=== PATIENT | male | born 1955 ===

== ENCOUNTER 2020-12-28 15:24 | Inpatient (IN) | payer MEDICARE, MEDICAID, SELFPAY ==
[2020-12-28] VITALS (12 sets, daily range): BP systolic 86–117; BP diastolic 37–85; PULSE 69–88; RESP 15–22; TEMP 36.5–37.9; O2SAT 86–100; BMI 27.2; BMI 26.4
--- NOTE | ~2020-12-28 | CT_ITS ---
EXAMINATION: CT CHEST, ABDOMEN AND PELVIS WITHOUT CONTRAST CLINICAL INFORMATION: Reason for Exam Sepsis rule out source for infection COMPARISON: No pertinent prior studies are available for comparison. TECHNIQUE: Multidetector volumetric imaging was performed from the thoracic inlet through the pubic symphysis without IV contrast. Sagittal and coronal reformatted images were obtained on the technologist's workstation. This CT examination was performed using dose optimization techniques as appropriate, variously including the following: *Automated exposure control *Adjustment of mA and/or kV according to patient size (this includes techniques or standardized protocols for targeted exams where dose is matched to indication/reason for exam; i.e. extremities or head) *Use of iterative reconstruction technique DLP: 539 mGy-cm FINDINGS: CHEST: Lungs and Pleura: Bibasilar infiltrates/atelectasis is present. A 7 mm left upper lobe lung nodule is present (17:242). No other nodules are seen. No significant pleural effusions are seen. Mediastinum: The mediastinum is unremarkable. The central vascular structures are unremarkable. No hilar or mediastinal lymphadenopathy. Chest Wall/Axilla: Unremarkable ABDOMEN/PELVIS: Peritoneal Space: No significant free air or free fluid identified. Liver, Gallbladder, Biliary Tree: The liver is normal in size, shape, and attenuation. No focal hepatic lesion or biliary ductal dilatation is present. Gallbladder is markedly distended with some inflammatory changes seen around it with thickening of the anterior pararenal fascia and lateral conal facia. No calcified gallstones are seen. These findings are new when compared to the prior 08/26/2013 study and are suspicious for acute cholecystitis. Abdominal ultrasound could be performed for confirmation. Pancreas: Unremarkable Spleen: Unremarkable Adrenal Glands: Unremarkable Kidneys and Ureters: Right : Progressive renal stone disease is present with 3 stones now seen the largest in the renal pelvis measuring 0.9 cm. No hydronephrosis is present. At least one lower pole renal cyst is present. This noncontrast study is suboptimal for evaluating renal masses. The ureter appears normal. Left: 3 small punctate calcifications are present in the left kidney without hydronephrosis or masses. The left ureter normal. The perinephric hematoma seen the time of the 08/26/2013 CT scan has resolved. Bladder: Harley catheter is present in the bladder which contains a small amount of air is essentially empty. Gastrointestinal Tract: The rectum is markedly distended with stool the remainder of the colon is unremarkable. The appendix is not seen and the patient may be status post appendectomy. The small bowel are unremarkable. Abdominal Wall: No significant hernia is appreciated. Lymph Nodes: No retroperitoneal lymphadenopathy. Vascular: Calcific atherosclerotic changes present in the aorta and iliofemoral vessels without aneurysm... The IVC appears unremarkable. PELVIC VISCERA: Unremarkable OSSEUS STRUCTURES: Severe degenerative changes present throughout the spine with fusion of L2-L4, unchanged when compared to 08/26/2013. CT/CT abdomen pelvis wo con IMPRESSION: 1. Abnormally distended bladder with some inflammatory changes around it and thickening of the anterior pararenal fascia -findings are suggestive of acute cholecystitis. An ultrasound is recommended for further evaluation. 2. Nonobstructing bilateral renal calculi. 3. Marked rectal distention with stool but without perirectal inflammatory change to suggest stercoral colitis 4. Other incidental findings as described above including marked degenerative changes in the spine and right renal cyst
--- NOTE | ~2020-12-28 | US_ITS ---
EXAMINATION: US ABDOMEN LIMITED CLINICAL INFORMATION: Rule out cholecystitis. COMPARISON: None TECHNIQUE: Real-time imaging of the right upper quadrant abdominal viscera. FINDINGS: PANCREAS: Pancreas is obscured by overlying bowel gas. LIVER: The left lower liver is not well visualized. The the right lobe of liver is normal in size. The liver contour is normal. Parenchymal echogenicity is normal. No focal hepatic lesion. There is no intrahepatic biliary duct dilatation seen. GALLBLADDER: The gallbladder is distended with stones and echogenic bile present. There is mild gallbladder wall thickening measuring up to 7 mm. There is trace pericholecystic fluid. COMMON BILE DUCT: Normal in caliber measuring 0.4 cm in diameter. RIGHT KIDNEY: There is an 8 x 11 x 9 mm cyst in the lower pole of the right kidney which does not require imaging follow-up. No hydronephrosis. No renal calculi or focal parenchymal lesions. The kidney measures 10.3 cm in maximum dimension. FREE FLUID: None. US/US abdomen limited IMPRESSION: The gallbladder is distended with stones and echogenic bile present. There is mild gallbladder wall thickening measuring up to 7 mm with trace pericholecystic fluid. Findings could represent cholecystitis in the right clinical scenario.
--- NOTE | ~2020-12-28 | XR_ITS ---
EXAMINATION: XR CHEST CLINICAL INFORMATION: Hypoxia COMPARISON: 12/28/2020 TECHNIQUE: Frontal view of the chest was obtained. FINDINGS: Left internal jugular central venous catheter terminates at the confluence of the brachiocephalic veins. Bibasilar subsegmental atelectasis, more notable on the current exam. No discrete consolidation. No pneumothorax. Normal heart size and pulmonary vascularity. XR/XR chest 1V IMPRESSION: Increased bibasilar streaky airspace opacities; favor subsegmental atelectasis
--- NOTE | ~2020-12-28 | XR_ITS ---
EXAMINATION: XR CHEST CLINICAL INFORMATION: Central line placement. COMPARISON: Portable chest 01/04/2018, 12/23/2017 TECHNIQUE: Portable AP view of the chest is performed. FINDINGS: There is left internal jugular central line crossing midline with tip at confluence right brachiocephalic vein and SVC. There is no pneumothorax. There are low lung volumes. The lungs appear grossly clear. No airspace consolidation or effusion. The cardiac and hilar and mediastinal contours are stable. No acute bony abnormality. Report called to Dr. Bear in the Emergency Department at 1700 hours. XR/XR chest 1V IMPRESSION: 1. Status post left internal jugular central venous line with tip in region of confluence right brachiocephalic vein and proximal SVC. 2. No pneumothorax. Low lung volumes. Lungs grossly clear.
--- NOTE | ~2020-12-28 | CT_ITS ---
PROCEDURE: CT GUIDED ABSCESS DRAINAGE CLINICAL INFORMATION: Likely acute cholecystitis. COMPARISON: Ultrasound abdomen 12/28/2020 TECHNIQUE: Following explaining CT-guided cholecystostomy drainage with placement of catheter procedure, benefits and risk, a written consent was obtained. Patient was placed in the left lateral decubitus view, and preliminary CT imaging was obtained through the upper abdomen with markers placed. An optimal marker was selected and marked at the skin site, and the area was cleaned and draped in usual sterile manner. 1% lidocaine was injected into site. A long 5-Malian WePoweh catheter was advanced through a small skin incision into the liver and through the liver into the gallbladder under fluoroscopy. After observing needle position within the gallbladder, the stylet was withdrawn and a small 0.035 J-wire was advanced over the catheter into the gallbladder. The catheter was withdrawn and an 8.5-Malian APD catheter stiffener was advanced over the guidewire and placed into the gallbladder. The J-wire and the stiffener were removed, and repeat CT imaging was performed. After observing pigtail catheter in the gallbladder, the thread was pulled and a formed pigtail was formed. The catheter was connected via connecting cannula to a drainage bulb. The catheter was anchored to the skin by tape. No conscious sedation was administered. Patient was, however, monitored by our nursing. Patient tolerated procedure extremely well. This CT examination was performed using dose optimization techniques as appropriate, variously including the following: *Automated exposure control *Adjustment of mA and/or kV according to patient size (this includes techniques or standardized protocols for targeted exams where dose is matched to indication/reason for exam; i.e. extremities or head) *Use of iterative reconstruction technique DLP: 552 mGy-cm FINDINGS: On preliminary CT imaging, there is a dilated gallbladder with mild wall thickening. There is incidental finding of right renal stones noted. No caliectasis seen. CT fluoroscopy-guided transhepatic placement of cholecystostomy tube/drainage catheter. The catheter was connected to vacuum bulb via connecting cannula. There is significant drainage seen into the bulb on the CT table during the exam. Part of this bile was sent to pathology as per referring physician's orders. CT/CT guided drainage IMPRESSION: Successful CT fluoroscopy-guided percutaneous placement of cholecystostomy drainage catheter.
--- NOTE | 2020-12-28 15:45 | ECG_ITS ---
Test Reason : SEPSIS Blood Pressure : / mmHG Vent. Rate : 088 BPM Atrial Rate : 088 BPM P-R Int : 174 ms QRS Dur : 084 ms QT Int : 492 ms P-R-T Axes : 015 -08 003 degrees QTc Int : 595 ms Normal sinus rhythm Nonspecific ST and T wave abnormality Abnormal ECG When compared with ECG of 04-JAN-2018 18:14, Nonspecific T wave abnormality now evident in Anterolateral leads QT has lengthened Referred By: Vanessa Bear Electronically Signed By:ZAIDA WALKER
[2020-12-28 16:01] LABS: Basophils Absolute Auto 0.1 X10*3/uL (0.0-0.2); Basophils Percent Auto 0.3 % (0-2); Hematocrit 41.5 % (42-52); Imm Gran Abs Auto 0.26 X10*3/uL (0.00-0.03); Lymphocytes Absolute Auto 1.1 X10*3/uL (1.2-4.9); Lymphocytes Percent Auto 3.9 % (20-40); MANUAL DIFF FLAG SCAN; Mean Corpuscular HGB Conc 33.7 g/dl (31.0-36.0); Mean Corpuscular Hemoglobin 32.6 pg (27.0-33.0); Mean Corpuscular Volume 96.7 fL (80-98); Mean Platelet Volume 10.1 fL (9.4-12.4); Monocytes Absolute Auto 1.9 X10*3/uL (0.1-1.2); Monocytes Percent Auto 6.8 % (2-11); Platelet Count 243 X10*3/uL (160-400); Red Blood Count 4.29 X10*6/uL (4.60-5.80); Red Cell Distribution Width 13.2 % (11.0-16.0); SCAN SMEAR FLAG 1; White Blood Count 27.3 X10*3/uL (4.8-10.8)
[2020-12-28] MEDS: 0.9 % Sodium Chloride 1,000 ML 999 ML IVCONT (16:02)
--- NOTE | 2020-12-28 16:02 | PC.NURSE ---
1556 ekg seen and signed by md tierney.
[2020-12-28 16:22] LABS: INTERNATIONAL NORM RATIO 1.3 (0.9-1.1); Lactic Acid 1.4 mmol/L (0.5-2.0); Prothrombin Time 15.4 SEC (9.9-13.0); SLIDE REVIEW VERIFIED
[2020-12-28 16:27] LABS: COVID-19 Test Negative (Negative)
[2020-12-28 16:30] LABS: B Type Natriuretic Peptide 88 pg/mL (<100); Troponin-I High Sensitivity 6.9 ng/L (<3.5-35.0)
[2020-12-28 16:33] LABS: Alanine Aminotransferase 7 U/L (0-40); Albumin Level 3.4 g/dL (3.5-5.0); Alkaline Phosphatase 99 U/L (39-117); Anion Gap 13 (12-20); Aspartate Amino Transferase 14 U/L (5-37); Bilirubin Direct 0.3 mg/dL (0.0-0.5); Bilirubin Total 0.6 mg/dL (0.0-1.0); Blood Urea Nitrogen 23 mg/dL (9-16); Calcium 8.9 mg/dL (8.4-10.2); Carbon Dioxide 21 mmol/L (22-29); Chloride 110 mmol/L (96-108); Estimated Glomerular Filt Rate > 60; Glucose Random 114 mg/dL (60-115); Lipase < 4 U/L (8-78); Potassium 3.9 mmol/L (3.3-5.1); Sodium 140 mmol/L (135-145); Total Protein 5.4 g/dL (6.5-8.0)
[2020-12-28 16:56] LABS: Glucose Urine UA NEG (NEG); Leukocyte Esterase Urine TRACE (NEG); Nitrite Urine NEG (NEG); PH 5.5 (5.0-8.0); Specific Gravity - Urine 1.025 (1.005-1.025); UACC Culture Trigger YES; Urine Blood 3+ (NEG); Urine Ketones NEG (NEG); Urine Protein 1+ MG/DL (NEG-TRACE)
[2020-12-28 16:56] LABS: OBS Int Ctl Valid YES; OBS1 NEGATIVE (NEGATIVE)
--- NOTE | 2020-12-28 16:58 | ED.GENADULT ---
HPI - General Adult General Chief complaint: General Medical Stated complaint: FEVER, HYPOTENSION, AMS Time Seen by Provider: 12/28/20 15:35 Source: EMS Mode of arrival: EMS Limitations: no limitations History of Present Illness HPI narrative: Patient is brought to the emergency room by EMS, according to [facility] staff the patient has been hypotensive, lethargic, spiking fever. Per EMS, at baseline patient is able to respond to his name, however today he has not been able to do so. Patient looks less responsive than usual. On arrival to the emergency room, patient has a rectal temperature of 100.2 blood pressure initially 90 but quickly dropped to 85. Per patient's records from [facility] he is a DNR DNI, there is no MOLST form. Also, according to the [facility] records, patient has history of CHF, but according to our records patient does not seem to have CHF Related Data Allergies Allergy/AdvReac Type Severity Reaction Status Date / Time Penicillins [PENICILLINS] Allergy Severe Anaphylaxis Unverified 12/28/20 17:05 cefotetan [From CEFOTAN] Allergy Unknown UNKNOWN Unverified 02/18/20 16:05 Cephalosporins Allergy Unknown UNKNOWN Unverified 02/18/20 16:05 [CEPHALOSPORINS] clindamycin [CLINDAMYCIN] Allergy Unknown UNKNOWN Unverified 02/18/20 16:05 levofloxacin [LEVOFLOXACIN] Allergy Unknown UNKNOWN Unverified 02/18/20 16:05 Quinolones [QUINOLONES] Allergy Unknown UNKNOWN Unverified 02/18/20 16:05 From CEFOTAN Allergy Unknown UNKNOWN Uncoded 02/18/20 16:05 Review of Systems Review of Systems: Yes Unobtainable due to mental condition [facility] Past Medical History Medical History (Updated 12/28/20 @ 17:06 by Vanessa Bear MD) Feeding by G-tube Seizures TBI (traumatic brain injury) Social History Social History Alcohol intake: unknown Smoked in Last 30 Days: No Use of substances other than those prescribed or required for medical reasons: Unknown Advance Directives: No Advance Directives Information Provided: Yes Physical Exam Vital Signs: Vital Signs: Last Vital Signs Temp 100.2 F 12/28/20 15:32 Pulse 88 12/28/20 15:32 Resp 22 H 12/28/20 15:32 BP 90/37 L 12/28/20 15:32 Pulse Ox 86 L 12/28/20 15:32 Body Mass Index 27.2 Appearance: Alert. Lethargic Eyes: Pupils equal, round and reactive to light. ENT: Dry mucous membranes Neck: Normal inspection. CVS: Normal heart rate and rhythm. Pulses normal. Normal S1 and S2 Respiratory: Coughing, no wheezing Abdomen: Soft , no rigidity. No distention. Skin: Skin warm and dry. Extremities: No lower extremity edema. No lower extremity edema. No Lacerations. No Rash Neuro: Difficult to evaluate, patient lethargic, unable to follow commands Course Course Course Narrative: All of patient's labs are pending. At this time, patient has listed several allergies to various antibiotics. We called [facility], the only know that patient has anaphylactic reaction to penicillin but they do not know the rest of the allergic reactions. I discussed the patient with Dr. Farfan and Dr. Stephens, we will go ahead and treat the patient empirically with meropenem. At this time, we do not know if the patient has CHF. Dr. Morin will do a beside echocardiogram, then we will determine the patient's cardiac function and whether he can take more fluids. Pt's BP dropped to 85 systolic. Sign out given to Dr. Farfan. Dr. Stephens at bedside, pt being admitted to the ICU Procedures Central Line Placement Left IJ: Time Out Performed: Yes Patient Placed on Monitor/Pulse Ox: Yes MD Prep: mask, gown, gloves and other Central Line Prep: Povidone-Iodine 1% Local Anesthetic: lidocaine 1% Amount of anesthesia used (mL): 5 Ultrasound Used for Placement: Yes Central Line Lumen Inserted: triple Post Procedure: sutured in place, good blood return, all ports aspirated, flushed, capped and sterile dressing applied Post Procedure X-Ray: other (left internal jugular central venous line with tip in region of confluence right brachiocephalic vein and proximal SVC) Patient Tolerated Procedure: well Complications: none Medical Decision Making Lab Data Result diagrams: 12/28/20 15:55 12/28/20 15:55 Labs: Lab Results 12/28/20 12/28/20 12/28/20 Range/Units 15:54 15:55 15:55 WBC 27.3 H (4.8-10.8) X10*3/uL RBC 4.29 L (4.60-5.80) X10*6/uL Hgb 14.0 (14.0-18.0) g/dl Hct 41.5 L (42-52) % MCV 96.7 (80-98) fL MCH 32.6 (27.0-33.0) pg MCHC 33.7 (31.0-36.0) g/dl RDW 13.2 (11.0-16.0) % Plt Count 243 (160-400) X10*3/uL MPV 10.1 (9.4-12.4) fL Immature Gran % (Auto) 1.0 H (0.0-0.4) % Neut % (Auto) 88.0 H (45-73) % Lymph % (Auto) 3.9 L (20-40) % [place] % (Auto) 6.8 (2-11) % Eos % (Auto) 0.0 (0-4) % Baso % (Auto) 0.3 (0-2) % Lymph # (Auto) 1.1 L (1.2-4.9) X10*3/uL [place] # (Auto) 1.9 H (0.1-1.2) X10*3/uL Eos # (Auto) 0.0 (0.0-0.4) X10*3/uL Baso # (Auto) 0.1 (0.0-0.2) X10*3/uL Abs Immat Gran (auto) 0.26 H (0.00-0.03) X10*3/uL Absolute Neuts (auto) 24.0 H (2.0-8.3) X10*3/uL Absolute Nucleated RBC 0.000 (0.0-0.012) X10*3/uL Nucleated RBC % (auto) 0.0 (0.0-0.2) /100WBC Smear Tech's Comments VERIFIED PT 15.4 H (9.9-13.0) SEC INR 1.3 H (0.9-1.1) Sodium (135-145) mmol/L Potassium (3.3-5.1) mmol/L Chloride (96-108) mmol/L Carbon Dioxide (22-29) mmol/L Anion Gap (12-20) BUN (9-16) mg/dL Creatinine (0.5-1.4) mg/dL Estim Creat Clear Calc Estimated GFR Random Glucose (60-115) mg/dL Lactic Acid (0.5-2.0) mmol/L Calcium (8.4-10.2) mg/dL Total Bilirubin (0.0-1.0) mg/dL Direct Bilirubin (0.0-0.5) mg/dL AST (5-37) U/L ALT (0-40) U/L Alkaline Phosphatase (39-117) U/L Troponin I High Sens (<3.5-35.0) ng/L B-Natriuretic Peptide (<100) pg/mL Total Protein (6.5-8.0) g/dL Albumin (3.5-5.0) g/dL Lipase (8-78) U/L Stool Occult Blood (NEGATIVE) COVID-19 ([place]) Negative (Negative) COVID-19 Clin Com See Note 12/28/20 12/28/20 12/28/20 Range/Units 15:55 15:55 15:55 WBC (4.8-10.8) X10*3/uL RBC (4.60-5.80) X10*6/uL Hgb (14.0-18.0) g/dl Hct (42-52) % MCV (80-98) fL MCH (27.0-33.0) pg MCHC (31.0-36.0) g/dl RDW (11.0-16.0) % Plt Count (160-400) X10*3/uL MPV (9.4-12.4) fL Immature Gran % (Auto) (0.0-0.4) % Neut % (Auto) (45-73) % Lymph % (Auto) (20-40) % [place] % (Auto) (2-11) % Eos % (Auto) (0-4) % Baso % (Auto) (0-2) % Lymph # (Auto) (1.2-4.9) X10*3/uL [place] # (Auto) (0.1-1.2) X10*3/uL Eos # (Auto) (0.0-0.4) X10*3/uL Baso # (Auto) (0.0-0.2) X10*3/uL Abs Immat Gran (auto) (0.00-0.03) X10*3/uL Absolute Neuts (auto) (2.0-8.3) X10*3/uL Absolute Nucleated RBC (0.0-0.012) X10*3/uL Nucleated RBC % (auto) (0.0-0.2) /100WBC Smear Tech's Comments PT (9.9-13.0) SEC INR (0.9-1.1) Sodium 140 (135-145) mmol/L Potassium 3.9 (3.3-5.1) mmol/L Chloride 110 H (96-108) mmol/L Carbon Dioxide 21 L (22-29) mmol/L Anion Gap 13 (12-20) BUN 23 H (9-16) mg/dL Creatinine 1.04 (0.5-1.4) mg/dL Estim Creat Clear Calc 75.0 Estimated GFR > 60 Random Glucose 114 (60-115) mg/dL Lactic Acid 1.4 (0.5-2.0) mmol/L Calcium 8.9 (8.4-10.2) mg/dL Total Bilirubin 0.6 (0.0-1.0) mg/dL Direct Bilirubin 0.3 (0.0-0.5) mg/dL AST 14 (5-37) U/L ALT 7 (0-40) U/L Alkaline Phosphatase 99 (39-117) U/L Troponin I High Sens 6.9 (<3.5-35.0) ng/L B-Natriuretic Peptide 88 (<100) pg/mL Total Protein 5.4 L (6.5-8.0) g/dL Albumin 3.4 L (3.5-5.0) g/dL Lipase < 4 L (8-78) U/L Stool Occult Blood (NEGATIVE) COVID-19 ([place]) (Negative) COVID-19 Clin Com 12/28/20 Range/Units 16:15 WBC (4.8-10.8) X10*3/uL RBC (4.60-5.80) X10*6/uL Hgb (14.0-18.0) g/dl Hct (42-52) % MCV (80-98) fL MCH (27.0-33.0) pg MCHC (31.0-36.0) g/dl RDW (11.0-16.0) % Plt Count (160-400) X10*3/uL MPV (9.4-12.4) fL Immature Gran % (Auto) (0.0-0.4) % Neut % (Auto) (45-73) % Lymph % (Auto) (20-40) % [place] % (Auto) (2-11) % Eos % (Auto) (0-4) % Baso % (Auto) (0-2) % Lymph # (Auto) (1.2-4.9) X10*3/uL [place] # (Auto) (0.1-1.2) X10*3/uL Eos # (Auto) (0.0-0.4) X10*3/uL Baso # (Auto) (0.0-0.2) X10*3/uL Abs Immat Gran (auto) (0.00-0.03) X10*3/uL Absolute Neuts (auto) (2.0-8.3) X10*3/uL Absolute Nucleated RBC (0.0-0.012) X10*3/uL Nucleated RBC % (auto) (0.0-0.2) /100WBC Smear Tech's Comments PT (9.9-13.0) SEC INR (0.9-1.1) Sodium (135-145) mmol/L Potassium (3.3-5.1) mmol/L Chloride (96-108) mmol/L Carbon Dioxide (22-29) mmol/L Anion Gap (12-20) BUN (9-16) mg/dL Creatinine (0.5-1.4) mg/dL Estim Creat Clear Calc Estimated GFR Random Glucose (60-115) mg/dL Lactic Acid (0.5-2.0) mmol/L Calcium (8.4-10.2) mg/dL Total Bilirubin (0.0-1.0) mg/dL Direct Bilirubin (0.0-0.5) mg/dL AST (5-37) U/L ALT (0-40) U/L Alkaline Phosphatase (39-117) U/L Troponin I High Sens (<3.5-35.0) ng/L B-Natriuretic Peptide (<100) pg/mL Total Protein (6.5-8.0) g/dL Albumin (3.5-5.0) g/dL Lipase (8-78) U/L Stool Occult Blood NEGATIVE (NEGATIVE) COVID-19 ([place]) (Negative) COVID-19 Clin Com Critical Care Time Critical Care Time Total Critical Care Time: 90
[2020-12-28 16:59] LABS: Appearance Urine HAZY; Color Urine AMBER
--- NOTE | 2020-12-28 17:02 | PC.NURSE ---
Per sister igor [phone], can only confirm anaphytlaxis to pcn. but was treated for pneumonia recently with antibiotics.
[2020-12-28 17:08] LABS: Bacteria Urine 1+ /LPF; Squamous Epithelial Cell Urine 1+ /LPF
--- NOTE | 2020-12-28 17:09 | PC.NURSE ---
ok to start norepi through 18
--- NOTE | 2020-12-28 17:20 | PC.NURSE ---
Addendum entered by May Van 12/28/20 17:22: Pre norepi VS: HR 76 BP 87/46 RR16 SPO2 98% @2LPM via NC TEMP 98.2 Original Note: current weight 86.3kg Norepi began at 1715 on 12/28
--- NOTE | 2020-12-28 17:23 | PC.NURSE ---
Per ICU md- okay to use central at this time.
--- NOTE | 2020-12-28 17:23 | PC.NURSE ---
Norepi switched to central line at this time.
--- NOTE | 2020-12-28 17:41 | PHA.MEDREC ---
Pharmacy Consult ? Medication Reconciliation Pharmacy has completed the medication reconciliation. There are no remarkable issues for provider's attention. Home list [facility] [place]. Katya Martinez, ValentinD
[2020-12-28] MEDS: 0.9 % Sodium Chloride 1,000 ML 100 ML IVCONT (17:45)
--- NOTE | 2020-12-28 17:48 | PM.CCHP ---
History of Present Illness Date of Service: 12/28/20 Chief Complaint: Altered mental status/hypotension/low-grade temperature 65-year-old male in [facility] who has had traumatic brain injury history of dysphagia questionable background history of CHF also has a history of lupus anticoagulant but he is not on anticoagulation and is no documentation of a medical hypercoagulable episode and has multiple allergies including beta lactam and quinolones who presents with hypotension now status post 1.5 L of IV infusion and on maintenance IV fluid but requiring Levophed is responding to touch but of course unable to communicate has a central line in his left internal jugular vein with the tip him across the midline right at the junction of the right subclavian vein and superior vena cava chest x-ray appears to be clear and his abdomen appears to be soft and benign with good bowel sounds no masses no organomegaly and no apparent skin lesions Is bedside echo shows all 4 chambers normal size with 60% left ventricular ejection fraction and no primary valve or pericardial disease and his labs indicate elevated white count with left shift no apparent source no not from urine not in his chest so we will get CT scans of his abdomen and chest to search for source and we will cover him with empiric g of meropenem and vancomycin He also has a background history of seizures on Topamax and lung Lamictal but he is going to be unable to take oral medications and at this point until we evaluate his swallow capability so I may have to use IV Keppra for the time being and withhold his other oral medications I reviewed the CT scan of his chest which was negative so there was no aspiration pneumonitis but he had a distended interventional radiology will be called for percutaneous drainage Review of Systems Review of Systems: Due to patient's chronic and acute mental status unable to take a complete review of systems [facility] Past Medical History Medical History Feeding by G-tube Seizures TBI (traumatic brain injury) Social History Social History Household Members: None Housing: Retirement Do you presently have visiting nurse or other home services: No Unable to assess alcohol history related to: Unable to respond Alcohol intake: unknown Patient Tobacco Use Status: Tobacco use Unknown Smoked in Last 30 Days: No Use of substances other than those prescribed or required for medical reasons: Unknown Currently Displaying Signs/Symptoms of Drug Intoxication Withdrawal: No Advance Directives: No Advance Directives Information Provided: Yes Do you have thoughts of harming others: None Do you have a plan to hurt others: No Plan Recently lost weight without trying: Unsure Nutrition Risks: Difficulty swallowing Meds Allergies Allergy/AdvReac Type Severity Reaction Status Date / Time Penicillins [PENICILLINS] Allergy Severe Anaphylaxis Verified 12/29/20 03:10 cefotetan [From CEFOTAN] Allergy Unknown UNKNOWN Verified 12/29/20 03:10 Cephalosporins Allergy Unknown UNKNOWN Verified 12/29/20 03:10 [CEPHALOSPORINS] clindamycin [CLINDAMYCIN] Allergy Unknown UNKNOWN Verified 12/29/20 03:10 levofloxacin [LEVOFLOXACIN] Allergy Unknown UNKNOWN Verified 12/29/20 03:10 Quinolones [QUINOLONES] Allergy Unknown UNKNOWN Verified 12/29/20 03:10 From CEFOTAN Allergy Unknown UNKNOWN Uncoded 02/18/20 16:05 Active Medications: Current Medications Generic Name Dose Route Start Last Admin Trade Name Freq PRN Reason Stop Dose Admin Famotidine 20 mg 12/28/20 21:00 Famotidine/Pf 20 Mg/2 Ml Vial IVPUSH BID ANDREW Norepinephrine Bitartrate 8 mg in 250 mls @ 0 mls/hr 12/28/20 16:15 Levophed IVCONT .Q0M ANDREW Protocol Per Protocol Meropenem 1 gm/ Sodium 100 mls @ 100 mls/hr 12/28/20 18:00 Chloride IV Q8H ANDREW Sodium Chloride 1,000 mls @ 100 mls/hr 12/28/20 17:30 Ns IVCONT .Q10H ANDREW Vancomycin HCl 1,000 mg/ 270 mls @ 270 mls/hr 12/28/20 17:30 Sodium Chloride IV 12/28/20 18:29 ONCE STA Levetiracetam 500 mg in 100 mls @ 400 mls/hr 12/28/20 17:46 Keppra IV 12/28/20 18:00 ONCE ONE Pharmacy Consult 1 each 12/28/20 17:19 Consult Rx Perform Med Rec MISCELLANE ONCE PRN Consult order Home Medications Medication Instructions Recorded Confirmed Last Taken Type artificial tears solution eye drops 1 drp OPHTHALMIC (EYE) TID 12/28/20 12/28/20 Unknown History carboxymethylcellulose sodium 0.5 1 drp OPHTHALMIC (EYE) BID PRN 12/28/20 12/28/20 Unknown History % eye drops (Refresh Tears) clobazam 10 mg tablet 15 mg PO DAILY 12/28/20 12/28/20 Unknown History dimethicone 5 % topical cream 1 appl TOPICAL BID 12/28/20 12/28/20 Unknown History (Secura Dimethicone) docusate sodium 100 mg tablet 100 mg PO DAILY 12/28/20 12/28/20 Unknown History ferrous sulfate 325 mg (65 mg 325 mg PO DAILY 12/28/20 12/28/20 Unknown History iron) tablet furosemide 20 mg tablet 20 tab PO DAILY 12/28/20 12/28/20 Unknown History gabapentin 600 mg tablet 600 mg PO TID 12/28/20 12/28/20 Unknown History gemfibrozil 600 mg tablet 600 mg PO BID 12/28/20 12/28/20 Unknown History lactulose 10 gram/15 mL oral 30 ml PO BEDTIME 12/28/20 12/28/20 Unknown History solution lamotrigine 100 mg tablet 100 mg PO BID 12/28/20 12/28/20 Unknown History lamotrigine 150 mg tablet 150 mg PO BID 12/28/20 12/28/20 Unknown History lamotrigine 25 mg tablet 25 mg PO BID 12/28/20 12/28/20 Unknown History lorazepam 2 mg/mL injection 1 mg Q20M PRN 12/28/20 12/28/20 Unknown History solution magnesium oxide 400 mg PO DAILY 12/28/20 12/28/20 Unknown History multivitamin 1 tab PO DAILY 12/28/20 12/28/20 Unknown History nystatin 100,000 unit/gram topical 1 appl TOPICAL BID 12/28/20 12/28/20 Unknown History powder omeprazole 20 mg tablet,delayed 20 mg PO DAILY 12/28/20 12/28/20 Unknown History release risperidone 0.25 mg tablet 0.25 mg PO BEDTIME 12/28/20 12/28/20 Unknown History sennosides 8.6 mg tablet (senna) 17.2 mg PO BEDTIME 12/28/20 12/28/20 Unknown History topiramate 100 mg tablet 100 mg PO BID 12/28/20 12/28/20 Unknown History topiramate 200 mg tablet 200 mg PO BID 12/28/20 12/28/20 Unknown History topiramate 25 mg tablet 25 mg PO BID 12/28/20 12/28/20 Unknown History Physical Exam Vital Signs: Vital Signs: Last Vital Signs Temp 98.2 F 12/28/20 17:26 Pulse 76 12/28/20 17:26 Resp 18 12/28/20 17:26 BP 91/47 L 12/28/20 17:26 Pulse Ox 99 12/28/20 17:26 Body Mass Index 27.2 On exam he was arousable to touch but very agitated and combative but nonfocal otherwise neurologically Neck veins were flat and he had good bilateral carotid upstrokes Chest clear with no adventitious sounds Skin intact with no breakdown no cellulitis no livedo Abdomen difficult to evaluate but due to agitation but no palpable mass or organomegaly Cardiac exam no gallops or murmurs and bedside echo shows normal LV and RV function with no primary valve or pericardial disease Results Labs CBC and Chem 7: 12/29/20 05:30 12/29/20 05:30 Labs: Laboratory Results - last 24 hr 12/28/20 12/28/20 12/28/20 15:54 15:55 15:55 MCV 96.7 MCH 32.6 MCHC 33.7 RDW 13.2 Plt Count 243 MPV 10.1 Immature Gran % (Auto) 1.0 H Neut % (Auto) 88.0 H Lymph % (Auto) 3.9 L [place] % (Auto) 6.8 Eos % (Auto) 0.0 Baso % (Auto) 0.3 Lymph # (Auto) 1.1 L [place] # (Auto) 1.9 H Eos # (Auto) 0.0 Baso # (Auto) 0.1 Abs Immat Gran (auto) 0.26 H Absolute Neuts (auto) 24.0 H Absolute Nucleated RBC 0.000 Nucleated RBC % (auto) 0.0 Smear Tech's Comments VERIFIED PT 15.4 H INR 1.3 H Anion Gap Estim Creat Clear Calc Estimated GFR Random Glucose Lactic Acid Calcium Total Bilirubin Direct Bilirubin AST ALT Alkaline Phosphatase Troponin I High Sens B-Natriuretic Peptide Total Protein Albumin Lipase Urine Color Urine Appearance Urine pH Ur Specific [place] Urine Protein Urine Glucose (UA) Urine Ketones Urine Blood Urine Nitrite Ur Leukocyte Esterase Urine RBC Urine WBC Ur Squamous Epith Cells Urine Bacteria Stool Occult Blood COVID-19 ([place]) Negative COVID-19 Clin Com See Note 12/28/20 12/28/20 12/28/20 15:55 15:55 15:55 MCV MCH MCHC RDW Plt Count MPV Immature Gran % (Auto) Neut % (Auto) Lymph % (Auto) [place] % (Auto) Eos % (Auto) Baso % (Auto) Lymph # (Auto) [place] # (Auto) Eos # (Auto) Baso # (Auto) Abs Immat Gran (auto) Absolute Neuts (auto) Absolute Nucleated RBC Nucleated RBC % (auto) Smear Tech's Comments PT INR Anion Gap 13 Estim Creat Clear Calc 75.0 Estimated GFR > 60 Random Glucose 114 Lactic Acid 1.4 Calcium 8.9 Total Bilirubin 0.6 Direct Bilirubin 0.3 AST 14 ALT 7 Alkaline Phosphatase 99 Troponin I High Sens 6.9 B-Natriuretic Peptide 88 Total Protein 5.4 L Albumin 3.4 L Lipase < 4 L Urine Color Urine Appearance Urine pH Ur Specific [place] Urine Protein Urine Glucose (UA) Urine Ketones Urine Blood Urine Nitrite Ur Leukocyte Esterase Urine RBC Urine WBC Ur Squamous Epith Cells Urine Bacteria Stool Occult Blood COVID-19 ([place]) COVID-19 [employer] Com 12/28/20 12/28/20 16:13 16:15 MCV MCH MCHC RDW Plt Count MPV Immature Gran % (Auto) Neut % (Auto) Lymph % (Auto) [place] % (Auto) Eos % (Auto) Baso % (Auto) Lymph # (Auto) [place] # (Auto) Eos # (Auto) Baso # (Auto) Abs Immat Gran (auto) Absolute Neuts (auto) Absolute Nucleated RBC Nucleated RBC % (auto) Smear Tech's Comments PT INR Anion Gap Estim Creat Clear Calc Estimated GFR Random Glucose Lactic Acid Calcium Total Bilirubin Direct Bilirubin AST ALT Alkaline Phosphatase Troponin I High Sens B-Natriuretic Peptide Total Protein Albumin Lipase Urine Color SHIREEN Urine Appearance HAZY Urine pH 5.5 Ur Specific [place] 1.025 Urine Protein 1+ H Urine Glucose (UA) NEG Urine Ketones NEG Urine Blood 3+ H Urine Nitrite NEG Ur Leukocyte Esterase TRACE H Urine RBC 15-29 H Urine WBC 1-4 Ur Squamous Epith Cells 1+ Urine Bacteria 1+ Stool Occult Blood NEGATIVE COVID-19 ([place]) COVID-19 Clin Com Imaging Radiologist's Impressions: Impressions Chest X-Ray 12/28/20 16:46 IMPRESSION: 1. Status post left internal jugular central venous line with tip in region of confluence right brachiocephalic vein and proximal SVC. 2. No pneumothorax. Low lung volumes. Lungs grossly clear. Assessment and Plan (1) Acute cholecystitis due to biliary calculus: Status: Acute (2) Sepsis: Status: Acute (3) Acute hypotension: Status: Acute So the plan was to review films with Interventional Radiology in the morning for percutaneous drainage and will have to speak to his guardian for consent in the interim meropenem and vancomycin empiric coverage and if interventional radiology agrees that this is entirely cholecystitis we will then discontinue the vancomycin
--- NOTE | 2020-12-28 17:49 | PC.NURSE ---
Norpi increased to 0.07mcg/kg/min VS HR74, BP 88/50 MAP70
--- NOTE | 2020-12-28 18:30 | PC.NURSE ---
Bedside report given to internet marketing coordinator. No questions regarding ed managagement.
--- NOTE | 2020-12-28 18:33 | PC.NURSE ---
Late entry: antibiotics delayed due to patient allergies.
--- NOTE | 2020-12-28 18:50 | PC.NURSE ---
Patient arrived to the unit around 18:25. Patient calm and cooperative. Question nonverbal at baseline. Transported by PANEL EDGE PAINTER. Levophed drip running. Titrated up on arrival for BP of 86/39. 1g IV Meropenem infused by the time patient arrived to the unit. IV Vanco pulled in ER but not given by PANEL EDGE PAINTER, administered by this RN as well as IV Keppra. Patient settled in. Report given to oncoming night RN.
[2020-12-28] MEDS: levETIRAcetam in NaCl (iso-os) 500 MG/100 ML PIGGYBACK 400 MG IV (18:54)
[2020-12-28] MEDS: vancomycin HCL 1,000 MG in 0.9 % Sodium Chloride 250 ML 270 MG IV (18:54)
[2020-12-28] MEDS: Famotidine/PF 20 MG/2 ML VIAL IVPUSH (22:00)
[2020-12-29] VITALS (27 sets, daily range): BP systolic 78–135; BP diastolic 40–91; PULSE 63–108; RESP 13–27; TEMP 37.5–38.2; O2SAT 89–100; BMI 25.9
[2020-12-29] MEDS: 0.9 % Sodium Chloride 1,000 ML 100 ML IVCONT (03:17)
[2020-12-29 05:47] LABS: Basophils Absolute Auto 0.1 X10*3/uL (0.0-0.2); Basophils Percent Auto 0.2 % (0-2); Eosinophils Absolute Auto 0.1 X10*3/uL (0.0-0.4); Eosinophils Percent Auto 0.3 % (0-4); Hematocrit 37.2 % (42-52); Hemoglobin 12.6 g/dl (14.0-18.0); Imm Gran Abs Auto 0.59 X10*3/uL (0.00-0.03); Lymphocytes Absolute Auto 0.6 X10*3/uL (1.2-4.9); Lymphocytes Percent Auto 2.1 % (20-40); MANUAL DIFF FLAG SCAN; Mean Corpuscular HGB Conc 33.9 g/dl (31.0-36.0); Mean Corpuscular Hemoglobin 32.8 pg (27.0-33.0); Mean Corpuscular Volume 96.9 fL (80-98); Mean Platelet Volume 9.8 fL (9.4-12.4); Monocytes Absolute Auto 1.7 X10*3/uL (0.1-1.2); Monocytes Percent Auto 5.8 % (2-11); Neutrophils Absolute Auto 26.3 X10*3/uL (2.0-8.3); Neutrophils Percent Auto 89.6 % (45-73); Platelet Count 233 X10*3/uL (160-400); Red Blood Count 3.84 X10*6/uL (4.60-5.80); Red Cell Distribution Width 13.2 % (11.0-16.0); SCAN SMEAR FLAG 1; White Blood Count 29.3 X10*3/uL (4.8-10.8)
[2020-12-29 05:53] LABS: SLIDE REVIEW VERIFIED
[2020-12-29 05:54] LABS: INTERNATIONAL NORM RATIO 1.3 (0.9-1.1); Prothrombin Time 15.2 SEC (9.9-13.0)
[2020-12-29 05:57] LABS: Partial Thromboplastin Time 59.1 SEC (24.1-38.0)
[2020-12-29 06:14] LABS: Alanine Aminotransferase 11 U/L (0-40); Alkaline Phosphatase 97 U/L (39-117); Aspartate Amino Transferase 15 U/L (5-37); Bilirubin Direct 0.3 mg/dL (0.0-0.5); Bilirubin Total 0.6 mg/dL (0.0-1.0); Total Protein 4.8 g/dL (6.5-8.0)
[2020-12-29 06:18] LABS: Anion Gap 11 (12-20); Blood Urea Nitrogen 17 mg/dL (9-16); Calcium 8.2 mg/dL (8.4-10.2); Carbon Dioxide 19 mmol/L (22-29); Chloride 115 mmol/L (96-108); Creatinine Clr Calc Pharmacy 123.9; Estimated Glomerular Filt Rate > 60; Glucose Random 107 mg/dL (60-115); Potassium 3.2 mmol/L (3.3-5.1); Sodium 142 mmol/L (135-145)
--- NOTE | 2020-12-29 06:35 | PC.NURSE ---
Patient alert, unable to assess orientation.Speech garbled. VSS, Levophed drip infusing at 0.16 mcg/kg/min. BP low 100's systolic. O2 sats 98% on 2L nc. Patient desating to the upper 80's overnight. Attempted to deep suction, minimal secretions. Indwelling [place] draining tea colored urine. NSR on telemetry. No edema noted.TLC to left IJ / dressing intact. Patient NPO , Gtube LUQ. Abdomen distended,+ BS x 4, BM x3 overnight . LS coarse throughout, unable to articulate secretions. Skin intact Patient resting comfortably , calm and slept throughout the night. Seizure precautions initiated.
[2020-12-29] MEDS: vancomycin HCL 1,000 MG in 0.9 % Sodium Chloride 250 ML 270 MG IV (07:11)
[2020-12-29] MEDS: Famotidine/PF 20 MG/2 ML VIAL IVPUSH ×2 (07:13→20:42)
--- NOTE | 2020-12-29 07:59 | PM.CNGS ---
History of Present Illness Consult details Consult date: 12/29/20 Narrative: 65-year-old male patient admitted to the ICU due to hypertension found at nursing facility to have altered mental status and low-grade temperature. Patient has a history of traumatic brain injury with seizures and dysphagia. He is status post gastrostomy tube placement. He presented to the emergency department and found to be septic. He was given IV fluids and started on IV antibiotics. Ejection fraction was determined to be 60% and he was subsequently started on [place] [address]. [place] of the abdomen and pelvis revealed a markedly enlarged gallbladder with some wall thickening suggestive of acute cholecystitis. This was later confirmed on ultrasound which revealed thickened gallbladder wall with gallstones. Findings are consistent with acute cholecystitis. Review of Systems Review of Systems: Yes Unobtainable due to mental status PMFSH Past Medical History Medical History Feeding by G-tube Seizures TBI (traumatic brain injury) Social History Social History Household Members: None Housing: Intermediate Do you presently have visiting nurse or other home services: No Unable to assess alcohol history related to: Unable to respond Alcohol intake: unknown Patient Tobacco Use Status: Tobacco use Unknown Smoked in Last 30 Days: No Use of substances other than those prescribed or required for medical reasons: Unknown Currently Displaying Signs/Symptoms of Drug Intoxication Withdrawal: No Advance Directives: No Advance Directives Information Provided: Yes Do you have thoughts of harming others: None Do you have a plan to hurt others: No Plan Recently lost weight without trying: Unsure Nutrition Risks: Difficulty swallowing Meds Allergies Allergy/AdvReac Type Severity Reaction Status Date / Time Penicillins [PENICILLINS] Allergy Severe Anaphylaxis Verified 12/29/20 03:10 cefotetan [From CEFOTAN] Allergy Unknown UNKNOWN Verified 12/29/20 03:10 Cephalosporins Allergy Unknown UNKNOWN Verified 12/29/20 03:10 [CEPHALOSPORINS] clindamycin [CLINDAMYCIN] Allergy Unknown UNKNOWN Verified 12/29/20 03:10 levofloxacin [LEVOFLOXACIN] Allergy Unknown UNKNOWN Verified 12/29/20 03:10 Quinolones [QUINOLONES] Allergy Unknown UNKNOWN Verified 12/29/20 03:10 From CEFOTAN Allergy Unknown UNKNOWN Uncoded 02/18/20 16:05 Active Medications: Current Medications Generic Name Dose Route Start Last Admin Trade Name Sanam PRN Reason Stop Dose Admin Famotidine 20 mg 12/28/20 21:00 12/29/20 07:13 Famotidine/Pf 20 Mg/2 Ml Vial IVPUSH 20 mg BID ANDREW Administration Norepinephrine Bitartrate 8 mg in 250 mls @ 0 mls/hr 12/28/20 16:15 12/29/20 05:45 Levophed IVCONT 0.16 mcg/kg/min .Q0M ANDREW 25.86 mls/hr Administration Protocol Per Protocol Meropenem 1 gm/ Sodium 100 mls @ 100 mls/hr 12/28/20 18:00 12/29/20 03:10 Chloride IV Infused Q8H ANDREW Infusion Sodium Chloride 1,000 mls @ 100 mls/hr 12/28/20 17:30 12/29/20 03:17 Ns IVCONT 100 mls/hr .Q10H ANDREW Administration Vancomycin HCl 1,000 mg/ 270 mls @ 270 mls/hr 12/29/20 08:00 12/29/20 07:11 Sodium Chloride IV 270 mls/hr Q12H ANDREW Administration Pharmacy Consult 1 each 12/28/20 17:19 Consult Rx Perform Med Rec MISCELLANE ONCE PRN Consult order Pharmacy Consult 1 each 12/28/20 20:42 Consult Rx Vancomycin Dosing MISCELLANE DAILY PRN Consult order Home Medications Medication Instructions Recorded Confirmed Last Taken Type artificial tears solution eye drops 1 drp OPHTHALMIC (EYE) TID 12/28/20 12/28/20 Unknown History carboxymethylcellulose sodium 0.5 1 drp OPHTHALMIC (EYE) BID PRN 12/28/20 12/28/20 Unknown History % eye drops (Refresh Tears) clobazam 10 mg tablet 15 mg PO DAILY 12/28/20 12/28/20 Unknown History dimethicone 5 % topical cream 1 appl TOPICAL BID 12/28/20 12/28/20 Unknown History (Secura Dimethicone) docusate sodium 100 mg tablet 100 mg PO DAILY 12/28/20 12/28/20 Unknown History ferrous sulfate 325 mg (65 mg 325 mg PO DAILY 12/28/20 12/28/20 Unknown History iron) tablet furosemide 20 mg tablet 20 tab PO DAILY 12/28/20 12/28/20 Unknown History gabapentin 600 mg tablet 600 mg PO TID 12/28/20 12/28/20 Unknown History gemfibrozil 600 mg tablet 600 mg PO BID 12/28/20 12/28/20 Unknown History lactulose 10 gram/15 mL oral 30 ml PO BEDTIME 12/28/20 12/28/20 Unknown History solution lamotrigine 100 mg tablet 100 mg PO BID 12/28/20 12/28/20 Unknown History lamotrigine 150 mg tablet 150 mg PO BID 12/28/20 12/28/20 Unknown History lamotrigine 25 mg tablet 25 mg PO BID 12/28/20 12/28/20 Unknown History lorazepam 2 mg/mL injection 1 mg Q20M PRN 12/28/20 12/28/20 Unknown History solution magnesium oxide 400 mg PO DAILY 12/28/20 12/28/20 Unknown History multivitamin 1 tab PO DAILY 12/28/20 12/28/20 Unknown History nystatin 100,000 unit/gram topical 1 appl TOPICAL BID 12/28/20 12/28/20 Unknown History powder omeprazole 20 mg tablet,delayed 20 mg PO DAILY 12/28/20 12/28/20 Unknown History release risperidone 0.25 mg tablet 0.25 mg PO BEDTIME 12/28/20 12/28/20 Unknown History sennosides 8.6 mg tablet (senna) 17.2 mg PO BEDTIME 12/28/20 12/28/20 Unknown History topiramate 100 mg tablet 100 mg PO BID 12/28/20 12/28/20 Unknown History topiramate 200 mg tablet 200 mg PO BID 12/28/20 12/28/20 Unknown History topiramate 25 mg tablet 25 mg PO BID 12/28/20 12/28/20 Unknown History Physical Exam Vital Signs: Vital Signs: Last Vital Signs Temp 100.6 F H 12/29/20 07:00 Pulse 75 12/29/20 07:00 Resp 19 12/29/20 07:00 BP 124/46 L 12/29/20 07:00 Pulse Ox 98 12/29/20 06:00 Body Mass Index 25.9 Const: General: no acute distress and patient obtunded Nutritional Appearance: well nourished Orientation/consciousness: patient obtunded Limitations: altered mental status Eyes: Sclerae: sclerae normal Resp: Effort & Inspection: audible wheezes and stridor Auscultation: crackles, rales and rhonchi GI: Inspection: No scar and Yes G-tube present Palpation (GI): Soft to palpation, nontender, no guarding and not rigid Percussion: Yes normal to percussion Rectal Exam - Male: Yes deferred Skin: General skin exam: no rashes or lesions noted Neuro: General: patient obtunded Results Labs Result diagrams: 12/29/20 05:30 12/29/20 05:30 Labs: Abnormal lab results 12/28/20 12/28/20 12/28/20 Range/Units 15:55 15:55 15:55 WBC 27.3 H (4.8-10.8) X10*3/uL RBC 4.29 L (4.60-5.80) X10*6/uL Hgb (14.0-18.0) g/dl Hct 41.5 L (42-52) % Immature Gran % (Auto) 1.0 H (0.0-0.4) % Neut % (Auto) 88.0 H (45-73) % Lymph % (Auto) 3.9 L (20-40) % Lymph # (Auto) 1.1 L (1.2-4.9) X10*3/uL [place] # (Auto) 1.9 H (0.1-1.2) X10*3/uL Abs Immat Gran (auto) 0.26 H (0.00-0.03) X10*3/uL Absolute Neuts (auto) 24.0 H (2.0-8.3) X10*3/uL PT 15.4 H (9.9-13.0) SEC INR 1.3 H (0.9-1.1) APTT (24.1-38.0) SEC Potassium (3.3-5.1) mmol/L Chloride 110 H (96-108) mmol/L Carbon Dioxide 21 L (22-29) mmol/L Anion Gap (12-20) BUN 23 H (9-16) mg/dL Calcium (8.4-10.2) mg/dL Phosphorus (2.7-4.5) mg/dL Total Protein 5.4 L (6.5-8.0) g/dL Albumin 3.4 L (3.5-5.0) g/dL Lipase < 4 L (8-78) U/L Urine Protein (NEG-TRACE) MG/DL Urine Blood (NEG) Ur Leukocyte Esterase (NEG) Urine RBC (0) /HPF 12/28/20 12/29/20 12/29/20 Range/Units 16:13 05:30 05:30 WBC 29.3 H (4.8-10.8) X10*3/uL RBC 3.84 L (4.60-5.80) X10*6/uL Hgb 12.6 L (14.0-18.0) g/dl Hct 37.2 L (42-52) % Immature Gran % (Auto) 2.0 H (0.0-0.4) % Neut % (Auto) 89.6 H (45-73) % Lymph % (Auto) 2.1 L (20-40) % Lymph # (Auto) 0.6 L (1.2-4.9) X10*3/uL [place] # (Auto) 1.7 H (0.1-1.2) X10*3/uL Abs Immat Gran (auto) 0.59 H (0.00-0.03) X10*3/uL Absolute Neuts (auto) 26.3 H (2.0-8.3) X10*3/uL PT 15.2 H (9.9-13.0) SEC INR 1.3 H (0.9-1.1) APTT 59.1 H (24.1-38.0) SEC Potassium (3.3-5.1) mmol/L Chloride (96-108) mmol/L Carbon Dioxide (22-29) mmol/L Anion Gap (12-20) BUN (9-16) mg/dL Calcium (8.4-10.2) mg/dL Phosphorus (2.7-4.5) mg/dL Total Protein (6.5-8.0) g/dL Albumin (3.5-5.0) g/dL Lipase (8-78) U/L Urine Protein 1+ H (NEG-TRACE) MG/DL Urine Blood 3+ H (NEG) Ur Leukocyte Esterase TRACE H (NEG) Urine RBC 15-29 H (0) /HPF 12/29/20 12/29/20 Range/Units 05:30 05:30 WBC (4.8-10.8) X10*3/uL RBC (4.60-5.80) X10*6/uL Hgb (14.0-18.0) g/dl Hct (42-52) % Immature Gran % (Auto) (0.0-0.4) % Neut % (Auto) (45-73) % Lymph % (Auto) (20-40) % Lymph # (Auto) (1.2-4.9) X10*3/uL [place] # (Auto) (0.1-1.2) X10*3/uL Abs Immat Gran (auto) (0.00-0.03) X10*3/uL Absolute Neuts (auto) (2.0-8.3) X10*3/uL PT (9.9-13.0) SEC INR (0.9-1.1) APTT (24.1-38.0) SEC Potassium 3.2 L (3.3-5.1) mmol/L Chloride 115 H (96-108) mmol/L Carbon Dioxide 19 L (22-29) mmol/L Anion Gap 11 L (12-20) BUN 17 H (9-16) mg/dL Calcium 8.2 L D (8.4-10.2) mg/dL Phosphorus 2.0 L (2.7-4.5) mg/dL Total Protein 4.8 L (6.5-8.0) g/dL Albumin 3.0 L (3.5-5.0) g/dL Lipase (8-78) U/L Urine Protein (NEG-TRACE) MG/DL Urine Blood (NEG) Ur Leukocyte Esterase (NEG) Urine RBC (0) /HPF Short CBC 12/28/20 12/29/20 Range/Units 15:55 05:30 WBC 27.3 H 29.3 H (4.8-10.8) X10*3/uL Hgb 14.0 12.6 L (14.0-18.0) g/dl Hct 41.5 L 37.2 L (42-52) % Plt Count 243 233 (160-400) X10*3/uL BMP 12/28/20 12/29/20 15:55 05:30 Sodium 140 142 Potassium 3.9 3.2 L Chloride 110 H 115 H Carbon Dioxide 21 L 19 L BUN 23 H 17 H Creatinine 1.04 0.63 Calcium 8.9 8.2 L D Liver Function 12/28/20 12/29/20 Range/Units 15:55 05:30 Total Bilirubin 0.6 0.6 (0.0-1.0) mg/dL Direct Bilirubin 0.3 0.3 (0.0-0.5) mg/dL AST 14 15 (5-37) U/L ALT 7 11 (0-40) U/L Alkaline Phosphatase 99 97 (39-117) U/L Albumin 3.4 L 3.0 L (3.5-5.0) g/dL Urine 12/28/20 Range/Units 16:13 Urine Color SHIREEN Urine Appearance HAZY Urine pH 5.5 (5.0-8.0) Ur Specific [place] 1.025 (1.005-1.025) Urine Protein 1+ H (NEG-TRACE) MG/DL Urine Glucose (UA) NEG (NEG) MG/DL All other labs normal. Imaging Abdomen CT scan report/results: image reviewed CT scan - pelvis: image reviewed Abdominal ultrasound report/results: image reviewed Assessment and Plan (1) Acute cholecystitis due to biliary calculus: Status: Acute 65-year-old male patient with underlying history of traumatic brain injury presenting with mental status changes and fever. Workup revealed a markedly elevated WBC and evidence of cholecystitis by CT and ultrasound. Patient remains on Levophed this morning. The patient is not a good operative candidate at this time and the acute cholecystitis would best be managed by a cholecystostomy tube. Once the cholecystitis has resolved, elective cholecystectomy could be entertained once stabilized. Procedures Date of Service Date of Service: 12/29/20
[2020-12-29] MEDS: KCl 20 mEq in 5% Dex/0.45% Sod 20 MEQ/1,000 ML IV.SOLN 100 MEQ IVCONT ×2 (11:25→20:59)
[2020-12-29] MEDS: HYDROmorphone HCl 1 MG/ML SYRINGE IVPUSH (11:52)
--- NOTE | 2020-12-29 13:00 | MHC.CM.PN ---
Pt admitted to ICU from [facility] where he is a LTC resident. Pt has a legal guardian, Albert Eastman at [phone]. Copy of guardianship and Advanced Directives in pt chart. Pt will return to [facility] when medically stable via BLS transport: clinical update given to [facility]
--- NOTE | 2020-12-29 13:21 | P.PNCC_ITS ---
Subjective Subjective Date of Service: 12/29/20 Critical Care Time (minutes): 45 Physical Exam Vital Signs: Vital Signs: Last Vital Signs Temp 100.6 F H 12/29/20 11:00 Pulse 108 H 12/29/20 11:00 Resp 20 12/29/20 11:00 BP 108/91 H 12/29/20 11:00 Pulse Ox 97 12/29/20 11:00 Body Mass Index 25.9 In reviewing all the data including CT scan and ultrasound interventional radiology felt that with gallbladder wall being thickened and considerably di lated gallbladder that we had enough evidence to proceed with a cholecystostomy tube which we did without complication under CT scan guidance extracting but appears to be just bilious material but cultures will be pending vancomycin is being stopped as there is no source that merits continued use and meropenem will be continued Patient was sedated for the procedure otherwise has had a normal CVP in normal sinus rhythm heart rate 90 respirations 22 good bilateral carotid upstrokes and no neck vein distension and chest clear Objective Data Labs CBC & Chem 7: 12/29/20 05:30 12/29/20 05:30 Labs: Laboratory Results - last 24 hr 12/28/20 12/28/20 12/28/20 15:54 15:55 15:55 WBC 27.3 H RBC 4.29 L Hgb 14.0 Hct 41.5 L MCV 96.7 MCH 32.6 MCHC 33.7 RDW 13.2 Plt Count 243 MPV 10.1 Immature Gran % (Auto) 1.0 H Neut % (Auto) 88.0 H Lymph % (Auto) 3.9 L Cochran % (Auto) 6.8 Eos % (Auto) 0.0 Baso % (Auto) 0.3 Lymph # (Auto) 1.1 L Cochran # (Auto) 1.9 H Eos # (Auto) 0.0 Baso # (Auto) 0.1 Abs Immat Gran (auto) 0.26 H Absolute Neuts (auto) 24.0 H Absolute Nucleated RBC 0.000 Nucleated RBC % (auto) 0.0 Smear Tech's Comments VERIFIED PT 15.4 H INR 1.3 H APTT Sodium Potassium Chloride Carbon Dioxide Anion Gap BUN Creatinine Estim Creat Clear Calc Estimated GFR Random Glucose Lactic Acid Calcium Phosphorus Magnesium Total Bilirubin Direct Bilirubin AST ALT Alkaline Phosphatase Troponin I High Sens B-Natriuretic Peptide Total Protein Albumin Lipase Urine Color Urine Appearance Urine pH Ur Specific Hooper Urine Protein Urine Glucose (UA) Urine Ketones Urine Blood Urine Nitrite Ur Leukocyte Esterase Urine RBC Urine WBC Ur Squamous Epith Cells Urine Bacteria Stool Occult Blood COVID-19 ([place]) Negative COVID-19 Clin Com See Note 12/28/20 12/28/20 12/28/20 15:55 15:55 15:55 WBC RBC Hgb Hct MCV MCH MCHC RDW Plt Count MPV Immature Gran % (Auto) Neut % (Auto) Lymph % (Auto) Cochran % (Auto) Eos % (Auto) Baso % (Auto) Lymph # (Auto) Cochran # (Auto) Eos # (Auto) Baso # (Auto) Abs Immat Gran (auto) Absolute Neuts (auto) Absolute Nucleated RBC Nucleated RBC % (auto) Smear Tech's Comments PT INR APTT Sodium 140 Potassium 3.9 Chloride 110 H Carbon Dioxide 21 L Anion Gap 13 BUN 23 H Creatinine 1.04 Estim Creat Clear Calc 75.0 Estimated GFR > 60 Random Glucose 114 Lactic Acid 1.4 Calcium 8.9 Phosphorus Magnesium Total Bilirubin 0.6 Direct Bilirubin 0.3 AST 14 ALT 7 Alkaline Phosphatase 99 Troponin I High Sens 6.9 B-Natriuretic Peptide 88 Total Protein 5.4 L Albumin 3.4 L Lipase < 4 L Urine Color Urine Appearance Urine pH Ur Specific Hooper Urine Protein Urine Glucose (UA) Urine Ketones Urine Blood Urine Nitrite Ur Leukocyte Esterase Urine RBC Urine WBC Ur Squamous Epith Cells Urine Bacteria Stool Occult Blood COVID-19 ([place]) COVID-19 Clin Com 12/28/20 12/28/20 12/29/20 16:13 16:15 05:30 WBC 29.3 H RBC 3.84 L Hgb 12.6 L Hct 37.2 L MCV 96.9 MCH 32.8 MCHC 33.9 RDW 13.2 Plt Count 233 MPV 9.8 Immature Gran % (Auto) 2.0 H Neut % (Auto) 89.6 H Lymph % (Auto) 2.1 L Cochran % (Auto) 5.8 Eos % (Auto) 0.3 Baso % (Auto) 0.2 Lymph # (Auto) 0.6 L Cochran # (Auto) 1.7 H Eos # (Auto) 0.1 Baso # (Auto) 0.1 Abs Immat Gran (auto) 0.59 H Absolute Neuts (auto) 26.3 H Absolute Nucleated RBC 0.000 Nucleated RBC % (auto) 0.0 Smear Tech's Comments VERIFIED PT INR APTT Sodium Potassium Chloride Carbon Dioxide Anion Gap BUN Creatinine Estim Creat Clear Calc Estimated GFR Random Glucose Lactic Acid Calcium Phosphorus Magnesium Total Bilirubin Direct Bilirubin AST ALT Alkaline Phosphatase Troponin I High Sens B-Natriuretic Peptide Total Protein Albumin Lipase Urine Color SHIREEN Urine Appearance HAZY Urine pH 5.5 Ur Specific Hooper 1.025 Urine Protein 1+ H Urine Glucose (UA) NEG Urine Ketones NEG Urine Blood 3+ H Urine Nitrite NEG Ur Leukocyte Esterase TRACE H Urine RBC 15-29 H Urine WBC 1-4 Ur Squamous Epith Cells 1+ Urine Bacteria 1+ Stool Occult Blood NEGATIVE COVID-19 ([place]) COVID-JumpCloud 12/29/20 12/29/20 12/29/20 05:30 05:30 05:30 WBC RBC Hgb Hct MCV MCH MCHC RDW Plt Count MPV Immature Gran % (Auto) Neut % (Auto) Lymph % (Auto) Cochran % (Auto) Eos % (Auto) Baso % (Auto) Lymph # (Auto) Cochran # (Auto) Eos # (Auto) Baso # (Auto) Abs Immat Gran (auto) Absolute Neuts (auto) Absolute Nucleated RBC Nucleated RBC % (auto) Smear Tech's Comments PT 15.2 H INR 1.3 H APTT 59.1 H Sodium 142 Potassium 3.2 L Chloride 115 H Carbon Dioxide 19 L Anion Gap 11 L BUN 17 H Creatinine 0.63 Estim Creat Clear Calc 123.9 Estimated GFR > 60 Random Glucose 107 Lactic Acid Calcium 8.2 L D Phosphorus 2.0 L Magnesium 2.0 Total Bilirubin 0.6 Direct Bilirubin 0.3 AST 15 ALT 11 Alkaline Phosphatase 97 Troponin I High Sens B-Natriuretic Peptide Total Protein 4.8 L Albumin 3.0 L Lipase Urine Color Urine Appearance Urine pH Ur Specific Hooper Urine Protein Urine Glucose (UA) Urine Ketones Urine Blood Urine Nitrite Ur Leukocyte Esterase Urine RBC Urine WBC Ur Squamous Epith Cells Urine Bacteria Stool Occult Blood COVID-19 ([place]) COVID-19 Clin Com Microbiology Microbiology Results: Microbiology 12/28/20 Unknown Urine clean catch - Clean Catch Midstream Urine Culture - Preliminary No growth to date. Quality Stroke Does the patient have a stroke diagnosis?: No VTE Prior VTE?: No VTE Risk Level:: Medical - moderate - high VTE Device Contraindication: N/A - Device Ordered VTE Drug Contraindication: Treatment Not Indicated Progress Note: A&P Assessment and plan (1) Acute cholecystitis due to biliary calculus: Status: Acute (2) Sepsis: Status: Acute (3) Acute hypotension: Status: Acute Assessment and Plan: We will now wait the results of cultures and continue meropenem and continued surveillance but for resolution of his white count and fever
[2020-12-29] MEDS: levETIRAcetam in NaCl (iso-os) 500 MG/100 ML PIGGYBACK 400 MG IV (13:42)
[2020-12-29] MEDS: Lidocaine HCl 1 % MPF 5 ML VIAL SUBCUT (13:53)
--- NOTE | 2020-12-29 13:55 | P.CDIC_ITS ---
CDI Concurrent Query Service Date: 12/29/20 Documentation Clarification: Please clarify if you are treating a proba ble/suspected/likely or confirmed: Based on the above, please further specify, in the Progress Notes, the known or suspected type of the documented encephalopathy: - Metabolic - Septic - Toxic - Toxic metabolic - Hypertensive - Anoxic - Alcoholic - Hepatic (reported as hepatic failure and needs further specificity as to acute, subacute, or chronic) - Due to a specified condition (such as UTI, hyponatremia, CVA, etc.) - Other (please specify): - Unable to determine Use of terms such as suspected, likely, concern for, or probable (associated with a specific diagnosis that is being evaluated, monitored, or treated as if it exists) are acceptable and can be coded in the inpatient setting, when documented at the time of discharge. Provider Response: Septic Encephalopathy PLEASE DO NOT DELETE/MODIFY EXISTING CONTENT Additional information is needed in order to code to the highest accuracy and appropriate Severity of Illness (SOI). Please clarify the information noted below in your progress notes and discharge summary. Risk Factors/Clinical Indicators/Treatments Altered mental status, lethargic, less responsive than usual, unable to follow commands. PMH: TBI, Seizure, Dysphagia Per H&P: Sepsis, Acute Cholecystitis due to biliary calculus, Acute Hypotension CDS: Haley Darling RN Contact Number: [phone] Please Review the information above and exercise your independent professional judgment in responding to the query. If you concur, pleas document in the PROGRESS NOTES and DISCHARGE SUMMARY. If you do not agree with the query, please document in the query above. THIS QUERY IS PART OF THE PERMANENT MEDICAL RECORD
--- NOTE | 2020-12-29 17:47 | PC.NURSE ---
Aspirated 20 ml of brown bile from Gastrostomy tube. Flushed with 100 ml of water.
[2020-12-29] MEDS: vancomycin HCL 1,250 MG in 0.9 % Sodium Chloride 250 ML 166.67 MG IV (18:37)
--- NOTE | 2020-12-29 18:59 | PM.SEPSISNOT ---
Sepsis Bolus Exclusion Sepsis Bolus Exclusion CHF/Renal Failure This patient met severe sepsis criteria due to the following condition(s):: Hypotension In my clinical judgement the administration of 30 ml/kg of crystalloid would be detrimental to this patient due to the patient's following conditions:: NYHA class III or IV Heart Failure(symptoms with low exertion or rest) Replace the 30 mls/kg with: Crystalloids amount given in mls:: 1,400 (Patient was started on norepinephrine for hypotension and maintenance fluid of normal saline 100 mL/hr) Colloids amount given in mls:: 0
[2020-12-30] VITALS (27 sets, daily range): BP systolic 80–133; BP diastolic 31–67; PULSE 71–90; RESP 14–22; TEMP 37–37.9; O2SAT 90–98; BMI 28.4
[2020-12-30] MEDS: levETIRAcetam in NaCl (iso-os) 500 MG/100 ML PIGGYBACK 400 MG IV (01:11)
[2020-12-30] MEDS: KCl 20 mEq in 5% Dex/0.45% Sod 20 MEQ/1,000 ML IV.SOLN 100 MEQ IVCONT ×2 (05:45→15:30)
[2020-12-30 06:02] LABS: MANUAL DIFF FLAG NO
[2020-12-30 06:11] LABS: Basophils Percent Auto 0.2 % (0-2); Eosinophils Percent Auto 0.1 % (0-4); Hemoglobin 11.7 g/dl (14.0-18.0); Imm Gran Abs Auto 0.11 X10*3/uL (0.00-0.03); Imm Gran Pct Auto 0.7 % (0.0-0.4); Lymphocytes Absolute Auto 1.3 X10*3/uL (1.2-4.9); Lymphocytes Percent Auto 8.7 % (20-40); Mean Corpuscular HGB Conc 33.4 g/dl (31.0-36.0); Mean Corpuscular Hemoglobin 32.2 pg (27.0-33.0); Mean Corpuscular Volume 96.4 fL (80-98); Mean Platelet Volume 10.5 fL (9.4-12.4); Monocytes Absolute Auto 1.1 X10*3/uL (0.1-1.2); Monocytes Percent Auto 7.5 % (2-11); Neutrophils Absolute Auto 12.2 X10*3/uL (2.0-8.3); Neutrophils Percent Auto 82.8 % (45-73); Platelet Count 237 X10*3/uL (160-400); Red Blood Count 3.63 X10*6/uL (4.60-5.80); Red Cell Distribution Width 13.1 % (11.0-16.0); White Blood Count 14.8 X10*3/uL (4.8-10.8)
[2020-12-30 06:22] LABS: INTERNATIONAL NORM RATIO 1.2 (0.9-1.1); Prothrombin Time 14.1 SEC (9.9-13.0)
[2020-12-30 06:35] LABS: Partial Thromboplastin Time 60.3 SEC (24.1-38.0)
[2020-12-30 06:35] LABS: Vancomycin Trough 9.5 mcg/mL (10.0-20.0)
[2020-12-30 06:41] LABS: Alanine Aminotransferase 11 U/L (0-40); Albumin Level 2.6 g/dL (3.5-5.0); Alkaline Phosphatase 89 U/L (39-117); Anion Gap 9 (12-20); Aspartate Amino Transferase 12 U/L (5-37); Bilirubin Direct 0.3 mg/dL (0.0-0.5); Bilirubin Total 0.6 mg/dL (0.0-1.0); Blood Urea Nitrogen 10 mg/dL (9-16); Calcium 8.1 mg/dL (8.4-10.2); Carbon Dioxide 19 mmol/L (22-29); Chloride 117 mmol/L (96-108); Creatinine Clr Calc Pharmacy 164.1; Estimated Glomerular Filt Rate > 60; Glucose Random 109 mg/dL (60-115); Magnesium 1.8 mg/dL (1.6-2.6); Phosphorus 1.1 mg/dL (2.7-4.5); Potassium 3.5 mmol/L (3.3-5.1); Sodium 141 mmol/L (135-145); Total Protein 4.4 g/dL (6.5-8.0)
--- NOTE | 2020-12-30 07:54 | PM.PNGS ---
Subjective Subjective Date of Service: 12/30/20 Interval history: Patient nonverbal, awake, mumbling Physical Exam Vital Signs: Vital Signs: Last Vital Signs Temp 99.7 F 12/30/20 07:00 Pulse 81 12/30/20 07:00 Resp 17 12/30/20 07:00 BP 124/61 12/30/20 07:00 Pulse Ox 95 12/30/20 07:00 Body Mass Index 28.4 Const: General: no acute distress and patient obtunded Orientation/consciousness: patient obtunded Limitations: altered mental status Resp: Effort & Inspection: normal respiratory effort Auscultation: rhonchi Cardio: Rate: regular rate Rhythm: regular rhythm GI: Other: IR drain in place, draining bilious fluid, nonpurulent. Abdomen soft and nontender. Skin: Other: Warm and dry Neuro: General: patient obtunded Procedures Date of Service Date of Service: 12/30/20 Progress Note: A&P Assessment and plan (1) Acute cholecystitis due to biliary calculus: Status: Acute Assessment and Plan: Status post IR drainage yesterday. Tube is draining bilious fluid. Appears to be functioning properly. (2) Sepsis: Status: Acute Assessment and Plan: Patient remains on Levophed. WBC improved. Gallbladder fluid cultures pending, g stain reveals 4+ Gram-positive cocci. Patient currently on meropenem and vanc. Overall patient seems improved following IR drainage. Fall Risk Details Current Medications: Current Medications Generic Name Dose Route Start Last Admin Trade Name Freq PRN Reason Stop Dose Admin Famotidine 20 mg 12/28/20 21:00 12/29/20 20:42 Famotidine/Pf 20 Mg/2 Ml Vial IVPUSH 20 mg BID ANDREW Administration Norepinephrine Bitartrate 8 mg in 250 mls @ 0 mls/hr 12/28/20 16:15 12/30/20 05:48 Levophed IVCONT 0.13 mcg/kg/min .Q0M ANDREW 21.01 mls/hr Titration Protocol Per Protocol Meropenem 1 gm/ Sodium 100 mls @ 100 mls/hr 12/28/20 18:00 12/30/20 02:07 Chloride IV Infused Q8H ANDREW Infusion Potassium Chloride/Dextrose/Sod Cl 20 meq in 1,000 mls @ 100 mls/hr 12/29/20 10:45 12/30/20 05:45 IVCONT 100 mls/hr .Q10H ANDREW Administration Levetiracetam 500 mg in 100 mls @ 400 mls/hr 12/29/20 12:00 12/30/20 01:34 Keppra IV Infused Q12H ANDREW Infusion Vancomycin HCl 1,250 mg/ 250 mls @ 166.667 mls/hr 12/29/20 19:00 12/29/20 21:17 Sodium Chloride IV Infused Q12H ANDREW Infusion Midazolam HCl 2 mg 12/29/20 11:44 Midazolam Hcl/Pf 2 Mg/2 Ml Vial IVPUSH Q15M PRN anxiety/restlessness Pharmacy Consult 1 each 12/28/20 17:19 Consult Rx Perform Med Rec MISCELLANE ONCE PRN Consult order Pharmacy Consult 1 each 12/29/20 13:34 Consult Rx Vancomycin Dosing MISCELLANE DAILY PRN Consult order Time Spent With Patient Time: Total time spent is greater than 50% in coordination of care (as documented) at patient's floor/unit and/or counseling patient: Time with patient: 15 - 24 minutes Quality Stroke Does the patient have a stroke diagnosis?: No VTE Prior VTE?: No VTE Risk Level:: Medical - moderate - high VTE Device Contraindication: N/A - Device Ordered VTE Drug Contraindication: Treatment Not Indicated
[2020-12-30] MEDS: Famotidine/PF 20 MG/2 ML VIAL IVPUSH ×2 (08:38→20:02)
[2020-12-30] MEDS: vancomycin HCL 1,250 MG in 0.9 % Sodium Chloride 250 ML 166.67 MG IV ×2 (08:38→20:01)
--- NOTE | 2020-12-30 10:23 | MHC.CLN ---
F/U PT STARTED ON JEVITY AT MAX GOAL RATE 80ML /HR WITH 240ML FREE WATER FLUSHES Q 6HRS TO PROVIDE 2035KCALS (25KCALS/KG), 85G PROTEIN (1.0G/KG), 2563ML TOTAL WATER FROM FORMULA AND FLUSHES (31ML/KG) STARTING FORMULA AT 20ML/HR AND INCREASE BY 10ML Q 4HRS UNTIL MAX GOAL IS ACHIEVED MONITOR TOLERANCE, RESIDUALS AND LYTES
[2020-12-30] MEDS: levETIRAcetam in NaCl (iso-os) 500 MG/100 ML PIGGYBACK 100 MG IV (12:08)
--- NOTE | 2020-12-30 14:14 | PC.NURSE ---
Skin assessment completed today. On admission patient has blanchable redness on buttocks and a healed/scarred medial pressure ulcer on left ankle. Dry skin on feet and in between toes. Cleaned between toes and placed small pieces of gauze to reduce moisture between toes.
--- NOTE | 2020-12-30 14:48 | PM.CCPN ---
Subjective Subjective Date of Service: 12/30/20 Interval History: 65-year-old male 24 hours status post cholecystostomy drainage with the drainage fluid growing Gram-positive cocci and the blood cultures all growing Gram-positive cocci which appears to be Staph and is white count diminished from [id number] decreased left shift no other complications and we successfully weaned off the Levophed and he currently has a is CVP of approximately 9 Critical Care Time (minutes): 45 Physical Exam Vital Signs: Vital Signs: Last Vital Signs Temp 98.8 F 12/30/20 14:00 Pulse 78 12/30/20 14:00 Resp 19 12/30/20 14:00 BP 90/31 L 12/30/20 14:00 Pulse Ox 93 12/30/20 14:00 Body Mass Index 28.4 He is awake and tracking with his eyes but not responding to us but we do not know his mental status baseline of but no longer has the that agitation He remains on the Keppra IV b.i.d. until I am secure that he is tolerating his feedings which we just initiated and so far no significant residuals and his abdomen is benign Chest with scattered bilateral coarse rales no adventitious sounds Cardiac exam in sinus rhythm CVP 9 no gallops Skin is warm and well perfused Objective Data Labs CBC & Chem 7: 12/30/20 05:43 12/30/20 05:43 Labs: Laboratory Results - last 24 hr 12/30/20 12/30/20 12/30/20 05:43 05:43 05:43 WBC 14.8 H RBC 3.63 L Hgb 11.7 L Hct 35.0 L MCV 96.4 MCH 32.2 MCHC 33.4 RDW 13.1 Plt Count 237 MPV 10.5 Immature Gran % (Auto) 0.7 H Neut % (Auto) 82.8 H Lymph % (Auto) 8.7 L Ralls % (Auto) 7.5 Eos % (Auto) 0.1 Baso % (Auto) 0.2 Lymph # (Auto) 1.3 Ralls # (Auto) 1.1 Eos # (Auto) 0.0 Baso # (Auto) 0.0 Abs Immat Gran (auto) 0.11 H Absolute Neuts (auto) 12.2 H Absolute Nucleated RBC 0.000 Nucleated RBC % (auto) 0.0 PT INR APTT Sodium 141 Potassium 3.5 Chloride 117 H Carbon Dioxide 19 L Anion Gap 9 L BUN 10 Creatinine 0.52 Estim Creat Clear Calc 164.1 Estimated GFR > 60 Random Glucose 109 Calcium 8.1 L Phosphorus 1.1 L Magnesium 1.8 Total Bilirubin 0.6 Direct Bilirubin 0.3 AST 12 ALT 11 Alkaline Phosphatase 89 Total Protein 4.4 L Albumin 2.6 L Vancomycin Trough 9.5 L 12/30/20 05:53 WBC RBC Hgb Hct MCV MCH MCHC RDW Plt Count MPV Immature Gran % (Auto) Neut % (Auto) Lymph % (Auto) Ralls % (Auto) Eos % (Auto) Baso % (Auto) Lymph # (Auto) Ralls # (Auto) Eos # (Auto) Baso # (Auto) Abs Immat Gran (auto) Absolute Neuts (auto) Absolute Nucleated RBC Nucleated RBC % (auto) PT 14.1 H INR 1.2 H APTT 60.3 H* Sodium Potassium Chloride Carbon Dioxide Anion Gap BUN Creatinine Estim Creat Clear Calc Estimated GFR Random Glucose Calcium Phosphorus Magnesium Total Bilirubin Direct Bilirubin AST ALT Alkaline Phosphatase Total Protein Albumin Vancomycin Trough Microbiology Microbiology Results: Microbiology 12/29/20 12:30 Gallbladder Fluid Gram Stain - Final 12/29/20 12:30 Gallbladder Fluid Routine Culture - Preliminary Gram positive cocci 12/29/20 12:30 Gallbladder Fluid Anaerobic Culture - Preliminary Culture in progress. 12/28/20 Unknown Urine clean catch - Clean Catch Midstream Urine Culture - Final No growth. 12/28/20 15:58 Blood - Venous Blood Culture - Preliminary Prelim: GPC Gram Stain only 12/28/20 15:58 Blood - Venous Blood Culture - Preliminary Staphylococcus species Quality Stroke Does the patient have a stroke diagnosis?: No VTE Prior VTE?: No VTE Risk Level:: Medical - moderate - high VTE Device Contraindication: N/A - Device Ordered VTE Drug Contraindication: Treatment Not Indicated Progress Note: A&P Assessment and plan (1) Acute cholecystitis due to biliary calculus: Status: Acute (2) Sepsis: Status: Acute (3) Acute hypotension: Status: Acute (4) Staphylococcus aureus bacteremia: Status: Acute Assessment and Plan: The plan is to maintain both meropenem and vancomycin pending the final species and sensitivity of the cultures and will continue with IV fluids and initiate his feedings
[2020-12-30 16:25] LABS: MANUAL DIFF FLAG NO
[2020-12-30 16:27] LABS: Basophils Absolute Auto 0.1 X10*3/uL (0.0-0.2); Basophils Percent Auto 0.4 % (0-2); Eosinophils Absolute Auto 0.1 X10*3/uL (0.0-0.4); Eosinophils Percent Auto 0.9 % (0-4); Hemoglobin 11.3 g/dl (14.0-18.0); Imm Gran Abs Auto 0.07 X10*3/uL (0.00-0.03); Imm Gran Pct Auto 0.6 % (0.0-0.4); Lymphocytes Absolute Auto 1.1 X10*3/uL (1.2-4.9); Lymphocytes Percent Auto 9.2 % (20-40); Mean Corpuscular HGB Conc 33.2 g/dl (31.0-36.0); Mean Corpuscular Hemoglobin 31.9 pg (27.0-33.0); Mean Platelet Volume 10.1 fL (9.4-12.4); Monocytes Absolute Auto 1.1 X10*3/uL (0.1-1.2); Monocytes Percent Auto 9.3 % (2-11); Neutrophils Absolute Auto 9.1 X10*3/uL (2.0-8.3); Neutrophils Percent Auto 79.6 % (45-73); Platelet Count 221 X10*3/uL (160-400); Red Blood Count 3.54 X10*6/uL (4.60-5.80); Red Cell Distribution Width 13.2 % (11.0-16.0); White Blood Count 11.5 X10*3/uL (4.8-10.8)
[2020-12-30 16:32] LABS: OBS Int Ctl Valid YES; OBS1 NEGATIVE (NEGATIVE)
--- NOTE | 2020-12-30 19:52 | PC.NURSE ---
Assumed care at 0700. Patient alert, does not follow commands reliably (may have followed one request to grasp hands once); does track speaker, responds to light pain; mostly calm, but did punch this RN three or four times for flushing an IV that was later removed. Patient is on RA and satting well, was 91-2% this morning, then after repeated mouth care with suctioning and inducing cough, patient was able to clear some of his audible upper airway secretions, and SpO2 increased through the course of the day: now in 95-8% range. Patient lung sounds very congested: coarse throughout right gee, insp/exp rhonchi throughout left. scattered wheezing. WOB generally easy and regular, but when sleeps, he shows some accessory muscle use and mouth breathes. BP soft, on levophed, titrated from 0.13 mcg/kg/min to off by 13:00, then back on at 14:00, slowly titrating down again. started TF Jevity 1 aminta; max rate is 80; increased to 40 cc/hour so far and well tolerated. UOP was 50-100 cc per hour and gradually clearing. CCY tube J-P drainage was 40 and then 20 ccs, total of 60 ccs of brownish bileous drainage. skin is intact but reddened buttocks as well as reddened palmar surfaces of feet, blanchable, as well as left lateral malleolus with an area that appeared to be a healed pressure injury, was examined by wound RN as well as photographed and is a scarred area: 3x2x0 cm.
[2020-12-31] VITALS (24 sets, daily range): BP systolic 93–125; BP diastolic 40–78; PULSE 82–95; RESP 18–26; TEMP 37.2–37.7; O2SAT 91–98; BMI 29.4
[2020-12-31] MEDS: levETIRAcetam in NaCl (iso-os) 500 MG/100 ML PIGGYBACK 100 MG IV ×3 (00:54→23:59)
[2020-12-31] MEDS: KCl 20 mEq in 5% Dex/0.45% Sod 20 MEQ/1,000 ML IV.SOLN 100 MEQ IVCONT (00:54)
[2020-12-31 05:10] LABS: MANUAL DIFF FLAG NO
[2020-12-31 05:12] LABS: Basophils Absolute Auto 0.1 X10*3/uL (0.0-0.2); Basophils Percent Auto 0.6 % (0-2); Eosinophils Absolute Auto 0.2 X10*3/uL (0.0-0.4); Eosinophils Percent Auto 1.9 % (0-4); Hematocrit 33.5 % (42-52); Hemoglobin 11.3 g/dl (14.0-18.0); Imm Gran Abs Auto 0.04 X10*3/uL (0.00-0.03); Imm Gran Pct Auto 0.4 % (0.0-0.4); Lymphocytes Absolute Auto 0.9 X10*3/uL (1.2-4.9); Lymphocytes Percent Auto 8.8 % (20-40); Mean Corpuscular HGB Conc 33.7 g/dl (31.0-36.0); Mean Corpuscular Hemoglobin 32.4 pg (27.0-33.0); Mean Platelet Volume 9.8 fL (9.4-12.4); Monocytes Percent Auto 9.9 % (2-11); Neutrophils Absolute Auto 7.9 X10*3/uL (2.0-8.3); Neutrophils Percent Auto 78.4 % (45-73); Platelet Count 206 X10*3/uL (160-400); Red Blood Count 3.49 X10*6/uL (4.60-5.80); Red Cell Distribution Width 13.2 % (11.0-16.0)
[2020-12-31 05:23] LABS: INTERNATIONAL NORM RATIO 1.1 (0.9-1.1); Prothrombin Time 12.6 SEC (9.9-13.0)
[2020-12-31 05:26] LABS: Partial Thromboplastin Time 55.5 SEC (24.1-38.0)
[2020-12-31 05:52] LABS: Alanine Aminotransferase 8 U/L (0-40); Albumin Level 2.4 g/dL (3.5-5.0); Alkaline Phosphatase 88 U/L (39-117); Anion Gap 6 (12-20); Aspartate Amino Transferase 11 U/L (5-37); Bilirubin Direct 0.2 mg/dL (0.0-0.5); Bilirubin Total 0.3 mg/dL (0.0-1.0); Blood Urea Nitrogen 6 mg/dL (9-16); Calcium 7.8 mg/dL (8.4-10.2); Carbon Dioxide 20 mmol/L (22-29); Chloride 115 mmol/L (96-108); Creatinine Clr Calc Pharmacy 196.8; Estimated Glomerular Filt Rate > 60; Glucose Random 106 mg/dL (60-115); Magnesium 1.8 mg/dL (1.6-2.6); Phosphorus 1.2 mg/dL (2.7-4.5); Potassium 3.4 mmol/L (3.3-5.1); Sodium 138 mmol/L (135-145)
--- NOTE | 2020-12-31 06:04 | PC.NURSE ---
Levo off since approx 1999. Tolerating well. With morning hygiene/repositioning, patient became tachypneic, wheezing, and dropped o2 sats to low 80's on RA. Poor cough reflex, not clearing own secretions. Became combative with attempts to suction or place o2 via nc. PA and RT @ bedside. Updraft and CXR in progress.
[2020-12-31] MEDS: Albuterol/Iprat 2.5/0.5MG 3 ML AMPUL.NEB INHALE ×4 (06:13→20:22)
[2020-12-31] MEDS: vancomycin HCL 1,250 MG in 0.9 % Sodium Chloride 250 ML 166.67 MG IV ×2 (07:41→20:42)
[2020-12-31] MEDS: Famotidine/PF 20 MG/2 ML VIAL IVPUSH ×2 (08:09→20:42)
[2020-12-31] MEDS: Midazolam HCl/PF 2 MG/2 ML VIAL 4 MG IVPUSH (08:10)
[2020-12-31] MEDS: Furosemide 20 MG/2 ML VIAL IVPUSH (08:43)
[2020-12-31 18:48] LABS: Vancomycin Trough 15.1 mcg/mL (10.0-20.0)
--- NOTE | 2020-12-31 19:08 | PC.NURSE ---
Patient with elevated CVP this morning, IVfluids D/C'd. 20mg IVP Lasix given. Diureses 1.5L in one hour. Excellent urine output over entire shift, 3100mL total. Versed 4mg given IVP per MD order to perform nasotracheal suctioning based on CXR. Oral care done at this time while patient was more cooperative. Bath given, repositioned per protocol. Tube feeds continue at goal with water boluses as ordered. No BMs today. Potassium phos given IV for electrolyte replacement.
--- NOTE | 2020-12-31 19:28 | PM.CCPN ---
Subjective Subjective Date of Service: 12/31/20 <Ivone Ardon PA-C - Last Filed: 12/31/20 19:39> Critical Care Time (minutes): 60 <Ivone Ardon PA-C - Last Filed: 12/31/20 19:39> Comment: 65-year-old male 48 hours status post cholecystostomy drainage with the drainage fluid growing Gram-positive cocci and the blood cultures all growing Gram-positive cocci which appears to be Staph and is white count diminished from 28 to 10, decreased left shift, needed levophed for a few hours yesterday afternoon but we successfully weaned him off the Levophed for the last 24 hours. He currently has a is CVP of 14, CXR showed bibasilar opacities, patient was having some respiratory distress this morning which was resolved with a DuoNeb treatment. we also gave 20 of Lasix today and were able to suction the patient, he is currently saturating at 94% on room air and breathing easily. CVP was brought down to 10 as pt had OU of 1.5L after the lasix. Also gave kphos to replete. <Ivone Ardon PA-C - Last Filed: 12/31/20 19:39> Physical Exam Vital Signs: Vital Signs: Last Vital Signs Temp 100 F 12/31/20 19:00 Pulse 89 12/31/20 19:00 Resp 21 H 12/31/20 19:00 BP 107/60 12/31/20 19:00 Pulse Ox 96 12/31/20 19:00 Body Mass Index 29.4 <Ivone Ardon PA-C - Last Filed: 12/31/20 19:39> Const: General: cooperative, healthy appearing, comfortable, no acute distress and well developed <Ivone Ardon PA-C - Last Filed: 12/31/20 19:39> Nutritional Appearance: average body habitus <TOD Monae Last Filed: 12/31/20 19:39> Limitations: other limitations (TBI) <TOD Monae Last Filed: 12/31/20 19:39> HENMT: Head: Yes normal to inspection <TOD Monae Last Filed: 12/31/20 19:39> Eyes: General: appearance normal, both eyes and all related structures <Ivone Ardon PA-C - Last Filed: 12/31/20 19:39> Pupils: Equal, round and reactive pupils present <Ivone Ardon PA-C - Last Filed: 12/31/20 19:39> Neck: Neck: Yes normal visual inspection and Yes full ROM <Ivone Ardon PA-C - Last Filed: 12/31/20 19:39> Resp: Effort & Inspection: normal respiratory effort and able to speak in complete sentences <Ivone Ardon PA-C - Last Filed: 12/31/20 19:39> Auscultation: crackles and wheezes <Ivone Ardon PA-C - Last Filed: 12/31/20 19:39> Cardio: Rate: regular rate <Ivone Ardon PA-C - Last Filed: 12/31/20 19:39> Rhythm: regular rhythm <Ivone Ardon PA-C - Last Filed: 12/31/20 19:39> Heart sounds: normal S1 and S2 <Ivone Ardon PA-C - Last Filed: 12/31/20 19:39> GI: Other: Cholecystostomy tube in place with drainage <Ivone Ardon PA-C - Last Filed: 12/31/20 19:39> Inspection: Yes normal to inspection <Ivone Ardon PA-C - Last Filed: 12/31/20 19:39> Palpation (GI): Soft to palpation <Ivone Ardon PA-C - Last Filed: 12/31/20 19:39> Skin: General skin exam: no rashes or lesions noted <Ivone Ardon PA-C - Last Filed: 12/31/20 19:39> Neuro: Cranial nerves: Yes Equal, round and reactive pupils present <Ivone Ardon PA-C - Last Filed: 12/31/20 19:39> Extrem: General: Yes normal to inspection <Ivone Ardon PA-C - Last Filed: 12/31/20 19:39> Objective Data Labs CBC & Chem 7: : 01/01/21 05:43 01/01/21 05:43 <Ivone Ardon PA-C - Last Filed: 12/31/20 19:39> Labs: Laboratory Results - last 24 hr 12/31/20 12/31/20 12/31/20 05:02 05:02 05:02 WBC 10.0 RBC 3.49 L Hgb 11.3 L Hct 33.5 L MCV 96.0 MCH 32.4 MCHC 33.7 RDW 13.2 Plt Count 206 MPV 9.8 Immature Gran % (Auto) 0.4 Neut % (Auto) 78.4 H Lymph % (Auto) 8.8 L [place] % (Auto) 9.9 Eos % (Auto) 1.9 Baso % (Auto) 0.6 Lymph # (Auto) 0.9 L [place] # (Auto) 1.0 Eos # (Auto) 0.2 Baso # (Auto) 0.1 Abs Immat Gran (auto) 0.04 H Absolute Neuts (auto) 7.9 Absolute Nucleated RBC 0.000 Nucleated RBC % (auto) 0.0 PT 12.6 INR 1.1 APTT 55.5 H Sodium 138 Potassium 3.4 Chloride 115 H Carbon Dioxide 20 L Anion Gap 6 L BUN 6 L Creatinine 0.44 L Estim Creat Clear Calc 196.8 Estimated GFR > 60 Random Glucose 106 Calcium 7.8 L Phosphorus 1.2 L Magnesium 1.8 Total Bilirubin 0.3 Direct Bilirubin 0.2 AST 11 ALT 8 Alkaline Phosphatase 88 Total Protein 4.0 L Albumin 2.4 L Vancomycin Trough 12/31/20 17:42 WBC RBC Hgb Hct MCV MCH MCHC RDW Plt Count MPV Immature Gran % (Auto) Neut % (Auto) Lymph % (Auto) Person % (Auto) Eos % (Auto) Baso % (Auto) Lymph # (Auto) Person # (Auto) Eos # (Auto) Baso # (Auto) Abs Immat Gran (auto) Absolute Neuts (auto) Absolute Nucleated RBC Nucleated RBC % (auto) PT INR APTT Sodium Potassium Chloride Carbon Dioxide Anion Gap BUN Creatinine Estim Creat Clear Calc Estimated GFR Random Glucose Calcium Phosphorus Magnesium Total Bilirubin Direct Bilirubin AST ALT Alkaline Phosphatase Total Protein Albumin Vancomycin Trough 15.1 <Ivone Ardon PA-C - Last Filed: 12/31/20 19:39> Imaging Chest x-ray: Attestation: I personally reviewed and interpreted this imaging study as follows: <Ivone Ardon PA-C - Last Filed: 12/31/20 19:39> My impression: bibasilar opacities <Ivone Ardon PA-C - Last Filed: 12/31/20 19:39> Radiologist's impression: [address] [address] XRay Report Signed Patient: Flakito Garrett MR#: [id number] : 1955 Acct:[id number] Age/Sex: 65 / M ADM Date: 12/28/20 Loc: .ICU 261-[address]: Chantale Stephens MD Ordering Physician: Ivone Ardon PA-C Date of Service: 12/31/20 Procedure(s): XR chest 1V Accession Number(s): [id number] cc: Ivone Ardon PA-C~ EXAMINATION: XR CHEST CLINICAL INFORMATION: Hypoxia COMPARISON: 12/28/2020 TECHNIQUE: Frontal view of the chest was obtained. FINDINGS: Left internal jugular central venous catheter terminates at the confluence of the brachiocephalic veins. Bibasilar subsegmental atelectasis, more notable on the current exam. No discrete consolidation. No pneumothorax. Normal heart size and pulmonary vascularity. XR/XR chest 1V IMPRESSION: Increased bibasilar streaky airspace opacities; favor subsegmental atelectasis ? Dictated By: ELSA MAX MD Signed By: <Electronically signed by ELSA MAX MD in OV> 12/31/20 0645 DD/ 0610 TD/TT:? Cut Pressman: DB <Ivone Ardon PA-C - Last Filed: 12/31/20 19:39> Microbiology Microbiology Results: Microbiology 12/29/20 12:30 Gallbladder Fluid Gram Stain - Final 12/29/20 12:30 Gallbladder Fluid Routine Culture - Final Enterococcus faecium 12/29/20 12:30 Gallbladder Fluid Anaerobic Culture - Preliminary No growth to date. 12/28/20 15:58 Blood - Venous Blood Culture - Preliminary Staphylococcus species 12/28/20 15:58 Blood - Venous Blood Culture - Preliminary Staphylococcus epidermidis 12/28/20 Unknown Urine clean catch - Clean Catch Midstream Urine Culture - Final No growth. <Ivone Ardon PA-C - Last Filed: 12/31/20 19:39> Quality Stroke Does the patient have a stroke diagnosis?: No <Ivone Ardon PA-C - Last Filed: 12/31/20 19:39> VTE Prior VTE?: No <Ivone Ardon PA-C - Last Filed: 12/31/20 19:39> VTE Risk Level:: Medical - moderate - high <Ivone Ardon PA-C - Last Filed: 12/31/20 19:39> VTE Device Contraindication: N/A - Device Ordered <Ivone Ardon PA-C - Last Filed: 12/31/20 19:39> VTE Drug Contraindication: Treatment Not Indicated <Ivone Ardon PA-C - Last Filed: 12/31/20 19:39> Progress Note: A&P Assessment and plan (1) Staphylococcus aureus bacteremia: Status: Acute <Ivone Ardon PA-C - Last Filed: 12/31/20 19:39> (2) Acute cholecystitis due to biliary calculus: Status: Acute <Ivone Ardon PA-C - Last Filed: 12/31/20 19:39> (3) Sepsis: Status: Acute <Ivone Ardon PA-C - Last Filed: 12/31/20 19:39> (4) Acute hypotension: Status: Acute <Ivone Ardon PA-C - Last Filed: 12/31/20 19:39>
[2020-12-31 20:11] LABS: Anion Gap 9 (12-20); Blood Urea Nitrogen 6 mg/dL (9-16); Calcium 7.6 mg/dL (8.4-10.2); Carbon Dioxide 19 mmol/L (22-29); Chloride 114 mmol/L (96-108); Creatinine Clr Calc Pharmacy 201.4; Estimated Glomerular Filt Rate > 60; Glucose Random 106 mg/dL (60-115); Phosphorus 1.7 mg/dL (2.7-4.5); Potassium 3.2 mmol/L (3.3-5.1); Sodium 139 mmol/L (135-145)
[2020-12-31] MEDS: Potassium Phosphate 30 MMOL in 0.9 % Sodium Chloride 500 ML 85 MMOL IV (21:29)
[2021-01-01] VITALS (17 sets, daily range): BP systolic 90–120; BP diastolic 48–70; PULSE 79–92; RESP 20–24; TEMP 37.7–38; O2SAT 94–97; BMI 28.9
--- NOTE | 2021-01-01 04:30 | PC.NURSE ---
Addendum entered by Prasanth Ruby RN 01/01/21 05:09: jay drain without measurable drainage Original Note: CARE ASSUMED 23;15...AWAKE TO VOICE...GARBLED SPEECH...AGITATED/RESISTANT TO CARE....RESPIRATIONS EASY AT REST...OCCASSIONAL NON-PRODUCTIVE COUGH..SAO2 96% ON ROOM AIR AT REST...DYSPNEIC WHEN BRIEFLY FLAT FOR POSITIONING/PERSONAL CARE....BP STABLE...CVP 9-11....JEVITY 80 CC/HR..MULTIPLE LOOSE BROWN STOOLS.....Q6H H20 240ML PEG BOLUSES HELD PER ICU PA D/T PREVIOUS DIURESIS AND Na levels...
[2021-01-01 05:56] LABS: MANUAL DIFF FLAG NO
[2021-01-01 06:02] LABS: Basophils Percent Auto 0.3 % (0-2); Eosinophils Absolute Auto 0.3 X10*3/uL (0.0-0.4); Eosinophils Percent Auto 2.7 % (0-4); Hematocrit 32.3 % (42-52); Hemoglobin 11.1 g/dl (14.0-18.0); Imm Gran Abs Auto 0.05 X10*3/uL (0.00-0.03); Imm Gran Pct Auto 0.5 % (0.0-0.4); Lymphocytes Percent Auto 10.5 % (20-40); Mean Corpuscular HGB Conc 34.4 g/dl (31.0-36.0); Mean Corpuscular Hemoglobin 31.9 pg (27.0-33.0); Mean Corpuscular Volume 92.8 fL (80-98); Mean Platelet Volume 9.7 fL (9.4-12.4); Monocytes Absolute Auto 0.9 X10*3/uL (0.1-1.2); Monocytes Percent Auto 9.2 % (2-11); Neutrophils Absolute Auto 7.5 X10*3/uL (2.0-8.3); Neutrophils Percent Auto 76.8 % (45-73); Platelet Count 239 X10*3/uL (160-400); Red Blood Count 3.48 X10*6/uL (4.60-5.80); White Blood Count 9.7 X10*3/uL (4.8-10.8)
[2021-01-01 06:10] LABS: INTERNATIONAL NORM RATIO 1.1 (0.9-1.1)
[2021-01-01 06:12] LABS: Partial Thromboplastin Time 56.2 SEC (24.1-38.0)
[2021-01-01 06:41] LABS: Alanine Aminotransferase 10 U/L (0-40); Albumin Level 2.3 g/dL (3.5-5.0); Alkaline Phosphatase 80 U/L (39-117); Anion Gap 7 (12-20); Aspartate Amino Transferase 9 U/L (5-37); Bilirubin Direct 0.2 mg/dL (0.0-0.5); Bilirubin Total 0.4 mg/dL (0.0-1.0); Blood Urea Nitrogen 6 mg/dL (9-16); Calcium 7.5 mg/dL (8.4-10.2); Carbon Dioxide 22 mmol/L (22-29); Chloride 115 mmol/L (96-108); Creatinine Clr Calc Pharmacy 204.7; Estimated Glomerular Filt Rate > 60; Glucose Random 104 mg/dL (60-115); Magnesium 1.7 mg/dL (1.6-2.6); Phosphorus 2.8 mg/dL (2.7-4.5); Potassium 3.3 mmol/L (3.3-5.1); Sodium 141 mmol/L (135-145); Total Protein 3.9 g/dL (6.5-8.0)
[2021-01-01] MEDS: Albuterol/Iprat 2.5/0.5MG 3 ML AMPUL.NEB INHALE ×4 (07:29→20:30)
[2021-01-01] MEDS: vancomycin HCL 1,250 MG in 0.9 % Sodium Chloride 250 ML 166.67 MG IV ×2 (07:35→19:49)
[2021-01-01] MEDS: Famotidine/PF 20 MG/2 ML VIAL IVPUSH ×2 (08:00→19:50)
--- NOTE | 2021-01-01 08:31 | P.PNCC_ITS ---
Subjective Subjective Date of Service: 01/01/21 Interval History: A 65-year-old male status post traumatic brain injury not communicative with a 6 history of seizures on topiramate as well as Lamictal but currently on IV Keppra because he was initially of tongue did and NPO and doing very well He was septic and is growing Enterococcus faecium from his gallbladder fluid which still has a draining cholecystostomy tube and growing 2/2 bottles from the blood Staph epidermidis and at this point everything is sensitive to vancomycin so I am eliminating the meropenem and he is volume repleted with a current CVP of about 6-8 yesterday his CVP was elevated at 14 he was in respiratory distress with considerably positive intake and output and he diuresed between 15 102 1000 cc with 1 dose of IV Lasix we have been potassium repleting him ever since and he also has virtually no cough so we started him on nebulized treatments and did some nasotracheal suctioning which was productive and he looks much clearer with a persistent but diminishing low-grade temperature and a much improved work of breathing Critical Care Time (minutes): 35 Physical Exam Vital Signs: Vital Signs: Last Vital Signs Temp 100.0 F 01/01/21 08:00 Pulse 90 01/01/21 08:00 Resp 20 01/01/21 08:00 BP 90/55 L 01/01/21 08:00 Pulse Ox 95 01/01/21 08:00 Body Mass Index 28.9 Awake and comfortable and no longer displaying agitation Doing well with his tube feedings via his gastrostomy with benign abdominal exam Chest with diminished coarse rales bilaterally and no event tissue sounds and no diaphragmatic effort Cardiac exam with no gallops no significant murmurs and good bilateral carotid upstrokes Skin is clear no cellulitis no acrocyanosis Objective Data Labs CBC & Chem 7: 01/01/21 05:43 01/01/21 05:43 Labs: Laboratory Results - last 24 hr 12/31/20 12/31/20 01/01/21 17:42 19:35 05:43 WBC 9.7 RBC 3.48 L Hgb 11.1 L Hct 32.3 L MCV 92.8 MCH 31.9 MCHC 34.4 RDW 13.0 Plt Count 239 MPV 9.7 Immature Gran % (Auto) 0.5 H Neut % (Auto) 76.8 H Lymph % (Auto) 10.5 L [place] % (Auto) 9.2 Eos % (Auto) 2.7 Baso % (Auto) 0.3 Lymph # (Auto) 1.0 L [place] # (Auto) 0.9 Eos # (Auto) 0.3 Baso # (Auto) 0.0 Abs Immat Gran (auto) 0.05 H Absolute Neuts (auto) 7.5 Absolute Nucleated RBC 0.000 Nucleated RBC % (auto) 0.0 PT INR APTT Sodium 139 Potassium 3.2 L Chloride 114 H Carbon Dioxide 19 L Anion Gap 9 L BUN 6 L Creatinine 0.43 L Estim Creat Clear Calc 201.4 Estimated GFR > 60 Random Glucose 106 Calcium 7.6 L Phosphorus 1.7 L Magnesium Total Bilirubin Direct Bilirubin AST ALT Alkaline Phosphatase Total Protein Albumin Vancomycin Trough 15.1 01/01/21 01/01/21 01/01/21 05:43 05:43 05:43 WBC RBC Hgb Hct MCV MCH MCHC RDW Plt Count MPV Immature Gran % (Auto) Neut % (Auto) Lymph % (Auto) [place] % (Auto) Eos % (Auto) Baso % (Auto) Lymph # (Auto) [place] # (Auto) Eos # (Auto) Baso # (Auto) Abs Immat Gran (auto) Absolute Neuts (auto) Absolute Nucleated RBC Nucleated RBC % (auto) PT 12.0 INR 1.1 APTT 56.2 H Sodium 141 Potassium 3.3 Chloride 115 H Carbon Dioxide 22 Anion Gap 7 L BUN 6 L Creatinine 0.42 L Estim Creat Clear Calc 204.7 Estimated GFR > 60 Random Glucose 104 Calcium 7.5 L Phosphorus 2.8 Magnesium 1.7 Total Bilirubin 0.4 Direct Bilirubin 0.2 AST 9 ALT 10 Alkaline Phosphatase 80 Total Protein 3.9 L Albumin 2.3 L Vancomycin Trough Microbiology Microbiology Results: Microbiology 12/29/20 12:30 Gallbladder Fluid Gram Stain - Final 12/29/20 12:30 Gallbladder Fluid Routine Culture - Final Enterococcus faecium 12/29/20 12:30 Gallbladder Fluid Anaerobic Culture - Preliminary No growth to date. 12/28/20 15:58 Blood - Venous Blood Culture - Final Staphylococcus epidermidis 12/28/20 15:58 Blood - Venous Blood Culture - Final Staphylococcus epidermidis Staphylococcus epidermidis#2 12/28/20 Unknown Urine clean catch - Clean Catch Midstream Urine Culture - Final No growth. Quality Stroke Does the patient have a stroke diagnosis?: No VTE Prior VTE?: No VTE Risk Level:: Medical - moderate - high VTE Device Contraindication: N/A - Device Ordered VTE Drug Contraindication: Treatment Not Indicated Progress Note: A&P Assessment and plan (1) Staphylococcus aureus bacteremia: Status: Acute (2) Acute cholecystitis due to biliary calculus: Status: Acute (3) Sepsis: Status: Acute (4) Acute hypotension: Status: Acute (5) Aspiration pneumonitis: Status: Acute Assessment and Plan: The plan is to continue with cholecystostomy drainage and IV vancomycin and will recontact surgery to get a sense of timing for cholecystectomy as part of his definitive therapy and he needs the continued pulmonary toileting as he does not do this for himself and at some point when were stably back on intake via his gastrostomy we might reconverted his anti seizure medicine to his home medicines
[2021-01-01] MEDS: Potassium Chloride Packet 20 MEQ PACKET PO (08:34)
[2021-01-01] MEDS: levETIRAcetam in NaCl (iso-os) 500 MG/100 ML PIGGYBACK 100 MG IV ×2 (11:12→23:24)
--- NOTE | 2021-01-01 18:11 | PC.NURSE ---
Patient stable, remains off Levophed. Continues to be resistive to care, evident muscle rigidity and contractures when trying to clean patient or perform Gtube care, feeds running at goal with q6hr water boluses. Meds and ABTxs as ordered. Continues with upper airway rhonchi from uncleared secretions. Patient does have an intermittent moderately strong cough, non-productive, refused oral care. Continues on room air, SpO2 94-96% Loose BM this afternoon. Bed bath given, skin to feet moisturized to assist with flaky skin. No breakdown noted. Position changed per ICU protocol, Prevalon wedges and boots used for pressure relief. Low grade temps continue, NSR, one episode self-limiting ST to 122 during episode of coughing. BP within limits.
[2021-01-01 20:43] LABS: Anion Gap 9 (12-20); Blood Urea Nitrogen 8 mg/dL (9-16); Calcium 7.6 mg/dL (8.4-10.2); Carbon Dioxide 21 mmol/L (22-29); Chloride 113 mmol/L (96-108); Creatinine Clr Calc Pharmacy 199.9; Estimated Glomerular Filt Rate > 60; Glucose Random 125 mg/dL (60-115); Potassium 3.6 mmol/L (3.3-5.1); Sodium 139 mmol/L (135-145)
[2021-01-02] VITALS (10 sets, daily range): BP systolic 92–106; BP diastolic 46–56; PULSE 83–100; RESP 17–20; TEMP 37.7–37.9; O2SAT 92–96; BMI 28.8
[2021-01-02 06:57] LABS: Vancomycin Trough 16.1 mcg/mL (10.0-20.0)
[2021-01-02] MEDS: Albuterol/Iprat 2.5/0.5MG 3 ML AMPUL.NEB INHALE ×4 (07:47→19:51)
[2021-01-02] MEDS: vancomycin HCL 1,250 MG in 0.9 % Sodium Chloride 250 ML 166.67 MG IV ×2 (08:47→19:11)
[2021-01-02] MEDS: Famotidine/PF 20 MG/2 ML VIAL IVPUSH ×2 (08:47→21:42)
[2021-01-02 08:50] LABS: MANUAL DIFF FLAG NO
[2021-01-02] MEDS: Enoxaparin Sodium 40 MG/0.4 ML SYRINGE SUBCUT (08:50)
[2021-01-02 08:53] LABS: Basophils Percent Auto 0.3 % (0-2); Eosinophils Absolute Auto 0.4 X10*3/uL (0.0-0.4); Hematocrit 31.4 % (42-52); Hemoglobin 10.9 g/dl (14.0-18.0); Imm Gran Abs Auto 0.08 X10*3/uL (0.00-0.03); Imm Gran Pct Auto 0.8 % (0.0-0.4); Lymphocytes Absolute Auto 0.9 X10*3/uL (1.2-4.9); Mean Corpuscular HGB Conc 34.7 g/dl (31.0-36.0); Mean Corpuscular Hemoglobin 32.4 pg (27.0-33.0); Mean Corpuscular Volume 93.5 fL (80-98); Mean Platelet Volume 9.7 fL (9.4-12.4); Monocytes Percent Auto 10.8 % (2-11); Neutrophils Absolute Auto 7.1 X10*3/uL (2.0-8.3); Neutrophils Percent Auto 75.1 % (45-73); Platelet Count 283 X10*3/uL (160-400); Red Blood Count 3.36 X10*6/uL (4.60-5.80); Red Cell Distribution Width 13.1 % (11.0-16.0); White Blood Count 9.4 X10*3/uL (4.8-10.8)
--- NOTE | 2021-01-02 08:57 | MHC.CLN ---
F/U PT CONTINUES ON JEVITY AT MAX GOAL RATE 80ML /HR WITH 240ML FREE WATER FLUSHES Q 6HRS TO PROVIDE 2035KCALS (25KCALS/KG), 85G PROTEIN (1.0G/KG), 2563ML TOTAL WATER FROM FORMULA AND FLUSHES (31ML/KG) TOLERATING WITH LOW RESIDUALS PER NSG MONITOR TOLERANCE, RESIDUALS AND LYTES
[2021-01-02 09:47] LABS: Anion Gap 11 (12-20); Blood Urea Nitrogen 9 mg/dL (9-16); Calcium 7.6 mg/dL (8.4-10.2); Carbon Dioxide 21 mmol/L (22-29); Chloride 112 mmol/L (96-108); Estimated Glomerular Filt Rate > 60; Glucose Random 144 mg/dL (60-115); Potassium 3.7 mmol/L (3.3-5.1); Sodium 140 mmol/L (135-145)
[2021-01-02] MEDS: Albumin Human 25 % 100 ML IV (10:55)
[2021-01-02] MEDS: Furosemide 20 MG/2 ML VIAL IVPUSH (10:56)
[2021-01-02] MEDS: levETIRAcetam in NaCl (iso-os) 500 MG/100 ML PIGGYBACK 100 MG IV (11:01)
--- NOTE | 2021-01-02 11:03 | PM.CCPN ---
Subjective Subjective Date of Service: 01/02/21 Interval History: 66-year-old gentleman with underlying history of traumatic brain injury, resident of [facility], also dysphagia, congestive heart failure, lupus anticoagulant not on anticoagulation, seizures admitted on 12/28/2020 with worsening alteration of mental status and sepsis secondary to cholecystitis with vancomycin sensitive Enterococcus also Gram-positive bacteremia with Staphylococcus epidermidis, both sensitive to vancomycin. Patient has had cholecystectomy placed with resolution of septic shock. Critical Care Time (minutes): 0 Physical Exam Vital Signs: Vital Signs: Last Vital Signs Temp 100.0 F 01/02/21 08:00 Pulse 97 01/02/21 08:00 Resp 20 01/02/21 08:00 BP 104/46 L 01/02/21 08:00 Pulse Ox 93 01/02/21 08:00 Body Mass Index 28.8 Const: General: no acute distress and lethargic (Arousable, combative) Orientation/consciousness: lethargic (Arousable, combative) Eyes: Sclerae: sclerae normal EOM: EOMs intact bilaterally Neck: Neck: Yes no lymphadenopathy, Yes trachea midline and Yes supple Resp: Effort & Inspection: normal respiratory effort and no respiratory distress Auscultation: crackles (Bibasilar) Cardio: Rate: regular rate Rhythm: regular rhythm Heart sounds: no gallops, no murmurs and no rubs GI: Palpation (GI): Soft to palpation and Other GI palpation findings present ( Nontender) Auscultation: normal bowel sounds Extrem: General: Yes no pedal edema, No clubbing and No cyanosis Objective Data Labs CBC & Chem 7: 01/02/21 08:39 01/02/21 08:39 Labs: Laboratory Results - last 24 hr 01/01/21 01/02/21 01/02/21 19:23 06:05 08:39 WBC 9.4 RBC 3.36 L Hgb 10.9 L Hct 31.4 L MCV 93.5 MCH 32.4 MCHC 34.7 RDW 13.1 Plt Count 283 MPV 9.7 Immature Gran % (Auto) 0.8 H Neut % (Auto) 75.1 H Lymph % (Auto) 9.0 L [place] % (Auto) 10.8 Eos % (Auto) 4.0 Baso % (Auto) 0.3 Lymph # (Auto) 0.9 L [place] # (Auto) 1.0 Eos # (Auto) 0.4 Baso # (Auto) 0.0 Abs Immat Gran (auto) 0.08 H Absolute Neuts (auto) 7.1 Absolute Nucleated RBC 0.000 Nucleated RBC % (auto) 0.0 Sodium 139 Potassium 3.6 Chloride 113 H Carbon Dioxide 21 L Anion Gap 9 L BUN 8 L Creatinine 0.43 L Estim Creat Clear Calc 199.9 Estimated GFR > 60 Random Glucose 125 H Calcium 7.6 L Vancomycin Trough 16.1 01/02/21 08:39 WBC RBC Hgb Hct MCV MCH MCHC RDW Plt Count MPV Immature Gran % (Auto) Neut % (Auto) Lymph % (Auto) [place] % (Auto) Eos % (Auto) Baso % (Auto) Lymph # (Auto) [place] # (Auto) Eos # (Auto) Baso # (Auto) Abs Immat Gran (auto) Absolute Neuts (auto) Absolute Nucleated RBC Nucleated RBC % (auto) Sodium 140 Potassium 3.7 Chloride 112 H Carbon Dioxide 21 L Anion Gap 11 L BUN 9 Creatinine 0.46 L Estim Creat Clear Calc 184.0 Estimated GFR > 60 Random Glucose 144 H Calcium 7.6 L Vancomycin Trough Microbiology Microbiology Results: Microbiology 12/29/20 12:30 Gallbladder Fluid Gram Stain - Final 12/29/20 12:30 Gallbladder Fluid Routine Culture - Final Enterococcus faecium 12/29/20 12:30 Gallbladder Fluid Anaerobic Culture - Final 12/28/20 15:58 Blood - Venous Blood Culture - Final Staphylococcus epidermidis 12/28/20 15:58 Blood - Venous Blood Culture - Final Staphylococcus epidermidis Staphylococcus epidermidis#2 12/28/20 Unknown Urine clean catch - Clean Catch Midstream Urine Culture - Final No growth. Quality Stroke Does the patient have a stroke diagnosis?: No VTE Prior VTE?: No VTE Risk Level:: Medical - moderate - high VTE Device Contraindication: N/A - Device Ordered VTE Drug Contraindication: Treatment Not Indicated Progress Note: A&P Assessment and plan (1) Acute cholecystitis due to biliary calculus: Status: Acute Assessment and Plan: Assessment: 66-year-old gentleman admitted with alteration of mental status and septic shock secondary to cholecystitis with bacteremia. Now status post placement of cholecystostomy with resolution of the septic shock component. Plan: Neuro: Septic encephalopathy had improved. Underlying history of traumatic brain injury. Underlying history of seizures, continue lamotrigine and topiramate. Cardiac: No acute issues. Pulmonary: Underlying chronic recurrent aspiration, being fed through gastrostomy. Continue with aspiration precautions. Renal: No acute issues. Endo: No acute issues. GI: Cholecystitis status post cholecystostomy. Will require a evaluation with dye study in 6 weeks. ID: Cholecystitis with bacteremia, vancomycin sensitive. Continue for 10-14 days. Heme/Onc: No acute issues. Psych: No acute issues. Miscellaneous: No acute issues. Prophylaxis: Lovenox Diet: Tube feeds (2) TBI (traumatic brain injury): Status: Acute (3) Seizures: Status: Acute (4) Feeding by G-tube: Status: Acute (5) Bacteremia, coagulase-negative staphylococcal: Status: Acute (6) Septic shock: Status: Acute (7) Septic encephalopathy: Status: Acute
--- NOTE | 2021-01-02 16:11 | W.PM.IDCN ---
History of Present Illness Data of Consult Service Date: 01/02/21 Requesting physician: Chantale Stephens Primary Care Provider: DO VARINDER Gann Reason for consult: He presents and has lethargy,fatigue and abdominal discomfort. He presents and has lethargy,fatigue and abdominal discomfort He has cholecystitis. He has staph epi blood cultures. He has enterococcus from gallbladder Review of Systems Review of Systems: Yes all other systems are reviewed and are negative PMFSH Past Medical History Medical History Elevated cholesterol Gastrostomy tube in place GERD (gastroesophageal reflux disease) Seizures Sepsis TBI (traumatic brain injury) Surgical History Surgical History History of lithotripsy History of surgery Social History Social History Household Members: Other Household Members Other:: [facility] Housing: Shelter Are you a primary careers adviser to a significant other at home: No Do you presently have visiting nurse or other home services: Yes Unable to assess alcohol history related to: Unable to respond and Unknown Alcohol intake: unknown Patient Tobacco Use Status: Tobacco use Unknown Advance Directives Date on File: 02/09/21 service: No Current occupational status: disabled Meds Allergies Allergy/AdvReac Type Severity Reaction Status Date / Time Penicillins [PENICILLINS] Allergy Severe Anaphylaxis Verified 02/24/21 11:41 cefotetan [From CEFOTAN] Allergy Unknown UNKNOWN Verified 02/24/21 11:41 Cephalosporins Allergy Unknown UNKNOWN Verified 02/24/21 11:41 [CEPHALOSPORINS] clindamycin [CLINDAMYCIN] Allergy Unknown UNKNOWN Verified 02/24/21 11:41 levofloxacin [LEVOFLOXACIN] Allergy Unknown UNKNOWN Verified 02/24/21 11:41 Quinolones [QUINOLONES] Allergy Unknown UNKNOWN Verified 02/24/21 11:41 Active Medications: Current Medications Generic Name Dose Route Start Last Admin Trade Name Freq PRN Reason Stop Dose Admin Albuterol/Ipratropium 3 ml 12/31/20 12:00 01/02/21 15:32 Albuterol/Iprat 2.5/0.5mg 3 Ml Ampul.Neb INHALE 3 ml RQ4H WHILE AWAKE ANDREW Administration Enoxaparin Sodium 40 mg 01/02/21 09:00 01/02/21 08:50 Enoxaparin Sodium 40 Mg/0.4 Ml Syringe SUBCUT 40 mg Q24H ANDREW Administration Famotidine 20 mg 12/28/20 21:00 01/02/21 08:47 Famotidine/Pf 20 Mg/2 Ml Vial IVPUSH 20 mg BID ANDREW Administration Norepinephrine Bitartrate 8 mg in 250 mls @ 0 mls/hr 12/28/20 16:15 01/01/21 05:23 Levophed IVCONT Infused .Q0M ANDREW Titration Protocol Per Protocol Levetiracetam 500 mg in 100 mls @ 400 mls/hr 12/29/20 12:00 01/02/21 12:35 Keppra IV Infused Q12H ANDREW Infusion Vancomycin HCl 1,250 mg/ 250 mls @ 166.667 mls/hr 12/29/20 19:00 01/02/21 10:45 Sodium Chloride IV Infused Q12H ANDREW Infusion Lamotrigine 100 mg 01/02/21 21:00 Lamotrigine 100 Mg Tablet PO BID ANDREW Midazolam HCl 2 mg 12/29/20 11:44 Midazolam Hcl/Pf 2 Mg/2 Ml Vial IVPUSH Q15M PRN anxiety/restlessness Pharmacy Consult 1 each 12/28/20 17:19 Consult Rx Perform Med Rec MISCELLANE ONCE PRN Consult order Pharmacy Consult 1 each 12/29/20 13:34 Consult Rx Vancomycin Dosing MISCELLANE DAILY PRN Consult order Topiramate 100 mg 01/02/21 21:00 Topiramate 25 Mg Tablet PO BID [facility] Home Medications Medication Instructions Recorded Confirmed Last Taken Type artificial tears solution eye drops 1 drp OPHTHALMIC (EYE) TID 12/28/20 02/09/21 Unknown History carboxymethylcellulose sodium 0.5 1 drp OPHTHALMIC (EYE) BID PRN 12/28/20 02/09/21 Unknown History % eye drops (Refresh Tears) dimethicone 5 % topical cream 1 appl TOPICAL BID 12/28/20 02/09/21 Unknown History (Secura Dimethicone) docusate sodium 100 mg tablet 100 mg PO DAILY 12/28/20 02/09/21 Unknown History ferrous sulfate 325 mg (65 mg 325 mg PO DAILY 12/28/20 02/09/21 Unknown History iron) tablet furosemide 20 mg tablet 20 mg PO DAILY 12/28/20 02/13/21 Unknown History gabapentin 600 mg tablet 600 mg PO TID 12/28/20 02/09/21 Unknown History gemfibrozil 600 mg tablet 600 mg PO BID 12/28/20 02/09/21 Unknown History lactulose 10 gram/15 mL oral 30 ml PO BEDTIME 12/28/20 02/09/21 Unknown History solution lamotrigine 100 mg tablet 100 mg PO BID 12/28/20 02/09/21 Unknown History lamotrigine 150 mg tablet 150 mg PO BID 12/28/20 02/09/21 Unknown History lamotrigine 25 mg tablet 25 mg PO BID 12/28/20 02/09/21 Unknown History lorazepam 2 mg/mL injection 1 mg Q20M PRN 12/28/20 02/09/21 Unknown History solution magnesium oxide 400 mg PO DAILY 12/28/20 02/09/21 Unknown History multivitamin 1 tab PO DAILY 12/28/20 02/09/21 Unknown History nystatin 100,000 unit/gram topical 1 appl TOPICAL BID 12/28/20 02/09/21 Unknown History powder omeprazole 20 mg tablet,delayed 20 mg PO DAILY 12/28/20 02/09/21 Unknown History release risperidone 0.25 mg tablet 0.25 mg PO BEDTIME 12/28/20 02/09/21 Unknown History sennosides 8.6 mg tablet (senna) 17.2 mg PO BEDTIME 12/28/20 02/09/21 Unknown History topiramate 100 mg tablet 100 mg PO BID 12/28/20 02/09/21 Unknown History topiramate 200 mg tablet 200 mg PO BID 12/28/20 02/09/21 Unknown History topiramate 25 mg tablet 25 mg PO BID 12/28/20 02/09/21 Unknown History clobazam 10 mg tablet (Onfi) 5 mg PO DAILY 02/09/21 02/09/21 Unknown History clobazam 10 mg tablet (Onfi) 10 mg PO DAILY 02/09/21 02/09/21 Unknown History ibuprofen 800 mg tablet 800 mg PO Q8H PRN 02/13/21 02/13/21 Unknown History Physical Exam Vital Signs: Vital Signs: Last Vital Signs Temp 99.9 F 01/02/21 15:47 Pulse 90 01/02/21 15:47 Resp 19 01/02/21 15:47 BP 100/53 L 01/02/21 15:47 Pulse Ox 95 01/02/21 15:47 Body Mass Index 28.8 Const: General: cooperative HENMT: Face and sinus: Yes normal facial exam Mouth: Normal oral and palatal mucosa present Resp: Effort & Inspection: normal respiratory effort Cardio: Rate: regular rate Rhythm: regular rhythm GI: Palpation (GI): Soft to palpation and nontender Skin: General skin exam: no rashes or lesions noted Results Labs CBC & Chem 7: 01/04/21 05:50 01/07/21 10:24 Labs: Short CBC 01/02/21 Range/Units 08:39 WBC 9.4 (4.8-10.8) X10*3/uL Hgb 10.9 L (14.0-18.0) g/dl Hct 31.4 L (42-52) % Plt Count 283 (160-400) X10*3/uL BMP 01/01/21 01/02/21 19:23 08:39 Sodium 139 140 Potassium 3.6 3.7 Chloride 113 H 112 H Carbon Dioxide 21 L 21 L BUN 8 L 9 Creatinine 0.43 L 0.46 L Calcium 7.6 L 7.6 L Microbiology Microbiology Results: Microbiology 12/29/20 12:30 Gallbladder Fluid Gram Stain - Final 12/29/20 12:30 Gallbladder Fluid Routine Culture - Final Enterococcus faecium 12/29/20 12:30 Gallbladder Fluid Anaerobic Culture - Final 12/28/20 15:58 Blood - Venous Blood Culture - Final Staphylococcus epidermidis 12/28/20 15:58 Blood - Venous Blood Culture - Final Staphylococcus epidermidis Staphylococcus epidermidis#2 12/28/20 Unknown Urine clean catch - Clean Catch Midstream Urine Culture - Final No growth. Assessment and Plan (1) Septic encephalopathy: Status: Acute (2) Septic shock: Status: Acute (3) Bacteremia, coagulase-negative staphylococcal: Status: Acute I believe coagulase negative staph contaminant Could hold Vancomycin Would use Zosyn if needed for enterococcus
[2021-01-02 18:51] LABS: Vancomycin Trough 16.8 mcg/mL (10.0-20.0)
[2021-01-02] MEDS: lamoTRIgine 100 MG TABLET PO (21:41)
[2021-01-02] MEDS: Topiramate 25 MG TABLET 100 MG PO (21:41)
[2021-01-03] VITALS (10 sets, daily range): BP systolic 101–128; BP diastolic 45–77; PULSE 84–107; RESP 17–23; TEMP 37.7–38.1; O2SAT 91–98; BMI 28.3
--- NOTE | 2021-01-03 | EEG_ITS ---
The waking background activity consists of a diffuse moderate voltage 4 to 5 hertz theta, intermixed with high voltage intermittent 2 to 3 hertz bifrontal delta. Frequent sharp transients are seen with phase reversal at T4 and 1 burst of paroxysmal sharp configuration theta is seen from the left hemisphere, lasting about 10 seconds. Photic stimulation and hyperventilation are omitted because of the patient being poorly cooperative. IMPRESSION: This is an abnormal EEG due to diffuse background slowing consistent with a diffuse encephalopathic process or related to previous traumatic brain injury. Sharp discharges seen from the right mid temporal region and 1 episode from the left hemisphere, which would be suggestive of multifocal seizure disorder. Clinical correlation is suggested. MD JERONIMO Bautista/MATHEW / [id number]
[2021-01-03] MEDS: levETIRAcetam in NaCl (iso-os) 500 MG/100 ML PIGGYBACK 100 MG IV ×3 (00:27→23:28)
[2021-01-03 05:44] LABS: MANUAL DIFF FLAG NO
[2021-01-03 05:47] LABS: Basophils Percent Auto 0.5 % (0-2); Eosinophils Absolute Auto 0.3 X10*3/uL (0.0-0.4); Eosinophils Percent Auto 3.6 % (0-4); Hematocrit 29.2 % (42-52); Imm Gran Abs Auto 0.05 X10*3/uL (0.00-0.03); Imm Gran Pct Auto 0.6 % (0.0-0.4); Lymphocytes Percent Auto 11.6 % (20-40); Mean Corpuscular HGB Conc 34.2 g/dl (31.0-36.0); Mean Corpuscular Hemoglobin 32.4 pg (27.0-33.0); Mean Corpuscular Volume 94.5 fL (80-98); Mean Platelet Volume 9.8 fL (9.4-12.4); Monocytes Percent Auto 11.6 % (2-11); Neutrophils Percent Auto 72.1 % (45-73); Platelet Count 334 X10*3/uL (160-400); Red Blood Count 3.09 X10*6/uL (4.60-5.80); Red Cell Distribution Width 12.8 % (11.0-16.0); White Blood Count 8.4 X10*3/uL (4.8-10.8)
[2021-01-03] MEDS: vancomycin HCL 1,250 MG in 0.9 % Sodium Chloride 250 ML 166.67 MG IV ×2 (06:10→19:32)
[2021-01-03 06:12] LABS: Anion Gap 9 (12-20); Blood Urea Nitrogen 9 mg/dL (9-16); Calcium 7.8 mg/dL (8.4-10.2); Carbon Dioxide 24 mmol/L (22-29); Chloride 110 mmol/L (96-108); Creatinine Clr Calc Pharmacy 192.3; Estimated Glomerular Filt Rate > 60; Glucose Random 89 mg/dL (60-115); Potassium 3.6 mmol/L (3.3-5.1); Sodium 139 mmol/L (135-145)
[2021-01-03] MEDS: Albuterol/Iprat 2.5/0.5MG 3 ML AMPUL.NEB INHALE ×4 (07:36→19:49)
--- NOTE | 2021-01-03 07:46 | PC.NURSE ---
Patient awake all night, repos Q2H. Residuals from PEG still 260 at 2000. Then went down to 50ml by 2am. Issue w/ tube feed connector - fixed connection w/ mundo valve - restarted tube feed at 40ml/hr at approx 4am.
--- NOTE | 2021-01-03 08:23 | MHC.CM.PN ---
Pt a LTC resident from [facility] [place]: continues in ICU with bacteremia - febrile and needing ID intervention d/t multiple medication/antibiotic allergies. Will return to [facility] when stable. Clinical updates sent on 01/02
[2021-01-03] MEDS: Furosemide 20 MG/2 ML VIAL IVPUSH (11:04)
[2021-01-03] MEDS: lamoTRIgine 100 MG TABLET PO (11:05)
[2021-01-03] MEDS: Topiramate 25 MG TABLET 100 MG PO (11:05)
[2021-01-03] MEDS: Famotidine/PF 20 MG/2 ML VIAL IVPUSH ×2 (11:05→20:49)
[2021-01-03] MEDS: Enoxaparin Sodium 40 MG/0.4 ML SYRINGE SUBCUT (11:06)
--- NOTE | 2021-01-03 13:20 | P.PNIM_ITS ---
Subjective Subjective Date of Service: 01/03/21 Interval History: the patient was seen and evaluated this morning Laying in bed, staring around but not making any contact or response No reported fever, seizure No reported other overnight events. Systemic review: Nonverbal Physical Exam Vital Signs: Vital Signs: Last Vital Signs Temp 99.9 F 01/03/21 12:00 Pulse 95 01/03/21 12:00 Resp 18 01/03/21 12:00 BP 101/50 L 01/03/21 12:00 Pulse Ox 91 L 01/03/21 12:00 Body Mass Index 28.3 Const: Other: Constitutional : Alert, not interactive, not in distress Neck : Normal inspection, Supple Cardiovascular : RRR, S1 S2, trace lower extremity edema Respiratory : Decreased bilateral air entry, no crackles, wheezes or rhonchi Gastrointestinal: soft, lax, Normal bowel sounds, Non tender Skin : Warm, Dry Neurological : Alert , nonverbal, cannot assess orientation Objective Data Current Medications Generic Name Dose Route Start Last Admin Trade Name Freq PRN Reason Stop Dose Admin Albuterol/Ipratropium 3 ml 12/31/20 12:00 01/03/21 11:43 Albuterol/Iprat 2.5/0.5mg 3 Ml Ampul.Neb INHALE 3 ml RQ4H WHILE AWAKE ANDREW Administration Enoxaparin Sodium 40 mg 01/02/21 09:00 01/03/21 11:06 Enoxaparin Sodium 40 Mg/0.4 Ml Syringe SUBCUT 40 mg Q24H ANDREW Administration Famotidine 20 mg 12/28/20 21:00 01/03/21 11:05 Famotidine/Pf 20 Mg/2 Ml Vial IVPUSH 20 mg BID ANDREW Administration Levetiracetam 500 mg in 100 mls @ 400 mls/hr 12/29/20 12:00 01/03/21 11:04 Keppra IV 100 mls/hr Q12H ANDREW Administration Vancomycin HCl 1,250 mg/ 250 mls @ 166.667 mls/hr 12/29/20 19:00 01/03/21 11:06 Sodium Chloride IV Infused Q12H ANDREW Infusion Lamotrigine 100 mg 01/02/21 21:00 01/03/21 11:05 Lamotrigine 100 Mg Tablet PO 100 mg BID ANDREW Administration Pharmacy Consult 1 each 12/28/20 17:19 Consult Rx Perform Med Rec MISCELLANE ONCE PRN Consult order Pharmacy Consult 1 each 12/29/20 13:34 Consult Rx Vancomycin Dosing MISCELLANE DAILY PRN Consult order Topiramate 100 mg 01/02/21 21:00 01/03/21 11:05 Topiramate 25 Mg Tablet PO 100 mg BID ANDREW Administration Labs CBC & Chem 7: 01/03/21 05:35 01/03/21 05:35 Labs: Laboratory Results - last 24 hr 01/02/21 01/03/21 01/03/21 18:05 05:35 05:35 MCV 94.5 MCH 32.4 MCHC 34.2 RDW 12.8 Plt Count 334 MPV 9.8 Immature Gran % (Auto) 0.6 H Neut % (Auto) 72.1 Lymph % (Auto) 11.6 L [place] % (Auto) 11.6 H Eos % (Auto) 3.6 Baso % (Auto) 0.5 Lymph # (Auto) 1.0 L [place] # (Auto) 1.0 Eos # (Auto) 0.3 Baso # (Auto) 0.0 Abs Immat Gran (auto) 0.05 H Absolute Neuts (auto) 6.0 Absolute Nucleated RBC 0.000 Nucleated RBC % (auto) 0.0 Anion Gap 9 L Estim Creat Clear Calc 192.3 Estimated GFR > 60 Random Glucose 89 D Calcium 7.8 L Vancomycin Trough 16.8 Assessment and Plan (1) Septic encephalopathy: Status: Acute (2) Acute cholecystitis due to biliary calculus: Status: Acute (3) Infection due to enterococcus: Status: Acute Assessment and Plan: A 66 years old male with PMH of TBI, CHF, lupus anticoagulant, seizures among others who presented to the hospital with altered mental status and septic shock requiring ICU admission and treatment for acute cholecystitis with placement of cholecystostomy drain and IV antibiotics. Septic shock, resolved Acute cholecystitis Enterococcus infection, found in bile Continue vancomycin day 11/10 , patient has anaphylaxis reported to penicillin Id input appreciated, continue IV vancomycin until discharge Will require re-evaluation with dye for the drainage in 6 weeks EEG pending to check for possible seizure activity Metabolic encephalopathy Secondary to sepsis, close to his baseline Reported to be verbal answering questions at baseline, not yet Hold on medication that might altered mentation Recurrent reorientation Seizure disorder Continue lamotrigine and topiramate He was on multiple different dosage of the same medications, or resume for now Difficulty swallowing History of aspiration On gastrostomy, tube feeds Head up, aspiration precautions DVT PPX Lovenox Quality Stroke Does the patient have a stroke diagnosis?: No VTE Prior VTE?: No VTE Risk Level:: Medical - moderate - high VTE Device Contraindication: N/A - Device Ordered VTE Drug Contraindication: Treatment Not Indicated
[2021-01-03] MEDS: lamoTRIgine 25 MG TABLET G-TUBE (20:50)
[2021-01-03] MEDS: lamoTRIgine 100 MG TABLET 150 MG G-TUBE (20:50)
[2021-01-03] MEDS: Lactulose 20 GM/30 ML SOLUTION G-TUBE (20:50)
[2021-01-03] MEDS: lamoTRIgine 100 MG TABLET G-TUBE (20:50)
[2021-01-03] MEDS: Topiramate 100 MG TABLET G-TUBE (20:51)
[2021-01-03] MEDS: Topiramate 100 MG TABLET 200 MG G-TUBE (20:51)
[2021-01-04] VITALS (9 sets, daily range): BP systolic 101–128; BP diastolic 42–62; PULSE 64–77; RESP 14–15; TEMP 36.3–37.7; O2SAT 93–100; BMI 28.1
[2021-01-04 06:21] LABS: Hematocrit 29.2 % (42-52); Hemoglobin 9.8 g/dl (14.0-18.0); Mean Corpuscular HGB Conc 33.6 g/dl (31.0-36.0); Mean Corpuscular Hemoglobin 32.2 pg (27.0-33.0); Mean Corpuscular Volume 96.1 fL (80-98); Platelet Count 387 X10*3/uL (160-400); Red Blood Count 3.04 X10*6/uL (4.60-5.80); White Blood Count 6.3 X10*3/uL (4.8-10.8)
[2021-01-04 06:49] LABS: Anion Gap 9 (12-20); Blood Urea Nitrogen 8 mg/dL (9-16); Carbon Dioxide 23 mmol/L (22-29); Chloride 113 mmol/L (96-108); Creatinine Clr Calc Pharmacy 171.1; Estimated Glomerular Filt Rate > 60; Glucose Random 112 mg/dL (60-115); Potassium 3.8 mmol/L (3.3-5.1); Sodium 141 mmol/L (135-145); Vancomycin Trough 16.5 mcg/mL (10.0-20.0)
[2021-01-04] MEDS: lamoTRIgine 25 MG TABLET G-TUBE (08:07)
[2021-01-04] MEDS: Albuterol/Iprat 2.5/0.5MG 3 ML AMPUL.NEB INHALE ×4 (08:07→20:39)
[2021-01-04] MEDS: Enoxaparin Sodium 40 MG/0.4 ML SYRINGE SUBCUT (08:08)
[2021-01-04] MEDS: Famotidine/PF 20 MG/2 ML VIAL IVPUSH ×2 (08:08→20:26)
[2021-01-04] MEDS: Topiramate 100 MG TABLET 200 MG G-TUBE (08:09)
[2021-01-04] MEDS: Topiramate 100 MG TABLET G-TUBE (08:09)
[2021-01-04] MEDS: lamoTRIgine 100 MG TABLET 150 MG G-TUBE (08:09)
[2021-01-04] MEDS: lamoTRIgine 100 MG TABLET G-TUBE (08:09)
[2021-01-04] MEDS: vancomycin HCL 1,250 MG in 0.9 % Sodium Chloride 250 ML 166.67 MG IV ×2 (08:14→20:24)
--- NOTE | 2021-01-04 10:06 | MHC.CLN ---
F/U PT WITH HIGH RESIDUALS 260ML PER NSG AND FEEDING DECREASED TO 40ML/HR WHEN RE-STARTED PT NOW RECEIVING JEVITY AT 50ML/HR PT'S MAX GOAL RATE JEVITY AT 80ML /HR WITH 120ML FREE WATER FLUSHES Q 8HRS TO PROVIDE 2035KCALS (25KCALS/KG), 85G PROTEIN (1.0G/KG), 1963ML TOTAL WATER FROM FORMULA AND FLUSHES (24ML/KG) CONTINUE TO MONITOR TOLERANCE, RESIDUALS AND LYTES
[2021-01-04] MEDS: levETIRAcetam in NaCl (iso-os) 500 MG/100 ML PIGGYBACK 400 MG IV (12:13)
--- NOTE | 2021-01-04 12:53 | P.PNIM_ITS ---
Subjective Subjective Date of Service: 01/04/21 Constitutional Constitutional: Reports no additional constitutional complaints Cardiovascular Cardiovascular: Reports no additional cardiovascular complaints Physical Exam Vital Signs: Vital Signs: Last Vital Signs Temp 98.4 F 01/04/21 11:57 Pulse 64 01/04/21 11:57 Resp 15 01/04/21 11:57 BP 101/42 L 01/04/21 11:57 Pulse Ox 100 01/04/21 11:57 Body Mass Index 28.1 Const Other:?Constitutional : Alert, not interactive, not in distress Neck : Normal inspection, Supple Cardiovascular : RRR, S1 S2, trace lower extremity edema Respiratory :? Decreased bilateral air entry,? no crackles, wheezes or rhonchi Gastrointestinal:? soft, lax, Normal bowel sounds, Non tender Skin : Warm, Dry Neurological : Alert , nonverbal, cannot assess orientation Objective Data Current Medications Generic Name Dose Route Start Last Admin Trade Name Freq PRN Reason Stop Dose Admin Albuterol/Ipratropium 3 ml 12/31/20 12:00 01/04/21 11:50 Albuterol/Iprat 2.5/0.5mg 3 Ml Ampul.Neb INHALE 3 ml RQ4H WHILE AWAKE ANDREW Administration Docusate Sodium 100 mg 01/04/21 09:00 01/04/21 08:08 Docusate Sodium 100 Mg Capsule PO Not Given DAILY ANDREW Enoxaparin Sodium 40 mg 01/02/21 09:00 01/04/21 08:08 Enoxaparin Sodium 40 Mg/0.4 Ml Syringe SUBCUT 40 mg Q24H ANDREW Administration Famotidine 20 mg 12/28/20 21:00 01/04/21 08:08 Famotidine/Pf 20 Mg/2 Ml Vial IVPUSH 20 mg BID ANDREW Administration Levetiracetam 500 mg in 100 mls @ 400 mls/hr 12/29/20 12:00 01/04/21 12:13 Keppra IV 400 mls/hr Q12H ANDREW Administration Vancomycin HCl 1,250 mg/ 250 mls @ 166.667 mls/hr 12/29/20 19:00 01/04/21 09:45 Sodium Chloride IV Infused Q12H ANDREW Infusion Lactulose 20 gm 01/03/21 21:00 01/03/21 20:50 Lactulose 20 Gm/30 Ml Solution G-TUBE 20 gm BEDTIME ANDREW Administration Lamotrigine 200 mg 01/04/21 21:00 Lamotrigine 100 Mg Tablet G-TUBE BID ANDREW Lamotrigine 75 mg 01/04/21 21:00 Lamotrigine 25 Mg Tablet G-TUBE BID ON LICENSE OF [facility] Omeprazole 20 mg 01/04/21 06:30 01/04/21 05:31 Omeprazole 20 Mg/10 Ml Susp.Recon G-TUBE 20 mg DAILY@0630 ON LICENSE OF [facility] Administration Pharmacy Consult 1 each 12/28/20 17:19 Consult Rx Perform Med Rec MISCELLANE ONCE PRN Consult order Pharmacy Consult 1 each 12/29/20 13:34 Consult Rx Vancomycin Dosing MISCELLANE DAILY PRN Consult order Topiramate 300 mg 01/04/21 21:00 Topiramate 100 Mg Tablet G-TUBE BID ON LICENSE OF [facility] Labs CBC & Chem 7: 01/04/21 05:50 01/04/21 05:50 Labs: Laboratory Results - last 24 hr 01/04/21 01/04/21 01/04/21 05:50 05:50 05:50 MCV 96.1 MCH 32.2 MCHC 33.6 RDW 13.0 Plt Count 387 MPV 10.0 Absolute Nucleated RBC 0.000 Nucleated RBC % (auto) 0.0 Anion Gap 9 L Estim Creat Clear Calc 171.1 Estimated GFR > 60 Random Glucose 112 Calcium 8.0 L Vancomycin Trough 16.5 Assessment and Plan (1) Septic encephalopathy: Status: Acute (2) Acute cholecystitis due to biliary calculus: Status: Acute (3) Infection due to enterococcus: Status: Acute Assessment and Plan: A 66 years old male with PMH of TBI, CHF, lupus anticoagulant, seizures among others who presented to the hospital with altered mental status and septic shock requiring ICU admission and treatment for acute cholecystitis with placement of cholecystostomy drain and IV antibiotics. Septic shock, resolved Acute cholecystitis Enterococcus faeceum infection, found in bile Continue vancomycin day 12/10 , patient has anaphylaxis reported to penicillin Id input appreciated, continue IV vancomycin until discharge Will require re-evaluation with dye for the drainage in 6 weeks Metabolic encephalopathy Secondary to sepsis, close to his baseline Reported to be verbal answering questions at baseline, not yet Hold on medication that might altered mentation Recurrent reorientation Seizure disorder Continue lamotrigine and topiramate, keappra EEG with possible seizure activity, neuro following Difficulty swallowing History of aspiration On gastrostomy, tube feeds Head up, aspiration precautions DVT PPX Lovenox Quality Stroke Does the patient have a stroke diagnosis?: No VTE Prior VTE?: No VTE Risk Level:: Medical - moderate - high VTE Device Contraindication: N/A - Device Ordered VTE Drug Contraindication: Treatment Not Indicated
--- NOTE | 2021-01-04 13:59 | MHC.CM.PN ---
Pt is a LTC resident of [facility]: Legal guardian is Atty Ada Eastman. No plans to d/c today: clinical updates remitted to [facility].
--- NOTE | 2021-01-04 16:50 | PM.NEUROCN ---
History of Present Illness Data of Consult Service Date: 01/04/21 Primary Care Provider: DO VARINDER Gann Reason for consult: Traumatic brain injury, question of seizures This is a 66-year-old skilled nursing resident who can provide no history. Because of severe TBI with does not communicate at all does not follow any commands or verbalize has been totally dependent and has been on 2 seizure medications are with no reported seizures. He was admitted with sepsis. His EEG showed diffuse abnormality with slowing and some minor irritability and multifocal areas but no clinical seizures. [facility] Past Medical History Medical History Feeding by G-tube Seizures TBI (traumatic brain injury) Social History Social History Household Members: None Housing: Long Term Do you presently have visiting nurse or other home services: No Unable to assess alcohol history related to: Unable to respond Alcohol intake: unknown Patient Tobacco Use Status: Tobacco use Unknown Smoked in Last 30 Days: No Use of substances other than those prescribed or required for medical reasons: Unknown Currently Displaying Signs/Symptoms of Drug Intoxication Withdrawal: No Advance Directives: No Advance Directives Information Provided: Yes Do you have thoughts of harming others: None Do you have a plan to hurt others: No Plan Recently lost weight without trying: Unsure Nutrition Risks: Difficulty swallowing service: No Current occupational status: disabled Meds Allergies Allergy/AdvReac Type Severity Reaction Status Date / Time Penicillins [PENICILLINS] Allergy Severe Anaphylaxis Verified 12/29/20 03:10 cefotetan [From CEFOTAN] Allergy Unknown UNKNOWN Verified 12/29/20 03:10 Cephalosporins Allergy Unknown UNKNOWN Verified 12/29/20 03:10 [CEPHALOSPORINS] clindamycin [CLINDAMYCIN] Allergy Unknown UNKNOWN Verified 12/29/20 03:10 levofloxacin [LEVOFLOXACIN] Allergy Unknown UNKNOWN Verified 12/29/20 03:10 Quinolones [QUINOLONES] Allergy Unknown UNKNOWN Verified 12/29/20 03:10 From CEFOTAN Allergy Unknown UNKNOWN Uncoded 02/18/20 16:05 Active Medications: Current Medications Generic Name Dose Route Start Last Admin Trade Name Freq PRN Reason Stop Dose Admin Albuterol/Ipratropium 3 ml 12/31/20 12:00 01/04/21 15:39 Albuterol/Iprat 2.5/0.5mg 3 Ml Ampul.Neb INHALE 3 ml RQ4H WHILE AWAKE ANDREW Administration Docusate Sodium 100 mg 01/04/21 09:00 01/04/21 08:08 Docusate Sodium 100 Mg Capsule PO Not Given DAILY ANDREW Enoxaparin Sodium 40 mg 01/02/21 09:00 01/04/21 08:08 Enoxaparin Sodium 40 Mg/0.4 Ml Syringe SUBCUT 40 mg Q24H ANDREW Administration Famotidine 20 mg 12/28/20 21:00 01/04/21 08:08 Famotidine/Pf 20 Mg/2 Ml Vial IVPUSH 20 mg BID ANDREW Administration Levetiracetam 500 mg in 100 mls @ 400 mls/hr 12/29/20 12:00 01/04/21 13:04 Keppra IV Infused Q12H ANDREW Infusion Vancomycin HCl 1,250 mg/ 250 mls @ 166.667 mls/hr 12/29/20 19:00 01/04/21 09:45 Sodium Chloride IV Infused Q12H ANDREW Infusion Lactulose 20 gm 01/03/21 21:00 01/03/21 20:50 Lactulose 20 Gm/30 Ml Solution G-TUBE 20 gm BEDTIME ANDREW Administration Lamotrigine 200 mg 01/04/21 21:00 Lamotrigine 100 Mg Tablet G-TUBE BID ANDREW Lamotrigine 75 mg 01/04/21 21:00 Lamotrigine 25 Mg Tablet G-TUBE BID ANDREW Omeprazole 20 mg 01/04/21 06:30 01/04/21 05:31 Omeprazole 20 Mg/10 Ml Susp.Recon G-TUBE 20 mg DAILY@0630 COUNTS INCLUDE 234 BEDS AT THE [facility] Administration Pharmacy Consult 1 each 12/28/20 17:19 Consult Rx Perform Med Rec MISCELLANE ONCE PRN Consult order Pharmacy Consult 1 each 12/29/20 13:34 Consult Rx Vancomycin Dosing MISCELLANE DAILY PRN Consult order Topiramate 300 mg 01/04/21 21:00 Topiramate 100 Mg Tablet G-TUBE BID COUNTS INCLUDE 234 BEDS AT THE [facility] Home Medications Medication Instructions Recorded Confirmed Last Taken Type artificial tears solution eye drops 1 drp OPHTHALMIC (EYE) TID 12/28/20 12/28/20 Unknown History carboxymethylcellulose sodium 0.5 1 drp OPHTHALMIC (EYE) BID PRN 12/28/20 12/28/20 Unknown History % eye drops (Refresh Tears) clobazam 10 mg tablet 15 mg PO DAILY 12/28/20 12/28/20 Unknown History dimethicone 5 % topical cream 1 appl TOPICAL BID 12/28/20 12/28/20 Unknown History (Secura Dimethicone) docusate sodium 100 mg tablet 100 mg PO DAILY 12/28/20 12/28/20 Unknown History ferrous sulfate 325 mg (65 mg 325 mg PO DAILY 12/28/20 12/28/20 Unknown History iron) tablet furosemide 20 mg tablet 20 tab PO DAILY 12/28/20 12/28/20 Unknown History gabapentin 600 mg tablet 600 mg PO TID 12/28/20 12/28/20 Unknown History gemfibrozil 600 mg tablet 600 mg PO BID 12/28/20 12/28/20 Unknown History lactulose 10 gram/15 mL oral 30 ml PO BEDTIME 12/28/20 12/28/20 Unknown History solution lamotrigine 100 mg tablet 100 mg PO BID 12/28/20 12/28/20 Unknown History lamotrigine 150 mg tablet 150 mg PO BID 12/28/20 12/28/20 Unknown History lamotrigine 25 mg tablet 25 mg PO BID 12/28/20 12/28/20 Unknown History lorazepam 2 mg/mL injection 1 mg Q20M PRN 12/28/20 12/28/20 Unknown History solution magnesium oxide 400 mg PO DAILY 12/28/20 12/28/20 Unknown History multivitamin 1 tab PO DAILY 12/28/20 12/28/20 Unknown History nystatin 100,000 unit/gram topical 1 appl TOPICAL BID 12/28/20 12/28/20 Unknown History powder omeprazole 20 mg tablet,delayed 20 mg PO DAILY 12/28/20 12/28/20 Unknown History release risperidone 0.25 mg tablet 0.25 mg PO BEDTIME 12/28/20 12/28/20 Unknown History sennosides 8.6 mg tablet (senna) 17.2 mg PO BEDTIME 12/28/20 12/28/20 Unknown History topiramate 100 mg tablet 100 mg PO BID 12/28/20 12/28/20 Unknown History topiramate 200 mg tablet 200 mg PO BID 12/28/20 12/28/20 Unknown History topiramate 25 mg tablet 25 mg PO BID 12/28/20 12/28/20 Unknown History Physical Exam Vital Signs: Vital Signs: Last Vital Signs Temp 98.6 F 01/04/21 15:52 Pulse 72 01/04/21 15:52 Resp 15 01/04/21 15:52 BP 110/55 L 01/04/21 15:52 Pulse Ox 98 01/04/21 15:52 Body Mass Index 28.1 Neuro: Other: He is awake and sometimes tracks with his eyes. He does not verbalize or follow any commands. He has the contractures of his upper extremities and the does not move them against gravity. Reflexes are hypoactive. Plantar responses are extensor. Results Labs CBC & Chem 7: 01/04/21 05:50 01/04/21 05:50 Labs: Short CBC 01/04/21 Range/Units 05:50 WBC 6.3 (4.8-10.8) X10*3/uL Hgb 9.8 L (14.0-18.0) g/dl Hct 29.2 L (42-52) % Plt Count 387 (160-400) X10*3/uL BMP 01/04/21 05:50 Sodium 141 Potassium 3.8 Chloride 113 H Carbon Dioxide 23 BUN 8 L Creatinine 0.49 L Calcium 8.0 L Microbiology Microbiology Results: Microbiology 12/29/20 12:30 Gallbladder Fluid Gram Stain - Final 12/29/20 12:30 Gallbladder Fluid Routine Culture - Final Enterococcus faecium 12/29/20 12:30 Gallbladder Fluid Anaerobic Culture - Final 12/28/20 15:58 Blood - Venous Blood Culture - Final Staphylococcus epidermidis 12/28/20 15:58 Blood - Venous Blood Culture - Final Staphylococcus epidermidis Staphylococcus epidermidis#2 12/28/20 Unknown Urine clean catch - Clean Catch Midstream Urine Culture - Final No growth. Assessment and Plan (1) Seizures: Status: Acute (2) TBI (traumatic brain injury): Status: Acute Continue his dose of lamotrigine and topiramate. No indication for addding a third anticonvulsant. Procedures Date of Service Date of Service: 01/04/21
[2021-01-04] MEDS: lamoTRIgine 25 MG TABLET 75 MG G-TUBE (20:24)
[2021-01-04] MEDS: Topiramate 100 MG TABLET 300 MG G-TUBE (20:25)
[2021-01-04] MEDS: lamoTRIgine 100 MG TABLET 200 MG G-TUBE (20:25)
[2021-01-05] VITALS (10 sets, daily range): BP systolic 94–106; BP diastolic 44–60; PULSE 58–79; RESP 15–96; TEMP 36.1–37.2; O2SAT 94–97; BMI 26.0
[2021-01-05] MEDS: levETIRAcetam in NaCl (iso-os) 500 MG/100 ML PIGGYBACK 100 MG IV (00:29)
[2021-01-05] MEDS: Albuterol/Iprat 2.5/0.5MG 3 ML AMPUL.NEB INHALE ×4 (07:44→19:40)
[2021-01-05] MEDS: vancomycin HCL 1,250 MG in 0.9 % Sodium Chloride 250 ML 166.67 MG IV (08:25)
[2021-01-05] MEDS: Famotidine/PF 20 MG/2 ML VIAL IVPUSH ×2 (08:39→21:40)
[2021-01-05] MEDS: Enoxaparin Sodium 40 MG/0.4 ML SYRINGE SUBCUT (08:39)
[2021-01-05] MEDS: lamoTRIgine 25 MG TABLET 75 MG G-TUBE ×2 (08:40→21:40)
[2021-01-05] MEDS: Topiramate 100 MG TABLET 300 MG G-TUBE ×2 (08:40→21:41)
--- NOTE | 2021-01-05 10:04 | MHC.CLN ---
F/U PT NOW RECEIVING JEVITY AT 50ML/HR PROVIDES 1272KCALS, 53G PROTEIN, 1002CC FREE WATER FROM FORMULA TF HAS NOT BEEN ADVANCED SINCE YESTERDAY PT HAS NOT HAD BM PER NSG-CONSIDER BOWEL REGIME NSG REPORTS 10ML RESIDUALS THIS AM-RECOMMEND INCREASE BY 10ML Q 4 HRS UNTIL MAX GOAL IS ACHIEVED PT'S MAX GOAL RATE JEVITY AT 80ML /HR WITH 120ML FREE WATER FLUSHES Q 8HRS TO PROVIDE 2035KCALS (25KCALS/KG), 85G PROTEIN (1.0G/KG), 1963ML TOTAL WATER FROM FORMULA AND FLUSHES (24ML/KG) CONTINUE TO MONITOR TOLERANCE, RESIDUALS AND LYTES FOLLOWING
[2021-01-05] MEDS: lamoTRIgine 100 MG TABLET 200 MG G-TUBE ×2 (11:37→21:40)
[2021-01-05] MEDS: levETIRAcetam in NaCl (iso-os) 500 MG/100 ML PIGGYBACK 400 MG IV ×2 (11:37→23:57)
--- NOTE | 2021-01-05 12:09 | P.PNIM_ITS ---
Subjective Subjective Date of Service: 01/05/21 Interval History: not talking Physical Exam Vital Signs: Vital Signs: Last Vital Signs Temp 97.9 F 01/05/21 11:26 Pulse 73 01/05/21 11:26 Resp 96 H 01/05/21 11:26 BP 100/51 L 01/05/21 11:26 Pulse Ox 96 01/05/21 11:26 Body Mass Index 26.0 Other:?Constitutional : Alert, not interactive, not in distress Neck : Normal inspection, Supple Cardiovascular : RRR, S1 S2, trace lower extremity edema Respiratory :? Decreased bilateral air entry,? no crackles, wheezes or rhonchi Gastrointestinal:? soft, lax, Normal bowel sounds, Non tender Skin : Warm, Dry Neurological : Alert , nonverbal, cannot assess orientation Objective Data Current Medications Generic Name Dose Route Start Last Admin Trade Name Freq PRN Reason Stop Dose Admin Albuterol/Ipratropium 3 ml 12/31/20 12:00 01/05/21 11:16 Albuterol/Iprat 2.5/0.5mg 3 Ml Ampul.Neb INHALE 3 ml RQ4H WHILE AWAKE ANDREW Administration Docusate Sodium 100 mg 01/04/21 09:00 01/05/21 08:43 Docusate Sodium 100 Mg Capsule PO Not Given DAILY ANDREW Enoxaparin Sodium 40 mg 01/02/21 09:00 01/05/21 08:39 Enoxaparin Sodium 40 Mg/0.4 Ml Syringe SUBCUT 40 mg Q24H ANDREW Administration Famotidine 20 mg 12/28/20 21:00 01/05/21 08:39 Famotidine/Pf 20 Mg/2 Ml Vial IVPUSH 20 mg BID ANDREW Administration Levetiracetam 500 mg in 100 mls @ 400 mls/hr 12/29/20 12:00 01/05/21 11:59 Keppra IV Infused Q12H ANDREW Infusion Vancomycin HCl 1,250 mg/ 250 mls @ 166.667 mls/hr 12/29/20 19:00 01/05/21 1 0:55 Sodium Chloride IV Infused Q12H ANDREW Infusion Lactulose 20 gm 01/03/21 21:00 01/04/21 20:27 Lactulose 20 Gm/30 Ml Solution G-TUBE Not Given BEDTIME ANDREW Lamotrigine 200 mg 01/04/21 21:00 01/05/21 11:37 Lamotrigine 100 Mg Tablet G-TUBE 200 mg BID ANDREW Administration Lamotrigine 75 mg 01/04/21 21:00 01/05/21 08:40 Lamotrigine 25 Mg Tablet G-TUBE 75 mg BID ANDREW Administration Omeprazole 20 mg 01/04/21 06:30 01/05/21 06:08 Omeprazole 20 Mg/10 Ml Susp.Recon G-TUBE 20 mg DAILY@0630 ANDREW Administration Pharmacy Consult 1 each 12/28/20 17:19 Consult Rx Perform Med Rec MISCELLANE ONCE PRN Consult order Pharmacy Consult 1 each 12/29/20 13:34 Consult Rx Vancomycin Dosing MISCELLANE DAILY PRN Consult order Topiramate 300 mg 01/04/21 21:00 01/05/21 08:40 Topiramate 100 Mg Tablet G-TUBE 300 mg BID ANDREW Administration Labs CBC & Chem 7: 01/04/21 05:50 01/04/21 05:50 Assessment and Plan (1) Septic encephalopathy: Status: Acute (2) Acute cholecystitis due to biliary calculus: Status: Acute (3) Infection due to enterococcus: Status: Acute Assessment and Plan: A 66 years old male with PMH of TBI, CHF, lupus anticoagulant, seizures among others who presented to the hospital with altered mental status and septic shock requiring ICU admission and treatment for acute cholecystitis with placement of cholecystostomy drain and IV antibiotics. Septic shock, resolved Acute cholecystitis Enterococcus faeceum infection, found in bile Continue vancomycin day 01/10 , patient has anaphylaxis reported to penicillin Id input appreciated, continue IV vancomycin until discharge Will require re-evaluation with dye for the drainage in 6 weeks monitor for fevers, now afebrile 24 hours Metabolic encephalopathy Secondary to sepsis, close to his baseline Reported to be verbal answering questions at baseline, not yet Hold on medication that might altered mentation Recurrent reorientation Seizure disorder Continue lamotrigine and topiramate, keappra neuro appreviated no change in meds Difficulty swallowing History of aspiration On gastrostomy, tube feeds Head up, aspiration precautions DVT PPX Lovenox Quality Stroke Does the patient have a stroke diagnosis?: No VTE Prior VTE?: No VTE Risk Level:: Medical - moderate - high VTE Device Contraindication: N/A - Device Ordered VTE Drug Contraindication: Treatment Not Indicated
[2021-01-05] MEDS: Lactulose 20 GM/30 ML SOLUTION G-TUBE (21:40)
[2021-01-06] VITALS (9 sets, daily range): BP systolic 96–109; BP diastolic 54–60; PULSE 63–72; RESP 16–19; TEMP 36.3–36.9; O2SAT 90–98; BMI 26.2
[2021-01-06] MEDS: Albuterol/Iprat 2.5/0.5MG 3 ML AMPUL.NEB INHALE ×4 (07:45→20:06)
[2021-01-06] MEDS: vancomycin HCL 1,500 MG in 0.9 % Sodium Chloride 500 ML 333.33 MG IV (09:19)
[2021-01-06] MEDS: Famotidine/PF 20 MG/2 ML VIAL IVPUSH ×2 (09:21→21:29)
[2021-01-06] MEDS: Enoxaparin Sodium 40 MG/0.4 ML SYRINGE SUBCUT (09:26)
[2021-01-06] MEDS: Topiramate 100 MG TABLET 300 MG G-TUBE ×2 (09:27→21:30)
[2021-01-06] MEDS: lamoTRIgine 100 MG TABLET 200 MG G-TUBE ×2 (09:27→21:30)
[2021-01-06] MEDS: lamoTRIgine 25 MG TABLET 75 MG G-TUBE ×2 (09:27→21:30)
--- NOTE | 2021-01-06 12:01 | MHC.CLN ---
F/U NSG REPORTED LOW RESIDUALS SINCE LAST ASSESSMENT PT NOW TOLERATING TF AT MAX GOAL RATE JEVITY AT 80ML /HR WITH 120ML FREE WATER FLUSHES Q 6HRS PROVIDES 2035KCALS (25KCALS/KG), 85G PROTEIN (1.0G/KG), 2083ML TOTAL WATER FROM FORMULA AND FLUSHES (25ML/KG) CONTINUE TO MONITOR TOLERANCE, RESIDUALS AND LYTES FOLLOWING
--- NOTE | 2021-01-06 12:09 | HO.PM.IMPN ---
Subjective Subjective Date of Service: 01/06/21 Interval History: unable to assess Review of Systems Review of Systems: Yes Unobtainable due to mental status Physical Exam Vital Signs: Vital Signs: Last Vital Signs Temp 97.6 F 01/06/21 07:19 Pulse 65 01/06/21 11:18 Resp 19 01/06/21 07:19 BP 96/54 L 01/06/21 07:19 Pulse Ox 97 01/06/21 07:19 Body Mass Index 26.2 Other:?Constitutional : Alert, not interactive, not in distress Neck : Normal inspection, Supple Cardiovascular : RRR, S1 S2, trace lower extremity edema Respiratory :? Decreased bilateral air entry,? no crackles, wheezes or rhonchi Gastrointestinal:? soft, lax, Normal bowel sounds, Non tender Skin : Warm, Dry Neurological : Alert , nonverbal, cannot assess orientation Objective Data Current Medications Generic Name Dose Route Start Last Admin Trade Name Freq PRN Reason Stop Dose Admin Albuterol/Ipratropium 3 ml 12/31/20 12:00 01/06/21 11:18 Albuterol/Iprat 2.5/0.5mg 3 Ml Ampul.Neb INHALE 3 ml RQ4H WHILE AWAKE ANDREW Administration Docusate Sodium 100 mg 01/04/21 09:00 01/06/21 09:28 Docusate Sodium 100 Mg Capsule PO Not Given DAILY ANDREW Enoxaparin Sodium 40 mg 01/02/21 09:00 01/06/21 09:26 Enoxaparin Sodium 40 Mg/0.4 Ml Syringe SUBCUT 40 mg Q24H ANDREW Administration Famotidine 20 mg 12/28/20 21:00 01/06/21 09:21 Famotidine/Pf 20 Mg/2 Ml Vial IVPUSH 20 mg BID ANDREW Administration Levetiracetam 500 mg in 100 mls @ 400 mls/hr 12/29/20 12:00 01/06/21 00:14 Keppra IV Infused Q12H ANDREW Infusion Vancomycin HCl 1,250 mg/ 250 mls @ 166.667 mls/hr 01/06/21 20:00 Sodium Chloride IV Q12H ANDREW Lactulose 20 gm 01/03/21 21:00 01/05/21 21:40 Lactulose 20 Gm/30 Ml Solution G-TUBE 20 gm BEDTIME ANDREW Administration Lamotrigine 200 mg 01/04/21 21:00 01/06/21 09:27 Lamotrigine 100 Mg Tablet G-TUBE 200 mg BID ANDREW Administration Lamotrigine 75 mg 01/04/21 21:00 01/06/21 09:27 Lamotrigine 25 Mg Tablet G-TUBE 75 mg BID ANDREW Administration Omeprazole 20 mg 01/04/21 06:30 01/06/21 05:26 Omeprazole 20 Mg/10 Ml Susp.Recon G-TUBE 20 mg DAILY@0630 ANDREW Administration Pharmacy Consult 1 each 12/28/20 17:19 Consult Rx Perform Med Rec MISCELLANE ONCE PRN Consult order Topiramate 300 mg 01/04/21 21:00 01/06/21 09:27 Topiramate 100 Mg Tablet G-TUBE 300 mg BID ANDREW Administration Labs CBC & Chem 7: 01/04/21 05:50 01/04/21 05:50 Assessment and Plan (1) Septic encephalopathy: Status: Acute (2) Acute cholecystitis due to biliary calculus: Status: Acute (3) Infection due to enterococcus: Status: Acute Assessment and Plan: A 66 years old male with PMH of TBI, CHF, lupus anticoagulant, seizures among others who presented to the hospital with altered mental status and septic shock requiring ICU admission and treatment for acute cholecystitis with placement of cholecystostomy drain and IV antibiotics. Septic shock, resolved Acute cholecystitis Enterococcus faeceum infection, found in bile Continue vancomycin day 02/10 , patient has anaphylaxis reported to penicillin Id input appreciated, continue IV vancomycin until discharge Will require re-evaluation with dye for the drainage in 6 weeks monitor for fevers, now afebrile 48 hours Metabolic encephalopathy Secondary to sepsis, close to his baseline Reported to be verbal answering questions at baseline, not yet Hold on medication that might altered mentation Recurrent reorientation Seizure disorder Continue lamotrigine and topiramate, keappra neuro appreviated no change in meds Difficulty swallowing History of aspiration On gastrostomy, tube feeds Head up, aspiration precautions DVT PPX Lovenox Quality Stroke Does the patient have a stroke diagnosis?: No VTE Prior VTE?: No VTE Risk Level:: Medical - moderate - high VTE Device Contraindication: N/A - Device Ordered VTE Drug Contraindication: Treatment Not Indicated
[2021-01-06] MEDS: levETIRAcetam in NaCl (iso-os) 500 MG/100 ML PIGGYBACK 400 MG IV ×2 (12:14→23:48)
--- NOTE | 2021-01-06 14:02 | PM.EVENT ---
Event Note Date of Service: 01/06/21 Event Note: patient has been on Vancomycin staph epi bacteremia,more likely contaminant also enterococcus gallbladder Day 01/10 Vancomycin stop over weekend
--- NOTE | 2021-01-06 14:37 | PC.NURSE ---
RN placing peripheral IV for access as suggested to takeout TLC by infection control. Rn attempting IV - pt threw self forward - punched RN 2x, needle came out of pt - no peripheral IV placed. aware. TLC remains in place at this time as pt very resistive and agitated w care.
--- NOTE | 2021-01-06 15:26 | MHC.CM.PN ---
Male 66 AMS Lives @ [facility]. DP is to return to SNF/LTC via BLS. CM will follow.
--- NOTE | 2021-01-06 15:30 | MHC.CM.PN ---
IMM 01/06/21 66 DX AMS Hypotension DP return to [facility] via BLS. CM will follow.
[2021-01-06] MEDS: vancomycin HCL 1,250 MG in 0.9 % Sodium Chloride 250 ML 166.67 MG IV (21:22)
[2021-01-06] MEDS: Lactulose 20 GM/30 ML SOLUTION G-TUBE (21:30)
[2021-01-07] VITALS (7 sets, daily range): BP systolic 90–100; BP diastolic 48–59; PULSE 67–87; RESP 18–20; TEMP 36.2–37.7; O2SAT 95–98; BMI 26.3
[2021-01-07] MEDS: 0.9 % Sodium Chloride 500 ML 250 ML IV (05:35)
[2021-01-07] MEDS: Albuterol/Iprat 2.5/0.5MG 3 ML AMPUL.NEB INHALE ×2 (07:50→11:18)
[2021-01-07] MEDS: lamoTRIgine 25 MG TABLET 75 MG G-TUBE (07:52)
[2021-01-07] MEDS: lamoTRIgine 100 MG TABLET 200 MG G-TUBE (07:52)
[2021-01-07] MEDS: Famotidine/PF 20 MG/2 ML VIAL IVPUSH (07:52)
[2021-01-07] MEDS: Topiramate 100 MG TABLET 300 MG G-TUBE (07:52)
[2021-01-07] MEDS: Enoxaparin Sodium 40 MG/0.4 ML SYRINGE SUBCUT (07:53)
[2021-01-07 09:24] LABS: Vancomycin Trough 19.7 mcg/mL (10.0-20.0)
--- NOTE | 2021-01-07 10:46 | P.DS_ITS ---
DS: Providers Provider Date of Service: 01/07/21 Date of admission: 12/28/20 17:36 Primary care physician: Mayur Bautista DO Consults: 12/28/20 17:29 Consult to Infectious Diseases Routine Consulting Provider: Eda Merrill Reason for consultation: MEROPENEM Has provider been notified: Yes 12/28/20 21:22 Consult to General Surgery Stat Consulting Provider: Flakito Gaytan Reason for consultation: Acute cholecystitis Has provider been notified: Yes 01/04/21 12:55 Consult to Neurology Routine Consulting Provider: [facility] Reason for consultation: ?seziure activity on eeg DS: Diagnosis Discharge Diagnosis (1) Septic encephalopathy: Status: Acute (2) Acute cholecystitis due to biliary calculus: Status: Acute (3) Infection due to enterococcus: Status: Acute DS: Medications Discharge Medications Home Medications: Home Medications Medication Instructions Recorded Confirmed artificial tears solution eye drops 1 drp OPHTHALMIC (EYE) TID 12/28/20 12/28/20 carboxymethylcellulose sodium 0.5 1 drp OPHTHALMIC (EYE) BID PRN 12/28/20 0 12/28/20 % eye drops (Refresh Tears) clobazam 10 mg tablet 15 mg PO DAILY 12/28/20 12/28/20 dimethicone 5 % topical cream 1 appl TOPICAL BID 12/28/20 12/28/20 (Secura Dimethicone) docusate sodium 100 mg tablet 100 mg PO DAILY 12/28/20 12/28/20 ferrous sulfate 325 mg (65 mg 325 mg PO DAILY 12/28/20 12/28/20 iron) tablet furosemide 20 mg tablet 20 tab PO DAILY 12/28/20 12/28/20 gabapentin 600 mg tablet 600 mg PO TID 12/28/20 12/28/20 gemfibrozil 600 mg tablet 600 mg PO BID 12/28/20 12/28/20 lactulose 10 gram/15 mL oral 30 ml PO BEDTIME 12/28/20 12/28/20 solution lamotrigine 100 mg tablet 100 mg PO BID 12/28/20 12/28/20 lamotrigine 150 mg tablet 150 mg PO BID 12/28/20 12/28/20 lamotrigine 25 mg tablet 25 mg PO BID 12/28/20 12/28/20 lorazepam 2 mg/mL injection 1 mg Q20M PRN 12/28/20 12/28/20 solution magnesium oxide 400 mg PO DAILY 12/28/20 12/28/20 multivitamin 1 tab PO DAILY 12/28/20 12/28/20 nystatin 100,000 unit/gram topical 1 appl TOPICAL BID 12/28/20 12/28/20 powder omeprazole 20 mg tablet,delayed 20 mg PO DAILY 12/28/20 12/28/20 release risperidone 0.25 mg tablet 0.25 mg PO BEDTIME 12/28/20 12/28/20 sennosides 8.6 mg tablet (senna) 17.2 mg PO BEDTIME 12/28/20 12/28/20 topiramate 100 mg tablet 100 mg PO BID 12/28/20 12/28/20 topiramate 200 mg tablet 200 mg PO BID 12/28/20 12/28/20 topiramate 25 mg tablet 25 mg PO BID 12/28/20 12/28/20 DS: Summary Hospital Course Hospital Course: patient was admitted for septic shock due to acute cholecystitis, underwent cholecystotomy, E faecium found in bile. was treated with 10 days of IV vancomycin. was able to be weaned of pressors, sepsis resolved. plan to keep drain until surgical follow up in about 6 weeks. course complicated by metabolic encephalopathy, was secondary to sepsis, now back at baseline, EEG with generalized slowing, reviewed by neuro, no change in antiepileptics recommended. patient also had some urinary retention, has [place], can do trial of void at SNF. Time Spent with Patient Time attestation: Total time spent providing and/or coordinating discharge services: Discharge coordination time: Greater than 30 minutes Quality: Stroke Does the patient have a stroke diagnosis?: No Physical Exam Vital Signs: Vital Signs: Last Vital Signs Temp 97.6 F 01/07/21 07:08 Pulse 69 01/07/21 07:53 Resp 19 01/07/21 07:08 BP 100/59 L 01/07/21 07:08 Pulse Ox 96 01/07/21 07:08 Body Mass Index 26.3 Other:?Constitutional : Alert, not interactive, not in distress Neck : Normal inspection, Supple Cardiovascular : RRR, S1 S2, trace lower extremity edema Respiratory :? Decreased bilateral air entry,? no crackles, wheezes or rhonchi Gastrointestinal:? soft, lax, Normal bowel sounds, Non tender Skin : Warm, Dry Neurological : Alert , nonverbal, cannot assess orientation DS: Data Data Completed and Pending Labs on day of discharge: Laboratory Results - last 24 hr 01/07/21 08:44 Vancomycin Trough 19.7 Discharge Plan Discharge Patient Disposition: er [facility] Discharge Diagnosis: septic katalina, encephalopathy, cholecystitis Referrals: Flakito Gaytan MD [Physician] - 1 Week Mayur Bautista DO [Primary Care Provider] - 1 Week Discharge Medications: Continued multivitamin Tablet 1 tab PO DAILY RF: 0 lamotrigine 150 mg tablet 150 mg PO BID RF: 0 sennosides [senna] 8.6 mg Tablet 17.2 mg PO BEDTIME RF: 0 gabapentin 600 mg tablet 600 mg PO TID RF: 0 lorazepam 2 mg/mL solution 1 mg Q20M PRN (Reason: Seizures) RF: 0 artificial tears solution Drops 1 drp OPHTHALMIC (EYE) TID RF: 0 topiramate 25 mg tablet 25 mg PO BID RF: 0 risperidone 0.25 mg tablet 0.25 mg PO BEDTIME RF: 0 lamotrigine 25 mg tablet 25 mg PO BID RF: 0 carboxymethylcellulose sodium [Refresh Tears] 0.5 % Drops 1 drp OPHTHALMIC (EYE) BID PRN (Reason: Dry Eye(S)) RF: 0 gemfibrozil 600 mg tablet 600 mg PO BID RF: 0 ferrous sulfate 325 mg (65 mg iron) Tablet 325 mg PO DAILY RF: 0 topiramate 200 mg tablet 200 mg PO BID RF: 0 furosemide 20 mg tablet 20 tab PO DAILY RF: 0 nystatin 100,000 unit/gram Powder 1 appl TOPICAL BID RF: 0 topiramate 100 mg tablet 100 mg PO BID RF: 0 docusate sodium 100 mg Tablet 100 mg PO DAILY RF: 0 lamotrigine 100 mg tablet 100 mg PO BID RF: 0 Secura Dimethicone 5 % Cream 1 appl TOPICAL BID RF: 0 lactulose 10 gram/15 mL solution 30 ml PO BEDTIME RF: 0 omeprazole 20 mg Tablet,Delayed Release (Dr/Ec) 20 mg PO DAILY RF: 0 clobazam 10 mg tablet 15 mg PO DAILY RF: 0 magnesium oxide 400 mg magnesium Tablet 400 mg PO DAILY RF: 0 Discharge Orders: Discharge Order (Routine); Ordered 01/07/21 Ordered By: Miguel Ángel Canas Diet: other Activity on Discharge: As tolerated Stand Alone Forms: Patient Portal Discharge page Care Plan Goals: recovery Health Concerns: cholecystitis, urinary retention Plan of Treatment: follow up with surgery in about 6 weeks for tube removal, voiding trial at SNF, Assessment: see above
[2021-01-07 11:07] LABS: Creatinine Clr Calc Pharmacy 148.1; Estimated Glomerular Filt Rate > 60
--- NOTE | 2021-01-07 11:36 | MHC.CM.PN ---
Addendum entered by Cassie Nelson 01/07/21 14:57: VM MESSAGE LEFT FOR PTS LEGAL GUARDIAN, ATTY MARIKA DENNISON ([phone]) INFORMING HIM OF DC AND PTS MEDICARE RIGHTS. HE WAS ALSO INFORMED A COPY OF THE PTS IMM WOULD BE MAILED TO HIM. Addendum entered by Cassie Nelson 01/07/21 13:49: CM RECEIVED A RETURN CALL FROM PTS NURSE RICHARD, SAT[facility] GOTTLIEB EARLIER DOCUMENTED, SHE INDICATED THEY WOULD BE ABLE TO ACCEPT THE PT BACK THIS AFTERNOON. CM WILL FAX PTS DC ORDERS TO HER AT [phone] AND TRANSPORT WILL BE ARRANGED VIA [facility] FOR 1530 HOURS Addendum entered by Cassie Nelson 01/07/21 12:27: CM HAS NOT RECEIVED A RESPONSE FROM [facility] VIA [facility]. CM CONTACTED THE [facility] CHARGE NURSE, CHERY, AND INFORMED HER OF THE DISCHARGE ORDER. SHE REPORTS SHE WILL CALL HER RN RENAL FOR CLEARANCE THAT THEN CALL T/W BACK TO ARRANGE A TIME. Original Note: CM INFORMED PT WILL BE CLEARED TO RETURN TO LTC AT [facility] TODAY. CLINICAL UPDATES AND MESSAGE INFORMING THEM OF PENDING DISCHARGE SENT TO SNF. CM CURRENTLY AWAITING RESPONSE TO CONFIRM THEY HAVE REVIEWED UPDATES AND APPROVED PTS RETURN. CURRENT DC PLAN IS RETURN TO LTC FACILITY TODAY VIA BLS. CM WILL CONTACT GUARDIAN ONCE DC IS SCHEDULED
[2021-01-07] MEDS: vancomycin HCL 1,250 MG in 0.9 % Sodium Chloride 250 ML 166.67 MG IV (11:50)
[2021-01-07] MEDS: levETIRAcetam in NaCl (iso-os) 500 MG/100 ML PIGGYBACK 400 MG IV (12:08)
[2021-01-07 13:26] LABS: Influenza A PCR NEGATIVE (Negative); Influenza B PCR NEGATIVE (Negative); Resp Syncy Virus RNA Qual PCR NEGATIVE (Negative); SARS COV2 PCR INHOUSE NEGATIVE (Negative)
== END 2021-01-07 16:00 | disposition skilled nursing facility (03) | DRG 871 ==
LOC: HO.ED 15:53 → HO.ICU 17:57 → HO.IMC 01-04 14:01
PROVIDERS: Emergency Medicine; Internal Medicine Pulmonary Disease; Physician Assistant; Radiology Diagnostic Radiology; Student in an Organized Health Care Education/Training Program; Admitting Provider Internal Medicine Cardiovascular Disease; Emergency Provider Emergency Medicine Emergency Medical Services; PCP Hospitalist; Visit Provider Internal Medicine
PROC: 0F9430Z Drainage of Gallbladder with Drainage Device, Percutaneous Approach (ICD-10-PCS; principal; 2020-12-29 12:00)
DX: A41.9 Sepsis, unspecified organism (principal); G93.41 Metabolic encephalopathy; R65.21 Severe sepsis with septic shock; K80.00 Calculus of gallbladder with acute cholecystitis without obstruction; B95.2 Enterococcus as the cause of diseases classified elsewhere; Z93.1 Gastrostomy status; G40.909 Epilepsy, unspecified, not intractable, without status epilepticus; I95.9 Hypotension, unspecified; Z20.822 Contact with and (suspected) exposure to COVID-19; Z87.820 Personal history of traumatic brain injury; Z88.0 Allergy status to penicillin; Z79.899 Other long term (current) drug therapy
CPT/HCPCS: 0241U; 36415; 71045; 71250; 74176; 75989; 76705; 80048; 80076; 80202; 81001; 82272; 82565; 83605; 83690; 83735; 83880; 84100; 84484; 85025; 85027; 85610; 85730; 87040; 87071; 87073; 87077; 87086; 87186; 87205; 87635; 93005; 94640; 95816; 96361; 96365; 96367; 99282; 99285; 99291; C1729; C1769; J1170; J1650; J1940; J1953; J2185; J2250; J3370; P9047

== ENCOUNTER → 2021-01-31 13:32 | Outpatient (BNVA) | payer MEDICARE, MEDICAID, SELFPAY | PROVIDERS: PCP Hospitalist; Visit Provider Surgery | DX: K80.00 Calculus of gallbladder with acute cholecystitis without obstruction (principal); A41.9 Sepsis, unspecified organism; R65.21 Severe sepsis with septic shock; S06.9X9D Unspecified intracranial injury with loss of consciousness of unspecified duration, subsequent encounter | CPT/HCPCS: 99212 ==

== ENCOUNTER 2021-02-13 07:08 | Inpatient (IN) | payer MEDICARE, MEDICAID, SELFPAY ==
[2021-02-09 12:40] VITALS: BMI 26.2
--- NOTE | 2021-02-10 09:03 | HO.ANESPROP2 ---
Documented by User: Evelyn Matos NP 02/10/21 13:58 HPI - Anesthesia Eval Consult details Narrative: 66yo M for Cholecystectomy Laparoscopic, Poss Open C admit 12/28/20-01/07/21 for sepsis due to acute cholecystitis, cholelithiasis, metabolic encephalopathy. ICU for management and subsequently underwent interventional radiology placement of a cholecystostomy tube on 12/29/2020. Sepsis resolved. H/O TBI (nonverbal). SNF resident. Percutaneous saray drain in situ. G-tube in situ. Medically cleared [facility] Active Problems Active Problems: All Active Problems (Updated 02/09/21 @ 08:56 by Tatianna Champagne RN) Feeding by G-tube (Acute) Sepsis (Acute) Acute hypotension (Acute) Acute cholecystitis due to biliary calculus (Acute) Staphylococcus aureus bacteremia (Acute) Aspiration pneumonitis (Acute) Bacteremia, coagulase-negative staphylococcal (Acute) Septic shock (Acute) Septic encephalopathy (Acute) Infection due to enterococcus (Acute) Seizures (Acute) TBI (traumatic brain injury) (Acute) Past Medical History Medical History Elevated cholesterol Gastrostomy tube in place GERD (gastroesophageal reflux disease) Seizures Sepsis TBI (traumatic brain injury) Surgical History Surgical History History of lithotripsy History of surgery Social History Social History Household Members: None Housing: [facility] Are you a primary assistant child care teacher to a significant other at home: No Do you presently have visiting nurse or other home services: No Unable to assess alcohol history related to: Unable to respond Alcohol intake: unknown Patient Tobacco Use Status: Tobacco use Unknown Use of substances other than those prescribed or required for medical reasons: No Have you been hit, kicked, punched, or otherwise hurt by someone within the past year? If so, by whom?: No Are you DNR?: Yes Advance Directives: Yes Advance Directives Information Provided: Yes Advance Directives on File: Yes Advance Directives Date on File: 02/09/21 service: No Current occupational status: disabled Meds Allergies Allergy/AdvReac Type Severity Reaction Status Date / Time Penicillins [PENICILLINS] Allergy Severe Anaphylaxis Verified 12/29/20 03:10 cefotetan [From CEFOTAN] Allergy Unknown UNKNOWN Verified 12/29/20 03:10 Cephalosporins Allergy Unknown UNKNOWN Verified 12/29/20 03:10 [CEPHALOSPORINS] clindamycin [CLINDAMYCIN] Allergy Unknown UNKNOWN Verified 12/29/20 03:10 levofloxacin [LEVOFLOXACIN] Allergy Unknown UNKNOWN Verified 12/29/20 03:10 Quinolones [QUINOLONES] Allergy Unknown UNKNOWN Verified 12/29/20 03:10 Home Medications Medication Instructions Recorded Confirmed Last Taken Type artificial tears solution eye drops 1 drp OPHTHALMIC (EYE) TID 12/28/20 02/09/21 Unknown History carboxymethylcellulose sodium 0.5 1 drp OPHTHALMIC (EYE) BID PRN 12/28/20 02/09/21 Unknown History % eye drops (Refresh Tears) dimethicone 5 % topical cream 1 appl TOPICAL BID 12/28/20 02/09/21 Unknown History (Secura Dimethicone) docusate sodium 100 mg tablet 100 mg PO DAILY 12/28/20 02/09/21 Unknown History ferrous sulfate 325 mg (65 mg 325 mg PO DAILY 12/28/20 02/09/21 Unknown History iron) tablet furosemide 20 mg tablet 20 tab PO DAILY 12/28/20 02/09/21 Unknown History gabapentin 600 mg tablet 600 mg PO TID 12/28/20 02/09/21 Unknown History gemfibrozil 600 mg tablet 600 mg PO BID 12/28/20 02/09/21 Unknown History lactulose 10 gram/15 mL oral 30 ml PO BEDTIME 12/28/20 02/09/21 Unknown History solution lamotrigine 100 mg tablet 100 mg PO BID 12/28/20 02/09/21 Unknown History lamotrigine 150 mg tablet 150 mg PO BID 12/28/20 02/09/21 Unknown History lamotrigine 25 mg tablet 25 mg PO BID 12/28/20 02/09/21 Unknown History lorazepam 2 mg/mL injection 1 mg Q20M PRN 12/28/20 02/09/21 Unknown History solution magnesium oxide 400 mg PO DAILY 12/28/20 02/09/21 Unknown History multivitamin 1 tab PO DAILY 12/28/20 02/09/21 Unknown History nystatin 100,000 unit/gram topical 1 appl TOPICAL BID 12/28/20 02/09/21 Unknown History powder omeprazole 20 mg tablet,delayed 20 mg PO DAILY 12/28/20 02/09/21 Unknown History release risperidone 0.25 mg tablet 0.25 mg PO BEDTIME 12/28/20 02/09/21 Unknown History sennosides 8.6 mg tablet (senna) 17.2 mg PO BEDTIME 12/28/20 02/09/21 Unknown History topiramate 100 mg tablet 100 mg PO BID 12/28/20 02/09/21 Unknown History topiramate 200 mg tablet 200 mg PO BID 12/28/20 02/09/21 Unknown History topiramate 25 mg tablet 25 mg PO BID 12/28/20 02/09/21 Unknown History clobazam 10 mg tablet (Onfi) 5 mg PO DAILY 02/09/21 02/09/21 Unknown History clobazam 10 mg tablet (Onfi) 10 mg PO DAILY 02/09/21 02/09/21 Unknown History Exam Exam Date and Time: February 10, [id number] Height,Weight and Vital Signs: Height 5 ft 8 in Weight 78.381 kg Pertinent Lab Results Pertinent Lab Results: Laboratory Tests 01/04/21 01/04/21 01/07/21 05:50 05:50 10:24 WBC 6.3 Hgb 9.8 L Hct 29.2 L Plt Count 387 Sodium 141 Potassium 3.8 Chloride 113 H Carbon Dioxide 23 BUN 8 L Creatinine 0.52 Narrative Narrative: EKG 12/2020 Vent. Rate : 088 BPM ? ? Atrial Rate : 088 BPM ?? P-R Int : 174 ms? QRS Dur : 084 ms ? ? QT Int : 000 ms ? ? ? P-R-T Axes : 015 -08 003 degrees ?? QTc Int : 000 ms ? Normal sinus rhythm Nonspecific ST and T wave abnormality Abnormal ECG When compared with ECG of 04-JAN-2018 18:14, Nonspecific T wave abnormality now evident in Anterolateral leads (manual QT calculation difficult due to flat T wave ) Assessment and Plan Assessment Anesthesia Assessment: Chart Reviewed Documented by User: Davina Olmos MD 02/13/21 09:50 [facility] Past Medical History Medical History Elevated cholesterol Gastrostomy tube in place GERD (gastroesophageal reflux disease) Seizures Sepsis TBI (traumatic brain injury) Surgical History Surgical History History of lithotripsy History of surgery History of Problems with Anesthesia: Unobtainable Social History Social History Household Members: None Housing: [facility] Are you a primary assistant child care teacher to a significant other at home: No Do you presently have visiting nurse or other home services: No Unable to assess alcohol history related to: Unable to respond Alcohol intake: unknown Patient Tobacco Use Status: Tobacco use Unknown Use of substances other than those prescribed or required for medical reasons: No Have you been hit, kicked, punched, or otherwise hurt by someone within the past year? If so, by whom?: No Are you DNR?: Yes Advance Directives: Yes Advance Directives Information Provided: Yes Advance Directives on File: Yes Advance Directives Date on File: 02/09/21 service: No Current occupational status: disabled Meds Allergies Allergy/AdvReac Type Severity Reaction Status Date / Time Penicillins [PENICILLINS] Allergy Severe Anaphylaxis Verified 12/29/20 03:10 cefotetan [From CEFOTAN] Allergy Unknown UNKNOWN Verified 12/29/20 03:10 Cephalosporins Allergy Unknown UNKNOWN Verified 12/29/20 03:10 [CEPHALOSPORINS] clindamycin [CLINDAMYCIN] Allergy Unknown UNKNOWN Verified 12/29/20 03:10 levofloxacin [LEVOFLOXACIN] Allergy Unknown UNKNOWN Verified 12/29/20 03:10 Quinolones [QUINOLONES] Allergy Unknown UNKNOWN Verified 12/29/20 03:10 Home Medications Medication Instructions Recorded Confirmed Last Taken Type artificial tears solution eye drops 1 drp OPHTHALMIC (EYE) TID 12/28/20 02/09/21 Unknown History carboxymethylcellulose sodium 0.5 1 drp OPHTHALMIC (EYE) BID PRN 12/28/20 02/09/21 Unknown History % eye drops (Refresh Tears) dimethicone 5 % topical cream 1 appl TOPICAL BID 12/28/20 02/09/21 Unknown History (Secura Dimethicone) docusate sodium 100 mg tablet 100 mg PO DAILY 12/28/20 02/09/21 Unknown History ferrous sulfate 325 mg (65 mg 325 mg PO DAILY 12/28/20 02/09/21 Unknown History iron) tablet furosemide 20 mg tablet 20 tab PO DAILY 12/28/20 02/09/21 Unknown History gabapentin 600 mg tablet 600 mg PO TID 12/28/20 02/09/21 Unknown History gemfibrozil 600 mg tablet 600 mg PO BID 12/28/20 02/09/21 Unknown History lactulose 10 gram/15 mL oral 30 ml PO BEDTIME 12/28/20 02/09/21 Unknown History solution lamotrigine 100 mg tablet 100 mg PO BID 12/28/20 02/09/21 Unknown History lamotrigine 150 mg tablet 150 mg PO BID 12/28/20 02/09/21 Unknown History lamotrigine 25 mg tablet 25 mg PO BID 12/28/20 02/09/21 Unknown History lorazepam 2 mg/mL injection 1 mg Q20M PRN 12/28/20 02/09/21 Unknown History solution magnesium oxide 400 mg PO DAILY 12/28/20 02/09/21 Unknown History multivitamin 1 tab PO DAILY 12/28/20 02/09/21 Unknown History nystatin 100,000 unit/gram topical 1 appl TOPICAL BID 12/28/20 02/09/21 Unknown History powder omeprazole 20 mg tablet,delayed 20 mg PO DAILY 12/28/20 02/09/21 Unknown History release risperidone 0.25 mg tablet 0.25 mg PO BEDTIME 12/28/20 02/09/21 Unknown History sennosides 8.6 mg tablet (senna) 17.2 mg PO BEDTIME 12/28/20 02/09/21 Unknown History topiramate 100 mg tablet 100 mg PO BID 12/28/20 02/09/21 Unknown History topiramate 200 mg tablet 200 mg PO BID 12/28/20 02/09/21 Unknown History topiramate 25 mg tablet 25 mg PO BID 12/28/20 02/09/21 Unknown History clobazam 10 mg tablet (Onfi) 5 mg PO DAILY 02/09/21 02/09/21 Unknown History clobazam 10 mg tablet (Onfi) 10 mg PO DAILY 02/09/21 02/09/21 Unknown History Exam Airway TM Dist: >3cm Neck ROM: Limited Heart: RRR Lungs: CTA Other: pt unable to cooperate with airway exam Assessment and Plan Assessment Anesthesia Assessment: Anesthesia Plan Discussed Final Anesthetic Review History of Problems with Anesthesia: Unobtainable NPO: Yes ASA Class: III Final Preanesthetic Review: Meds/Allgs Chart Reviewed, Consent Obtained/Reviewed and Anes Risks/Benef Reviewed Patient Risk: Intermediate Procedure Risk: Intermediate Anesthetic Plan Anesthetic Plan: GA Disposition: Standard PACU
[2021-02-13] VITALS (15 sets, daily range): BP systolic 84–132; BP diastolic 35–58; PULSE 53–70; RESP 16–18; TEMP 36–36.4; O2SAT 94–99
[2021-02-13] MEDS: Lactated Ringers 1,000 ML 100 ML IVCONT ×2 (07:56→18:02)
[2021-02-13 07:58] LABS: COVID-19 Test Negative (Negative); IDNOW Serial# 9DD0AD1C
[2021-02-13] MEDS: metroNIDAZOLE/NS 500 MG/100 ML PIGGYBACK 100 MG IV (08:03)
--- NOTE | 2021-02-13 09:36 | MHC.SHP ---
Pre-Procedural Eval Section A Date of Service: 02/13/21 The patient is an INPATIENT: No Changes since office visit: Yes Patient answered all questions; No Cold of Flu in the past 2 weeks, No New Medical Problems and No Changes in Medication The History & Physical has been completed within 30 days and I have reviewed it.: Yes Section B Chief Complaint: Acute cholecystitis S/P cholecystostomy Allergies: Allergies Allergy/AdvReac Type Severity Reaction Status Date / Time Penicillins [PENICILLINS] Allergy Severe Anaphylaxis Verified 12/29/20 03:10 cefotetan [From CEFOTAN] Allergy Unknown UNKNOWN Verified 12/29/20 03:10 Cephalosporins Allergy Unknown UNKNOWN Verified 12/29/20 03:10 [CEPHALOSPORINS] clindamycin [CLINDAMYCIN] Allergy Unknown UNKNOWN Verified 12/29/20 03:10 levofloxacin [LEVOFLOXACIN] Allergy Unknown UNKNOWN Verified 12/29/20 03:10 Quinolones [QUINOLONES] Allergy Unknown UNKNOWN Verified 12/29/20 03:10 Plan Diagnosis/Plan: Unchanged I have reviewed the history and physical and performed a pertinent physical examination on my patient. No changes have occurred unless specified.
--- NOTE | 2021-02-13 12:12 | W.PM.OPN ---
Operative Note Operative Note Date of Service: 02/13/21 Narrative: Preoperative diagnosis: Cholecystitis due to cholelithiasis, status post cholecystostomy tube placement Postoperative diagnosis: Same Procedure: Laparoscopic cholecystectomy, removal of cholecystostomy tube Surgeon: Flakito Gaytan MD Solid Fiber Paster Operator: RAHEEM Carlisle Anesthesia: General endotracheal Indications for procedure: 66-year-old male patient with history of TBI, seizures, sepsis, status post cholecystostomy tube for acute cholecystitis, presenting now for elective laparoscopic or possible open cholecystectomy with removal of cholecystostomy tube. Operative findings: Markedly scarred gallbladder, contracted with multiple small gallstones, multifaceted, with cholecystostomy tube traversing liver to enter the gallbladder. Specimen: Gallbladder Estimated blood loss: 40 mL Complications: None Drains: Large Rex-Hidalgo drain Procedure details: Patient was brought to the OR and placed in a supine position. After administering general anesthesia the patient's abdomen was prepped with ChloraPrep and draped in a sterile fashion. Local anesthesia consisting of 0.5% Sensorcaine with epinephrine was infiltrated in a periumbilical region. A 5 mm incision was made above the umbilicus in a transverse fashion. The Veress needle was then inserted while elevating abdominal cavity with towel clips. After positive drop test the abdomen was insufflated to a pressure of 15 mm of mercury. The Veress needle was then removed and a 5 mm trocar inserted. The camera was inserted in the abdomen explored. A 12 mm trocar was then placed in the epigastrium and 2 5 mm trocars placed in the right upper quadrant. The patient was placed in reverse Trendelenburg positioning and rotated to the left. The gallbladder was markedly scarred from previous acute cholecystitis. Using a combination of blunt and scissor dissection the gallbladder was dissected free from the surrounding adherent transverse colon mesentery. The gallbladder was found to be quite large with evidence of chronic inflammation. The fundus of the gallbladder was grasped with a blunt grasper and retracted cephalad.. The infundibulum was then grasped and retracted away from the liver bed. The Dolphin dissected was then used to dissect the peritoneum off the infundibulum to reveal the junction with the cystic duct. The cystic duct was found to be quite thickened. Cystic artery was noted slightly medial and posterior to the cystic duct. A critical view was obtained. The cystic artery was doubly clipped and divided. Cystic duct because of its size was clearly seen to enter the gallbladder. An Endo-NANNETTE with a 30 mm purple reload was used to staple and divide the cystic duct. The gallbladder was then dissected off the gallbladder fossa using electrocautery. The gallbladder was placed in the Endo-Catch bag and brought out through the epigastric incision. Hemostasis was assured using electrocautery +Surgicel. Because of the significant inflammation a large Rex-Hidalgo drain was left in place and brought out through the lateral trocar incision. This was secured to the skin using a nylon suture. Wounds were again checked for hemostasis. All trocars removed and the CO2 evacuated. Fascia was closed at the epigastric incision using a [id number] 0 Polysorb suture. Skin was closed in all incisions using a subcuticular 4 0 Polysorb suture. Sterile dressings consisting of Steri-Strips, 2 x 2 gauze, and Tegaderm were then applied. The patient tolerated the procedure well. Sponge instrument and needle counts reported as correct. The patient was transferred to PACU in stable condition.
[2021-02-13] MEDS: fentaNYL citrate/PF 100 MCG/2 ML VIAL 25 MCG IVPUSH ×2 (12:44→12:56)
[2021-02-13] MEDS: ondansetron HCL 4 MG/2 ML VIAL IVPUSH (12:44)
--- NOTE | 2021-02-13 16:28 | P.CONIM_ITS ---
History of Present Illness Data of Consult Service Date: 02/13/21 <Veronica Cat NP - Last Filed: 02/13/21 16:53> Requesting physician: Flakito Gaytan <Veronica Cat NP - Last Filed: 02/13/21 16:53> Primary Care Provider: Mayur Bautista DO <Veronica Cat NP - Last Filed: 02/13/21 16:53> HPI Reason for consult: Medical management <Veronica Cat NP - Last Filed: 02/13/21 16:53> 66-year-old man admitted by General surgery with history seizures, hypotension, TBI. He is status post cholecystectomy with tube removal. He is noted to be hypotensive, with IV fluids. Patient is mostly nonverbal at baseline. Laying in bed no appearing to be in distress. <Veronica Cat NP - Last Filed: 02/13/21 16:53> Review of Systems Review of Systems: Unable to assess due to mental status <Veronica Cat NP - Last Filed: 02/13/21 16:53> [facility] Medical History: Medical History Elevated cholesterol Gastrostomy tube in place GERD (gastroesophageal reflux disease) Seizures Sepsis TBI (traumatic brain injury) <Veronica Cat NP - Last Filed: 02/13/21 16:53> Surgical History: Surgical History History of lithotripsy History of surgery <Veronica Cat NP - Last Filed: 02/13/21 16:53> Social History: Social History Household Members: Other Household Members Other:: [facility] Housing: Assisted Are you a primary neonatal intensive care nurse to a significant other at home: No Do you presently have visiting nurse or other home services: Yes Unable to assess alcohol history related to: Unable to respond and Unknown Alcohol intake: unknown Patient Tobacco Use Status: Tobacco use Unknown Use of substances other than those prescribed or required for medical reasons: No Currently Displaying Signs/Symptoms of Drug Intoxication Withdrawal: No Have you been hit, kicked, punched, or otherwise hurt by someone within the past year? If so, by whom?: No Are you DNR?: Yes Advance Directives: Yes Advance Directives Information Provided: Yes Advance Directives on File: Yes Advance Directives Date on File: 02/09/21 Do you have thoughts of harming others: None Do you have a plan to hurt others: No Plan Recently lost weight without trying: Unsure Nutrition Risks: On aspiration precautions Poor oral hygiene: No service: No Current occupational status: disabled <Veronica Cat NP - Last Filed: 02/13/21 16:53> Meds Allergies/Adverse reactions: Allergies Allergy/AdvReac Type Severity Reaction Status Date / Time Penicillins [PENICILLINS] Allergy Severe Anaphylaxis Verified 12/29/20 03:10 cefotetan [From CEFOTAN] Allergy Unknown UNKNOWN Verified 12/29/20 03:10 Cephalosporins Allergy Unknown UNKNOWN Verified 12/29/20 03:10 [CEPHALOSPORINS] clindamycin [CLINDAMYCIN] Allergy Unknown UNKNOWN Verified 12/29/20 03:10 levofloxacin [LEVOFLOXACIN] Allergy Unknown UNKNOWN Verified 12/29/20 03:10 Quinolones [QUINOLONES] Allergy Unknown UNKNOWN Verified 12/29/20 03:10 <Veronica Cat NP - Last Filed: 02/13/21 16:53> Active Medications: Current Medications Generic Name Dose Route Start Last Admin Trade Name Freq PRN Reason Stop Dose Admin Artificial Tears 1 drop 02/13/21 21:00 Artificial Tears Droperette EYE-BOTH TID ANDREW Docusate Sodium 100 mg 02/14/21 09:00 Docusate Sodium 100 Mg Capsule PO DAILY ANDREW Furosemide 400 mg 02/14/21 09:00 Furosemide 40 Mg Tablet PO DAILY [facility] Protocol Gabapentin 600 mg 02/13/21 16:09 Gabapentin 600 Mg Tablet PO TID ANDREW Gemfibrozil 600 mg 02/13/21 21:00 Gemfibrozil 600 Mg Tablet PO BID ANDREW Lactated Ringer's 1,000 mls @ 100 mls/hr 02/13/21 07:15 02/13/21 07:56 Lr IVCONT 100 mls/hr .Q10H ANDREW Administration Acetaminophen 1,000 mg in 100 mls @ 400 mls/hr 02/13/21 16:09 Ofirmev IV Q6H PRN Pain, Severe (Pain Scale 7-10) Lactulose 20 gm 02/13/21 21:00 Lactulose 20 Gm/30 Ml Solution PO BEDTIME ANDREW Lamotrigine 150 mg 09/13/21 21:00 Lamotrigine 25 Mg Tablet PO BID [facility] Lorazepam 1 mg 02/13/21 16:09 Lorazepam 2 Mg/Ml Vial IV Q20M PRN Seizures Magnesium Oxide 400 mg 02/14/21 09:00 Magnesium Oxide 400 Mg Tablet PO DAILY ANDREW Morphine Sulfate 2 mg 02/13/21 16:09 Morphine Sulfate 2 Mg/Ml Cartridge IVPUSH Q3H PRN Pain, Severe (Pain Scale 7-10) Protocol Non-Formulary Medication 1 drop 02/13/21 16:09 Carboxymethylcellulose Sodium [Refresh Tears] EYE-BOTH BID PRN Dry Eye(S) Non-Formulary Medication 10 mg 02/14/21 09:00 Clobazam [Onfi] PO DAILY [facility] Non-Formulary Medication 5 mg 02/14/21 09:00 Clobazam [Onfi] PO DAILY [facility] Ondansetron HCl 4 mg 02/13/21 16:09 Ondansetron Hcl 4 Mg/2 Ml Vial IVPUSH Q8H PRN Nausea Oxycodone HCl 5 mg 02/13/21 16:09 Oxycodone Hcl Immed Release 5 Mg Tablet PO Q6H PRN Pain, Moderate (Pain Scale 4-6 Pharmacy Consult 1 each 02/13/21 16:09 Consult Rx Perform Med Rec MISCELLANE ONCE PRN Consult order Risperidone 0.25 mg 02/13/21 21:00 Risperidone 0.25 Mg Tablet PO BEDTIME [facility] Senna 17.2 mg 02/13/21 21:00 Sennosides 8.6 Mg Tablet PO BEDTIME [facility] Sodium Chloride 3 ml 02/13/21 16:09 0.9 % Sodium Chloride Flush 3 Ml Syringe IVFLUSH QSHIFT [facility] Topiramate 200 mg 02/13/21 21:00 Topiramate 100 Mg Tablet PO BID [facility] <Veronica Cat, [employer] - Last Filed: 02/13/21 16:53> Home medications: Home Medications Medication Instructions Recorded Confirmed Last Taken Type artificial tears solution eye drops 1 drp OPHTHALMIC (EYE) TID 12/28/20 02/09/21 Unknown History carboxymethylcellulose sodium 0.5 1 drp OPHTHALMIC (EYE) BID PRN 12/28/20 02/09/21 Unknown History % eye drops (Refresh Tears) dimethicone 5 % topical cream 1 appl TOPICAL BID 12/28/20 02/09/21 Unknown History (Secura Dimethicone) docusate sodium 100 mg tablet 100 mg PO DAILY 12/28/20 02/09/21 Unknown History ferrous sulfate 325 mg (65 mg 325 mg PO DAILY 12/28/20 02/09/21 Unknown History iron) tablet furosemide 20 mg tablet 20 mg PO DAILY 12/28/20 02/13/21 Unknown History gabapentin 600 mg tablet 600 mg PO TID 12/28/20 02/09/21 Unknown History gemfibrozil 600 mg tablet 600 mg PO BID 12/28/20 02/09/21 Unknown History lactulose 10 gram/15 mL oral 30 ml PO BEDTIME 12/28/20 02/09/21 Unknown History solution lamotrigine 100 mg tablet 100 mg PO BID 12/28/20 02/09/21 Unknown History lamotrigine 150 mg tablet 150 mg PO BID 12/28/20 02/09/21 Unknown History lamotrigine 25 mg tablet 25 mg PO BID 12/28/20 02/09/21 Unknown History lorazepam 2 mg/mL injection 1 mg Q20M PRN 12/28/20 02/09/21 Unknown History solution magnesium oxide 400 mg PO DAILY 12/28/20 02/09/21 Unknown History multivitamin 1 tab PO DAILY 12/28/20 02/09/21 Unknown History nystatin 100,000 unit/gram topical 1 appl TOPICAL BID 12/28/20 02/09/21 Unknown History powder omeprazole 20 mg tablet,delayed 20 mg PO DAILY 12/28/20 02/09/21 Unknown History release risperidone 0.25 mg tablet 0.25 mg PO BEDTIME 12/28/20 02/09/21 Unknown History sennosides 8.6 mg tablet (senna) 17.2 mg PO BEDTIME 12/28/20 02/09/21 Unknown Hi story topiramate 100 mg tablet 100 mg PO BID 12/28/20 02/09/21 Unknown History topiramate 200 mg tablet 200 mg PO BID 12/28/20 02/09/21 Unknown History topiramate 25 mg tablet 25 mg PO BID 12/28/20 02/09/21 Unknown History clobazam 10 mg tablet (Onfi) 5 mg PO DAILY 02/09/21 02/09/21 Unknown History clobazam 10 mg tablet (Onfi) 10 mg PO DAILY 02/09/21 02/09/21 Unknown History ibuprofen 800 mg tablet 800 mg PO Q8H PRN 02/13/21 02/13/21 Unknown History <Veronica Cat NP - Last Filed: 02/13/21 16:53> Physical Exam Vital Signs and Narrative: Vital Signs: Last Vital Signs Temp 97 F 02/13/21 15:24 Pulse 58 02/13/21 15:24 Resp 16 02/13/21 15:24 BP 104/46 L 02/13/21 15:24 Pulse Ox 95 02/13/21 15:24 Body Mass Index 26.2 <Veronica Cat NP - Last Filed: 02/13/21 16:53> Appearing in no acute distress head is normocephalic atraumatic eyes pupils are PERRLA sclera is anicteric mouth throat mucous membranes are intact and moist lung sounds are clear to auscultation heart regular rate rhythm, clear S1, S2 positive bowel sounds, abdomen is soft, nontender neuro patient is alert,opens eyes but non verbal, no focal deficits <Veronica Cat NP - Last Filed: 02/13/21 16:53> Results Labs CBC and Chem 7: : 02/14/21 06:24 02/15/21 06:24 <Veronica Cat NP - Last Filed: 02/13/21 16:53> Labs: Laboratory Results - last 24 hr 02/13/21 07:15 COVID-19 ([place]) Negative COVID-19 Clin Com See Note <Veronica Cat NP - Last Filed: 02/13/21 16:53> Assessment and Plan (1) Seizures: Status: Acute <Veronica Cat NP - Last Filed: 02/13/21 16:53> (2) TBI (traumatic brain injury): Status: Acute <Veronica Cat NP - Last Filed: 02/13/21 16:53> 66-year-old non verbal [facility] General surgery and is status post laparoscopic cholecystectomy due to cholecystitis, cholelithiasis Cholecystectomy. Management as per surgical team Pain management History of seizures. Seizure precautions. Continue home medications Hypotension. Appears to have some history of this Stop Lasix Continue IV fluids DVT prophylaxis as per admitting provider Attending Dr. Baron <Veronica Cat NP - Last Filed: 02/13/21 16:53>
--- NOTE | 2021-02-13 18:54 | PM.EVENT ---
Event Note Date of Service: 02/13/21 Event Note: Patient seen and examined with APC Lab reviewed Assessment and plan reviewed with APC and agree with plan in addition: Patient was hypotensive earlier during the day seems improving with IV fluids Discussed with Dr. Gaytan: Question of acute cholecystitis on report Plan to start antibiotic-previously his bile grew Enterococcus faecium-sensitive to vancomycin and ampicillin, patient is [place] allergic so decided to start IV Vanco for now.
[2021-02-13 21:45] LABS: Creatinine Clr Calc Pharmacy 128.9; Estimated Glomerular Filt Rate > 60
[2021-02-13] MEDS: Topiramate 100 MG TABLET 200 MG PO (22:05)
[2021-02-13] MEDS: Topiramate 100 MG TABLET PO (22:06)
[2021-02-13] MEDS: Topiramate 25 MG TABLET PO (22:06)
[2021-02-13] MEDS: Sennosides 8.6 MG TABLET 17.2 MG PO (22:07)
[2021-02-13] MEDS: gemfibroziL 600 MG TABLET PO (22:08)
[2021-02-13] MEDS: risperiDONE 0.25 MG TABLET PO (22:08)
[2021-02-13] MEDS: lamoTRIgine 25 MG TABLET 150 MG PO (22:09)
[2021-02-13] MEDS: lamoTRIgine 25 MG TABLET PO (22:11)
[2021-02-13] MEDS: Gabapentin 600 MG TABLET PO (22:11)
[2021-02-13] MEDS: lamoTRIgine 100 MG TABLET PO (22:11)
[2021-02-13] MEDS: Lactulose 20 GM/30 ML SOLUTION PO (22:12)
--- NOTE | 2021-02-13 22:28 | PHA.PROG ---
Admission Date/Time: February 13, 2021 07:08 Indication: intra-abdominal Weight in k.381 kg Adjusted body weight in K.4 kg Brandt body weight in K.4 kg Serum Creatinine - Last 168 Hours 02/13/21 21:03 Creatinine 0.56 Estimated CrCl and GFR - Last 168 Hours 02/13/21 21:03 Estim Creat Clear Calc 128.9 Estimated GFR > 60 Current Vancomycin Dosing Regimen:1250 MG Q12 H Vancomycin Monitoring using AUC goal of 400 - 600 range with trough as surrogate marker: 13.5 Date and Time for next Vancomycin Level to be drawn: 02/15/2021 @0900 Pharmacist Comments on Vancomycin Plan: anticipated AUC 470 Vancomycin dosing will take advantage of [employer] as a clinical decision support tool that uses Bayesian modeling to calculate individual patient's pharmacokinetic parameters and forecast the patient's drug concentration time course with the target goal AUC 24 range of 400 - 600 mg/L/hr.
[2021-02-13] MEDS: vancomycin HCL 1,250 MG in 0.9 % Sodium Chloride 250 ML 166.67 MG IV (22:40)
[2021-02-14 03:18] VITALS: BP 118/55; PULSE 92; RESP 18; TEMP 36.1; O2SAT 95
[2021-02-14] MEDS: Lactated Ringers 1,000 ML 100 ML IVCONT ×2 (05:38→15:57)
[2021-02-14 07:00] LABS: MANUAL DIFF FLAG NO
[2021-02-14 07:10] LABS: Basophils Absolute Auto 0.1 X10*3/uL (0.0-0.2); Basophils Percent Auto 1.1 % (0-2); Eosinophils Absolute Auto 0.1 X10*3/uL (0.0-0.4); Eosinophils Percent Auto 1.7 % (0-4); Hematocrit 35.6 % (42-52); Hemoglobin 11.3 g/dl (14.0-18.0); Imm Gran Abs Auto 0.03 X10*3/uL (0.00-0.03); Imm Gran Pct Auto 0.4 % (0.0-0.4); Lymphocytes Absolute Auto 0.9 X10*3/uL (1.2-4.9); Lymphocytes Percent Auto 13.1 % (20-40); Mean Corpuscular HGB Conc 31.7 g/dl (31.0-36.0); Mean Corpuscular Hemoglobin 30.7 pg (27.0-33.0); Mean Corpuscular Volume 96.7 fL (80-98); Mean Platelet Volume 9.5 fL (9.4-12.4); Monocytes Absolute Auto 0.8 X10*3/uL (0.1-1.2); Monocytes Percent Auto 11.4 % (2-11); Neutrophils Absolute Auto 5.2 X10*3/uL (2.0-8.3); Neutrophils Percent Auto 72.3 % (45-73); Platelet Count 332 X10*3/uL (160-400); Red Blood Count 3.68 X10*6/uL (4.60-5.80); Red Cell Distribution Width 13.8 % (11.0-16.0); White Blood Count 7.2 X10*3/uL (4.8-10.8)
--- NOTE | 2021-02-14 07:26 | PM.PNGS ---
Subjective Subjective Date of Service: 02/14/21 Interval history: POD#1 s/p lap cholecystectomy for acute cholecystitis, period of hypotension post operatively, improved after fluids. Patient on IV Vanco based on previous cultures. Physical Exam Vital Signs: Vital Signs: Last Vital Signs Temp 97 F 02/14/21 03:18 Pulse 92 02/14/21 03:18 Resp 18 02/14/21 03:18 BP 118/55 L 02/14/21 03:18 Pulse Ox 95 02/14/21 03:18 Body Mass Index 26.2 Const: General: awake and confusion Nutritional Appearance: average body habitus Orientation/consciousness: confusion Limitations: physical limitations Resp: Other: breathing comfortably on room air without respiratory distress GI: Other: incisions clean, dry and intact without redness or discharge. CARISSA with serosanguinous output. Abdomen soft. Skin: General skin exam: no rashes or lesions noted Neuro: General: confusion Extrem: Other: contracted lower extremities Procedures Date of Service Date of Service: 02/14/21 Progress Note: A&P Assessment and plan (1) Acute cholecystitis due to biliary calculus: Status: Acute Assessment and Plan: TBI presenting initially with sepsis due to acute calculus cholecystitis, now POD#1 s/p laparoscopic cholecystectomy. Dissection difficult due to previously placed cholecystostomy tube. Patient is doing well. Appreciate hospitalist input. Patient now on Vanco based on previous cultures (patient pcn allergic). Will monitor VS today and anticipate discharge to his home tomorrow if he remains stable. Fall Risk Details Current Medications: Current Medications Generic Name Dose Route Start Last Admin Trade Name Freq PRN Reason Stop Dose Admin Artificial Tears 1 drop 02/13/21 21:00 02/13/21 22:41 Artificial Tears Droperette EYE-BOTH 1 drop TID ANDREW Administration Docusate Sodium 100 mg 02/14/21 09:00 Docusate Sodium 100 Mg Capsule PO DAILY ANDREW Gabapentin 600 mg 02/13/21 16:09 02/13/21 22:11 Gabapentin 600 Mg Tablet PO 600 mg TID ANDREW Administration Gemfibrozil 600 mg 02/13/21 21:00 02/13/21 22:08 Gemfibrozil 600 Mg Tablet PO 600 mg BID ANDREW Administration Lactated Ringer's 1,000 mls @ 100 mls/hr 02/13/21 07:15 02/14/21 05:38 Lr IVCONT 100 mls/hr .Q10H ANDREW Administration Acetaminophen 1,000 mg in 100 mls @ 400 mls/hr 02/13/21 16:09 Ofirmev IV Q6H PRN Pain, Severe (Pain Scale 7-10) Vancomycin HCl 1,250 mg/ 250 mls @ 166.667 mls/hr 02/13/21 22:30 02/14/21 00:27 Sodium Chloride IV Infused Q12H ANDREW Infusion Lactulose 20 gm 02/13/21 21:00 02/13/21 22:12 Lactulose 20 Gm/30 Ml Solution PO 20 gm BEDTIME ANDREW Administration Lamotrigine 150 mg 02/13/21 21:00 02/13/21 22:09 Lamotrigine 25 Mg Tablet PO 150 mg BID ANDREW Administration Lamotrigine 25 mg 02/13/21 21:00 02/13/21 22:11 Lamotrigine 25 Mg Tablet PO 25 mg BID ANDREW Administration Lamotrigine 100 mg 02/13/21 21:00 02/13/21 22:11 Lamotrigine 100 Mg Tablet PO 100 mg BID ANDREW Administration Lorazepam 1 mg 02/13/21 16:09 Lorazepam 2 Mg/Ml Vial IV Q20M PRN Seizures Magnesium Oxide 400 mg 02/14/21 09:00 Magnesium Oxide 400 Mg Tablet PO DAILY [facility] Morphine Sulfate 2 mg 02/13/21 16:09 Morphine Sulfate 2 Mg/Ml Cartridge IVPUSH Q3H PRN Pain, Severe (Pain Scale 7-10) Protocol Non-Formulary Medication 10 mg 02/14/21 09:00 Clobazam [Onfi] PO DAILY [facility] Non-Formulary Medication 5 mg 02/14/21 09:00 Clobazam [Onfi] PO DAILY [facility] Ondansetron HCl 4 mg 02/13/21 16:09 Ondansetron Hcl 4 Mg/2 Ml Vial IVPUSH Q8H PRN Nausea Oxycodone HCl 5 mg 02/13/21 16:09 Oxycodone Hcl Immed Release 5 Mg Tablet PO Q6H PRN Pain, Moderate (Pain Scale 4-6 Pharmacy Consult 1 each 02/13/21 16:09 Consult Rx Perform Med Rec MISCELLANE ONCE PRN Consult order Pharmacy Consult 1 each 02/13/21 18:53 Consult Rx Vancomycin Dosing MISCELLANE DAILY PRN Consult order Pharmacy Consult 1 each 02/13/21 18:53 Consult Rx Vancomycin Dosing MISCELLANE DAILY PRN Consult order Risperidone 0.25 mg 02/13/21 21:00 02/13/21 22:08 Risperidone 0.25 Mg Tablet PO 0.25 mg BEDTIME ANDREW Administration Senna 17.2 mg 02/13/21 21:00 02/13/21 22:07 Sennosides 8.6 Mg Tablet PO 17.2 mg BEDTIME ANDREW Administration Sodium Chloride 3 ml 02/13/21 16:09 02/14/21 07:11 0.9 % Sodium Chloride Flush 3 Ml Syringe IVFLUSH Not Given QSHIFT ANDREW Topiramate 200 mg 02/13/21 21:00 02/13/21 22:05 Topiramate 100 Mg Tablet PO 200 mg BID ANDREW Administration Topiramate 25 mg 02/13/21 21:00 02/13/21 22:06 Topiramate 25 Mg Tablet PO 25 mg BID ANDREW Administration Topiramate 100 mg 02/13/21 21:00 02/13/21 22:06 Topiramate 100 Mg Tablet PO 100 mg BID ANDREW Administration Time Spent With Patient Time: Total time spent is greater than 50% in coordination of care (as documented) at patient's floor/unit and/or counseling patient: Time with patient: 15 - 24 minutes Quality Stroke Does the patient have a stroke diagnosis?: No VTE Prior VTE?: No VTE Risk Level:: Surgical - high VTE Device Contraindication: N/A - Device Ordered VTE Drug Contraindication: Treatment Not Indicated (s/p lap cholecystectomy, bleeding risk)
[2021-02-14] MEDS: gemfibroziL 600 MG TABLET PO ×2 (07:47→20:58)
[2021-02-14] MEDS: Topiramate 100 MG TABLET 200 MG PO ×2 (07:48→20:59)
[2021-02-14] MEDS: lamoTRIgine 25 MG TABLET 150 MG PO ×5 (07:48→21:35)
[2021-02-14] MEDS: Magnesium Oxide 400 MG TABLET PO (07:48)
[2021-02-14] MEDS: Gabapentin 600 MG TABLET PO ×3 (07:49→20:58)
[2021-02-14] MEDS: lamoTRIgine 100 MG TABLET PO ×2 (07:49→21:39)
[2021-02-14] MEDS: lamoTRIgine 25 MG TABLET PO ×2 (07:49→21:35)
[2021-02-14] MEDS: Topiramate 100 MG TABLET PO ×2 (07:52→20:59)
[2021-02-14] MEDS: Topiramate 25 MG TABLET PO ×2 (07:53→20:58)
[2021-02-14 08:00] VITALS: BP 102/51; PULSE 65; RESP 18; TEMP 36.1; O2SAT 95
[2021-02-14 08:08] LABS: Alanine Aminotransferase 21 U/L (0-40); Albumin Level 3.1 g/dL (3.5-5.0); Alkaline Phosphatase 113 U/L (39-117); Anion Gap 12 (12-20); Aspartate Amino Transferase 36 U/L (5-37); Bilirubin Direct 0.2 mg/dL (0.0-0.5); Bilirubin Total 0.5 mg/dL (0.0-1.0); Blood Urea Nitrogen 7 mg/dL (9-16); Calcium 8.5 mg/dL (8.4-10.2); Carbon Dioxide 20 mmol/L (22-29); Chloride 111 mmol/L (96-108); Creatinine Clr Calc Pharmacy 128.9; Estimated Glomerular Filt Rate > 60; Glucose Random 82 mg/dL (60-115); Potassium 4.1 mmol/L (3.3-5.1); Sodium 139 mmol/L (135-145); Total Protein 5.2 g/dL (6.5-8.0)
[2021-02-14] MEDS: vancomycin HCL 1,250 MG in 0.9 % Sodium Chloride 250 ML 166.67 MG IV ×2 (10:13→22:08)
[2021-02-14 12:00] VITALS: BP 110/53; PULSE 66; RESP 17; TEMP 36.7; O2SAT 97
--- NOTE | 2021-02-14 13:36 | HO.POSTANES ---
Post Anesthesia Evaluation Post Anesthesia Evaluation Vital Signs: Vital Signs Temp Pulse Resp BP Pulse Ox 02/14/21 12:00 98.0 F 66 17 110/53 L 97 02/14/21 08:00 96.9 F 65 18 102/51 L 95 02/14/21 03:18 97 F 92 18 118/55 L 95 Anesthesia: General Endotracheal-GETA Mental Status: Awake Pain Control: Satisfactory Nausea/Vomiting: None Hydration: Adequate Anesthesia-Related Issues: No Anes. Related Issues
--- NOTE | 2021-02-14 14:10 | MHC.CM.PN ---
CM ATTEMPTED TO CALL PT'S GUARDIAN ATTFaheem DENNISON AT 1452 TO REVIEW IMM, NO ANSWER, MESSAGE LEFT AND IMM WILL BE SENT CERTIFIED MAIL, EMR REVIEWED, PT ADMITTED S/P LAP CHOLEY AND TUBE REMOVAL, PT IS LTC RESIDENT AT [facility] AND PLAN PER SURGICAL IS FOR PT TO RETURN TOMORROW 02/15/21, REFERRAL SENT VIA [employer]. D/C PLAN: RETURN TO [facility], [facility] FOR BLS TRANSPORT.
[2021-02-14 15:32] VITALS: BP 99/50; PULSE 70; RESP 15; TEMP 36.1; O2SAT 96
[2021-02-14 19:31] VITALS: BP 93/50; PULSE 72; RESP 16; TEMP 36.6; O2SAT 97
[2021-02-14] MEDS: risperiDONE 0.25 MG TABLET PO (20:58)
[2021-02-14] MEDS: Lactulose 20 GM/30 ML SOLUTION PO (20:59)
[2021-02-14] MEDS: Sennosides 8.6 MG TABLET 17.2 MG PO (20:59)
[2021-02-14 23:46] VITALS: BP 100/51; PULSE 69; RESP 16; TEMP 36.4; O2SAT 94
[2021-02-15] MEDS: Lactated Ringers 1,000 ML 100 ML IVCONT (02:55)
[2021-02-15 03:42] VITALS: BP 112/55; PULSE 72; RESP 16; TEMP 36.5; O2SAT 95
[2021-02-15 07:56] VITALS: BP 113/54; PULSE 73; RESP 17; TEMP 36.6; O2SAT 94
--- NOTE | 2021-02-15 09:49 | P.DS_ITS ---
DS: Providers Provider Date of Service: 02/15/21 Date of admission: 02/13/21 07:08 Date of discharge: 02/15/21 Primary care physician: Mayur Bautista DO Admitting clinician: Flakito Gaytan Consults: 02/13/21 16:09 Consult to Hospitalist Routine Consulting Provider: Hospitalist Reason For Exam: s/p lap saray, h/o sepsis, aspiration, TBI, Seizur Discharging clinician: Flakito Gaytan DS: Diagnosis Discharge Diagnosis (1) Acute cholecystitis due to biliary calculus: Status: Acute DS: Summary Hospital Course Hospital Course: 66-year-old male patient with a history of TBI, seizures, and a recent history of sepsis due to acute cholecystitis, cholelithiasis.? Patient was admitted to the ICU for management and subsequently underwent interventional radiology placement of a cholecystostomy tube on 12/29/2020.? The patient subsequently responded well with resolution of the sepsis.? He returned [facility] on 01/07/2021.? He presents today for an elective laparoscopic cholecystectomy and removal of cholecystostomy tube.? Cholecystostomy tube continues to function, draining clear bilious material.? He is nonverbal and is unable to provide any additional information.? He was brought to the OR on 02/13/2021 for a laparoscopic cholecystectomy and removal of the cholecystostomy tube. Operative findings were consistent with acute and chronic cholecystitis due to cholelithiasis. Dense adhesions were noted surroundting the gallbladder. A CARISSA drain was left inplace for the first day following the surgery. Postoperatively, he was briefly hypotensive as he awke from anesthesia, but this improved with IV fluids. He remained hemodynamically stable after this. He was started on a mechanical soft diet with thickened liquids. A hospitalist consultation was requested for management of his previous medical issues. He was placed on IV Vanco due to his previous wound cultures and PCN allergy. On 02/15/2021, the patient's CARISSA output decreased and was mainly serous discharge. His wounds remained clean, dry and intact without redness or discharge. ?He is to be discharged to [facility] today. He can continue his usual medications and diet. He should return to the office for a wound check in 1-2 weeks. Time spent discussing smoking cessation with patient: 3 to 10 minutes Status at Discharge Functional status at discharge: bed bound Time Spent with Patient Time attestation: Total time spent providing and/or coordinating discharge services: Discharge coordination time: Less than 30 minutes Quality: Stroke Does the patient have a stroke diagnosis?: No Physical Exam Vital Signs: Vital Signs: Last Vital Signs Temp 97.8 F 02/15/21 07:56 Pulse 73 02/15/21 07:56 Resp 17 02/15/21 07:56 BP 113/54 L 02/15/21 07:56 Pulse Ox 94 02/15/21 07:56 Body Mass Index 26.2 Const: General: alert, awake and confusion Nutritional Appearance: well nou rished Orientation/consciousness: confusion Limitations: physical limitations Resp: Effort & Inspection: normal respiratory effort, respiratory effort not decreased and not labored GI: Inspection: Yes normal to inspection and Yes incision (clean and intact trocar incisions) Palpation (GI): Soft to palpation, nontender, no guarding and not rigid Abdomen image: 1. 2. 3. 4. Skin: General skin exam: no rashes or lesions noted Neuro: General: confusion Extrem: General: Yes normal to inspection DS: Data Data Completed and Pending Completed studies during hospitalization [Text1]: Procedures Drainage of Gallbladder with Drainage Device, Percutaneous Approach (12/28/20) Insertion of Infusion Device into Superior Vena Cava, Percutaneous Approach (12/28/20) Labs on day of discharge: Preliminary micro results at discharge 02/13/21 21:03 Blood Culture - Preliminary Blood - Venous No growth after 24 hours. 02/13/21 21:08 Blood Culture - Preliminary Blood - Venous No growth after 24 hours. Discharge Plan Discharge Patient Disposition: [facility] Discharge Diagnosis: Acute cholecystitis, cholelithiasis Referrals: Flakito Gaytan MD [Physician] - 1 Week Mayur Bautista DO [Primary Care Provider] - 1 Week Discharge Medications: Continued clobazam [Onfi] 10 mg Tablet 10 mg PO DAILY RF: 0 clobazam [Onfi] 10 mg Tablet 5 mg PO DAILY RF: 0 ibuprofen 800 mg Tablet 800 mg PO Q8H PRN (Reason: Pain (Scale Score 1-3)) RF: 0 multivitamin Tablet 1 tab PO DAILY RF: 0 lamotrigine 150 mg tablet 150 mg PO BID RF: 0 sennosides [senna] 8.6 mg Tablet 17.2 mg PO BEDTIME RF: 0 gabapentin 600 mg tablet 600 mg PO TID RF: 0 lorazepam 2 mg/mL solution 1 mg Q20M PRN (Reason: Seizures) RF: 0 artificial tears solution Drops 1 drp OPHTHALMIC (EYE) TID RF: 0 topiramate 25 mg tablet 25 mg PO BID RF: 0 risperidone 0.25 mg tablet 0.25 mg PO BEDTIME RF: 0 lamotrigine 25 mg tablet 25 mg PO BID RF: 0 carboxymethylcellulose sodium [Refresh Tears] 0.5 % Drops 1 drp OPHTHALMIC (EYE) BID PRN (Reason: Dry Eye(S)) RF: 0 gemfibrozil 600 mg tablet 600 mg PO BID RF: 0 ferrous sulfate 325 mg (65 mg iron) Tablet 325 mg PO DAILY RF: 0 topiramate 200 mg tablet 200 mg PO BID RF: 0 furosemide 20 mg tablet 20 mg PO DAILY RF: 0 nystatin 100,000 unit/gram Powder 1 appl TOPICAL BID RF: 0 topiramate 100 mg tablet 100 mg PO BID RF: 0 docusate sodium 100 mg Tablet 100 mg PO DAILY RF: 0 lamotrigine 100 mg tablet 100 mg PO BID RF: 0 Secura Dimethicone 5 % Cream 1 appl TOPICAL BID RF: 0 lactulose 10 gram/15 mL solution 30 ml PO BEDTIME RF: 0 omeprazole 20 mg Tablet,Delayed Release (Dr/Ec) 20 mg PO DAILY RF: 0 magnesium oxide 400 mg magnesium Tablet 400 mg PO DAILY RF: 0 Discharge Orders: Discharge Order (Routine); Ordered 02/15/21 Ordered By: Flakito Gaytan Diet: regular diet Activity on Discharge: No heavy lifting Stand Alone Forms: Patient Portal Discharge page Activity Restrictions/Additional Instructions: If the incision area is tender, you may apply an ice pack for short intervals (No more than 20 minutes on, followed by at least 20 minutes off). Do not apply heat. Do not use creams, lotions, or topical antibiotics unless instructed to do so by your surgeon. These can cause infection or allergic reaction. Ok to shower. Remove clear dressings 3 days following your procedure. You have steri strips (small white cloth strips) covering your incision- these will fall off ~1 week. Follow up in office with Dr. Gaytan in 1 week. ([phone]) Call Your Doctor If: -Your temperature exceeds 101.5? F -You experience excessive pain or swelling -You have an unexpected reaction to medication -You have excessive bleeding -You experience continued vomiting/nausea -Your incision begins to separate -Your incision shows signs of infection such as increased redness, swelling, excessive pain, drainage (light blood or clear fluid is normal) or heat Care Plan Goals: Return to baseline health. Health Concerns: history of TBI, seizures, septic shock secondary to acute cholecystitis, s/p lap CCY with cholecystostomy tube removal Plan of Treatment: Follow up in office with Dr. Gaytan. Assessment: Doing well post op and stable for discharge.
[2021-02-15] MEDS: lamoTRIgine 100 MG TABLET PO (09:52)
[2021-02-15] MEDS: Gabapentin 600 MG TABLET PO (09:52)
[2021-02-15] MEDS: gemfibroziL 600 MG TABLET PO (09:52)
[2021-02-15] MEDS: lamoTRIgine 25 MG TABLET PO (09:53)
[2021-02-15] MEDS: Magnesium Oxide 400 MG TABLET PO (09:55)
[2021-02-15] MEDS: Topiramate 100 MG TABLET PO (09:56)
[2021-02-15] MEDS: Topiramate 100 MG TABLET 200 MG PO (09:56)
[2021-02-15] MEDS: Topiramate 25 MG TABLET PO (09:56)
[2021-02-15 10:02] LABS: Vancomycin Trough 19.7 mcg/mL (10.0-20.0)
[2021-02-15 10:42] LABS: Creatinine Clr Calc Pharmacy 133.7; Estimated Glomerular Filt Rate > 60
--- NOTE | 2021-02-15 11:22 | MHC.CM.PN ---
PT DISCHARGING BACK TO [facility] AT 1PM, [facility] FOR [facility]LS TRANSPORT.
[2021-02-15 12:00] VITALS: BP 123/65; PULSE 84; RESP 16; TEMP 36.6; O2SAT 96
--- NOTE | 2021-02-15 12:04 | HE.PHANOTE ---
Vancomycin Dosing Addendum Vanco Trough 19.7. Decreased dose from 1250 mg q12h to 1000 mg q12h for a predicted AUC of 506 and Predicted trough of 15.6. Next trough 02/16 @2200.
--- NOTE | 2021-02-15 14:45 | MHC.CM.PN ---
CM HAD CONTACT[facility] D/T PTS WHEELCHAIR, PORTABLE O2 TANK BEING HERE IN PT'S ROOM, DON REPORTED THEY WILL SEND SOMEONE TO GET W/C AND O2 TANK, PER PT'S NURSE ITEMS WERE PICKED UP W/BAG OF CLOTHES.
== END 2021-02-15 13:41 | DRG 410 ==
LOC: HO.SSSA 07:14 → HO.S3 15:20
PROVIDERS: Internal Medicine; Nurse Practitioner; Admitting Provider Surgery; PCP Hospitalist; Visit Provider Surgery
PROC: 0FT44ZZ Resection of Gallbladder, Percutaneous Endoscopic Approach (ICD-10-PCS; CPT 47562; principal; 2021-02-13 09:10)
DX: K80.12 Calculus of gallbladder with acute and chronic cholecystitis without obstruction (principal); G40.909 Epilepsy, unspecified, not intractable, without status epilepticus; K21.9 Gastro-esophageal reflux disease without esophagitis; F17.210 Nicotine dependence, cigarettes, uncomplicated; Z71.6 Tobacco abuse counseling; Z20.822 Contact with and (suspected) exposure to COVID-19; Z87.820 Personal history of traumatic brain injury; I95.81 Postprocedural hypotension; Z88.0 Allergy status to penicillin; Z79.1 Long term (current) use of non-steroidal anti-inflammatories (NSAID); Z79.899 Other long term (current) drug therapy
CPT/HCPCS: 36415; 80048; 80076; 80202; 82565; 85025; 85027; 87040; 87635; 88304; 99024; J0131; J1100; J2405; J3010; J3370

== ENCOUNTER → 2021-02-24 11:17 | Outpatient (BNVA) | payer MEDICARE, MEDICAID, SELFPAY | PROVIDERS: PCP Hospitalist; Visit Provider Surgery | DX: K80.00 Calculus of gallbladder with acute cholecystitis without obstruction (principal) | CPT/HCPCS: 99212 ==

== ENCOUNTER 2022-08-17 11:52 | Emergency (ER) | payer MEDICARE, MEDICAID, SELFPAY ==
[2022-08-17] VITALS (9 sets, daily range): BP systolic 77–98; BP diastolic 41–55; PULSE 60–70; RESP 15–20; TEMP 37.8; O2SAT 95–99; BMI 22.8
--- NOTE | 2022-08-17 | ECG_ITS ---
Test Reason : sepsis Blood Pressure : / mmHG Vent. Rate : 066 BPM Atrial Rate : 066 BPM P-R Int : 188 ms QRS Dur : 096 ms QT Int : 398 ms P-R-T Axes : 010 -01 -01 degrees QTc Int : 417 ms Normal sinus rhythm Normal ECG When compared with ECG of 28-DEC-2020 15:56, Nonspecific T wave abnormality no longer evident in Lateral leads QT has shortened Referred By: Generic ED Physician Electronically Signed By:Wade Beltrán
--- NOTE | ~2022-08-17 | CT_ITS ---
EXAMINATION: CT brain without contrast. Chest x-ray. CLINICAL INDICATION: Facial droop, altered status and seizure. Question aspiration. COMPARISON: Chest x-ray 12/31/2020. TECHNIQUE: 5 mm thin axial and reformatted 2 mm thin sagittal and coronal images of brain were obtained without contrast. DLP [id number]. Chest AP upright portable. FINDINGS: CHEST: The lungs are hypoexpanded with streaky opacities in both lower lobes likely rectal atelectasis. The heart size and progress clarities normal. No gross bony abnormality. No pleural effusion. BRAIN: There is no acute intra-axial, extra-axial bleed, masses or midline shift. There is no acute infarction in evolution. There is no edema. The lateral ventricles are symmetrical in size and configuration but enlarged. . There is prominent of CSF space and posterior fossa suggestive of study bilateral volume loss. Bone windows reveal left posterior parietal craniotomy. Otherwise the calvarium appears unremarkable. There is no scalp soft tissue abnormality seen. Bilateral paranasal sinuses and mastoid air cells are well-aerated. CT/CT head/brain wo IV con IMPRESSION: 1. No acute intracranial process seen. 2. Bilateral lower lobe atelectasis. 3. Left posterior parietal craniotomy.. 4. Mild cerebral and cerebellar atrophy.
--- NOTE | 2022-08-17 12:27 | ED.AMS ---
HPI - Altered Mental Status General Chief Complaint: Altered Mental Status Stated Complaint: Lethargic, hot to touch per EMS Time Seen by Provider: 08/17/22 12:26 Source: EMS and old records reviewed Mode of arrival: EMS Limitations: altered mental status History of Present Illness HPI narrative: 67 y/o male with history of TBI, seizure disorder, history of aspiration pneumonitis, on chronic O2, hx dysphagia s/p PEG, hx septic shock 2/2 acute cholecystitis s/p perc saray tube in the past who presents to the ER from [facility] for evaluation of increased lethargy, weakness and rhonchorous lung sounds today. Per EMS, there was concern for a possible seizure yesterday, he was found in a post-ictal state. No seizure was witnessed by staff. Staff reported that he was not eating, not responding like he ususally does. Patient unable to provide any history. He has a poor mental status baseline. MD complaint: altered mental status Onset (ago): day(s) (1) Timing confirmed by: caregiver Severity: similar to previous episodes Consistency of symptoms: waxing and waning Related Data Home Medications Medication Instructions Recorded Confirmed artificial tears solution eye drops 1 drp ophthalmic (eye) TID 12/28/20 02/09/21 carboxymethylcellulose sodium 0.5 1 drp ophthalmic (eye) BID PRN Dry 12/28/20 02/09/21 % eye drops (Refresh Tears) Eye(S) dimethicone 5 % topical cream 1 appl topical BID 12/28/20 02/09/21 (Secura Dimethicone) docusate sodium 100 mg tablet 100 mg PO DAILY 12/28/20 02/09/21 ferrous sulfate 325 mg (65 mg 325 mg PO DAILY 12/28/20 02/09/21 iron) tablet furosemide 20 mg tablet 20 mg PO DAILY 12/28/20 02/13/21 gabapentin 600 mg tablet 600 mg PO TID 12/28/20 02/09/21 gemfibrozil 600 mg tablet 600 mg PO BID 12/28/20 02/09/21 lactulose 10 gram/15 mL oral 30 ml PO BEDTIME 12/28/20 02/09/21 solution lamotrigine 100 mg tablet 100 mg PO BID 12/28/20 02/09/21 lamotrigine 150 mg tablet 150 mg PO BID 12/28/20 02/09/21 lamotrigine 25 mg tablet 25 mg PO BID 12/28/20 02/09/21 lorazepam 2 mg/mL injection 1 mg Q20M PRN Seizures 12/28/20 02/09/21 solution magnesium oxide 400 mg PO DAILY 12/28/20 02/09/21 multivitamin 1 tab PO DAILY 12/28/20 02/09/21 nystatin 100,000 unit/gram topical 1 appl topical BID 12/28/20 02/09/21 powder omeprazole 20 mg tablet,delayed 20 mg PO DAILY 12/28/20 02/09/21 release risperidone 0.25 mg tablet 0.25 mg PO BEDTIME 12/28/20 02/09/21 sennosides 8.6 mg tablet (senna) 17.2 mg PO BEDTIME 12/28/20 02/09/21 topiramate 100 mg tablet 100 mg PO BID 12/28/20 02/09/21 topiramate 200 mg tablet 200 mg PO BID 12/28/20 02/09/21 topiramate 25 mg tablet 25 mg PO BID 12/28/20 02/09/21 clobazam 10 mg tablet (Onfi) 5 mg PO DAILY 02/09/21 02/09/21 clobazam 10 mg tablet (Onfi) 10 mg PO DAILY 02/09/21 02/09/21 ibuprofen 800 mg tablet 800 mg PO Q8H PRN Pain (Scale 02/13/21 02/13/21 Score 1-3) Previous Rx's Medication Instructions Recorded azithromycin 200 mg/5 mL oral See Rx Instructions PO .COMPLEX 08/17/22 suspension #30 mL Allergies Allergy/AdvReac Type Severity Reaction Status Date / Time Penicillins [PENICILLINS] Allergy Severe Anaphylaxis Verified 08/17/22 12:03 cefotetan [From CEFOTAN] Allergy Unknown UNKNOWN Verified 08/17/22 12:03 Cephalosporins Allergy Unknown UNKNOWN Verified 08/17/22 12:03 [CEPHALOSPORINS] clindamycin [CLINDAMYCIN] Allergy Unknown UNKNOWN Verified 08/17/22 12:03 levofloxacin [LEVOFLOXACIN] Allergy Unknown UNKNOWN Verified 08/17/22 12:03 Quinolones [QUINOLONES] Allergy Unknown UNKNOWN Verified 08/17/22 12:03 Review of Systems Review of Systems: Yes all other systems are reviewed and are negative PMFSH Past Medical History Medical History (Updated 08/17/22 @ 15:54 by EDIL Oliveira) Age-related nuclear cataract, bilateral Anemia, unspecified Calculus of gallbladder and bile duct with acute cholecystitis with obstruction Concussion with loss of consciousness of unspecified duration, initial encounter 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, sequela Dysphagia, oropharyngeal phase Elevated cholesterol Gastro-esophageal reflux disease without esophagitis Gastrostomy tube in place GERD (gastroesophageal reflux disease) History of COVID-19 Hyperlipidemia, unspecified Hypoxemia Lupus anticoagulant disorder Lymphedema, not elsewhere classified Major depressive disorder, recurrent, mild Myopia, bilateral Obesity, unspecified Personal history of pneumonia (recurrent) Pneumonitis due to inhalation of food and vomit Presbyopia Seizures Sepsis TBI (traumatic brain injury) Unspecified hearing loss, unspecified ear Unspecified psychosis not due to a substance or known physiological condition Surgical History History of lithotripsy History of surgery Social History Social History Household Members: Other Household Members Other:: [facility] Housing: [facility] Are you a primary field care manager to a significant other at home: No Do you presently have visiting nurse or other home services: Yes Unable to assess alcohol history related to: Unable to respond and Unknown Alcohol intake: unknown Patient Tobacco Use Status: Tobacco use Unknown Advance Directives: Yes Advance Directives on File: Yes Advance Directives Date on File: 02/09/21 service: No Current occupational status: disabled Physical Exam ED Vital Signs: Vital Signs - 24 hr 08/17/22 12:03 08/17/22 12:16 08/17/22 13:11 Temperature 100.1 F 100.1 F Pulse Rate 69 69 63 Respiratory Rate 20 18 16 Blood Pressure 77/41 L 93/54 L 98/52 L Pulse Oximetry 97 97 99 Oxygen Delivery Method Nasal Cannula Nasal Cannula Nasal Cannula Oxygen Flow Rate 2 2 08/17/22 13:49 08/17/22 14:32 08/17/22 15:36 Temperature Pulse Rate 66 60 67 Respiratory Rate 19 16 17 Blood Pressure 94/50 L 90/48 L 92/51 L Pulse Oximetry 98 95 98 Oxygen Delivery Method Nasal Cannula Nasal Cannula Nasal Cannula Oxygen Flow Rate 2 2 2 08/17/22 16:29 Temperature Pulse Rate 67 Respiratory Rate 17 Blood Pressure 97/53 L Pulse Oximetry 99 Oxygen Delivery Method Nasal Cannula Oxygen Flow Rate 2 BMI result Body Mass Index 22.8 Appearance: Awake but lethargic male, appears older than stated age, no distress. Eyes: Pupils equal, round and reactive to light however sluggish ENT: Pharynx with dry mucus membranes. dried vomitus on the left side of his mouth. +mouth droop Neck: Normal inspection. Neck supple. CVS: Normal heart rate and rhythm. Pulses normal. Respiratory: No respiratory distress. Breath sounds with diffuse rhonchi throughout, no increased WOB Abdomen: Soft and nontender. +BS x4 Skin: Skin warm and dry. Normal skin color. Normal skin turgor. No rashes. Extremities: No lower extremity edema. Neuro: awake, nonverbal, follows simple commands, moves all 4 extremities Course Reevaluation(s) Reevaluation #1: BP remains 90/50s which is his baseline. Spoke w/ Dr. Bautista who knows the patient well from [facility]. Agrees with discharge back to [facility] Medications Administered Discontinued Medications Generic Name Dose Route Start Last Admin Trade Name Freq PRN Reason Stop Dose Admin Sodium Chloride 1,000 mls @ 999 mls/hr 08/17/22 12:45 08/17/22 14:35 Ns IVCONT 08/17/22 13:45 Infused .Q1H1M ANDREW Infusion Medical Decision Making Medical Decision Making MDM Narrative: 67 y/o y/o male with history of TBI, seizures, dysphagia s/p PEG, hx recurrent pneumonia who presents to the ER from [facility] for increased lethargy and weakness. Possible seizure activity yesterday. He is saturating well on his baseline 2L. SBP 90s which is his baseline. CT head did not show any acute strokes. CXR without PNA. He seems to be near his baseline. No evidence of acute infection. Rhonchi c/w aspiration pneumonitis. Will start on empiric ABX. stable for d/c back to [facility]. Differential Diagnosis Differential Diagnoses: The differential diagnosis associated with the presentation includes aspiration pneumonia vs pneumonitis, seizure, stroke, metabolic encephalopathy, post-ictal state, dehydration Admission/Observation Consideration of admission/observation: Escalation of care including admission/observation considered Consult Healthcare Provider Management of the patient was discussed with: Hospitalist Dr. Bautista is aware patient is in the ER. He is hemodynamically at his baseline, probable aspiration penumonitis. Lab Data MDM Lab Attestation statement: I reviewed the patient's lab results. Very mild leukocytosis, stable normocytic anemia, normal renal function, no major metabolic derangement. 08/17/22 12:31 08/17/22 12:31 Labs: Lab Results 08/17/22 08/17/22 08/17/22 Range/Units 12:31 12:31 12:31 WBC 11.1 H (4.8-10.8) X10*3/uL RBC 3.32 L (4.60-5.80) X10*6/uL Hgb 10.7 L (14.0-18.0) g/dl Hct 31.6 L (42.0-52.0) % MCV 95.2 (80.0-98.0) fL MCH 32.2 (27.0-33.0) pg MCHC 33.9 (31.0-36.0) g/dl RDW 14.2 (11.0-16.0) % Plt Count 268 (160-400) X10*3/uL MPV 10.1 (9.4-12.4) fL Immature Gran % (Auto) 1.0 H (0.0-0.4) % Neut % (Auto) 78.8 H (45-73) % Lymph % (Auto) 8.6 L (20-40) % Morris % (Auto) 10.1 (2-11) % Eos % (Auto) 1.0 (0-4) % Baso % (Auto) 0.5 (0-2) % Lymph # (Auto) 1.0 L (1.2-4.9) X10*3/uL Morris # (Auto) 1.1 (0.1-1.2) X10*3/uL Eos # (Auto) 0.1 (0.0-0.4) X10*3/uL Baso # (Auto) 0.1 (0.0-0.2) X10*3/uL Abs Immat Gran (auto) 0.11 H (0.00-0.03) X10*3/uL Absolute Neuts (auto) 8.7 H (2.0-8.3) x10*3/uL Absolute Nucleated RBC 0.000 (0.0-0.012) X10*3/uL Nucleated RBC % (auto) 0.0 (0.0-0.2) /100WBC PT 13.4 H (10.0-13.1) SEC INR 1.2 H (0.9-1.1) Sodium 137 (135-145) mmol/L Potassium 3.7 (3.3-5.1) mmol/L Chloride 107 (96-108) mmol/L Carbon Dioxide 22 (22-29) mmol/L Anion Gap 12 (12-20) BUN 22 H (9-16) mg/dL Creatinine 0.72 (0.5-1.4) mg/dL Estim Creat Clear Calc 98.5 Estimated GFR > 60 Random Glucose 89 (60-115) mg/dL Lactic Acid (0.5-2.0) mmol/L Calcium 8.2 L (8.4-10.2) mg/dL Total Bilirubin 0.6 (0.0-1.0) mg/dL AST 22 (5-37) U/L ALT 18 (0-40) U/L Alkaline Phosphatase 125 H (39-117) U/L Troponin I High Sens (<3.5-35.0) ng/L Total Protein 5.0 L (6.5-8.0) g/dL Albumin 2.6 L (3.5-5.0) g/dL Influenza Type A (PCR) (Negative) Influenza Type B (PCR) (Negative) RSV RNA Qual (PCR) (Negative) SARS-CoV-2 RNA (RT-PCR) (Negative) 08/17/22 08/17/22 08/17/22 Range/Units 12:31 12:31 13:37 WBC (4.8-10.8) X10*3/uL RBC (4.60-5.80) X10*6/uL Hgb (14.0-18.0) g/dl Hct (42.0-52.0) % MCV (80.0-98.0) fL MCH (27.0-33.0) pg MCHC (31.0-36.0) g/dl RDW (11.0-16.0) % Plt Count (160-400) X10*3/uL MPV (9.4-12.4) fL Immature Gran % (Auto) (0.0-0.4) % Neut % (Auto) (45-73) % Lymph % (Auto) (20-40) % Morris % (Auto) (2-11) % Eos % (Auto) (0-4) % Baso % (Auto) (0-2) % Lymph # (Auto) (1.2-4.9) X10*3/uL Morris # (Auto) (0.1-1.2) X10*3/uL Eos # (Auto) (0.0-0.4) X10*3/uL Baso # (Auto) (0.0-0.2) X10*3/uL Abs Immat Gran (auto) (0.00-0.03) X10*3/uL Absolute Neuts (auto) (2.0-8.3) x10*3/uL Absolute Nucleated RBC (0.0-0.012) X10*3/uL Nucleated RBC % (auto) (0.0-0.2) /100WBC PT (10.0-13.1) SEC INR (0.9-1.1) Sodium (135-145) mmol/L Potassium (3.3-5.1) mmol/L Chloride (96-108) mmol/L Carbon Dioxide (22-29) mmol/L Anion Gap (12-20) BUN (9-16) mg/dL Creatinine (0.5-1.4) mg/dL Estim Creat Clear Calc Estimated GFR Random Glucose (60-115) mg/dL Lactic Acid 1.2 (0.5-2.0) mmol/L Calcium (8.4-10.2) mg/dL Total Bilirubin (0.0-1.0) mg/dL AST (5-37) U/L ALT (0-40) U/L Alkaline Phosphatase (39-117) U/L Troponin I High Sens 3.4 (<3.5-35.0) ng/L Total Protein (6.5-8.0) g/dL Albumin (3.5-5.0) g/dL Influenza Type A (PCR) NEGATIVE (Negative) Influenza Type B (PCR) NEGATIVE (Negative) RSV RNA Qual (PCR) NEGATIVE (Negative) SARS-CoV-2 RNA (RT-PCR) NEGATIVE (Negative) Independent Interpretation I performed an independent interpretation of an: Plain X-Ray and CT Scan Interpretation: CT scan of the head did not reveal any acute bleed or stroke. Agree with radiologist's reading Chest x-ray with poor inspiratory effort, no focal infiltrate. Agree with radiologist's reading. Radiology Impression Discussion of test interpretation with radiology: I have reviewed the radiologist's reading. Radiologist Impression: Chest x-ray with bilateral lower lobe atelectasis. CT head no acute intracranial process seen. Left posterior parietal craniotomy. Mild cerebral and cerebellar atrophy. Independent Historian Clinical information obtained from an independent historian. History obtained from or confirmed by: EMS and Other (Dr. bautista from [facility]) External Record Review External record reviewed: Inpatient record, Outpatient record and Prior outpatient labs Prescription Management I considered prescription management with: Antibiotic Chronic Conditions Patient?s care impacted by: Other (TBI and dysphagia) Critical Care Time Critical Care Time Critical Care Time: No Discharge Plan Discharge Clinical Impression: Aspiration pneumonitis Patient Disposition: [facility] Instructions: Pneumonitis (ED), Aspiration Precautions (ED) Additional Instructions: CT head did not show any evidence of acute stroke or acute abnormalities. Lab workup was reassuring. Chest x-ray did not show any evidence of pneumonia. Give the prescribed antibiotic as directed for aspiration pneumonitis. Make sure his head of bed is above 30 degrees. If you develop new or worsening symptoms call 911 or come back to the ER for further evaluation. Prescriptions: New azithromycin 200 mg/5 mL suspension for reconstitution See Rx Instructions .ROUTE .COMPLEX Qty: 30 0RF Rx Instructions: take 12.5 mL (500 mg) by mouth today (day 1), then 6.25 mL (250 mg) daily for 4 days (days 2-5) No Action clobazam [Onfi] 10 mg Tablet 10 mg PO DAILY clobazam [Onfi] 10 mg Tablet 5 mg PO DAILY ibuprofen 800 mg Tablet 800 mg PO Q8H PRN (Reason: Pain (Scale Score 1-3)) multivitamin Tablet 1 tab PO DAILY lamotrigine 150 mg tablet 150 mg PO BID Rx Instructions: total dose: 275mg sennosides [senna] 8.6 mg Tablet 17.2 mg PO BEDTIME gabapentin 600 mg tablet 600 mg PO TID lorazepam 2 mg/mL solution 1 mg Q20M PRN (Reason: Seizures) artificial tears solution Drops 1 drp OPHTHALMIC (EYE) TID topiramate 25 mg tablet 25 mg PO BID Rx Instructions: Total Dose 325mg risperidone 0.25 mg tablet 0.25 mg PO BEDTIME lamotrigine 25 mg tablet 25 mg PO BID Rx Instructions: total dose: 275mg carboxymethylcellulose sodium [Refresh Tears] 0.5 % Drops 1 drp OPHTHALMIC (EYE) BID PRN (Reason: Dry Eye(S)) gemfibrozil 600 mg tablet 600 mg PO BID ferrous sulfate 325 mg (65 mg iron) Tablet 325 mg PO DAILY topiramate 200 mg tablet 200 mg PO BID Rx Instructions: Total Dose 325mg furosemide 20 mg tablet 20 mg PO DAILY nystatin 100,000 unit/gram Powder 1 appl TOPICAL BID Rx Instructions: Apply to red rash topiramate 100 mg tablet 100 mg PO BID Rx Instructions: Total Dose 325mg docusate sodium 100 mg Tablet 100 mg PO DAILY lamotrigine 100 mg tablet 100 mg PO BID Rx Instructions: total dose: 275mg Secura Dimethicone 5 % Cream 1 appl TOPICAL BID Rx Instructions: Apply to PEG tube site lactulose 10 gram/15 mL solution 30 ml PO BEDTIME omeprazole 20 mg Tablet,Delayed Release (Dr/Ec) 20 mg PO DAILY magnesium oxide 400 mg magnesium Tablet 400 mg PO DAILY
[2022-08-17 12:38] LABS: MANUAL DIFF FLAG NO
[2022-08-17 12:40] LABS: Basophils Absolute Auto 0.1 X10*3/uL (0.0-0.2); Basophils Percent Auto 0.5 % (0-2); Eosinophils Absolute Auto 0.1 X10*3/uL (0.0-0.4); Hematocrit 31.6 % (42.0-52.0); Hemoglobin 10.7 g/dl (14.0-18.0); Imm Gran Abs Auto 0.11 X10*3/uL (0.00-0.03); Lymphocytes Percent Auto 8.6 % (20-40); Mean Corpuscular HGB Conc 33.9 g/dl (31.0-36.0); Mean Corpuscular Hemoglobin 32.2 pg (27.0-33.0); Mean Corpuscular Volume 95.2 fL (80.0-98.0); Mean Platelet Volume 10.1 fL (9.4-12.4); Monocytes Absolute Auto 1.1 X10*3/uL (0.1-1.2); Monocytes Percent Auto 10.1 % (2-11); Neutrophils Absolute Auto 8.7 x10*3/uL (2.0-8.3); Neutrophils Percent Auto 78.8 % (45-73); Platelet Count 268 X10*3/uL (160-400); Red Blood Count 3.32 X10*6/uL (4.60-5.80); Red Cell Distribution Width 14.2 % (11.0-16.0); White Blood Count 11.1 X10*3/uL (4.8-10.8)
[2022-08-17] MEDS: 0.9 % Sodium Chloride 1,000 ML 999 ML IVCONT (12:40)
--- NOTE | 2022-08-17 12:47 | PC.NURSE ---
pt arrived from [facility] warm to touch, facility reporting decreased alertness/increased weakness, last known well was yesterday - unconfirmed time, pt was found in postictal state yesterday, no witnessed seizure, seizure hx, query poss left-sided facial droop, equal strength bilateral upper extremities. bilateral rhonchi. pt afebrile, hypotensive - per facility records pt bp runs low, O2 at 98% on 2L, baseline for pt. labs drawn, 20G IV placed left AC, 1L NS running. no new orders at this time time.
[2022-08-17 12:52] LABS: Lactic Acid 1.2 mmol/L (0.5-2.0)
[2022-08-17 12:54] LABS: INTERNATIONAL NORM RATIO 1.2 (0.9-1.1); Prothrombin Time 13.4 SEC (10.0-13.1)
[2022-08-17 12:57] LABS: Alanine Aminotransferase 18 U/L (0-40); Albumin Level 2.6 g/dL (3.5-5.0); Alkaline Phosphatase 125 U/L (39-117); Anion Gap 12 (12-20); Aspartate Amino Transferase 22 U/L (5-37); Bilirubin Total 0.6 mg/dL (0.0-1.0); Blood Urea Nitrogen 22 mg/dL (9-16); Calcium 8.2 mg/dL (8.4-10.2); Carbon Dioxide 22 mmol/L (22-29); Chloride 107 mmol/L (96-108); Creatinine Clr Calc Pharmacy 98.5; Estimated Glomerular Filt Rate > 60; Glucose Random 89 mg/dL (60-115); Potassium 3.7 mmol/L (3.3-5.1); Sodium 137 mmol/L (135-145)
[2022-08-17 13:02] LABS: Troponin-I High Sensitivity 3.4 ng/L (<3.5-35.0)
[2022-08-17 14:34] LABS: Influenza A PCR NEGATIVE (Negative); Influenza B PCR NEGATIVE (Negative); Resp Syncy Virus RNA Qual PCR NEGATIVE (Negative); SARS COV2 PCR INHOUSE NEGATIVE (Negative)
--- NOTE | 2022-08-17 17:40 | MHC.EDTECH ---
Kashif called at 1710 for a bls transfer back to facility,[facility] [phone].Rn aware
--- NOTE | 2022-08-17 20:19 | PC.NURSE ---
late note, attempted to straight cath pt, unable to obtain urine, provider aware, advised for outpt urine, pt remains hypotensive, other vss, incontinent of large soft green bowel movement, pt cleaned and repositioned. pt pending transport.
--- NOTE | 2022-08-17 22:15 | PC.NURSE ---
pt incontinent of urine, cleaned and changed, brief applied. RN-RN report called into [facility]. [facility] expected in ~30min for transport.
== END 2022-08-17 22:31 | disposition skilled nursing facility (03) ==
PROVIDERS: Physician Assistant; Emergency Provider Emergency Medicine; PCP Hospitalist
DX: J69.0 Pneumonitis due to inhalation of food and vomit (principal); R53.1 Weakness; R51.9 Headache, unspecified; R13.10 Dysphagia, unspecified; Z20.822 Contact with and (suspected) exposure to COVID-19; Z20.828 Contact with and (suspected) exposure to other viral communicable diseases; Z79.899 Other long term (current) drug therapy
CPT/HCPCS: 0241U; 36415; 70450; 71045; 80053; 83605; 84484; 85025; 85610; 87040; 87077; 87186; 87205; 93005; 96360; 96361; 99284

== ENCOUNTER 2022-11-06 10:14 | Emergency (ER) | payer MEDICARE, MEDICAID, SELFPAY ==
[2022-11-06] VITALS (13 sets, daily range): BP systolic 69–120; BP diastolic 34–66; PULSE 60–104; RESP 12–23; TEMP 35.8–37.2; O2SAT 94–100; BMI 24.2
--- NOTE | ~2022-11-06 | XR_ITS ---
EXAMINATION: XR CHEST CLINICAL INFORMATION: Cough, fever. COMPARISON: 08/17/2022 chest radiograph. TECHNIQUE: Frontal view of the chest was obtained. FINDINGS: Rotated and kyphotic positioning along with low lung volumes and evaluation. Mild increased pulmonary vascular markings are seen. The heart is mildly enlarged. The mediastinal structures are unremarkable. XR/XR chest 1V IMPRESSION: Mild prominence of the pulmonary vasculature and cardiac silhouette appears to be secondary to low lung volumes and positioning. Mild congestion cannot be excluded. No definitive infiltrate. If symptoms persist or worsens, PA and lateral views of the chest are recommended.
--- NOTE | ~2022-11-06 | XR_ITS ---
EXAMINATION: XR CHEST CLINICAL INFORMATION: Central line placement. COMPARISON: Chest radiograph 11/06/2022. TECHNIQUE: Frontal view of the chest was obtained. FINDINGS: Right IJ CVC tip terminates at the level of the cavoatrial junction. No pneumothorax. Unchanged prominence of the cardiomediastinal silhouette. Low lung volumes with similar central vasculature engorgement and left lower lobe plate like opacities. Stable trace amount of left-sided pleural fluid versus pleural thickening. No acute osseous findings. XR/XR chest 1V IMPRESSION: 1. Right IJ CVC tip terminates at the level of the cavoatrial junction. No pneumothorax. 2. Low lung volumes with similar central vasculature engorgement and left lower lobe platelike opacities.
--- NOTE | 2022-11-06 10:28 | ECG_ITS ---
Test Reason : sepsis Blood Pressure : / mmHG Vent. Rate : 070 BPM Atrial Rate : 070 BPM P-R Int : 166 ms QRS Dur : 096 ms QT Int : 406 ms P-R-T Axes : 040 -06 002 degrees QTc Int : 438 ms Normal sinus rhythm Low voltage QRS Possible Inferior infarct , age undetermined Abnormal ECG When compared with ECG of 17-AUG-2022 12:19, No significant change was found Referred By: Steffany Beaulieu Electronically Signed By:Wade Beltrán
[2022-11-06] MEDS: 0.9 % Sodium Chloride 2,040 ML 2040 ML IV (10:41)
[2022-11-06 10:44] LABS: Venous Blood Gas Refer to POC result
[2022-11-06 10:45] LABS: VBG Base Excess -1.9 mmol/L; VBG HCO3 21 mmol/L (22-26); VBG pCO2 33 mmHg; VBG pH 7.42 (7.32-7.43); VBG pO2 58 mmHg
[2022-11-06 10:47] LABS: VBG Base Excess -1.9 mmol/L; VBG HCO3 21 mmol/L (22-26); VBG pCO2 33 mmHg; VBG pH 7.42 (7.32-7.43); VBG pO2 58 mmHg
[2022-11-06 10:50] LABS: Basophils Absolute Auto 0.1 X10*3/uL (0.0-0.2); Basophils Percent Auto 0.3 % (0-2); Eosinophils Absolute Auto 0.3 X10*3/uL (0.0-0.4); Eosinophils Percent Auto 1.3 % (0-4); Hematocrit 32.5 % (42.0-52.0); Hemoglobin 10.8 g/dl (14.0-18.0); Imm Gran Abs Auto 0.31 X10*3/uL (0.00-0.03); Imm Gran Pct Auto 1.5 % (0.0-0.4); Lymphocytes Absolute Auto 0.3 X10*3/uL (1.2-4.9); Lymphocytes Percent Auto 1.6 % (20-40); MANUAL DIFF FLAG NO; Mean Corpuscular HGB Conc 33.2 g/dl (31.0-36.0); Mean Corpuscular Hemoglobin 32.6 pg (27.0-33.0); Mean Corpuscular Volume 98.2 fL (80.0-98.0); Mean Platelet Volume 10.3 fL (9.4-12.4); Monocytes Absolute Auto 1.2 X10*3/uL (0.1-1.2); Monocytes Percent Auto 5.7 % (2-11); Neutrophils Absolute Auto 18.4 x10*3/uL (2.0-8.3); Neutrophils Percent Auto 89.6 % (45-73); Platelet Count 177 X10*3/uL (160-400); Red Blood Count 3.31 X10*6/uL (4.60-5.80); Red Cell Distribution Width 13.8 % (11.0-16.0); White Blood Count 20.5 X10*3/uL (4.8-10.8)
[2022-11-06 10:54] LABS: INTERNATIONAL NORM RATIO 1.1 (0.9-1.1); Prothrombin Time 12.4 SEC (10.0-13.1)
[2022-11-06 10:59] LABS: Lactic Acid 0.9 mmol/L (0.5-2.0)
--- NOTE | 2022-11-06 11:03 | PC.NURSE ---
PT IS ALERT, WILL LOOK AT YOU WITH SOME VERBAL COMMAND OTHERWISE NON-VERBAL. PT RESPONDS TO DEEP STIMULI. PT POSITION HAS HIS DINA LEG SLIGHTLY CONTRACTED IN A UPWARD POSITION. HEPLOCK # 20 TO R LOWER FOREARM AND L FOREARM . CENTRAL LINE WAS PLACED IN R JUGLAR VEIN.
[2022-11-06 11:09] LABS: Alanine Aminotransferase 17 U/L (0-40); Alkaline Phosphatase 120 U/L (39-117); Aspartate Amino Transferase 23 U/L (5-37); Bilirubin Direct 0.2 mg/dL (0.0-0.5); Bilirubin Total 0.4 mg/dL (0.0-1.0); Blood Urea Nitrogen 31 mg/dL (9-16); Calcium 8.5 mg/dL (8.4-10.2); Carbon Dioxide 22 mmol/L (22-29); Chloride 100 mmol/L (96-108); Creatinine Clr Calc Pharmacy 47.4; Estimated Glomerular Filt Rate 51; Glucose Random 96 mg/dL (60-115); Lipase 15 U/L (8-78); Magnesium 2.3 mg/dL (1.6-2.6); Potassium 3.4 mmol/L (3.3-5.1); Sodium 130 mmol/L (135-145); Total Protein 5.3 g/dL (6.5-8.0)
--- NOTE | 2022-11-06 11:14 | ED.WEAKNESS ---
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 They provide no other history MD Complaint: generalized weakness Onset (ago): day(s) (last night) Location: generalized Severity: severe Relieving factors: none Exacerbating factors: none Associated symptoms: loss of appetite and other (cough) Related Data Home Medications Medication Instructions Recorded Confirmed acetaminophen 325 mg tablet 650 mg PO Q4H PRN Fever Or Pain 11/06/22 11/06/22 bisacodyl 10 mg rectal suppository 10 mg SD DAILY PRN Constipation 11/06/22 11/06/22 carboxymethylcellulose sodium 0.5 1 drp ophthalmic (eye) BID PRN Dry 11/06/22 11/06/22 % eye drops (Refresh Tears) Eyes citalopram 10 mg tablet 15 mg PO DAILY 11/06/22 11/06/22 clobazam 10 mg tablet (Onfi) 15 mg PO DAILY 11/06/22 11/06/22 docusate sodium 100 mg capsule 100 mg PO DAILY 11/06/22 11/06/22 docusate sodium 100 mg capsule 100 mg PO DAILY PRN Constipation 11/06/22 11/06/22 ferrous sulfate 220 mg (44 mg 330 mg PO DAILY PRN anemia 11/06/22 11/06/22 iron)/5 mL oral solution ferrous sulfate 324 mg (65 mg 324 mg PO DAILY 11/06/22 11/06/22 iron) tablet,delayed release furosemide 20 mg tablet 20 mg PO DAILY 11/06/22 11/06/22 gabapentin 600 mg tablet 600 mg PO TID 11/06/22 11/06/22 gemfibrozil 600 mg tablet 600 mg PO BID 11/06/22 11/06/22 ibuprofen 800 mg tablet 800 mg PO Q8H PRN Pain 11/06/22 11/06/22 lactose-reduced food with fiber 1 ea feeding tube BID 11/06/22 11/06/22 0.06 gram-1.5 kcal/mL oral liquid (Jevity 1.5 Shant) lactulose 10 gram/15 mL oral 30 ml PO BEDTIME PRN Constipation 11/06/22 11/06/22 solution lamotrigine 100 mg tablet 100 mg PO BID 11/06/22 11/06/22 lamotrigine 150 mg tablet 150 mg PO BID 11/06/22 11/06/22 lamotrigine 25 mg tablet 25 mg PO BID 11/06/22 11/06/22 lorazepam 2 mg/mL injection 1 mg IV Q5M PRN Seizures 11/06/22 11/06/22 solution magnesium oxide 400 mg PO DAILY 11/06/22 11/06/22 multivitamin 1 tab PO DAILY 11/06/22 11/06/22 nystatin 100,000 unit/gram topical 1 appl topical BID 11/06/22 11/06/22 powder omeprazole 20 mg capsule,delayed 20 mg PO DAILY@0630 11/06/22 11/06/22 release sennosides 8.6 mg tablet (senna) 8.6 mg PO DAILY PRN Constipation 11/06/22 11/06/22 sennosides 8.6 mg tablet (senna) 17.2 mg PO BEDTIME 11/06/22 11/06/22 sodium phosphates 19 gram-7 118 ml SD DAILY PRN Constipation 11/06/22 11/06/22 gram/118 mL enema (Fleet Enema) topiramate 100 mg tablet 100 mg PO BID 11/06/22 11/06/22 topiramate 200 mg tablet 200 mg PO BID 11/06/22 11/06/22 topiramate 25 mg tablet 25 mg PO BID 11/06/22 11/06/22 Allergies Allergy/AdvReac Type Severity Reaction Status Date / Time Penicillins [PENICILLINS] Allergy Severe Anaphylaxis Verified 08/17/22 12:03 cefotetan [From CEFOTAN] Allergy Unknown UNKNOWN Verified 08/17/22 12:03 Cephalosporins Allergy Unknown UNKNOWN Verified 08/17/22 12:03 [CEPHALOSPORINS] clindamycin [CLINDAMYCIN] Allergy Unknown UNKNOWN Verified 08/17/22 12:03 levofloxacin [LEVOFLOXACIN] Allergy Unknown UNKNOWN Verified 08/17/22 12:03 Quinolones [QUINOLONES] Allergy Unknown UNKNOWN Verified 08/17/22 12:03 Review of Systems Review of Systems: ROS unable to be obtained due to altered mental status [facility] Past Medical History Attestation statement: The following information was validated with the patient. 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, sequela Dysphagia, oropharyngeal phase Elevated cholesterol Gastro-esophageal reflux disease without esophagitis Gastrostomy tube in place GERD (gastroesophageal reflux disease) History of COVID-19 Hyperlipidemia, unspecified Hypoxemia Lupus anticoagulant disorder Lymphedema, not elsewhere classified Major depressive disorder, recurrent, mild Myopia, bilateral Obesity, unspecified Personal history of pneumonia (recurrent) Pneumonitis due to inhalation of food and vomit Presbyopia Seizures Sepsis TBI (traumatic brain injury) Unspecified hearing loss, unspecified ear Unspecified psychosis not due to a substance or known physiological condition Surgical History History of lithotripsy History of surgery Social History Social History Household Members: Other Household Members Other:: [facility] Housing: [facility] Are you a primary transitions rn care coordinator to a significant other at home: No Do you presently have visiting nurse or other home services: Yes Unable to assess alcohol history related to: Unable to respond and Unknown Alcohol intake: never Patient Tobacco Use Status: Tobacco use Unknown Smoked in Last 30 Days: No Use of substances other than those prescribed or required for medical reasons: No Advance Directives: Yes Advance Directives on File: Yes Advance Directives Date on File: 02/09/21 service: No Current occupational status: disabled Physical Exam Vital Signs: Vital Signs: Last Vital Signs Temp 96.6 F L 11/06/22 14:03 Pulse 93 11/06/22 15:39 Resp 20 11/06/22 15:39 BP 94/56 L 11/06/22 15:39 Pulse Ox 94 11/06/22 15:39 O2 Del Method Nasal Cannula 11/06/22 15:10 O2 Flow Rate 3 11/06/22 15:10 Oxygen Flow Rate 4 11/06/22 10:29 BMI result Body Mass Index 24.2 Appearance: Somnolent, weak appearing, mild acute distress. Eyes: Pupils equal, round and reactive to light. ENT: Pharynx dry MM Neck: Normal inspection. Neck supple. CVS: Normal heart rate and rhythm. Pulses normal. Respiratory: No respiratory distress. Breath sounds diminished both bases with mild rales Abdomen: Soft and nontender. does not grimace Skin: Skin warm and dry. pale skin color. Normal skin turgor. Extremities: No lower extremity edema. Neuro: contracted will not participate in exam. Course Course Course Narrative: discussion with guardian Suri Christine about central line given code status and need for potential pressors. she is going to call me back 1201pm. 3rd liter of fluids ordered guardian wants central line and pressors I asked her if she was aware of the risks and she said well aware and consents to these all the time. notified ICU Dr. Lopez 106pm BP improved will trial off levophed focused exam for sepsis performed at 230pm failed trial off levophed our ICU is closed at this time [facility] is closed at this time. [facility] closed will try [facility] pending call back I am trying to reach his guardian about transfer again - have left a message [facility] by Dr. Jorge to go to ED Medications Administered Generic Name Dose Route Start Last Admin Trade Name Freq PRN Reason Stop Dose Admin Norepinephrine Bitartrate 8 mg in 250 mls @ 0 mls/hr 11/06/22 12:15 11/06/22 15:31 Levophed IV 0.07 mcg/kg/min .Q0M ANDREW 8.93 mls/hr Titration Protocol Per Protocol Discontinued Medications Generic Name Dose Route Start Last Admin Trade Name Freq PRN Reason Stop Dose Admin Sodium Chloride 2,040 mls @ 2,040 mls/hr 11/06/22 10:27 11/06/22 11:30 Ns 30 ml/kg infuse over 1 hr (2040 ml) 11/06/22 11:26 Infused IV Infusion .Q1H STA Meropenem 1 gm/ Sodium 100 mls @ 200 mls/hr 11/06/22 10:31 11/06/22 13:11 Chloride IV 11/06/22 11:00 Infused ONCE ONE Infusion Vancomycin HCl 1,000 mg/ 535 mls @ 267.5 mls/hr 11/06/22 10:33 11/06/22 11:39 Vancomycin HCl 750 mg/ Sodium IV 11/06/22 12:32 Not Given Chloride ONCE ONE Vancomycin HCl 1,250 mg/ 250 mls @ 166.667 mls/hr 11/06/22 10:39 11/06/22 13:25 Sodium Chloride IV 11/06/22 12:08 Infused ONCE ONE Infusion Lactated Ringer's 1,000 mls @ 999 mls/hr 11/06/22 12:00 11/06/22 13:15 Lr IV 11/06/22 13:00 Infused .Q1H1M ANDREW Infusion Albumin Human 100 mls @ 100 mls/hr 11/06/22 14:58 11/06/22 15:03 Kedbumin 25 % IV 11/06/22 15:57 100 mls/hr ONCE ONE Administration Medical Decision Making Medical Decision Making MDM Narrative: 67 yo male with PMH of 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 I am trying to reach his guarding and sister but no answer on either phone. if he does not respond to fluids may need central line he is DNR/DNI. Differential Diagnosis Differential Diagnoses: The differential diagnosis associated with the presentation includes UTI, pneumonia, bacteremia Admission/Observation Consideration of admission/observation: Escalation of care including admission/observation considered Consult Healthcare Provider Management of the patient was discussed with: Director Agricultural Services Lab Data MDM Lab Attestation statement: I reviewed the patient's lab results. 11/06/22 10:36 11/06/22 10:36 Labs: Lab Results 11/06/22 11/06/22 11/06/22 Range/Units 10:35 10:36 10:36 WBC 20.5 H (4.8-10.8) X10*3/uL RBC 3.31 L (4.60-5.80) X10*6/uL Hgb 10.8 L (14.0-18.0) g/dl Hct 32.5 L (42.0-52.0) % MCV 98.2 H (80.0-98.0) fL MCH 32.6 (27.0-33.0) pg MCHC 33.2 (31.0-36.0) g/dl RDW 13.8 (11.0-16.0) % Plt Count 177 D (160-400) X10*3/uL MPV 10.3 (9.4-12.4) fL Immature Gran % (Auto) 1.5 H (0.0-0.4) % Neut % (Auto) 89.6 H (45-73) % Lymph % (Auto) 1.6 L (20-40) % [place] % (Auto) 5.7 (2-11) % Eos % (Auto) 1.3 (0-4) % Baso % (Auto) 0.3 (0-2) % Lymph # (Auto) 0.3 L (1.2-4.9) X10*3/uL [place] # (Auto) 1.2 (0.1-1.2) X10*3/uL Eos # (Auto) 0.3 (0.0-0.4) X10*3/uL Baso # (Auto) 0.1 (0.0-0.2) X10*3/uL Abs Immat Gran (auto) 0.31 H (0.00-0.03) X10*3/uL Absolute Neuts (auto) 18.4 H (2.0-8.3) x10*3/uL Absolute Nucleated RBC 0.000 (0.0-0.012) X10*3/uL Nucleated RBC % (auto) 0.0 (0.0-0.2) /100WBC PT 12.4 (10.0-13.1) SEC INR 1.1 (0.9-1.1) VBG pH 7.42 (7.32-7.43) VBG pCO2 33 mmHg VBG pO2 58 mmHg VBG HCO3 21 L (22-26) mmol/L VBG O2 Saturation 94.0 % VBG Base Excess -1.9 mmol/L Sodium (135-145) mmol/L Potassium (3.3-5.1) mmol/L Chloride (96-108) mmol/L Carbon Dioxide (22-29) mmol/L Anion Gap (12-20) BUN (9-16) mg/dL Creatinine (0.5-1.4) mg/dL Estim Creat Clear Calc Estimated GFR POC Glucose (60-115) mg/dL Random Glucose (60-115) mg/dL Lactic Acid (0.5-2.0) mmol/L Calcium (8.4-10.2) mg/dL Magnesium (1.6-2.6) mg/dL Total Bilirubin (0.0-1.0) mg/dL Direct Bilirubin (0.0-0.5) mg/dL AST (5-37) U/L ALT (0-40) U/L Alkaline Phosphatase (39-117) U/L Troponin I High Sens (<3.5-35.0) ng/L B-Natriuretic Peptide (<100) pg/mL Total Protein (6.5-8.0) g/dL Albumin (3.5-5.0) g/dL Lipase (8-78) U/L Procalcitonin ng/mL TSH (0.32-4.0) uIU/mL Urine Color Urine Appearance Urine pH (5.0-9.0) Ur Specific [place] (1.005-1.025) Urine Protein (Neg-Trace) mg/dL Urine Glucose (UA) (Negative) mg/dL Urine Ketones (Negative) mg/dL Urine Blood (Negative) Urine Nitrite (Negative) Ur Leukocyte Esterase (Negative) Urine RBC (0-2) /HPF Urine WBC (0-5) /HPF Ur Squamous Epith Cells (0-2) /HPF Urine Bacteria (None Seen) Hyaline Casts (0-2) /LPF 11/06/22 11/06/22 11/06/22 Range/Units 10:38 11:41 11:41 WBC (4.8-10.8) X10*3/uL RBC (4.60-5.80) X10*6/uL Hgb (14.0-18.0) g/dl Hct (42.0-52.0) % MCV (80.0-98.0) fL MCH (27.0-33.0) pg MCHC (31.0-36.0) g/dl RDW (11.0-16.0) % Plt Count (160-400) X10*3/uL MPV (9.4-12.4) fL Immature Gran % (Auto) (0.0-0.4) % Neut % (Auto) (45-73) % Lymph % (Auto) (20-40) % [place] % (Auto) (2-11) % Eos % (Auto) (0-4) % Baso % (Auto) (0-2) % Lymph # (Auto) (1.2-4.9) X10*3/uL [place] # (Auto) (0.1-1.2) X10*3/uL Eos # (Auto) (0.0-0.4) X10*3/uL Baso # (Auto) (0.0-0.2) X10*3/uL Abs Immat Gran (auto) (0.00-0.03) X10*3/uL Absolute Neuts (auto) (2.0-8.3) x10*3/uL Absolute Nucleated RBC (0.0-0.012) X10*3/uL Nucleated RBC % (auto) (0.0-0.2) /100WBC PT (10.0-13.1) SEC INR (0.9-1.1) VBG pH 7.42 (7.32-7.43) VBG pCO2 33 mmHg VBG pO2 58 mmHg VBG HCO3 21 L (22-26) mmol/L VBG O2 Saturation 94.0 % VBG Base Excess -1.9 mmol/L Sodium 130 L (135-145) mmol/L Potassium 3.4 (3.3-5.1) mmol/L Chloride 100 (96-108) mmol/L Carbon Dioxide 22 (22-29) mmol/L Anion Gap 8 L (12-20) BUN 31 H (9-16) mg/dL Creatinine 1.40 (0.5-1.4) mg/dL Estim Creat Clear Calc 47.4 Estimated GFR 51 POC Glucose (60-115) mg/dL Random Glucose 96 (60-115) mg/dL Lactic Acid 0.9 (0.5-2.0) mmol/L Calcium 8.5 (8.4-10.2) mg/dL Magnesium 2.3 (1.6-2.6) mg/dL Total Bilirubin 0.4 (0.0-1.0) mg/dL Direct Bilirubin 0.2 (0.0-0.5) mg/dL AST 23 (5-37) U/L ALT 17 (0-40) U/L Alkaline Phosphatase 120 H (39-117) U/L Troponin I High Sens (<3.5-35.0) ng/L B-Natriuretic Peptide (<100) pg/mL Total Protein 5.3 L (6.5-8.0) g/dL Albumin 3.0 L (3.5-5.0) g/dL Lipase 15 (8-78) U/L Procalcitonin 7.97 ng/mL TSH 0.93 (0.32-4.0) uIU/mL Urine Color Urine Appearance Urine pH (5.0-9.0) Ur Specific [place] (1.005-1.025) Urine Protein (Neg-Trace) mg/dL Urine Glucose (UA) (Negative) mg/dL Urine Ketones (Negative) mg/dL Urine Blood (Negative) Urine Nitrite (Negative) Ur Leukocyte Esterase (Negative) Urine RBC (0-2) /HPF Urine WBC (0-5) /HPF Ur Squamous Epith Cells (0-2) /HPF Urine Bacteria (None Seen) Hyaline Casts (0-2) /LPF 11/06/22 11/06/22 11/06/22 Range/Units 11:41 11:41 13:27 WBC (4.8-10.8) X10*3/uL RBC (4.60-5.80) X10*6/uL Hgb (14.0-18.0) g/dl Hct (42.0-52.0) % MCV (80.0-98.0) fL MCH (27.0-33.0) pg MCHC (31.0-36.0) g/dl RDW (11.0-16.0) % Plt Count (160-400) X10*3/uL MPV (9.4-12.4) fL Immature Gran % (Auto) (0.0-0.4) % Neut % (Auto) (45-73) % Lymph % (Auto) (20-40) % [place] % (Auto) (2-11) % Eos % (Auto) (0-4) % Baso % (Auto) (0-2) % Lymph # (Auto) (1.2-4.9) X10*3/uL [place] # (Auto) (0.1-1.2) X10*3/uL Eos # (Auto) (0.0-0.4) X10*3/uL Baso # (Auto) (0.0-0.2) X10*3/uL Abs Immat Gran (auto) (0.00-0.03) X10*3/uL Absolute Neuts (auto) (2.0-8.3) x10*3/uL Absolute Nucleated RBC (0.0-0.012) X10*3/uL Nucleated RBC % (auto) (0.0-0.2) /100WBC PT (10.0-13.1) SEC INR (0.9-1.1) VBG pH (7.32-7.43) VBG pCO2 mmHg VBG pO2 mmHg VBG HCO3 (22-26) mmol/L VBG O2 Saturation % VBG Base Excess mmol/L Sodium (135-145) mmol/L Potassium (3.3-5.1) mmol/L Chloride (96-108) mmol/L Carbon Dioxide (22-29) mmol/L Anion Gap (12-20) BUN (9-16) mg/dL Creatinine (0.5-1.4) mg/dL Estim Creat Clear Calc Estimated GFR POC Glucose 88 (60-115) mg/dL Random Glucose (60-115) mg/dL Lactic Acid (0.5-2.0) mmol/L Calcium (8.4-10.2) mg/dL Magnesium (1.6-2.6) mg/dL Total Bilirubin (0.0-1.0) mg/dL Direct Bilirubin (0.0-0.5) mg/dL AST (5-37) U/L ALT (0-40) U/L Alkaline Phosphatase (39-117) U/L Troponin I High Sens 4.6 (<3.5-35.0) ng/L B-Natriuretic Peptide 256 H (<100) pg/mL Total Protein (6.5-8.0) g/dL Albumin (3.5-5.0) g/dL Lipase (8-78) U/L Procalcitonin ng/mL TSH (0.32-4.0) uIU/mL Urine Color Urine Appearance Urine pH (5.0-9.0) Ur Specific [place] (1.005-1.025) Urine Protein (Neg-Trace) mg/dL Urine Glucose (UA) (Negative) mg/dL Urine Ketones (Negative) mg/dL Urine Blood (Negative) Urine Nitrite (Negative) Ur Leukocyte Esterase (Negative) Urine RBC (0-2) /HPF Urine WBC (0-5) /HPF Ur Squamous Epith Cells (0-2) /HPF Urine Bacteria (None Seen) Hyaline Casts (0-2) /LPF 11/06/22 Range/Units 14:28 WBC (4.8-10.8) X10*3/uL RBC (4.60-5.80) X10*6/uL Hgb (14.0-18.0) g/dl Hct (42.0-52.0) % MCV (80.0-98.0) fL MCH (27.0-33.0) pg MCHC (31.0-36.0) g/dl RDW (11.0-16.0) % Plt Count (160-400) X10*3/uL MPV (9.4-12.4) fL Immature Gran % (Auto) (0.0-0.4) % Neut % (Auto) (45-73) % Lymph % (Auto) (20-40) % [place] % (Auto) (2-11) % Eos % (Auto) (0-4) % Baso % (Auto) (0-2) % Lymph # (Auto) (1.2-4.9) X10*3/uL [place] # (Auto) (0.1-1.2) X10*3/uL Eos # (Auto) (0.0-0.4) X10*3/uL Baso # (Auto) (0.0-0.2) X10*3/uL Abs Immat Gran (auto) (0.00-0.03) X10*3/uL Absolute Neuts (auto) (2.0-8.3) x10*3/uL Absolute Nucleated RBC (0.0-0.012) X10*3/uL Nucleated RBC % (auto) (0.0-0.2) /100WBC PT (10.0-13.1) SEC INR (0.9-1.1) VBG pH (7.32-7.43) VBG pCO2 mmHg VBG pO2 mmHg VBG HCO3 (22-26) mmol/L VBG O2 Saturation % VBG Base Excess mmol/L Sodium (135-145) mmol/L Potassium (3.3-5.1) mmol/L Chloride (96-108) mmol/L Carbon Dioxide (22-29) mmol/L Anion Gap (12-20) BUN (9-16) mg/dL Creatinine (0.5-1.4) mg/dL Estim Creat Clear Calc Estimated GFR POC Glucose (60-115) mg/dL Random Glucose (60-115) mg/dL Lactic Acid (0.5-2.0) mmol/L Calcium (8.4-10.2) mg/dL Magnesium (1.6-2.6) mg/dL Total Bilirubin (0.0-1.0) mg/dL Direct Bilirubin (0.0-0.5) mg/dL AST (5-37) U/L ALT (0-40) U/L Alkaline Phosphatase (39-117) U/L Troponin I High Sens (<3.5-35.0) ng/L B-Natriuretic Peptide (<100) pg/mL Total Protein (6.5-8.0) g/dL Albumin (3.5-5.0) g/dL Lipase (8-78) U/L Procalcitonin ng/mL TSH (0.32-4.0) uIU/mL Urine Color Yellow Urine Appearance Cloudy Urine pH 6.0 (5.0-9.0) Ur Specific [place] 1.010 (1.005-1.025) Urine Protein 30 (1+) H (Neg-Trace) mg/dL Urine Glucose (UA) Negative (Negative) mg/dL Urine Ketones Negative (Negative) mg/dL Urine Blood Large (3+) H (Negative) Urine Nitrite Positive H (Negative) Ur Leukocyte Esterase Large (3+) H (Negative) Urine RBC 11-20 H (0-2) /HPF Urine WBC >50 H (0-5) /HPF Ur Squamous Epith Cells 11-20 (0-2) /HPF Urine Bacteria 4+ (None Seen) Hyaline Casts 3-5 (0-2) /LPF Independent Interpretation I performed an independent interpretation of an: EKG and Plain X-Ray Interpretation: Rate: 70 Rhythm: NSR [place]: left Normal P waves. Normal SINDY. Normal QRS complex. ST T wave : no BEHZAD, nonspecific ST changes II and aVF qTC: normal prior studies: no acute ischemia The study has been interpreted contemporaneously by me. . Radiology Impression Discussion of test interpretation with radiology: I have reviewed the radiologist's reading. Independent Historian Clinical information obtained from an independent historian. History obtained from or confirmed by: EMS External Record Review External record reviewed: Inpatient record and Outpatient record Procedures Central Line Placement Right IJ: Time Out Performed: Yes Patient Placed on Monitor/Pulse Ox: Yes MD Prep: mask, gown and gloves Central Line Prep: Chlorhexidine scrub Local Anesthetic: lidocaine 1% Amount of anesthesia used (mL): 1 Ultrasound Used for Placement: Yes Central Line Lumen Inserted: triple Post Procedure: sutured in place, good blood return, all ports aspirated, flushed, capped and sterile dressing applied Post Procedure X-Ray: tip of catheter in good position and no pneumothorax seen Patient Tolerated Procedure: well and no complications Complications: none Critical Care Time Critical Care Time Critical Care Time: Yes Total Critical Care Time: 45 Attestation: I attest to this time spent taking care of the patient Discharge Plan Discharge Clinical Impression: Acute hypotension, Acute alteration in mental status, Acute UTI Leukocytosis Qualifiers: Leukocytosis type: unspecified Qualified Code(s): D72.829 - Elevated white blood cell count, unspecified Patient Disposition: [facility] Transfer Details: [facility] Prescriptions: No Action multivitamin Tablet 1 tab PO DAILY lamotrigine 150 mg tablet 150 mg PO BID Rx Instructions: 275mg total dose BID sennosides [senna] 8.6 mg Tablet 8.6 mg PO DAILY PRN (Reason: Constipation) sennosides [senna] 8.6 mg Tablet 17.2 mg PO BEDTIME acetaminophen 325 mg Tablet 650 mg PO Q4H PRN (Reason: Fever Or Pain) gabapentin 600 mg tablet 600 mg PO TID ibuprofen 800 mg Tablet 800 mg PO Q8H PRN (Reason: Pain) citalopram 10 mg tablet 15 mg PO DAILY lorazepam 2 mg/mL Solution 1 mg IV Q5M PRN (Reason: Seizures) Rx Instructions: x 3 doses topiramate 25 mg tablet 25 mg PO BID Rx Instructions: 325 total dose lamotrigine 25 mg tablet 25 mg PO BID Rx Instructions: 275mg total dose BID carboxymethylcellulose sodium [Refresh Tears] 0.5 % Drops 1 drp OPHTHALMIC (EYE) BID PRN (Reason: Dry Eyes) gemfibrozil 600 mg tablet 600 mg PO BID bisacodyl 10 mg Suppository 10 mg SD DAILY PRN (Reason: Constipation) Fleet Enema 19-7 gram/118 mL Enema 118 ml SD DAILY PRN (Reason: Constipation) docusate sodium 100 mg Capsule 100 mg PO DAILY PRN (Reason: Constipation) docusate sodium 100 mg Capsule 100 mg PO DAILY omeprazole 20 mg capsule,delayed release(DR/EC) 20 mg PO DAILY@0630 topiramate 200 mg tablet 200 mg PO BID Rx Instructions: 325 total dose furosemide 20 mg tablet 20 mg PO DAILY nystatin 100,000 unit/gram Powder 1 appl TOPICAL BID Rx Instructions: to abdominal folds topiramate 100 mg tablet 100 mg PO BID Rx Instructions: 325 total dose lamotrigine 100 mg tablet 100 mg PO BID Rx Instructions: 275mg total dose BID lactulose 10 gram/15 mL solution 30 ml PO BEDTIME PRN (Reason: Constipation) ferrous sulfate 324 mg (65 mg iron) Tablet,Delayed Release (Dr/Ec) 324 mg PO DAILY ferrous sulfate 220 mg (44 mg iron)/5 mL Solution 330 mg PO DAILY PRN (Reason: anemia) Jevity 1.5 Shant 0.06 gram-1.5 kcal/mL Liquid 1 ea feeding tube BID clobazam [Onfi] 10 mg Tablet 15 mg PO DAILY magnesium oxide 400 mg magnesium Tablet 400 mg PO DAILY
[2022-11-06 11:24] LABS: Procalcitonin 7.97 ng/mL; TSH reflex Free T4 0.93 uIU/mL (0.32-4.0)
[2022-11-06] MEDS: vancomycin HCL 1,250 MG in 0.9 % Sodium Chloride 250 ML 166.67 MG IV (11:51)
--- NOTE | 2022-11-06 12:06 | MHC.EDTECH ---
incident at approximately 11:20. lab suspected of losing blood work. redraw required, delaying results.
[2022-11-06] MEDS: Lactated Ringers 1,000 ML 999 ML IV (12:10)
[2022-11-06 12:18] LABS: Anion Gap 8 (12-20)
[2022-11-06 12:24] LABS: B Type Natriuretic Peptide 256 pg/mL (<100)
[2022-11-06 12:30] LABS: Troponin-I High Sensitivity 4.6 ng/L (<3.5-35.0)
--- NOTE | 2022-11-06 12:51 | PHA.MEDREC ---
Pharmacy Consult ? Medication Reconciliation Pharmacy has completed the medication reconciliation. Patient with list from [facility]
[2022-11-06] MEDS: Norepinephrine Bitartrate/D5W 8 MG/250 ML PLAST..BAG 6.38 MG IV (13:09)
[2022-11-06 13:31] LABS: Glucose, Whole Blood 88 mg/dL (60-115)
--- NOTE | 2022-11-06 14:23 | PC.NURSE ---
MED NOREPI IS BEING HELD PER DR. FISH.
[2022-11-06 14:34] LABS: Appearance Urine Cloudy; Color Urine Yellow; Glucose Urine UA Negative (Negative); Leukocyte Esterase Urine Large (3+) (Negative); Nitrite Urine Positive (Negative); UMIC TRIGGER UACC YES; Urine Blood Large (3+) (Negative); Urine Ketones Negative (Negative); Urine Protein 30 (1+) mg/dL (Neg-Trace)
[2022-11-06 14:48] LABS: Bacteria Urine 4+ (None Seen); UACC Culture Trigger YES; WBC Urine >50 /HPF (0-5)
--- NOTE | 2022-11-06 15:01 | PC.NURSE ---
NOREPI 0.05MCG RESTARTED PER DR. FISH.
[2022-11-06] MEDS: Albumin Human 25 % 100 ML IV (15:03)
--- NOTE | 2022-11-06 15:10 | PC.NURSE ---
PT APPEARS TO BE MORE ALERT AND IS SPEAKING. A/O X 1.
== END 2022-11-06 17:42 | disposition short-term general hospital (02) ==
PROVIDERS: Emergency Provider Emergency Medicine; PCP Hospitalist
DX: I95.9 Hypotension, unspecified (principal); R41.82 Altered mental status, unspecified; N39.0 Urinary tract infection, site not specified; B96.20 Unspecified Escherichia coli [E. coli] as the cause of diseases classified elsewhere; D72.829 Elevated white blood cell count, unspecified; E78.5 Hyperlipidemia, unspecified; D68.62 Lupus anticoagulant syndrome; Z93.1 Gastrostomy status; Z87.820 Personal history of traumatic brain injury; Z87.01 Personal history of pneumonia (recurrent); Z79.899 Other long term (current) drug therapy
CPT/HCPCS: 36415; 36569; 71045; 80048; 80076; 81001; 82803; 82947; 83605; 83690; 83735; 83880; 84145; 84443; 84484; 85025; 85610; 87040; 87077; 87086; 87088; 87147; 87186; 87205; 93005; 96361; 96365; 96366; 96367; 96375; 99285; J2185; J3371; P9047

== ENCOUNTER 2023-04-05 11:47 | Outpatient (REF) | payer MEDICARE, MEDICAID, SELFPAY ==
--- NOTE | ~2023-04-05 | XR_ITS ---
EXAMINATION: XR CHEST CLINICAL INFORMATION: Fever COMPARISON: 11/06/2022 TECHNIQUE: 2 views of the chest were obtained. FINDINGS: Central venous catheter has been removed. There is mild patient's rotation to the left. The left lower lung is obscured. Right lung is clear. Cardiomediastinal silhouette is mildly prominent. XR/XR chest 2V IMPRESSION: Limited evaluation of the left lower lung. Right lung is clear
== END 2023-04-05 11:48 | disposition home or self-care (01) ==
LOC: HO.XRAY 11:47
PROVIDERS: PCP Hospitalist; Visit Provider Hospitalist
DX: R50.9 Fever, unspecified (principal)
CPT/HCPCS: 71046

== ENCOUNTER 2023-08-05 11:50 | Emergency (ER) | payer MEDICARE, MEDICAID, SELFPAY ==
--- NOTE | ~2023-08-05 | XR_ITS ---
EXAMINATION: XR ABDOMEN KUB CLINICAL INDICATION: G-tube placement check. COMPARISON: Abdominal radiograph dated 02/18/2019. TECHNIQUE: AP view of the abdomen. FINDINGS: There is a percutaneous tube overlying the stomach. Contrast is seen within the stomach and proximal duodenum. There is no extravasation of contrast appreciated. The bowel gas pattern is nonobstructive. There are calcifications overlying the expected region of the right kidney. There are surgical clips overlying the right upper quadrant. XR/XR KUB IMPRESSION: Gastrostomy tube appears to be in satisfactory position. There is contrast in the stomach and proximal duodenum without extravasation noted.
[2023-08-05 11:59] VITALS: BP 108/55; BP 112/62; PULSE 56; PULSE 60; RESP 16; TEMP 36.4; O2SAT 97
--- NOTE | 2023-08-05 12:31 | ED.GENADULT ---
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, seizures, aspiration pneumonia, sepsis, feeding tube dependent here with c/o PEG tube not working correctly and sent in by SNF to replace 18F tube complaint: PEG tube issue Onset (ago): day(s) (1) Location: abdomen Radiation: non-radiation Severity: mild Relieving factors: none Exacerbating factors: none Associated symptoms: denies other symptoms Treatments prior to arrival: none Related Data Home Medications Medication Instructions Recorded Confirmed acetaminophen 325 mg tablet 650 mg PO Q4H PRN Fever Or Pain 11/06/22 11/06/22 bisacodyl 10 mg rectal suppository 10 mg CO DAILY PRN Constipation 11/06/22 11/06/22 carboxymethylcellulose sodium 0.5 1 drp ophthalmic (eye) BID PRN Dry 11/06/22 11/06/22 % eye drops (Refresh Tears) Eyes citalopram 10 mg tablet 15 mg PO DAILY 11/06/22 11/06/22 clobazam 10 mg tablet (Onfi) 15 mg PO DAILY 11/06/22 11/06/22 docusate sodium 100 mg capsule 100 mg PO DAILY 11/06/22 11/06/22 docusate sodium 100 mg capsule 100 mg PO DAILY PRN Constipation 11/06/22 11/06/22 ferrous sulfate 220 mg (44 mg 330 mg PO DAILY PRN anemia 11/06/22 11/06/22 iron)/5 mL oral solution ferrous sulfate 324 mg (65 mg 324 mg PO DAILY 11/06/22 11/06/22 iron) tablet,delayed release furosemide 20 mg tablet 20 mg PO DAILY 11/06/22 11/06/22 gabapentin 600 mg tablet 600 mg PO TID 11/06/22 11/06/22 gemfibrozil 600 mg tablet 600 mg PO BID 11/06/22 11/06/22 ibuprofen 800 mg tablet 800 mg PO Q8H PRN Pain 11/06/22 11/06/22 lactose-reduced food with fiber 1 ea feeding tube BID 11/06/22 11/06/22 0.06 gram-1.5 kcal/mL oral liquid (Jevity 1.5 Shant) lactulose 10 gram/15 mL oral 30 ml PO BEDTIME PRN Constipation 11/06/22 11/06/22 solution lamotrigine 100 mg tablet 100 mg PO BID 11/06/22 11/06/22 lamotrigine 150 mg tablet 150 mg PO BID 11/06/22 11/06/22 lamotrigine 25 mg tablet 25 mg PO BID 11/06/22 11/06/22 lorazepam 2 mg/mL injection 1 mg IV Q5M PRN Seizures 11/06/22 11/06/22 solution magnesium oxide 400 mg PO DAILY 11/06/22 11/06/22 multivitamin 1 tab PO DAILY 11/06/22 11/06/22 nystatin 100,000 unit/gram topical 1 appl topical BID 11/06/22 11/06/22 powder omeprazole 20 mg capsule,delayed 20 mg PO DAILY@0630 11/06/22 11/06/22 release sennosides 8.6 mg tablet (senna) 8.6 mg PO DAILY PRN Constipation 11/06/22 11/06/22 sennosides 8.6 mg tablet (senna) 17.2 mg PO BEDTIME 11/06/22 11/06/22 sodium phosphates 19 gram-7 118 ml CO DAILY PRN Constipation 11/06/22 11/06/22 gram/118 mL enema (Fleet Enema) topiramate 100 mg tablet 100 mg PO BID 11/06/22 11/06/22 topiramate 200 mg tablet 200 mg PO BID 11/06/22 11/06/22 topiramate 25 mg tablet 25 mg PO BID 11/06/22 11/06/22 Allergies Allergy/AdvReac Type Severity Reaction Status Date / Time Penicillins [PENICILLINS] Allergy Severe Anaphylaxis Verified 08/17/22 12:03 cefotetan [From CEFOTAN] Allergy Unknown UNKNOWN Verified 08/17/22 12:03 Cephalosporins Allergy Unknown UNKNOWN Verified 08/17/22 12:03 [CEPHALOSPORINS] clindamycin [CLINDAMYCIN] Allergy Unknown UNKNOWN Verified 08/17/22 12:03 levofloxacin [LEVOFLOXACIN] Allergy Unknown UNKNOWN Verified 08/17/22 12:03 Quinolones [QUINOLONES] Allergy Unknown UNKNOWN Verified 08/17/22 12:03 Review of Systems Review of Systems: ROS unable to be obtained due to cognitive impairment [facility] Past Medical History Source: old records reviewed Medical History Unspecified hearing loss, unspecified ear Unspecified psychosis not due to a substance or known physiological condition Obesity, unspecified Gastro-esophageal reflux disease without esophagitis Dysphagia, oropharyngeal phase Lymphedema, not elsewhere classified Hyperlipidemia, unspecified Anemia, unspecified Hypoxemia Personal history of pneumonia (recurrent) Lupus anticoagulant disorder Presbyopia Myopia, bilateral Age-related nuclear cataract, bilateral Calculus of gallbladder and bile duct with acute cholecystitis with obstruction Pneumonitis due to inhalation of food and vomit History of COVID-19 Major depressive disorder, recurrent, mild Concussion with loss of consciousness of unspecified duration, initial encounter 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, sequela Sepsis GERD (gastroesophageal reflux disease) Elevated cholesterol Gastrostomy tube in place Seizures TBI (traumatic brain injury) Surgical History History of lithotripsy History of surgery Social History Social History Household Members: Other Household Members Other:: [facility] Housing: Shelter Are you a primary overnight caregiver to a significant other at home: No Do you presently have visiting nurse or other home services: Yes Unable to assess alcohol history related to: Unable to respond and Unknown Alcohol intake: never Patient Tobacco Use Status: Tobacco use Unknown Advance Directives: Yes Advance Directives on File: Yes Advance Directives Date on File: 02/09/21 service: No Current occupational status: disabled Physical Exam ED Vital Signs: Vital Signs - 24 hr 08/05/23 11:59 Temperature 97.6 F Pulse Rate 60 Respiratory Rate 16 Blood Pressure 108/55 L Pulse Oximetry 97 Oxygen Delivery Method Room Air BMI result Body Mass Index 0.0 Appearance: Alert. smiles. No acute distress. Eyes: Pupils equal, round and reactive to light. ENT: Pharynx normal. Neck: Normal inspection. Neck supple. CVS: Normal heart rate and rhythm. Pulses normal. Respiratory: No respiratory distress. Breath sounds normal. Abdomen: Soft and nontender. G tube no blood or signs at infection at opening Skin: Skin warm and dry. Normal skin color. Normal skin turgor. Extremities: No lower extremity edema. 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, seizures, aspiration pneumonia, sepsis, feeding tube dependent here with c/o feeding tube issue it is 18F at this time will replace in ED and obtain confirmation he has no pain to palpation he has no vomiting, no signs of infection Differential Diagnosis Differential Diagnoses: The differential diagnosis associated with the presentation includes feeding tube clogged, port malfunction Independent Interpretation I performed an independent interpretation of an: Plain X-Ray (contrast noted) Radiology Impression Discussion of test interpretation with radiology: I have reviewed the radiologist's reading. Independent Historian Clinical information obtained from an independent historian. History obtained from or confirmed by: Other External Record Review External record reviewed: Inpatient record Discharge Plan Discharge Clinical Impression: Blockage of feeding tube Patient Disposition: Home, Self-Care Instructions: PEG Tube Insertion (DC) Additional Instructions: return for vomiting, pain, black or bloody stools, any other concerns. Prescriptions: No Action multivitamin Tablet 1 tab PO DAILY lamotrigine 150 mg tablet 150 mg PO BID Rx Instructions: 275mg total dose BID sennosides [senna] 8.6 mg Tablet 8.6 mg PO DAILY PRN (Reason: Constipation) sennosides [senna] 8.6 mg Tablet 17.2 mg PO BEDTIME acetaminophen 325 mg Tablet 650 mg PO Q4H PRN (Reason: Fever Or Pain) gabapentin 600 mg tablet 600 mg PO TID ibuprofen 800 mg Tablet 800 mg PO Q8H PRN (Reason: Pain) citalopram 10 mg tablet 15 mg PO DAILY lorazepam 2 mg/mL Solution 1 mg IV Q5M PRN (Reason: Seizures) Rx Instructions: x 3 doses topiramate 25 mg tablet 25 mg PO BID Rx Instructions: 325 total dose lamotrigine 25 mg tablet 25 mg PO BID Rx Instructions: 275mg total dose BID carboxymethylcellulose sodium [Refresh Tears] 0.5 % Drops 1 drp OPHTHALMIC (EYE) BID PRN (Reason: Dry Eyes) gemfibrozil 600 mg tablet 600 mg PO BID bisacodyl 10 mg Suppository 10 mg CO DAILY PRN (Reason: Constipation) Fleet Enema 19-7 gram/118 mL Enema 118 ml CO DAILY PRN (Reason: Constipation) docusate sodium 100 mg Capsule 100 mg PO DAILY PRN (Reason: Constipation) docusate sodium 100 mg Capsule 100 mg PO DAILY omeprazole 20 mg capsule,delayed release(DR/EC) 20 mg PO DAILY@0630 topiramate 200 mg tablet 200 mg PO BID Rx Instructions: 325 total dose furosemide 20 mg tablet 20 mg PO DAILY nystatin 100,000 unit/gram Powder 1 appl TOPICAL BID Rx Instructions: to abdominal folds topiramate 100 mg tablet 100 mg PO BID Rx Instructions: 325 total dose lamotrigine 100 mg tablet 100 mg PO BID Rx Instructions: 275mg total dose BID lactulose 10 gram/15 mL solution 30 ml PO BEDTIME PRN (Reason: Constipation) ferrous sulfate 324 mg (65 mg iron) Tablet,Delayed Release (Dr/Ec) 324 mg PO DAILY ferrous sulfate 220 mg (44 mg iron)/5 mL Solution 330 mg PO DAILY PRN (Reason: anemia) Jevity 1.5 Shant 0.06 gram-1.5 kcal/mL Liquid 1 ea feeding tube BID clobazam [Onfi] 10 mg Tablet 15 mg PO DAILY magnesium oxide 400 mg magnesium Tablet 400 mg PO DAILY
--- NOTE | 2023-08-05 14:00 | PC.NURSE ---
G-tube changed, replaced with 14f tube. Pt tolerated well.
== END 2023-08-05 14:30 | disposition skilled nursing facility (03) ==
PROVIDERS: Emergency Provider Emergency Medicine; PCP Hospitalist
DX: K94.23 Gastrostomy malfunction (principal); Y83.3 Surgical operation with formation of external stoma as the cause of abnormal reaction of the patient, or of later complication, without mention of misadventure at the time of the procedure; Y92.129 Unspecified place in nursing home as the place of occurrence of the external cause; Z87.820 Personal history of traumatic brain injury; Z74.01 Bed confinement status
CPT/HCPCS: 43762; 74018; 99283

== ENCOUNTER 2024-04-01 18:40 | Emergency (ER) | payer MEDICARE, MEDICAID, SELFPAY ==
--- NOTE | ~2024-04-01 | XR_ITS ---
EXAMINATION: XR CHEST CLINICAL INFORMATION: Chest pain COMPARISON: 04/05/2023 TECHNIQUE: AP semiupright view of the chest was obtained. FINDINGS: The lung volumes are decreased. Left retrocardiac consolidation/atelectasis is identified. The left upper and right lung are clear. Peribronchial thickening is present bilaterally. The heart size is stable. Mild bowel gas distention is seen in the upper abdomen with stool in the colon. XR/XR chest 1V IMPRESSION: 1. Low lung volumes with persistent left retrocardiac consolidation/atelectasis. No significant change. 2. Mild bowel gas distention is seen in the upper abdomen. Stool is present in the colon. Electronically signed by: Chuck Swift MD 04/01/2024 08:50 PM EDT RP
[2024-04-01 19:04] VITALS: BP 100/53; BP 96/56; PULSE 70; PULSE 79; RESP 20; TEMP 36.7; O2SAT 92; O2SAT 97; BMI 32.5
--- NOTE | 2024-04-01 19:39 | ECG_ITS ---
Test Reason : DYSPNEA Blood Pressure : / mmHG Vent. Rate : 077 BPM Atrial Rate : 077 BPM P-R Int : 198 ms QRS Dur : 088 ms QT Int : 410 ms P-R-T Axes : 060 -01 024 degrees QTc Int : 463 ms Normal sinus rhythm Inferior infarct (cited on or before 06-NOV-2022) Nonspecific ST and T wave abnormality Abnormal ECG When compared with ECG of 06-NOV-2022 11:18, Nonspecific T wave abnormality, worse in Anterolateral leads Referred By: Haven Caraballo Electronically Signed By:ZAIDA WALKER
--- NOTE | 2024-04-01 19:53 | ED.GENADULT ---
HPI - General Adult General Chief complaint: Dyspnea Stated complaint: choking episode w/ santiago done Time Seen by Provider: 04/01/24 18:55 History of Present Illness HPI narrative: Patient is a 69-year-old male with a history of COPD. Was at residential. Baseline has a history of COPD. Patient had dinner had a possible choking spell. Was initially noted to have a low O2 sat afterwards. Sent to the ED for further evaluation. Baseline patient is on room air. No fever no chills. Patient's behavior is approximately baseline. Related Data Home Medications ?Medication ?Instructions ?Recorded ?Confirmed acetaminophen 325 mg tablet 650 mg PO Q4H PRN Fever Or Pain 11/06/22 11/06/22 bisacodyl 10 mg rectal suppository 10 mg NE DAILY PRN Constipation 11/06/22 11/06/22 carboxymethylcellulose sodium 0.5 1 drp ophthalmic (eye) BID PRN Dry 11/06/22 11/06/22 % eye drops (Refresh Tears) Eyes citalopram 10 mg tablet 15 mg PO DAILY 11/06/22 11/06/22 clobazam 10 mg tablet (Onfi) 15 mg PO DAILY 11/06/22 11/06/22 docusate sodium 100 mg capsule 100 mg PO DAILY 11/06/22 11/06/22 docusate sodium 100 mg capsule 100 mg PO DAILY PRN Constipation 11/06/22 11/06/22 ferrous sulfate 220 mg (44 mg 330 mg PO DAILY PRN anemia 11/06/22 11/06/22 iron)/5 mL oral solution ferrous sulfate 324 mg (65 mg 324 mg PO DAILY 11/06/22 11/06/22 iron) tablet,delayed release furosemide 20 mg tablet 20 mg PO DAILY 11/06/22 11/06/22 gabapentin 600 mg tablet 600 mg PO TID 11/06/22 11/06/22 gemfibrozil 600 mg tablet 600 mg PO BID 11/06/22 11/06/22 ibuprofen 800 mg tablet 800 mg PO Q8H PRN Pain 11/06/22 11/06/22 lactose-reduced food with fiber 1 ea feeding tube BID 11/06/22 11/06/22 0.06 gram-1.5 kcal/mL oral liquid (Jevity 1.5 Shant) lactulose 10 gram/15 mL oral 30 ml PO BEDTIME PRN Constipation 11/06/22 11/06/22 solution lamotrigine 100 mg tablet 100 mg PO BID 11/06/22 11/06/22 lamotrigine 150 mg tablet 150 mg PO BID 11/06/22 11/06/22 lamotrigine 25 mg tablet 25 mg PO BID 11/06/22 11/06/22 lorazepam 2 mg/mL injection 1 mg IV Q5M PRN Seizures 11/06/22 11/06/22 solution magnesium oxide 400 mg PO DAILY 11/06/22 11/06/22 multivitamin 1 tab PO DAILY 11/06/22 11/06/22 nystatin 100,000 unit/gram topical 1 appl topical BID 11/06/22 11/06/22 powder omeprazole 20 mg capsule,delayed 20 mg PO DAILY@62911/06/22 11/06/22 release sennosides 8.6 mg tablet (senna) 8.6 mg PO DAILY PRN Constipation 11/06/22 11/06/22 sennosides 8.6 mg tablet (senna) 17.2 mg PO BEDTIME 11/06/22 11/06/22 sodium phosphates 19 gram-7 118 ml NE DAILY PRN Constipation 11/06/22 11/06/22 gram/118 mL enema (Fleet Enema) topiramate 100 mg tablet 100 mg PO BID 11/06/22 11/06/22 topiramate 200 mg tablet 200 mg PO BID 11/06/22 11/06/22 topiramate 25 mg tablet 25 mg PO BID 11/06/22 11/06/22 Allergies Allergy/AdvReac Type Severity Reaction Status Date / Time Penicillins [PENICILLINS] Allergy Severe Anaphylaxis Verified 04/01/24 19:12 cefotetan [From CEFOTAN] Allergy Unknown UNKNOWN Verified 04/01/24 19:12 Cephalosporins Allergy Unknown UNKNOWN Verified 04/01/24 19:12 [CEPHALOSPORINS] clindamycin [CLINDAMYCIN] Allergy Unknown UNKNOWN Verified 04/01/24 19:12 levofloxacin [LEVOFLOXACIN] Allergy Unknown UNKNOWN Verified 04/01/24 19:12 Quinolones [QUINOLONES] Allergy Unknown UNKNOWN Verified 04/01/24 19:12 Review of Systems Review of Systems: Unable to obtain review of systems secondary patient's condition PMFSH Past Medical History Source: unable to obtain Medical History Unspecified hearing loss, unspecified ear Unspecified psychosis not due to a substance or known physiological condition Obesity, unspecified Gastro-esophageal reflux disease without esophagitis Dysphagia, oropharyngeal phase Lymphedema, not elsewhere classified Hyperlipidemia, unspecified Anemia, unspecified Hypoxemia Personal history of pneumonia (recurrent) Lupus anticoagulant disorder Presbyopia Myopia, bilateral Age-related nuclear cataract, bilateral Calculus of gallbladder and bile duct with acute cholecystitis with obstruction Pneumonitis due to inhalation of food and vomit History of COVID-19 Major depressive disorder, recurrent, mild Concussion with loss of consciousness of unspecified duration, initial encounter 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, sequela Sepsis GERD (gastroesophageal reflux disease) Elevated cholesterol Gastrostomy tube in place Seizures TBI (traumatic brain injury) Surgical History History of lithotripsy History of surgery Social History Social History Household Members: Other Household Members Other:: [facility] Housing: Long-Term Are you a primary cattle care worker to a significant other at home: No Do you presently have visiting nurse or other home services: Yes Unable to assess alcohol history related to: Unable to respond and Unknown Alcohol intake: never Patient Tobacco Use Status: Tobacco use Unknown Advance Directives: Yes Advance Directives on File: Yes Advance Directives Date on File: 02/09/21 Do you have a plan to hurt others: No Plan service: No Current occupational status: disabled Physical Exam ED Vital Signs: Vital Signs - 24 hr 04/01/24 19:04 Temperature 98.0 F Pulse Rate 79 Respiratory Rate 20 Blood Pressure 100/53 L Pulse Oximetry 92 Oxygen Delivery Method Room Air BMI result Body Mass Index 32.5 Appearance: Alert. Oriented X0. No acute distress. Eyes: Pupils equal, round and reactive to light. ENT: Pharynx normal. Neck: Normal inspection. Neck supple. No lymph nodes noted. No crepitus CVS: Normal heart rate and rhythm. Pulses normal. Normal S1 and S2 Respiratory: Diminished breath sounds bilaterally Abdomen: Soft and nontender. No rigidity. No distention. good BS x4 Skin: Skin warm and dry. Normal skin color. Normal skin turgor. Extremities: No lower extremity edema. Neurovascular intact to all extremities. No Lacerations. No Rash Neuro: Oriented X 0. No the acute distress resting comfortably Medical Decision Making Medical Decision Making MDM Narrative: Patient presented with a choking episode. Patient's white count is 13 had had previous elevation in white count in the past. VBG showed a pH of 7.26 with a pCO2 54. Patient's mental status is baseline. Electrolytes showed elevated BUN and creatinine which is also baseline. Will contact patient's residential. Close follow-up outpatient. Radiology reviewed the chest x-ray thought that the chest x-ray is essentially unchanged Patient's case discussed with Dr. Bautista patient's primary physician aware of the mi respiratory alkalosis likely secondary to having too much O2 on when patient arrived. Patient has since has been placed on 2 L which is his usual amount of oxygen is satting at 90-92%. Dr. Bautista is comfortable with following up on an outpatient basis. Patient is to be discharged back. Differential Diagnosis Differential Diagnoses: The differential diagnosis associated with the presentation includes Lab Data MDM Lab Attestation statement: I reviewed the patient's lab results. 04/01/24 20:47 04/01/24 20:47 Labs: Lab Results 04/01/24 04/01/24 Range/Units 20:47 20:54 WBC 13.2 H (4.8-10.8) X10*3/uL RBC 4.11 L D (4.60-5.80) X10*6/uL Hgb 14.0 D (14.0-18.0) g/dl Hct 42.2 D (42.0-52.0) % MCV 102.7 H (80.0-98.0) fL MCH 34.1 H (27.0-33.0) pg MCHC 33.2 (31.0-36.0) g/dl RDW 12.3 (11.0-16.0) % Plt Count 240 D (160-400) X10*3/uL MPV 10.1 (9.4-12.4) fL Immature Gran % (Auto) 1.1 H (0.0-0.4) % Neut % (Auto) 84.3 H (45-73) % Lymph % (Auto) 7.2 L (20-40) % [place] % (Auto) 6.3 (2-11) % Eos % (Auto) 0.6 (0-4) % Baso % (Auto) 0.5 (0-2) % Lymph # (Auto) 1.0 L (1.2-4.9) X10*3/uL [place] # (Auto) 0.8 (0.1-1.2) X10*3/uL Eos # (Auto) 0.1 (0.0-0.4) X10*3/uL Baso # (Auto) 0.1 (0.0-0.2) X10*3/uL Abs Immat Gran (auto) 0.15 H (0.00-0.03) X10*3/uL Absolute Neuts (auto) 11.2 H (2.0-8.3) x10*3/uL Absolute Nucleated RBC 0.000 (0.0-0.012) X10*3/uL Nucleated RBC % (auto) 0.0 (0.0-0.2) /100WBC VBG pH 7.26 L (7.32-7.43) VBG pCO2 54 mmHg VBG pO2 26 mmHg VBG HCO3 24 (22-26) mmol/L VBG O2 Saturation 54.0 % VBG Base Excess -3.0 mmol/L Sodium 143 (135-145) mmol/L Potassium 3.9 (3.3-5.1) mmol/L Chloride 112 H (96-108) mmol/L Carbon Dioxide 24 (22-29) mmol/L Anion Gap 11 L (12-20) BUN 25 H (9-16) mg/dL Creatinine 0.91 (0.5-1.4) mg/dL Estim Creat Clear Calc 88.9 Estimated GFR > 60 Random Glucose 105 (60-115) mg/dL Calcium 9.1 D (8.4-10.2) mg/dL Independent Interpretation I performed an independent interpretation of an: Plain X-Ray (My review of patient's x-rays essentially unchanged from previous. No new focal infiltrate) Radiology Impression Discussion of test interpretation with radiology: I have reviewed the radiologist's reading. Discharge Plan Discharge Clinical Impression: Choking episode Patient Disposition: er [facility] Instructions: Aspiration Precautions (ED) Prescriptions: No Action multivitamin Tablet 1 tab PO DAILY lamotrigine 150 mg tablet 150 mg PO BID Rx Instructions: 275mg total dose BID sennosides [senna] 8.6 mg Tablet 8.6 mg PO DAILY PRN (Reason: Constipation) sennosides [senna] 8.6 mg Tablet 17.2 mg PO BEDTIME acetaminophen 325 mg Tablet 650 mg PO Q4H PRN (Reason: Fever Or Pain) gabapentin 600 mg tablet 600 mg PO TID ibuprofen 800 mg Tablet 800 mg PO Q8H PRN (Reason: Pain) citalopram 10 mg tablet 15 mg PO DAILY lorazepam 2 mg/mL Solution 1 mg IV Q5M PRN (Reason: Seizures) Rx Instructions: x 3 doses topiramate 25 mg tablet 25 mg PO BID Rx Instructions: 325 total dose lamotrigine 25 mg tablet 25 mg PO BID Rx Instructions: 275mg total dose BID carboxymethylcellulose sodium [Refresh Tears] 0.5 % Drops 1 drp OPHTHALMIC (EYE) BID PRN (Reason: Dry Eyes) gemfibrozil 600 mg tablet 600 mg PO BID bisacodyl 10 mg Suppository 10 mg NE DAILY PRN (Reason: Constipation) Fleet Enema 19-7 gram/118 mL Enema 118 ml NE DAILY PRN (Reason: Constipation) docusate sodium 100 mg Capsule 100 mg PO DAILY PRN (Reason: Constipation) docusate sodium 100 mg Capsule 100 mg PO DAILY omeprazole 20 mg capsule,delayed release(DR/EC) 20 mg PO DAILY@0630 topiramate 200 mg tablet 200 mg PO BID Rx Instructions: 325 total dose furosemide 20 mg tablet 20 mg PO DAILY nystatin 100,000 unit/gram Powder 1 appl TOPICAL BID Rx Instructions: to abdominal folds topiramate 100 mg tablet 100 mg PO BID Rx Instructions: 325 total dose lamotrigine 100 mg tablet 100 mg PO BID Rx Instructions: 275mg total dose BID lactulose 10 gram/15 mL solution 30 ml PO BEDTIME PRN (Reason: Constipation) ferrous sulfate 324 mg (65 mg iron) Tablet,Delayed Release (Dr/Ec) 324 mg PO DAILY ferrous sulfate 220 mg (44 mg iron)/5 mL Solution 330 mg PO DAILY PRN (Reason: anemia) Jevity 1.5 Shant 0.06 gram-1.5 kcal/mL Liquid 1 ea feeding tube BID clobazam [Onfi] 10 mg Tablet 15 mg PO DAILY magnesium oxide 400 mg magnesium Tablet 400 mg PO DAILY Referrals: Mayur Bautista DO [Primary Care Provider] - 04/03/24 Print Language: Libyan
--- NOTE | 2024-04-01 20:13 | PC.NURSE ---
Per provider turned down 02 to see if pt can be weened off, provider believes pt not on 02 at baseline Pt with xray and 02 dropped to 74% Pt suctioned and 02 turned back on 2l n/c, pt now sat @ 96% Pt reports he is on 02 at baseline This RN called [facility] and spoke to BRIDGETTE Shaw, per RN pt is on 2l of 02 PRN, if pts 02 drops to 92 or below he is placed on 02 @ 2l. Provider notified and aware of 02 PRN and current sat when off of 02. Per provider plan is to leave pt on 2l. Plan of care ongoing.
[2024-04-01 20:54] LABS: MANUAL DIFF FLAG NO
[2024-04-01 20:59] LABS: VBG HCO3 24 mmol/L (22-26); VBG pCO2 54 mmHg; VBG pH 7.26 (7.32-7.43); VBG pO2 26 mmHg
[2024-04-01 21:02] LABS: Basophils Absolute Auto 0.1 X10*3/uL (0.0-0.2); Basophils Percent Auto 0.5 % (0-2); Eosinophils Absolute Auto 0.1 X10*3/uL (0.0-0.4); Eosinophils Percent Auto 0.6 % (0-4); Hematocrit 42.2 % (42.0-52.0); Imm Gran Abs Auto 0.15 X10*3/uL (0.00-0.03); Imm Gran Pct Auto 1.1 % (0.0-0.4); Lymphocytes Percent Auto 7.2 % (20-40); Mean Corpuscular HGB Conc 33.2 g/dl (31.0-36.0); Mean Corpuscular Hemoglobin 34.1 pg (27.0-33.0); Mean Corpuscular Volume 102.7 fL (80.0-98.0); Mean Platelet Volume 10.1 fL (9.4-12.4); Monocytes Absolute Auto 0.8 X10*3/uL (0.1-1.2); Monocytes Percent Auto 6.3 % (2-11); Neutrophils Absolute Auto 11.2 x10*3/uL (2.0-8.3); Neutrophils Percent Auto 84.3 % (45-73); Platelet Count 240 X10*3/uL (160-400); Red Blood Count 4.11 X10*6/uL (4.60-5.80); Red Cell Distribution Width 12.3 % (11.0-16.0); Venous Blood Gas Refer to POC result; White Blood Count 13.2 X10*3/uL (4.8-10.8)
[2024-04-01 21:06] LABS: Anion Gap 11 (12-20); Blood Urea Nitrogen 25 mg/dL (9-16); Calcium 9.1 mg/dL (8.4-10.2); Carbon Dioxide 24 mmol/L (22-29); Chloride 112 mmol/L (96-108); Creatinine Clr Calc Pharmacy 88.9; Estimated Glomerular Filt Rate > 60; Glucose Random 105 mg/dL (60-115); Potassium 3.9 mmol/L (3.3-5.1); Sodium 143 mmol/L (135-145)
--- NOTE | 2024-04-01 22:34 | PC.NURSE ---
Nurse to nurse report given to Wale ANGELES at [facility].
--- NOTE | 2024-04-01 23:24 | PC.NURSE ---
Pt refused vitals and kept taking n/c off. Pt refusing to leave with ems reporting to ems he did not want to go back to [facility]. Pt redirected by this RN and able to place n/c back onto pt
== END 2024-04-02 02:18 ==
PROVIDERS: Emergency Provider Emergency Medicine Emergency Medical Services; PCP Hospitalist
DX: R09.89 Other specified symptoms and signs involving the circulatory and respiratory systems (principal); R06.00 Dyspnea, unspecified; R07.9 Chest pain, unspecified; J44.9 Chronic obstructive pulmonary disease, unspecified; Z79.899 Other long term (current) drug therapy; Z87.820 Personal history of traumatic brain injury
CPT/HCPCS: 36415; 71045; 80048; 82803; 85025; 93005; 99284

== ENCOUNTER → 2024-04-01 19:39 | Outpatient (BNV) | payer MEDICARE, MEDICAID, SELFPAY | PROVIDERS: Emergency Provider Emergency Medicine Emergency Medical Services; PCP Hospitalist; Visit Provider Internal Medicine | DX: R94.31 Abnormal electrocardiogram [ECG] [EKG] (principal) | CPT/HCPCS: 93010 ==

== ENCOUNTER 2024-04-04 10:06 | Inpatient (IN) | payer MEDICARE, MEDICAID, SELFPAY ==
[2024-04-04] VITALS (25 sets, daily range): BP systolic 86–117; BP diastolic 35–74; PULSE 70–101; RESP 16–24; TEMP 37.3–38.4; O2SAT 84–100; BMI 25.3
--- NOTE | ~2024-04-04 | CT_ITS ---
EXAMINATION: CT CHEST WITH CONTRAST CLINICAL INFORMATION: Shortness of breath hypoxia. Altered mental status. COMPARISON: Chest x-ray April 2023. CT chest December 2020 TECHNIQUE: Multidetector volumetric CT imaging of the chest was obtained after the administration of 85 mL of Omnipaque 350 intravenous contrast without immediate adverse reactions. Axial MIP volume rendering provided. Sagittal and coronal reformatted images were obtained. This CT examination was performed using dose optimization techniques as appropriate, variously including the following: *Automated exposure control *Adjustment of mA and/or kV according to patient size (this includes techniques or standardized protocols for targeted exams where dose is matched to indication/reason for exam; i.e. extremities or head) *Use of iterative reconstruction technique DLP: 5:30 mGy-cm FINDINGS: The exam is slightly limited by image degrading motion artifact. LUNGS AND PLEURAL SPACES: There is minimal linear opacity at the right lower lobe medially and lower lobe laterally likely atelectasis. There is consolidation in the lower lung medially similar to prior compatible with atelectasis or evolving consolidation. Air bronchograms are noted. This is less prominent compared to prior CT 2020. Lungs otherwise clear. Previously noted nodular opacity in the left upper lung no longer visualized. MEDIASTINUM: Minimal calcification of the dorsal aorta. No coronary artery calcifications no pericardial effusion. Heart size within normal limits. No significant lymphadenopathy. Pulmonary vessels unremarkable. AXILLA: No lymphadenopathy. UPPER ABDOMEN: Status post cholecystectomy. G-tube in place in the stomach OSSEOUS STRUCTURES: Unremarkable. CT/CT chest w IV con IMPRESSION: 1. Consolidation in the left lower lobe lobe medially similar to prior CT in 2020 compatible with atelectasis or evolving consolidation. This is less prominent compared to prior CT 2020. 2. Previously noted nodular opacity in the left upper lung no longer visualized. Fleischner guidelines were followed. Electronically signed by: Manny Camacho MD 04/04/2024 12:03 PM EDT
--- NOTE | ~2024-04-04 | XR_ITS ---
EXAMINATION: XR CHEST CLINICAL INFORMATION: Bronchi COMPARISON: Chest x-ray 04/10/2024 TECHNIQUE: Frontal view of the chest was obtained. FINDINGS: The lungs are hypoexpanded but clear acute process. Heart size and pulmonary vascularity is normal. No gross bony abnormality seen. There is mild dextroscoliosis. XR/XR chest 1V IMPRESSION: Hypoexpanded lungs without acute process. Electronically signed by: Vito Pandey MD 04/12/2024 11:52 AM [facility]
--- NOTE | ~2024-04-04 | CT_ITS ---
EXAMINATION: CT ABDOMEN AND PELVIS WITH CONTRAST CLINICAL INFORMATION: Abdominal pain COMPARISON: 12/28/2020 TECHNIQUE: Multidetector volumetric images were obtained from the superior aspect of the liver through the pubic symphysis following administration 85 mL of Omnipaque 350 intravenous contrast. Sagittal and coronal reformatted images were obtained on the technologist's workstation. Oral contrast: No This CT examination was performed using dose optimization techniques as appropriate, variously including the following: *Automated exposure control *Adjustment of mA and/or kV according to patient size (this includes techniques or standardized protocols for targeted exams where dose is matched to indication/reason for exam; i.e. extremities or head) *Use of iterative reconstruction technique DLP: 1067 mGy-cm FINDINGS: LUNG BASES: Dependent atelectasis/opacity in the bilateral lower lobes LIVER, GALLBLADDER, AND BILIARY TREE: The liver is normal in size, shape, and attenuation. No focal hepatic lesion or biliary ductal dilatation is present. Status post cholecystectomy. No biliary ductal dilatation. PANCREAS: Unremarkable. SPLEEN: Unremarkable. ADRENAL GLANDS: Unremarkable. KIDNEYS AND URETERS: Right kidney demonstrates cortical areas of lobulation and scarring. There is a calcified stone in the central renal pelvis measuring 1.6 x 1.2 cm. There is a calcified stone in the upper pole calyx measuring 1 cm. No hydronephrosis seen. No ureteral stones are seen. There is a 1.3 cm simple cyst in the mid right kidney. The left kidney is normal in size, shape, and attenuation. No hydronephrosis, hydroureter, or calculi seen. No perinephric stranding. BLADDER: Unremarkable. GASTROINTESTINAL TRACT: Percutaneous gastrostomy tube in good position within the body of the stomach. The small and large bowel are unremarkable. The appendix is unremarkable. Small rectal tube is in place. Large amount of retained stool seen throughout the colon. ABDOMINAL WALL: No significant hernia is appreciated. LYMPH NODES: Normal. VASCULAR: Aorta is normal in caliber. Scattered atherosclerotic plaque PELVIC VISCERA: Status post prostatectomy OSSEOUS STRUCTURES: Severe degenerative changes again seen throughout the spine CT/CT abdomen pelvis w IV con IMPRESSION: 1. No acute process. 2. Large amount of retained stool seen throughout the colon. 3. Right renal stones as described above. No hydronephrosis. 4. Status post cholecystectomy. 5. Percutaneous gastrostomy tube in good position. Electronically signed by: Mane Dennison MD 04/04/2024 12:24 PM EDT RP
--- NOTE | ~2024-04-04 | XR_ITS ---
EXAMINATION: XR CHEST CLINICAL INFORMATION: sob COMPARISON: X-ray dated April 01, 2024 TECHNIQUE: Frontal view of the chest was obtained. FINDINGS: Indistinct margins in the perihilar regions and prominence of the interstitial markings. Linear opacity left lower hemithorax. Poor inspiration. No pneumothorax. Cardiomediastinal silhouette demonstrates normal size. Multilevel thoracic spondylosis. S-shaped curvature of the thoracolumbar spine. Osteopenia versus osteoporosis. XR/XR chest 1V IMPRESSION: Pulmonary edema in the correct clinical settings. Questionable left-sided pleural effusion, small volume. Electronically signed by: Rashad Moore MD 04/10/2024 12:04 PM [facility]
--- NOTE | 2024-04-04 10:05 | ED_ITS ---
HPI - General Adult General Chief complaint: Dyspnea Stated complaint: SOB Time Seen by Provider: 04/04/24 10:06 Source: EMS Mode of arrival: EMS Limitations: other (Patient altered.) History of Present Illness ED Provider: Elian BARON HPI narrative: This is a 69-year-old male history of TBI, sepsis, recent aspiration pneumonia, TBI presenting to the emergency department with altered mental status, fevers, cough, shortness of breath and hypoxia coming from [facility]. Patient recently had an episode of choking on 03/30/2024, he has been on doxycycline orally with little to no relief. He is satting in the low 80s on his baseline 2 L, with labored breathing, tachypnea, diaphoresis. Any sort of exertion makes patient significantly short of breath. Patient poor historian and unable to provide a review of systems Related Data Home Medications ?Medication ?Instructions ?Recorded ?Confirmed acetaminophen 325 mg tablet 650 mg feeding tube Q6H PRN Fever 11/06/22 04/04/24 Or Pain bisacodyl 10 mg rectal suppository 10 mg [place] DAILY PRN Constipation 11/06/22 04/04/24 carboxymethylcellulose sodium 0.5 1 drp ophthalmic (eye) Q4H PRN Dry 11/06/22 04/04/24 % eye drops (Refresh Tears) Eyes docusate sodium 100 mg capsule 100 mg PO DAILY 11/06/22 04/04/24 ferrous sulfate 220 mg (44 mg 330 mg feeding tube DAILY anemia 11/06/22 04/04/24 iron)/5 mL oral solution gabapentin 600 mg tablet 600 mg feeding tube TID 11/06/22 04/04/24 gemfibrozil 600 mg tablet 600 mg feeding tube BID 11/06/22 04/04/24 ibuprofen 800 mg tablet 800 mg feeding tube Q8H PRN Pain 11/06/22 04/04/24 (Scale Score 4-6) lamotrigine 100 mg tablet 100 mg feeding tube BID 11/06/22 04/04/24 lamotrigine 150 mg tablet 150 mg feeding tube BID 11/06/22 04/04/24 lamotrigine 25 mg tablet 25 mg feeding tube BID 11/06/22 04/04/24 magnesium oxide 400 mg feeding tube DAILY 11/06/22 04/04/24 omeprazole 20 mg capsule,delayed 20 mg feeding tube DAILY@0630 11/06/22 04/04/24 release sennosides 8.6 mg tablet (senna) 8.6 mg feeding tube Q24H PRN 11/06/22 04/04/24 Constipation sennosides 8.6 mg tablet (senna) 17.2 mg feeding tube BEDTIME 11/06/22 04/04/24 Constipation sodium phosphates 19 gram-7 118 ml [place] Q24H PRN Constipation 11/06/22 04/04/24 gram/118 mL enema (Fleet Enema) topiramate 100 mg tablet 100 mg feeding tube BID 11/06/22 04/04/24 topiramate 200 mg tablet 200 mg feeding tube BID 11/06/22 04/04/24 topiramate 25 mg tablet 25 mg feeding tube BID 11/06/22 04/04/24 citalopram 10 mg/5 mL oral solution 20 mg feeding tube DAILY 04/04/24 04/04/24 clobazam 10 mg tablet 5 mg feeding tube DAILY 04/04/24 04/04/24 clobazam 10 mg tablet 10 mg feeding tube BEDTIME 04/04/24 04/04/24 doxycycline hyclate 100 mg capsule 100 mg feeding tube BID 04/04/24 04/04/24 fludrocortisone 0.1 mg tablet 0.1 mg feeding tube BID 04/04/24 04/04/24 lorazepam 2 mg/mL injection syringe 1 mg IV Q5M PRN Seizures 04/04/24 04/04/24 midodrine 10 mg tablet 10 mg feeding tube TIDWM 04/04/24 04/04/24 multivit and minerals-ferrous 15 ml feeding tube DAILY 04/04/24 04/04/24 gluconate 9 mg iron/15 mL oral liquid (multivitamin with minerals) prednisone 10 mg tablet 10 mg feeding tube DAILY 04/04/24 prednisone 20 mg tablet 20 mg feeding tube DAILY 04/04/24 prednisone 20 mg tablet 40 mg feeding tube DAILY 04/04/24 prednisone 20 mg tablet 60 mg feeding tube DAILY 04/04/24 04/04/24 Allergies Allergy/AdvReac Type Severity Reaction Status Date / Time Penicillins [PENICILLINS] Allergy Severe Anaphylaxis Verified 04/04/24 10:23 cefotetan [From CEFOTAN] Allergy Unknown UNKNOWN Verified 04/04/24 10:23 Cephalosporins Allergy Unknown UNKNOWN Verified 04/04/24 10:23 [CEPHALOSPORINS] clindamycin [CLINDAMYCIN] Allergy Unknown UNKNOWN Verified 04/04/24 10:23 levofloxacin [LEVOFLOXACIN] Allergy Unknown UNKNOWN Verified 04/04/24 10:23 Quinolones [QUINOLONES] Allergy Unknown UNKNOWN Verified 04/04/24 10:23 Review of Systems 2 Review of Systems: Yes all other systems are reviewed and are negative [facility] Past Medical History Attestation statement: The following information was validated with the patient. Source: old records reviewed and nursing notes reviewed Medical History Unspecified hearing loss, unspecified ear Unspecified psychosis not due to a substance or known physiological condition Obesity, unspecified Gastro-esophageal reflux disease without esophagitis Dysphagia, oropharyngeal phase Lymphedema, not elsewhere classified Hyperlipidemia, unspecified Anemia, unspecified Hypoxemia Personal history of pneumonia (recurrent) Lupus anticoagulant disorder Presbyopia Myopia, bilateral Age-related nuclear cataract, bilateral Calculus of gallbladder and bile duct with acute cholecystitis with obstruction Pneumonitis due to inhalation of food and vomit History of COVID-19 Major depressive disorder, recurrent, mild Concussion with loss of consciousness of unspecified duration, initial encounter 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, sequela Sepsis GERD (gastroesophageal reflux disease) Elevated cholesterol Gastrostomy tube in place Seizures TBI (traumatic brain injury) Surgical History History of lithotripsy History of surgery Social History Social History Household Members: Other Household Members Other:: [facility] Housing: [facility] Are you a primary home care music therapist to a significant other at home: No Do you presently have visiting nurse or other home services: Yes Unable to assess alcohol history related to: Unable to respond Alcohol intake: never Patient Tobacco Use Status: Tobacco use Unknown Use of substances other than those prescribed or required for medical reasons: Unable to respond Advance Directives: No Advance Directives Date on File: 02/09/21 Do you have a plan to hurt others: No Plan service: No Current occupational status: disabled Physical Exam ED Vital Signs: Vital Signs - 24 hr 04/04/24 10:15 04/04/24 10:41 04/04/24 10:48 Temperature 101.2 F H Pulse Rate 87 78 79 Respiratory Rate 24 H 24 H Blood Pressure 89/60 L 98/68 110/70 Pulse Oximetry 84 L Oxygen Delivery Method Nasal Cannula Oxygen Flow Rate 04/04/24 11:06 04/04/24 11:29 04/04/24 11:40 Temperature 100.8 F H 99.7 F Pulse Rate 82 82 92 Respiratory Rate 22 H 22 H 19 Blood Pressure 88/56 L 97/45 L Pulse Oximetry 90 L 91 L Oxygen Delivery Method Oxymask Oxymask Oxygen Flow Rate 2 7 04/04/24 12:15 Temperature Pulse Rate 101 H Respiratory Rate 19 Blood Pressure 86/53 L Pulse Oximetry 97 Oxygen Delivery Method Oxymask Oxygen Flow Rate 4 BMI result Body Mass Index 25.3 hypoxia noted Appearance: Alert.? Oriented X0.? No acute distress.? Head: Normocephalic, atraumatic, no step-offs or deformities Eyes: Pupils equal, round and reactive to light.? Neck: Normal inspection.? Neck supple.? CVS: Normal heart rate and rhythm.? Pulses normal.? Respiratory: No respiratory distress.? Breath sounds normal.? Abdomen: Soft and nontender.? Skin: Skin warm and dry.? Normal skin color.? Normal skin turgor.? Extremities: No lower extremity edema.? No calf ttp. Global weakness Neuro: Oriented X 0.? No motor deficit.? No sensory deficit. CN 2-12 intact Course Course Course Narrative: Dr. Bautista PCP aware patient is here Reevaluation(s) Reevaluation #1: Sepsis alert paged overhead Time: 10:41 Reevaluation #2: CBC with no leukocytosis, this may be secondary to patient being on p.o. antibiotics, he is noted to have a normocytic anemia at baseline. Chemistry with mildly elevated BUN likely secondary to poor p.o. intake/dehydration however does appear to be around his baseline. Remainder of chemistry unremarkable. VBG no acute findings. UA pending. CT chest, abdomen and pelvis also pending. Time: 11:08 Reevaluation #3: CT chest with consolidation in the left lower lobe medially similar to prior CT in 2010 however patient does actively have crackles as well as wheezing and hypoxia therefore concerned for active infection. Previously noted opacity in the left upper lung no longer visualized. CT abdomen and pelvis no acute process. Large amounts of retained stool seen throughout the colon. Right renal stones as described. Status post cholecystectomy. UA grossly infected. Patient receiving antibiotic treatment at this time. I did review this case with ID who agrees with antibiotic selection. They will follow while in hospital if needed Time: 13:25 Medications Administered Discontinued Medications Generic Name Dose Route Start Last Admin Trade Name Freq PRN Reason Stop Dose Admin Acetaminophen 650 mg 04/04/24 10:21 04/04/24 10:40 Acetaminophen Supp 650 Mg Supp.Rect [place] 04/04/24 10:22 650 mg ONCE ONE Administration Albuterol Sulfate 5 mg/ 0 mg 04/04/24 11:28 04/04/24 11:33 Albuterol/Ipratropium 3 ml INHALE 04/04/24 11:29 1 each ONCE ONE Administration Azithromycin 500 mg/ Sodium 250 mls @ 125 mls/hr 04/04/24 10:21 04/04/24 12:45 Chloride IV 04/04/24 12:20 Infused ONCE ONE Infusion Sodium Chloride 2,469 mls @ 2,469 mls/hr 04/04/24 10:39 04/04/24 11:03 Ns 30 ml/kg infuse over 1 hr (2469 ml) 04/04/24 11:38 2,469 mls/hr IV Administration .Q1H STA Iohexol 100 ml 04/04/24 11:27 04/04/24 11:27 Iohexol 350 Mg/Ml 100 Ml Infus..Btl IV 04/04/24 11:28 85 ml ONCE ONE Administration Meropenem 1 gm 04/04/24 10:31 04/04/24 11:01 Meropenem 1 Gm Vial IVPUSH 04/04/24 10:32 1 gm ONCE ONE Administration Midodrine 5 mg 04/04/24 13:15 04/04/24 13:03 Midodrine Hcl 5 Mg Tablet G-TUBE 04/04/24 13:16 5 mg ONCE ONE Administration Medical Decision Making Medical Decision Making [facility] Narrative: 69-year-old male recent diagnosis of aspiration pneumonia presents with shortness of breath, fatigue, malaise, altered mental status, fevers despite p.o. treatment with doxycycline. Physical exam crackles bilaterally and expiratory wheezing. Labored breathing noted with movement. Patient diaphoretic. History and physical exam concerning for infection/aspiration pneumonia that is not improving. Will rule out metabolic derangements & UTI Plan labs, imaging Differential Diagnosis Differential Diagnoses: The differential diagnosis associated with the presentation includes (History and physical exam concerning for infection/aspiration pneumonia that is not improving. Will rule out metabolic derangements & UTI ) Admission/Observation Consideration of admission/observation: Escalation of care including admission/observation considered Consult Healthcare Provider Management of the patient was discussed with: Primary Care Provider (PCP Dr. Bautista ) Lab Data MDM Lab Attestation statement: I reviewed the patient's lab results. 04/04/24 10:39 04/04/24 10:39 Labs: Lab Results 04/04/24 04/04/24 04/04/24 Range/Units 10:26 10:39 10:45 WBC 9.0 (4.8-10.8) X10*3/uL RBC 3.85 L (4.60-5.80) X10*6/uL Hgb 13.2 L (14.0-18.0) g/dl Hct 38.4 L (42.0-52.0) % MCV 99.7 H (80.0-98.0) fL MCH 34.3 H (27.0-33.0) pg MCHC 34.4 (31.0-36.0) g/dl RDW 12.2 (11.0-16.0) % Plt Count 187 (160-400) X10*3/uL MPV 10.3 (9.4-12.4) fL Immature Gran % (Auto) 0.4 (0.0-0.4) % Neut % (Auto) 75.9 H (45-73) % Lymph % (Auto) 10.3 L (20-40) % [place] % (Auto) 7.7 (2-11) % Eos % (Auto) 5.1 H (0-4) % Baso % (Auto) 0.6 (0-2) % Lymph # (Auto) 0.9 L (1.2-4.9) X10*3/uL [place] # (Auto) 0.7 (0.1-1.2) X10*3/uL Eos # (Auto) 0.5 H (0.0-0.4) X10*3/uL Baso # (Auto) 0.1 (0.0-0.2) X10*3/uL Abs Immat Gran (auto) 0.04 H (0.00-0.03) X10*3/uL Absolute Neuts (auto) 6.9 (2.0-8.3) x10*3/uL Absolute Nucleated RBC 0.000 (0.0-0.012) X10*3/uL Nucleated RBC % (auto) 0.0 (0.0-0.2) /100WBC PT 12.4 (10.9-12.4) SEC INR 1.1 (0.9-1.1) VBG pH 7.33 (7.32-7.43) VBG pCO2 42 mmHg VBG pO2 28 mmHg VBG HCO3 22 (22-26) mmol/L VBG O2 Saturation 63.0 % VBG Base Excess -3.2 mmol/L Sodium 142 (135-145) mmol/L Potassium 4.3 (3.3-5.1) mmol/L Chloride 111 H (96-108) mmol/L Carbon Dioxide 21 L (22-29) mmol/L Anion Gap 14 (12-20) BUN 24 H (9-16) mg/dL Creatinine 0.77 (0.5-1.4) mg/dL Estim Creat Clear Calc 99.1 Estimated GFR > 60 POC Glucose 123 H (60-115) mg/dL Random Glucose 127 H (60-115) mg/dL Lactic Acid 2.0 (0.5-2.0) mmol/L Calcium 9.5 (8.4-10.2) mg/dL Magnesium 2.3 (1.6-2.6) mg/dL Total Bilirubin 0.4 (0.0-1.0) mg/dL AST 17 (5-37) U/L ALT 12 (0-40) U/L Alkaline Phosphatase 134 H (39-117) U/L Total Protein 7.0 (6.5-8.0) g/dL Albumin 3.6 (3.5-5.0) g/dL Urine Color Urine Appearance Urine pH (5.0-9.0) Ur Specific [place] (1.005-1.025) Urine Protein (Neg-Trace) mg/dL Urine Glucose (UA) (Negative) mg/dL Urine Ketones (Negative) mg/dL Urine Blood (Negative) Urine Nitrite (Negative) Ur Leukocyte Esterase (Negative) Urine RBC (0-2) /HPF Urine WBC (0-5) /HPF Ur Squamous Epith Cells (0-2) /HPF Urine Bacteria (None Seen) Hyaline Casts (0-2) /LPF 04/04/24 Range/Units 10:59 WBC (4.8-10.8) X10*3/uL RBC (4.60-5.80) X10*6/uL Hgb (14.0-18.0) g/dl Hct (42.0-52.0) % MCV (80.0-98.0) fL MCH (27.0-33.0) pg MCHC (31.0-36.0) g/dl RDW (11.0-16.0) % Plt Count (160-400) X10*3/uL MPV (9.4-12.4) fL Immature Gran % (Auto) (0.0-0.4) % Neut % (Auto) (45-73) % Lymph % (Auto) (20-40) % [place] % (Auto) (2-11) % Eos % (Auto) (0-4) % Baso % (Auto) (0-2) % Lymph # (Auto) (1.2-4.9) X10*3/uL [place] # (Auto) (0.1-1.2) X10*3/uL Eos # (Auto) (0.0-0.4) X10*3/uL Baso # (Auto) (0.0-0.2) X10*3/uL Abs Immat Gran (auto) (0.00-0.03) X10*3/uL Absolute Neuts (auto) (2.0-8.3) x10*3/uL Absolute Nucleated RBC (0.0-0.012) X10*3/uL Nucleated RBC % (auto) (0.0-0.2) /100WBC PT (10.9-12.4) SEC INR (0.9-1.1) VBG pH (7.32-7.43) VBG pCO2 mmHg VBG pO2 mmHg VBG HCO3 (22-26) mmol/L VBG O2 Saturation % VBG Base Excess mmol/L Sodium (135-145) mmol/L Potassium (3.3-5.1) mmol/L Chloride (96-108) mmol/L Carbon Dioxide (22-29) mmol/L Anion Gap (12-20) BUN (9-16) mg/dL Creatinine (0.5-1.4) mg/dL Estim Creat Clear Calc Estimated GFR POC Glucose (60-115) mg/dL Random Glucose (60-115) mg/dL Lactic Acid (0.5-2.0) mmol/L Calcium (8.4-10.2) mg/dL Magnesium (1.6-2.6) mg/dL Total Bilirubin (0.0-1.0) mg/dL AST (5-37) U/L ALT (0-40) U/L Alkaline Phosphatase (39-117) U/L Total Protein (6.5-8.0) g/dL Albumin (3.5-5.0) g/dL Urine Color Yellow Urine Appearance Cloudy Urine pH 7.5 (5.0-9.0) Ur Specific [place] 1.020 (1.005-1.025) Urine Protein 30 (1+) H (Neg-Trace) mg/dL Urine Glucose (UA) Negative (Negative) mg/dL Urine Ketones Negative (Negative) mg/dL Urine Blood Trace H (Negative) Urine Nitrite Positive H (Negative) Ur Leukocyte Esterase Moderate (2+) H (Negative) Urine RBC 6-10 H (0-2) /HPF Urine WBC 21-50 H (0-5) /HPF Ur Squamous Epith Cells 0-2 (0-2) /HPF Urine Bacteria 2+ (None Seen) Hyaline Casts 0-2 (0-2) /LPF Independent Interpretation I performed an independent interpretation of an: CT Scan (CT/CT chest w IV con IMPRESSION: 1. Consolidation in the left lower lobe lobe medially similar to prior CT in 2020 compatible with atelectasis or evolving consolidation. This is less prominent compared to prior CT 2020. 2. Previously noted nodular opacity in the left upper lung no longer visua) Interpretation: CT/CT abdomen pelvis w IV con IMPRESSION: 1. No acute process. 2. Large amount of retained stool seen throughout the colon. 3. Right renal stones as described above. No hydronephrosis. 4. Status post cholecystectomy. 5. Percutaneous gastrostomy tube in good position. Radiology Impression Discussion of test interpretation with radiology: I have reviewed the radiologist's reading. Independent Historian Clinical information obtained from an independent historian. History obtained from or confirmed by: EMS and Other (Notes from rajeev st reviewed ) External Record Review External record reviewed: Inpatient record, Office record, Outpatient record, Prior outpatient labs, Prior outpatient radiology, Primary care record and Outside ED record Chronic Conditions Patient?s care impacted by: Other (see hpi ) Critical Care Time Critical Care Time Critical Care Time: Yes Total Critical Care Time: 35 Attestation: I attest to this time spent taking care of the patient, obtaining history, physical, reviewing labs, imaging, treatment of patients condition +/- specialist/hospitalist consult Discharge Plan Discharge Clinical Impression: Aspiration pneumonia, UTI (urinary tract infection) Patient Disposition: Admitted As Inpatient Print Language: Syriac
[2024-04-04 10:29] LABS: Glucose, Whole Blood 123 mg/dL (60-115)
[2024-04-04] MEDS: Acetaminophen Supp 650 MG SUPP.RECT PR (10:40)
[2024-04-04 10:46] LABS: MANUAL DIFF FLAG NO
[2024-04-04 10:47] LABS: Basophils Absolute Auto 0.1 X10*3/uL (0.0-0.2); Basophils Percent Auto 0.6 % (0-2); Eosinophils Absolute Auto 0.5 X10*3/uL (0.0-0.4); Eosinophils Percent Auto 5.1 % (0-4); Hematocrit 38.4 % (42.0-52.0); Hemoglobin 13.2 g/dl (14.0-18.0); Imm Gran Abs Auto 0.04 X10*3/uL (0.00-0.03); Imm Gran Pct Auto 0.4 % (0.0-0.4); Lymphocytes Absolute Auto 0.9 X10*3/uL (1.2-4.9); Lymphocytes Percent Auto 10.3 % (20-40); Mean Corpuscular HGB Conc 34.4 g/dl (31.0-36.0); Mean Corpuscular Hemoglobin 34.3 pg (27.0-33.0); Mean Corpuscular Volume 99.7 fL (80.0-98.0); Mean Platelet Volume 10.3 fL (9.4-12.4); Monocytes Absolute Auto 0.7 X10*3/uL (0.1-1.2); Monocytes Percent Auto 7.7 % (2-11); Neutrophils Absolute Auto 6.9 x10*3/uL (2.0-8.3); Neutrophils Percent Auto 75.9 % (45-73); Platelet Count 187 X10*3/uL (160-400); Red Blood Count 3.85 X10*6/uL (4.60-5.80); Red Cell Distribution Width 12.2 % (11.0-16.0)
[2024-04-04 10:51] LABS: VBG Base Excess -3.2 mmol/L; VBG HCO3 22 mmol/L (22-26); VBG pCO2 42 mmHg; VBG pH 7.33 (7.32-7.43); VBG pO2 28 mmHg
[2024-04-04 10:53] LABS: Venous Blood Gas Refer to POC result
[2024-04-04 10:55] LABS: INTERNATIONAL NORM RATIO 1.1 (0.9-1.1); Prothrombin Time 12.4 SEC (10.9-12.4)
[2024-04-04] MEDS: Azithromycin 500 MG in 0.9 % Sodium Chloride 250 ML 125 MG IV (11:01)
[2024-04-04] MEDS: Meropenem 1 GM VIAL IVPUSH ×2 (11:01→18:31)
[2024-04-04] MEDS: SODIUM CHLORIDE 2469 ML IV (11:03)
[2024-04-04 11:07] LABS: Alanine Aminotransferase 12 U/L (0-40); Albumin Level 3.6 g/dL (3.5-5.0); Alkaline Phosphatase 134 U/L (39-117); Anion Gap 14 (12-20); Aspartate Amino Transferase 17 U/L (5-37); Bilirubin Total 0.4 mg/dL (0.0-1.0); Blood Urea Nitrogen 24 mg/dL (9-16); Calcium 9.5 mg/dL (8.4-10.2); Carbon Dioxide 21 mmol/L (22-29); Chloride 111 mmol/L (96-108); Creatinine Clr Calc Pharmacy 99.1; Estimated Glomerular Filt Rate > 60; Glucose Random 127 mg/dL (60-115); Magnesium 2.3 mg/dL (1.6-2.6); Potassium 4.3 mmol/L (3.3-5.1); Sodium 142 mmol/L (135-145)
[2024-04-04 11:07] LABS: Appearance Urine Cloudy; Color Urine Yellow; Glucose Urine UA Negative (Negative); Leukocyte Esterase Urine Moderate (2+) (Negative); Nitrite Urine Positive (Negative); PH 7.5 (5.0-9.0); UMIC TRIGGER UACC YES; Urine Blood Trace (Negative); Urine Ketones Negative (Negative); Urine Protein 30 (1+) mg/dL (Neg-Trace)
[2024-04-04 11:09] LABS: Bacteria Urine 2+ (None Seen); Hyaline Casts Urine 0-2 /LPF (0-2); Squamous Epithelial Cell Urine 0-2 /HPF (0-2); UACC Culture Trigger YES; WBC Urine 21-50 /HPF (0-5)
[2024-04-04] MEDS: iohexoL 350 MG/ML 100 ML INFUS..BTL IV (11:27)
[2024-04-04] MEDS: Albuterol Sulfate 5 MG, Albuterol/Iprat 2.5/0.5MG 3 ML 3 ML INHALE (11:33)
--- NOTE | 2024-04-04 12:55 | PC.NURSE ---
When approximately 1/2 of IVF infused, patient's pressure still trending 80's/50's provider Yadira made aware, ordered midodrine PO. Patient has Gtube, pharmacy called to change order from PO to GT, waiting for order adjustment.
[2024-04-04] MEDS: Midodrine HCl 5 MG TABLET G-TUBE (13:03)
--- NOTE | 2024-04-04 13:10 | PHA.MEDREC ---
Pharmacy Consult ? Medication Reconciliation Pharmacy has completed the medication reconciliation. LIST FROM [facility] OBTAINED. PATIENT ON PREDNISONE TAPER STARTING 04/04/24.
--- NOTE | 2024-04-04 14:43 | PM.CCHP ---
History of Present Illness Date of Service: 04/04/24 Chief Complaint: Hypotension 69-year-old male with past medical history of TBI, seizure disorder, aspiration pneumonia who is nonverbal and bed-bound is brought into the ED from [facility] this morning due to low-grade fever and change in mental status. On note patient is on midodrine at home and looks like his blood pressure is always on the borderline. His labs are pretty much normal including the white counts and lactate. He has a urinary tract infection. Review of Systems Review of Systems: Yes Unobtainable due to mental condition PMF Past Medical History Medical History Unspecified hearing loss, unspecified ear Unspecified psychosis not due to a substance or known physiological condition Obesity, unspecified Gastro-esophageal reflux disease without esophagitis Dysphagia, oropharyngeal phase Lymphedema, not elsewhere classified Hyperlipidemia, unspecified Anemia, unspecified Hypoxemia Personal history of pneumonia (recurrent) Lupus anticoagulant disorder Presbyopia Myopia, bilateral Age-related nuclear cataract, bilateral Calculus of gallbladder and bile duct with acute cholecystitis with obstruction Pneumonitis due to inhalation of food and vomit History of COVID-19 Major depressive disorder, recurrent, mild Concussion with loss of consciousness of unspecified duration, initial encounter 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, sequela Sepsis GERD (gastroesophageal reflux disease) Elevated cholesterol Gastrostomy tube in place Seizures TBI (traumatic brain injury) Surgical History Surgical History History of lithotripsy History of surgery Social History Social History Household Members: Other Household Members Other:: [facility] Housing: Longterm Are you a primary physician locums urgent care to a significant other at home: No Do you presently have visiting nurse or other home services: Yes Unable to assess alcohol history related to: Unable to respond Alcohol intake: never Patient Tobacco Use Status: Tobacco use Unknown Use of substances other than those prescribed or required for medical reasons: Unable to respond Advance Directives: No Advance Directives Date on File: 02/09/21 Do you have a plan to hurt others: No Plan service: No Current occupational status: disabled Meds Allergies Allergy/AdvReac Type Severity Reaction Status Date / Time Penicillins [PENICILLINS] Allergy Severe Anaphylaxis Verified 04/04/24 10:23 cefotetan [From CEFOTAN] Allergy Unknown UNKNOWN Verified 04/04/24 10:23 Cephalosporins Allergy Unknown UNKNOWN Verified 04/04/24 10:23 [CEPHALOSPORINS] clindamycin [CLINDAMYCIN] Allergy Unknown UNKNOWN Verified 04/04/24 10:23 levofloxacin [LEVOFLOXACIN] Allergy Unknown UNKNOWN Verified 04/04/24 10:23 Quinolones [QUINOLONES] Allergy Unknown UNKNOWN Verified 04/04/24 10:23 Active Medications: Current Medications Enoxaparin Sodium (Enoxaparin Sodium 40 Mg/0.4 Ml Syringe) 40 mg SUBCUT Q24H ANDREW Gabapentin (Gabapentin 600 Mg Tablet) 600 mg G-TUBE TID ANDREW Gemfibrozil (Gemfibrozil 600 Mg Tablet) 600 mg G-TUBE BID ANDREW Lactated Ringer's (Lr) 1,000 mls @ 100 mls/hr IVCONT .Q10H ANDREW Norepinephrine Bitartrate (Levophed) 8 mg in 250 mls @ 0 mls/hr IV .Q0M ANDREW; Protocol Albumin Human (Kedbumin 25 %) 100 mls @ 133.333 mls/hr IV Q1H ANDREW Stop: 04/04/24 16:14 Lamotrigine (Lamotrigine 25 Mg Tablet) 150 mg G-TUBE BID ANDREW Meropenem (Meropenem 1 Gm Vial) 1 gm IVPUSH Q8H ANDREW Midodrine (Midodrine Hcl 10 Mg Tablet) 10 mg G-TUBE TIDWM [facility] Non-Formulary Medication (Citalopram) 20 mg feeding tube DAILY [facility] Non-Formulary Medication (Clobazam) 10 mg feeding tube BEDTIME [facility] Home Medications ?Medication ?Instructions ?Recorded ?Confirmed ?Last Taken ?Type acetaminophen 325 mg tablet 650 mg feeding tube Q6H PRN Fever 11/06/22 04/04/24 Unknown History Or Pain bisacodyl 10 mg rectal suppository 10 mg VA DAILY PRN Constipation 11/06/22 04/04/24 Unknown History carboxymethylcellulose sodium 0.5 1 drp ophthalmic (eye) Q4H PRN Dry 11/06/22 04/04/24 Unknown History % eye drops (Refresh Tears) Eyes docusate sodium 100 mg capsule 100 mg PO DAILY 11/06/22 04/04/24 Unknown History ferrous sulfate 220 mg (44 mg 330 mg feeding tube DAILY anemia 11/06/22 04/04/24 Unknown History iron)/5 mL oral solution gabapentin 600 mg tablet 600 mg feeding tube TID 11/06/22 04/04/24 Unknown History gemfibrozil 600 mg tablet 600 mg feeding tube BID 11/06/22 04/04/24 Unknown History ibuprofen 800 mg tablet 800 mg feeding tube Q8H PRN Pain 11/06/22 04/04/24 Unknown History (Scale Score 4-6) lamotrigine 100 mg tablet 100 mg feeding tube BID 11/06/22 04/04/24 Unknown History lamotrigine 150 mg tablet 150 mg feeding tube BID 11/06/22 04/04/24 Unknown History lamotrigine 25 mg tablet 25 mg feeding tube BID 11/06/22 04/04/24 Unknown History magnesium oxide 400 mg feeding tube DAILY 11/06/22 04/04/24 Unknown History omeprazole 20 mg capsule,delayed 20 mg feeding tube DAILY@0630 11/06/22 04/04/24 Unknown History release sennosides 8.6 mg tablet (senna) 8.6 mg feeding tube Q24H PRN 11/06/22 04/04/24 Unknown History Constipation sennosides 8.6 mg tablet (senna) 17.2 mg feeding tube BEDTIME 11/06/22 04/04/24 Unknown History Constipation sodium phosphates 19 gram-7 118 ml VA Q24H PRN Constipation 11/06/22 04/04/24 Unknown History gram/118 mL enema (Fleet Enema) topiramate 100 mg tablet 100 mg feeding tube BID 11/06/22 04/04/24 Unknown History topiramate 200 mg tablet 200 mg feeding tube BID 11/06/22 04/04/24 Unknown History topiramate 25 mg tablet 25 mg feeding tube BID 11/06/22 04/04/24 Unknown History citalopram 10 mg/5 mL oral solution 20 mg feeding tube DAILY 04/04/24 04/04/24 Unknown History clobazam 10 mg tablet 5 mg feeding tube DAILY 04/04/24 04/04/24 Unknown History clobazam 10 mg tablet 10 mg feeding tube BEDTIME 04/04/24 04/04/24 Unknown History doxycycline hyclate 100 mg capsule 100 mg feeding tube BID 04/04/24 04/04/24 Unknown History fludrocortisone 0.1 mg tablet 0.1 mg feeding tube BID 04/04/24 04/04/24 Unknown History lorazepam 2 mg/mL injection syringe 1 mg IV Q5M PRN Seizures 04/04/24 04/04/24 Unknown History midodrine 10 mg tablet 10 mg feeding tube TIDWM 04/04/24 04/04/24 Unknown History multivit and minerals-ferrous 15 ml feeding tube DAILY 04/04/24 04/04/24 Unknown History gluconate 9 mg iron/15 mL oral liquid (multivitamin with minerals) prednisone 10 mg tablet 10 mg feeding tube DAILY 04/04/24 Unknown History prednisone 20 mg tablet 20 mg feeding tube DAILY 04/04/24 Unknown History prednisone 20 mg tablet 40 mg feeding tube DAILY 04/04/24 Unknown History prednisone 20 mg tablet 60 mg feeding tube DAILY 04/04/24 04/04/24 Unknown History Physical Exam Vital Signs: Vital Signs: Last Vital Signs Temp 99.3 F 04/04/24 14:18 Pulse 86 04/04/24 14:18 Resp 18 04/04/24 14:18 BP 99/35 L 04/04/24 14:18 Pulse Ox 95 04/04/24 14:18 O2 Del Method Oxymask 04/04/24 14:18 O2 Flow Rate 2 04/04/24 14:18 Oxygen Flow Rate 2 04/04/24 10:15 BMI result Body Mass Index 25.3 General: Not in any acute distress, tired appearing Nutritional Appearance: well nourished and overweight Eyes: appearance normal, both eyes and all related structures; Alignment and Position: alignment normal and position normal Neck: No lymphadenopathy, no thyromegaly Resp: bilateral air entry equal, occasional added sounds present Cardio: Regular rate, regular rhythm; Heart sounds: S1 normal heart sound present and S2 normal heart sound present GI: soft, nontender, no guarding, no hepatosplenomegaly : bladder normal to inspection, bladder normal to palpation, no renal angle tenderness Skin: no rashes or lesions noted and elasticity normal Neuro: Nonverbal, quadriplegic Results Labs 04/04/24 10:39 04/04/24 10:39 Labs: Laboratory Results - last 24 hr 04/04/24 04/04/24 04/04/24 10:26 10:39 10:45 MCV 99.7 H MCH 34.3 H MCHC 34.4 RDW 12.2 Plt Count 187 MPV 10.3 Immature Gran % (Auto) 0.4 Neut % (Auto) 75.9 H Lymph % (Auto) 10.3 L [place] % (Auto) 7.7 Eos % (Auto) 5.1 H Baso % (Auto) 0.6 Lymph # (Auto) 0.9 L [place] # (Auto) 0.7 Eos # (Auto) 0.5 H Baso # (Auto) 0.1 Abs Immat Gran (auto) 0.04 H Absolute Neuts (auto) 6.9 Absolute Nucleated RBC 0.000 Nucleated RBC % (auto) 0.0 PT 12.4 INR 1.1 VBG pH 7.33 VBG pCO2 42 VBG pO2 28 VBG HCO3 22 VBG O2 Saturation 63.0 VBG Base Excess -3.2 Anion Gap 14 Estim Creat Clear Calc 99.1 Estimated GFR > 60 POC Glucose 123 H Random Glucose 127 H Lactic Acid 2.0 Calcium 9.5 Magnesium 2.3 Total Bilirubin 0.4 AST 17 ALT 12 Alkaline Phosphatase 134 H Total Protein 7.0 Albumin 3.6 Urine Color Urine Appearance Urine pH Ur Specific [place] Urine Protein Urine Glucose (UA) Urine Ketones Urine Blood Urine Nitrite Ur Leukocyte Esterase Urine RBC Urine WBC Ur Squamous Epith Cells Urine Bacteria Hyaline Casts 04/04/24 10:59 MCV MCH MCHC RDW Plt Count MPV Immature Gran % (Auto) Neut % (Auto) Lymph % (Auto) [place] % (Auto) Eos % (Auto) Baso % (Auto) Lymph # (Auto) [place] # (Auto) Eos # (Auto) Baso # (Auto) Abs Immat Gran (auto) Absolute Neuts (auto) Absolute Nucleated RBC Nucleated RBC % (auto) PT INR VBG pH VBG pCO2 VBG pO2 VBG HCO3 VBG O2 Saturation VBG Base Excess Anion Gap Estim Creat Clear Calc Estimated GFR POC Glucose Random Glucose Lactic Acid Calcium Magnesium Total Bilirubin AST ALT Alkaline Phosphatase Total Protein Albumin Urine Color Yellow Urine Appearance Cloudy Urine pH 7.5 Ur Specific [place] 1.020 Urine Protein 30 (1+) H Urine Glucose (UA) Negative Urine Ketones Negative Urine Blood Trace H Urine Nitrite Positive H Ur Leukocyte Esterase Moderate (2+) H Urine RBC 6-10 H Urine WBC 21-50 H Ur Squamous Epith Cells 0-2 Urine Bacteria 2+ Hyaline Casts 0-2 Imaging Radiologist's Impressions: Impressions Chest CT 04/04/24 10:37 IMPRESSION: 1. Consolidation in the left lower lobe lobe medially similar to prior CT in 2020 compatible with atelectasis or evolving consolidation. This is less prominent compared to prior CT 2020. 2. Previously noted nodular opacity in the left upper lung no longer visualized. Fleischner guidelines were followed. Electronically signed by: Manny Camacho MD 04/04/2024 12:03 PM EDT RP Abdomen/Pelvis CT 04/04/24 11:18 IMPRESSION: 1. No acute process. 2. Large amount of retained stool seen throughout the colon. 3. Right renal stones as described above. No hydronephrosis. 4. Status post cholecystectomy. 5. Percutaneous gastrostomy tube in good position. Electronically signed by: Mane Dennison MD 04/04/2024 12:24 PM EDT RP Assessment and Plan (1) Acute hypotension: Status: Acute (2) Feeding by G-tube: Status: Acute (3) Urinary tract infection: Status: Acute Plan Hypotension: Possibly patient has low blood pressure all the time, he is on home midodrine. Currently his perfusion is okay as his lactate levels are normal He received sepsis bolus IV fluids, we will give him bolus albumin. Started on antibiotics, initial lactate normal, we will repeat a lactate, blood cultures have been sent. Bedside echo showed normal LV systolic function, normal-sized RV however IVC could not be seen Urinary tract infection: We will start the patient on meropenem given multiple allergies including penicillin, cephalosporin, quinolones TBI: Has history of seizures and is also quadriplegic We will continue home gabapentin, lamotrigine Prophylaxis: Lovenox Total time managing care of this patient today: 40 minutes.
[2024-04-04] MEDS: Lactated Ringers 1,000 ML 100 ML IVCONT (14:52)
[2024-04-04] MEDS: Albumin Human 25 % 100 ML IV ×2 (14:52→16:16)
[2024-04-04] MEDS: Albuterol Sulfate 2.5 MG, Albuterol/Iprat 2.5/0.5MG 3 ML 3 ML INHALE (14:57)
[2024-04-04 15:05] LABS: Phosphorus 2.9 mg/dL (2.7-4.5)
[2024-04-04] MEDS: Enoxaparin Sodium 40 MG/0.4 ML SYRINGE SUBCUT (15:06)
[2024-04-04] MEDS: Gabapentin 600 MG TABLET G-TUBE ×2 (15:06→20:46)
[2024-04-04] MEDS: Norepinephrine Bitartrate/D5W 8 MG/250 ML PLAST..BAG 7.72 MG IV (15:07)
[2024-04-04 16:58] LABS: Lactic Acid 3.6 mmol/L (0.5-2.0)
[2024-04-04] MEDS: Midodrine HCl 10 MG TABLET G-TUBE (17:20)
[2024-04-04] MEDS: Albuterol/Iprat 2.5/0.5MG 3 ML AMPUL.NEB INHALE ×2 (17:23→20:52)
[2024-04-04 18:35] LABS: Reflex Lactate? Lactic Acid Added
[2024-04-04 20:08] LABS: ~Lactic Acid-LAB USE ONLY 2.1 mmol/L (0.5-2.0)
[2024-04-04] MEDS: methylPREDNISolone Sod Succ 125 MG/2 ML VIAL IVPUSH (20:41)
[2024-04-04] MEDS: gemfibroziL 600 MG TABLET G-TUBE (20:46)
[2024-04-04] MEDS: lamoTRIgine 100 MG TABLET 150 MG G-TUBE (20:46)
[2024-04-04] MEDS: cloBAZam 10 MG TABLET G-TUBE (20:46)
[2024-04-04 21:10] LABS: Influenza A PCR NEGATIVE (Negative); Influenza B PCR NEGATIVE (Negative); Resp Syncy Virus RNA Qual PCR NEGATIVE (Negative); SARS COV2 PCR INHOUSE NEGATIVE (Negative)
[2024-04-04 21:46] LABS: Reflex Lactate? 2 Y
[2024-04-04 22:22] LABS: ~Lactic Acid-LAB USE ONLY 1.2 mmol/L (0.5-2.0)
[2024-04-05] VITALS (21 sets, daily range): BP systolic 88–128; BP diastolic 43–65; PULSE 67–90; RESP 15–20; TEMP 36.5–37.9; O2SAT 89–97; BMI 26.1
--- NOTE | 2024-04-05 00:25 | P.CNID_ITS ---
History of Present Illness Data of Consult Service Date: 04/04/24 Requesting physician: Julio Gipson Primary Care Provider: DO VARINDER Ott Reason for consult: LLL consolidation He presents with cough and shortness of breath. He has been on Doxycycline and had no improvement. He has LLL consolidation. He has TBI. Review of Systems 2 Review of Systems: Yes Unobtainable due to mental condition PMFSH Past Medical History Medical History Unspecified hearing loss, unspecified ear Unspecified psychosis not due to a substance or known physiological condition Obesity, unspecified Gastro-esophageal reflux disease without esophagitis Dysphagia, oropharyngeal phase Lymphedema, not elsewhere classified Hyperlipidemia, unspecified Anemia, unspecified Hypoxemia Personal history of pneumonia (recurrent) Lupus anticoagulant disorder Presbyopia Myopia, bilateral Age-related nuclear cataract, bilateral Calculus of gallbladder and bile duct with acute cholecystitis with obstruction Pneumonitis due to inhalation of food and vomit History of COVID-19 Major depressive disorder, recurrent, mild Concussion with loss of consciousness of unspecified duration, initial encounter 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, sequela Sepsis GERD (gastroesophageal reflux disease) Elevated cholesterol Gastrostomy tube in place Seizures TBI (traumatic brain injury) Family History Family history: reviewed and not pertinent Surgical History Surgical History History of lithotripsy History of surgery Social History Social History Household Members: Unknown / Unable to assess Household Members Other:: [facility] Housing: Correction Are you a primary vehicle care specialist to a significant other at home: No Do you presently have visiting nurse or other home services: Yes Unable to assess alcohol history related to: Unable to respond Alcohol intake: never Patient Tobacco Use Status: Tobacco use Unknown Advance Directives Date on File: 02/09/21 service: No Current occupational status: disabled Meds Allergies Allergy/AdvReac Type Severity Reaction Status Date / Time Penicillins [PENICILLINS] Allergy Severe Anaphylaxis Verified 04/04/24 10:23 cefotetan [From CEFOTAN] Allergy Unknown UNKNOWN Verified 04/04/24 10:23 Cephalosporins Allergy Unknown UNKNOWN Verified 04/04/24 10:23 [CEPHALOSPORINS] clindamycin [CLINDAMYCIN] Allergy Unknown UNKNOWN Verified 04/04/24 10:23 levofloxacin [LEVOFLOXACIN] Allergy Unknown UNKNOWN Verified 04/04/24 10:23 Quinolones [QUINOLONES] Allergy Unknown UNKNOWN Verified 04/04/24 10:23 Active Medications: Current Medications Albuterol/Ipratropium (Albuterol/Iprat 2.5/0.5mg 3 Ml Ampul.Neb) 3 ml INHALE RQ4H WHILE AWAKE [facility] Last Admin: 04/04/24 20:52 Dose: 3 ml Clobazam (Clobazam 10 Mg Tablet) 10 mg G-TUBE BEDTIME [facility]RE[facility] Last Admin: 04/04/24 20:46 Dose: 10 mg Enoxaparin Sodium (Enoxaparin Sodium 40 Mg/0.4 Ml Syringe) 40 mg SUBCUT Q24H [facility] Last Admin: 04/04/24 15:06 Dose: 40 mg Escitalopram Oxalate (Escitalopram Oxalate 10 Mg Tablet) 10 mg G-TUBE DAILY [facility] Gabapentin (Gabapentin 600 Mg Tablet) 600 mg G-TUBE TID [facility] Last Admin: 04/04/24 20:46 Dose: 600 mg Gemfibrozil (Gemfibrozil 600 Mg Tablet) 600 mg G-TUBE BID [facility] Last Admin: 04/04/24 20:46 Dose: 600 mg Lactated Ringer's (Lr) 1,000 mls @ 100 mls/hr IVCONT .Q10H [facility] Last Admin: 04/04/24 14:52 Dose: 100 mls/hr Norepinephrine Bitartrate (Levophed) 8 mg in 250 mls @ 0 mls/hr IV .Q0M ANDREW; Protocol Last Titration: 04/04/24 17:14 Dose: 0 mcg/kg/min, 0 mls/hr Lamotrigine (Lamotrigine 100 Mg Tablet) 150 mg G-TUBE BID [facility]RE[facility] Last Admin: 04/04/24 20:46 Dose: 150 mg Meropenem (Meropenem 1 Gm Vial) 1 gm IVPUSH Q8H [facility] Last Admin: 04/04/24 18:31 Dose: 1 gm Methylprednisolone Sodium Succinate (Methylprednisolone Sod Succ 40 Mg/Ml Vial) 40 mg IVPUSH Q8H [facility] Midodrine (Midodrine Hcl 10 Mg Tablet) 10 mg G-TUBE TIDWM [facility]RE[facility] Last Admin: 04/04/24 17:20 Dose: 10 mg Home Medications ?Medication ?Instructions ?Recorded ?Confirmed ?Last Taken ?Type acetaminophen 325 mg tablet 650 mg feeding tube Q6H PRN Fever 11/06/22 04/04/24 Unknown History Or Pain bisacodyl 10 mg rectal suppository 10 mg AL DAILY PRN Constipation 11/06/22 04/04/24 Unknown History carboxymethylcellulose sodium 0.5 1 drp ophthalmic (eye) Q4H PRN Dry 11/06/22 04/04/24 Unknown History % eye drops (Refresh Tears) Eyes docusate sodium 100 mg capsule 100 mg PO DAILY 11/06/22 04/04/24 Unknown History ferrous sulfate 220 mg (44 mg 330 mg feeding tube DAILY anemia 11/06/22 04/04/24 Unknown History iron)/5 mL oral solution gabapentin 600 mg tablet 600 mg feeding tube TID 11/06/22 04/04/24 Unknown History gemfibrozil 600 mg tablet 600 mg feeding tube BID 11/06/22 04/04/24 Unknown History ibuprofen 800 mg tablet 800 mg feeding tube Q8H PRN Pain 11/06/22 04/04/24 Unknown History (Scale Score 4-6) lamotrigine 100 mg tablet 100 mg feeding tube BID 11/06/22 04/04/24 Unknown History lamotrigine 150 mg tablet 150 mg feeding tube BID 11/06/22 04/04/24 Unknown History lamotrigine 25 mg tablet 25 mg feeding tube BID 11/06/22 04/04/24 Unknown History magnesium oxide 400 mg feeding tube DAILY 11/06/22 04/04/24 Unknown History omeprazole 20 mg capsule,delayed 20 mg feeding tube DAILY@0630 11/06/22 04/04/24 Unknown History release sennosides 8.6 mg tablet (senna) 8.6 mg feeding tube Q24H PRN 11/06/22 04/04/24 Unknown History Constipation sennosides 8.6 mg tablet (senna) 17.2 mg feeding tube BEDTIME 11/06/22 04/04/24 Unknown History Constipation sodium phosphates 19 gram-7 118 ml AL Q24H PRN Constipation 11/06/22 04/04/24 Unknown History gram/118 mL enema (Fleet Enema) topiramate 100 mg tablet 100 mg feeding tube BID 11/06/22 04/04/24 Unknown History topiramate 200 mg tablet 200 mg feeding tube BID 11/06/22 04/04/24 Unknown History topiramate 25 mg tablet 25 mg feeding tube BID 11/06/22 04/04/24 Unknown History citalopram 10 mg/5 mL oral solution 20 mg feeding tube DAILY 04/04/24 04/04/24 Unknown History clobazam 10 mg tablet 5 mg feeding tube DAILY 04/04/24 04/04/24 Unknown History clobazam 10 mg tablet 10 mg feeding tube BEDTIME 04/04/24 04/04/24 Unknown History doxycycline hyclate 100 mg capsule 100 mg feeding tube BID 04/04/24 04/04/24 Unknown History fludrocortisone 0.1 mg tablet 0.1 mg feeding tube BID 04/04/24 04/04/24 Unknown History lorazepam 2 mg/mL injection syringe 1 mg IV Q5M PRN Seizures 04/04/24 04/04/24 Unknown History midodrine 10 mg tablet 10 mg feeding tube TIDWM 04/04/24 04/04/24 Unknown History multivit and minerals-ferrous 15 ml feeding tube DAILY 04/04/24 04/04/24 Unknown History gluconate 9 mg iron/15 mL oral liquid (multivitamin with minerals) prednisone 10 mg tablet 10 mg feeding tube DAILY 04/04/24 Unknown History prednisone 20 mg tablet 20 mg feeding tube DAILY 04/04/24 Unknown History prednisone 20 mg tablet 40 mg feeding tube DAILY 04/04/24 Unknown History prednisone 20 mg tablet 60 mg feeding tube DAILY 04/04/24 04/04/24 Unknown History Physical Exam 2 Vital Signs: Vital Signs: Last Vital Signs Temp 100.0 F 04/05/24 00:00 Pulse 81 04/05/24 00:00 Resp 18 04/05/24 00:00 BP 95/43 L 04/05/24 00:00 Pulse Ox 94 04/05/24 00:00 O2 Del Method Oxymask 04/05/24 00:00 O2 Flow Rate 3 04/05/24 00:00 Oxygen Flow Rate 2 04/04/24 10:15 BMI result Body Mass Index 25.3 Const: General: cooperative HEENT: Head: Yes normal to inspection Face and sinus: Yes normal facial exam Mouth: Normal oral and palatal mucosa present Teeth and gingiva: d entition normal Eyes: General: appearance normal, both eyes and all related structures P upils: Equal, round and reactive pupils present Resp: Other: decreased bs bases Cardio: Rate: regular rate Rhythm: regular rhythm GI: Palpation (GI): Soft to palpation and nontender : General: Yes no CVA tenderness Back/Spine/Pelvis: Back: no CVA tenderness Skin: General skin exam: no rashes or lesions noted Neuro: General: moves all extremities Cranial nerves: Yes Equal, round and reactive pupils present Extrem: General: Yes normal to inspection Psych: Appearance: grossly normal Results Labs 04/04/24 10:39 04/04/24 10:39 Labs: Short CBC 04/04/24 Range/Units 10:39 WBC 9.0 (4.8-10.8) X10*3/uL Hgb 13.2 L (14.0-18.0) g/dl Hct 38.4 L (42.0-52.0) % Plt Count 187 (160-400) X10*3/uL BMP 04/04/24 10:39 Sodium 142 Potassium 4.3 Chloride 111 H Carbon Dioxide 21 L BUN 24 H Creatinine 0.77 Calcium 9.5 Liver Function 04/04/24 Range/Units 10:39 Total Bilirubin 0.4 (0.0-1.0) mg/dL AST 17 (5-37) U/L ALT 12 (0-40) U/L Alkaline Phosphatase 134 H (39-117) U/L Albumin 3.6 (3.5-5.0) g/dL Urine 04/04/24 Range/Units 10:59 Urine Color Yellow Urine Appearance Cloudy Urine pH 7.5 (5.0-9.0) Ur Specific [place] 1.020 (1.005-1.025) Urine Protein 30 (1+) H (Neg-Trace) mg/dL Urine Glucose (UA) Negative (Negative) mg/dL Assessment and Plan (1) Aspiration pneumonia: Status: Acute Plan He is on face mask and has hypoxia. He has been treated for atypical lung infection, Doxycycline. Would continue Merem due to allergies There should be 5-7 days of treatment. Check urinary Legionella antigen.
[2024-04-05] MEDS: Lactated Ringers 1,000 ML 100 ML IVCONT (00:37)
[2024-04-05] MEDS: Meropenem 1 GM VIAL IVPUSH ×3 (03:09→18:07)
[2024-04-05] MEDS: Albuterol/Iprat 2.5/0.5MG 3 ML AMPUL.NEB INHALE ×5 (04:57→20:13)
[2024-04-05] MEDS: methylPREDNISolone Sod Succ 40 MG/ML VIAL IVPUSH (06:06)
[2024-04-05 07:47] LABS: MANUAL DIFF FLAG NO
[2024-04-05 07:57] LABS: Basophils Percent Auto 0.2 % (0-2); Hematocrit 30.4 % (42.0-52.0); Hemoglobin 10.5 g/dl (14.0-18.0); Imm Gran Abs Auto 0.03 X10*3/uL (0.00-0.03); Imm Gran Pct Auto 0.5 % (0.0-0.4); Lymphocytes Absolute Auto 0.3 X10*3/uL (1.2-4.9); Lymphocytes Percent Auto 4.9 % (20-40); Mean Corpuscular HGB Conc 34.5 g/dl (31.0-36.0); Mean Corpuscular Hemoglobin 34.4 pg (27.0-33.0); Mean Corpuscular Volume 99.7 fL (80.0-98.0); Mean Platelet Volume 10.3 fL (9.4-12.4); Monocytes Absolute Auto 0.3 X10*3/uL (0.1-1.2); Monocytes Percent Auto 5.6 % (2-11); Neutrophils Absolute Auto 5.4 x10*3/uL (2.0-8.3); Neutrophils Percent Auto 88.8 % (45-73); Platelet Count 154 X10*3/uL (160-400); Red Blood Count 3.05 X10*6/uL (4.60-5.80); Red Cell Distribution Width 12.2 % (11.0-16.0); White Blood Count 6.1 X10*3/uL (4.8-10.8)
[2024-04-05 08:03] LABS: Alanine Aminotransferase 8 U/L (0-40); Albumin Level 3.5 g/dL (3.5-5.0); Alkaline Phosphatase 97 U/L (39-117); Anion Gap 13 (12-20); Aspartate Amino Transferase 15 U/L (5-37); Bilirubin Total 0.5 mg/dL (0.0-1.0); Blood Urea Nitrogen 17 mg/dL (9-16); Calcium 9.4 mg/dL (8.4-10.2); Carbon Dioxide 17 mmol/L (22-29); Chloride 118 mmol/L (96-108); Creatinine Clr Calc Pharmacy 110.6; Estimated Glomerular Filt Rate > 60; Glucose Random 127 mg/dL (60-115); Potassium 3.9 mmol/L (3.3-5.1); Sodium 144 mmol/L (135-145); Total Protein 6.1 g/dL (6.5-8.0)
[2024-04-05] MEDS: gemfibroziL 600 MG TABLET G-TUBE ×2 (10:39→20:25)
[2024-04-05] MEDS: Escitalopram Oxalate 10 MG TABLET G-TUBE (10:39)
[2024-04-05] MEDS: Gabapentin 600 MG TABLET G-TUBE ×3 (10:39→20:25)
[2024-04-05] MEDS: Midodrine HCl 10 MG TABLET G-TUBE ×3 (10:39→17:00)
--- NOTE | 2024-04-05 10:39 | MHC.CM.PN ---
Pt admitted to ICU w/sepsis from [facility] where he is a LTC resident. Pt is not communicative and dependent for all care needs. His guardian is Suri Christine ([phone]). Message left requesting a call back. Attempted to contact [facility] for additional information and copy of guardianship: transferred without cotton picker. Pt is expected to return to [facility] once medically stable via BLS.
[2024-04-05] MEDS: lamoTRIgine 100 MG TABLET 150 MG G-TUBE ×2 (10:41→20:26)
--- NOTE | 2024-04-05 11:48 | HO.SKINPHOTO ---
Location: left buttock
[2024-04-05 14:14] LABS: MRSA Nasal PCR NEGATIVE (Negative); SA Nasal PCR NEGATIVE (Negative)
--- NOTE | 2024-04-05 14:18 | PM.CCPN ---
Subjective Subjective Date of Service: 04/05/24 Critical Care Time (minutes): 35 Comment: Blood pressure is better On 3 L simple mask for oxygen Not on any pressor support Physical Exam Vital Signs: Vital Signs: Last Vital Signs Temp 100.2 F 04/05/24 12:00 Pulse 83 04/05/24 12:00 Resp 20 04/05/24 12:00 BP 115/62 04/05/24 12:00 Pulse Ox 93 04/05/24 12:00 O2 Del Method Oxymask 04/05/24 12:00 O2 Flow Rate 2.5 04/05/24 12:00 Oxygen Flow Rate 2 04/04/24 10:15 BMI result Body Mass Index 26.1 General: acute distress, ill appearing and tired appearing Nutritional Appearance: well nourished and overweight Eyes: appearance normal, both eyes and all related structures; Alignment and Position: alignment normal and position normal Neck: No lymphadenopathy, no thyromegaly Resp: bilateral air entry equal, occasional added sounds present Cardio: Regular rate, regular rhythm; Heart sounds: S1 normal heart sound present and S2 normal heart sound present GI: soft, nontender, no guarding, no hepatosplenomegaly : bladder normal to inspection, bladder normal to palpation, no renal angle tenderness Skin: no rashes or lesions noted and elasticity normal Neuro: oriented to person, oriented to place, oriented to time and moves all extremities Objective Data Labs 04/05/24 07:42 04/05/24 07:42 Labs: Laboratory Results - last 24 hr 04/04/24 04/04/24 04/04/24 16:22 19:42 20:23 WBC RBC Hgb Hct MCV MCH MCHC RDW Plt Count MPV Immature Gran % (Auto) Neut % (Auto) Lymph % (Auto) [place] % (Auto) Eos % (Auto) Baso % (Auto) Lymph # (Auto) [place] # (Auto) Eos # (Auto) Baso # (Auto) Abs Immat Gran (auto) Absolute Neuts (auto) Absolute Nucleated RBC Nucleated RBC % (auto) Hold Purple Top SEE NOTE SEE NOTE Hold Blue Top SEE NOTE Sodium Potassium Chloride Carbon Dioxide Anion Gap BUN Creatinine Estim Creat Clear Calc Estimated GFR Random Glucose Lactic Acid 3.6 H* Lactic Acid F/U @ 2Hr 2.1 H* Lactic Acid F/U @ 4Hr Calcium Magnesium Total Bilirubin AST ALT Alkaline Phosphatase Total Protein Albumin Hold Red Top See Note Nasal Screen MRSA (PCR) NEGATIVE Nasal S. aureus Screen NEGATIVE Nasal MRSA/S.aureus Interp SEE NOTE Influenza Type A (PCR) NEGATIVE Influenza Type B (PCR) NEGATIVE RSV RNA Qual (PCR) NEGATIVE SARS-CoV-2 RNA (RT-PCR) NEGATIVE 04/04/24 04/05/24 21:58 07:42 WBC 6.1 RBC 3.05 L D Hgb 10.5 L D Hct 30.4 L D MCV 99.7 H MCH 34.4 H MCHC 34.5 RDW 12.2 Plt Count 154 L MPV 10.3 Immature Gran % (Auto) 0.5 H Neut % (Auto) 88.8 H Lymph % (Auto) 4.9 L [place] % (Auto) 5.6 Eos % (Auto) 0.0 Baso % (Auto) 0.2 Lymph # (Auto) 0.3 L [place] # (Auto) 0.3 Eos # (Auto) 0.0 Baso # (Auto) 0.0 Abs Immat Gran (auto) 0.03 Absolute Neuts (auto) 5.4 Absolute Nucleated RBC 0.000 Nucleated RBC % (auto) 0.0 Hold Purple Top Hold Blue Top Sodium 144 Potassium 3.9 Chloride 118 H Carbon Dioxide 17 L Anion Gap 13 BUN 17 H Creatinine 0.69 Estim Creat Clear Calc 110.6 Estimated GFR > 60 Random Glucose 127 H Lactic Acid Lactic Acid F/U @ 2Hr Lactic Acid F/U @ 4Hr 1.2 Calcium 9.4 Magnesium 2.0 Total Bilirubin 0.5 AST 15 ALT 8 Alkaline Phosphatase 97 Total Protein 6.1 L Albumin 3.5 Hold Red Top Nasal Screen MRSA (PCR) Nasal S. aureus Screen Nasal MRSA/S.aureus Interp Influenza Type A (PCR) Influenza Type B (PCR) RSV RNA Qual (PCR) SARS-CoV-2 RNA (RT-PCR) Microbiology Microbiology Results: Microbiology 04/04/24 10:38 Blood - Venous Blood Culture - Preliminary No growth after 24 hours. 04/04/24 10:31 Blood - Venous Blood Culture - Preliminary No growth after 24 hours. 04/04/24 Unknown Urine clean catch - Clean Catch Midstream Urine Culture - Preliminary Culture in progress. Progress Note: A&P Assessment and plan (1) Acute hypotension: Status: Acute (2) UTI (urinary tract infection): Status: Acute (3) Urinary tract infection: Status: Acute Plan Hypotension: Resolved, blood pressure is better Possibly patient has low blood pressure all the time, he is on home midodrine. Currently his perfusion is okay as his lactate levels are normal Started on antibiotics, initial lactate normal, we will repeat a lactate, blood cultures have been sent. Bedside echo showed normal LV systolic function, normal-sized RV however IVC could not be seen Urinary tract infection: Aspiration pneumonia: Continue meropenem given multiple allergies including penicillin, cephalosporin, quinolones Urine Legionella pending, COVID negative flu negative, blood and urine cultures negative TBI: Has history of seizures and is also quadriplegic We will continue home gabapentin, lamotrigine Prophylaxis: [employer] Quality Stroke Does the patient have a stroke diagnosis?: No VTE Prior VTE?: No VTE Risk Level:: Medical - moderate - high VTE Device Contraindication: N/A - Device Ordered VTE Drug Contraindication: N/A - Med Ordered
[2024-04-05] MEDS: Enoxaparin Sodium 40 MG/0.4 ML SYRINGE SUBCUT (14:40)
--- NOTE | 2024-04-05 16:08 | PM.EVENT ---
Event Note Date of Service: 04/05/24 Event Note: This is a 69-year-old male with history of TBI, seizure disorder, nonverbal and bed-bound at baseline, resident of [facility] who presented to the emergency department due to low-grade fever and change in mental status, found to have UTI and admitted to the ICU due to low blood pressure. Patient is on midodrine and seems to have low blood pressure at baseline. Was initially treated with fluid and vasopressor support. He was started on Mirapex item due to multiple antibiotic allergies. He was downgraded from the ICU 04/05 UTI afebrile, no leukocytosis baseline low bp, on midodrine Continue meropenem given multiple allergies follow cultures chronic low bp on midodrine fludocortisone also on med rec, will resume continue baseline mood meds consider resuming bseline topiramate as mental status allows constipation continue bowel regimen aspiration pneumonia per ED note has an episode of choking on March 30 and has been on doxycycline since that time He came in with shortness of breath, hypoxia CT chest showing Left lower lobe consolidation present in 2020, less prominent then previous meropenem as above speech evaluation wean o2 as tolerated tube feeding diet unclear baseline po diet speech eval pending Further management as per ICU note Time Spent With Patient Time: Total time managing care of this patient today ____ minutes.
[2024-04-05] MEDS: Fludrocortisone Acetate 0.1 MG TABLET G-TUBE (20:25)
[2024-04-05] MEDS: Sennosides 8.6 MG TABLET 17.2 MG G-TUBE (20:26)
[2024-04-05] MEDS: cloBAZam 10 MG TABLET G-TUBE (20:26)
[2024-04-06] VITALS (11 sets, daily range): BP systolic 120–161; BP diastolic 65–80; PULSE 74–98; RESP 16–22; TEMP 36–37.5; O2SAT 92–96; BMI 26.2
[2024-04-06] MEDS: Albuterol/Iprat 2.5/0.5MG 3 ML AMPUL.NEB INHALE ×6 (00:04→20:51)
[2024-04-06] MEDS: Meropenem 1 GM VIAL IVPUSH ×3 (03:21→18:22)
[2024-04-06] MEDS: Midodrine HCl 10 MG TABLET G-TUBE ×3 (09:21→15:37)
[2024-04-06] MEDS: Gabapentin 600 MG TABLET G-TUBE ×3 (09:21→22:38)
[2024-04-06] MEDS: Fludrocortisone Acetate 0.1 MG TABLET G-TUBE ×2 (09:21→22:38)
[2024-04-06] MEDS: lamoTRIgine 100 MG TABLET 150 MG G-TUBE ×2 (09:21→22:38)
[2024-04-06] MEDS: gemfibroziL 600 MG TABLET G-TUBE ×2 (09:21→22:38)
[2024-04-06] MEDS: Escitalopram Oxalate 10 MG TABLET G-TUBE (09:21)
--- NOTE | 2024-04-06 10:45 | MHC.CLN ---
RE: CONSULT PT DEPENDENT ON G TUBE FOR NUTRITION SUPPORT NOTED NONVERBAL AND BED BOUND-FAMILIAR FROM PREVIOUS ADMISSION 2020 RECOMMEND JEVITY 1.0 AT MAX GOAL RATE 85ML /HR WITH 240ML FREE WATER FLUSHES Q 8HRS TO PROVIDE 2162KCALS (25KCALS/KG), 90G PROTEIN (1.06G/KG), 2460ML TOTAL WATER FROM FORMULA AND FLUSHES (29ML/KG) START AT 20ML/HR AND INCREASE BY 10ML Q 4HRS UNTIL MAX GOAL IS ACHIEVED MONITOR TOLERANCE AND LYTES SEE ALSO FULL CLINICAL NUTRITION ASSESSMENT
--- NOTE | 2024-04-06 11:57 | P.PNIM_ITS ---
Subjective Subjective Date of Service: 04/06/24 Review of Systems Follow up low BP, UTI TBI Physical Exam 2 Vital Signs: Vital Signs: Last Vital Signs Temp 97.8 F 04/06/24 07:19 Pulse 82 04/06/24 11:07 Resp 16 04/06/24 11:07 BP 120/66 04/06/24 07:19 Pulse Ox 94 04/06/24 07:19 O2 Del Method Nasal Cannula 04/06/24 07:19 O2 Flow Rate 6 04/06/24 07:19 Oxygen Flow Rate 2 04/04/24 10:15 BMI result Body Mass Index 26.2 Appearing in no acute distress lung sounds are clear to auscultation heart regular rate rhythm, clear S1, S2 positive bowel sounds, abdomen is soft, nontender neuro patient is alert x3, no focal deficits TBI PEG tube Objective Data Active Medications Albuterol/Ipratropium (Albuterol/Iprat 2.5/0.5mg 3 Ml Ampul.Neb) 3 ml INHALE Q4H [facility] Last Admin: 04/06/24 11:06 Dose: 3 ml Documented By: FELIX Bisacodyl (Bisacodyl 10 Mg Supp.Rect) 10 mg [place] DAILY PRN PRN Reason: Constipation Clobazam (Clobazam 10 Mg Tablet) 10 mg G-TUBE BEDTIME [facility] Last Admin: 04/05/24 20:26 Dose: 10 mg Documented By: LELA Docusate Sodium (Docusate Sodium 100 Mg Capsule) 100 mg PO DAILY [facility] Last Admin: 04/06/24 09:27 Dose: Not Given Documented By: UTE Non-Admin Reason: cannot crush Enoxaparin Sodium (Enoxaparin Sodium 40 Mg/0.4 Ml Syringe) 40 mg SUBCUT Q24H [facility] Last Admin: 04/05/24 14:40 Dose: 40 mg Documented By: MIKI Escitalopram Oxalate (Escitalopram Oxalate 10 Mg Tablet) 10 mg G-TUBE DAILY [facility] Last Admin: 04/06/24 09:21 Dose: 10 mg Documented By: UTE Fludrocortisone Acetate (Fludrocortisone Acetate 0.1 Mg Tablet) 0.1 mg G-TUBE BID [facility] Last Admin: 04/06/24 09:21 Dose: 0.1 mg Documented By: UTE Gabapentin (Gabapentin 600 Mg Tablet) 600 mg G-TUBE TID [facility] Last Admin: 04/06/24 09:21 Dose: 600 mg Documented By: UTE Gemfibrozil (Gemfibrozil 600 Mg Tablet) 600 mg G-TUBE BID [facility] Last Admin: 04/06/24 09:21 Dose: 600 mg Documented By: UTE Lamotrigine (Lamotrigine 100 Mg Tablet) 150 mg G-TUBE BID [facility] Last Admin: 04/06/24 09:21 Dose: 150 mg Documented By: UTE Meropenem (Meropenem 1 Gm Vial) 1 gm IVPUSH Q8H [facility] Last Admin: 04/06/24 03:21 Dose: 1 gm Documented By: LELA Midodrine (Midodrine Hcl 10 Mg Tablet) 10 mg G-TUBE TIDWM [facility] Last Admin: 04/06/24 09:21 Dose: 10 mg Documented By: UTE Senna (Sennosides 8.6 Mg Tablet) 17.2 mg G-TUBE BEDTIME [facility] Last Admin: 04/05/24 20:26 Dose: 17.2 mg Documented By: LELA Labs 04/05/24 07:42 04/05/24 07:42 Labs: Laboratory Results - last 24 hr 04/04/24 20:23 Nasal Screen MRSA (PCR) NEGATIVE Nasal S. aureus Screen NEGATIVE Nasal MRSA/S.aureus Interp SEE NOTE Microbiology Microbiology Results: Microbiology 04/04/24 Unknown Urine Culture - Preliminary Urine clean catch - Clean Catch Midstream Gram negative kacy 04/04/24 10:38 Blood Culture - Preliminary Blood - Venous No growth after 24 hours. 04/04/24 10:31 Blood Culture - Preliminary Blood - Venous No growth after 24 hours. Assessment and Plan (1) UTI (urinary tract infection): Status: Acute Plan This is a 69-year-old male with history of TBI, seizure disorder, nonverbal and bed-bound at baseline, resident of [facility] who presented to the emergency department due to low-grade fever and change in mental status, found to have UTI and admitted to the ICU due to low blood pressure. Patient is on midodrine and seems to have low blood pressure at baseline. Was initially treated with fluid and vasopressor support. He was started on Mirapex item due to multiple antibiotic allergies. He was downgraded from the ICU 04/05 aspiration pneumonia per ED note has an episode of choking on March 30 and has been on doxycycline since that time He came in with shortness of breath, hypoxia CT chest showing Left lower lobe consolidation present in 2020, less prominent then previous meropenem as above speech evaluation for peg tube diet wean o2 as tolerated tube feeding diet unclear baseline po diet speech eval pending GNR UTI afebrile, no leukocytosis baseline low bp, on midodrine Continue meropenem given multiple allergies follow final cultures chronic low bp on midodrine fludocortisone also on med rec, will resume continue baseline mood meds consider resuming bseline topiramate as mental status allows constipation continue bowel regimen DVT prophylaxis with Lovenox Full code Attending Dr. Chapin Quality Stroke Does the patient have a stroke diagnosis?: No VTE Prior VTE?: No VTE Risk Level:: Medical - moderate - high VTE Device Contraindication: N/A - Device Ordered VTE Drug Contraindication: N/A - Med Ordered
--- NOTE | 2024-04-06 14:36 | MHC.SLORD ---
Speech Language Pathology Order Status: Pt seen for dysphagia tx today. Pt is currently NPO with tube feeds. Pt was verbal but severely dysarthric. Pt resisted oral care initially, but with cueing pt was willing to allow for oral care. Pt permitted thermal stim/oral swab method to clear dried mucous from surfact of lips, inside of cheeks. Pt voicing absent of wetness, reflexive swallow triggered upon initiation of thermal (cold) stim technique. Pt is not appropriate to trial PO at this time, ST to continue following.
[2024-04-06] MEDS: Enoxaparin Sodium 40 MG/0.4 ML SYRINGE SUBCUT (15:37)
[2024-04-06] MEDS: Sennosides 8.6 MG TABLET 17.2 MG G-TUBE (22:38)
[2024-04-06] MEDS: cloBAZam 10 MG TABLET G-TUBE (22:38)
[2024-04-07] VITALS (10 sets, daily range): BP systolic 105–124; BP diastolic 59–85; PULSE 82–97; RESP 15–20; TEMP 36.3–37.2; O2SAT 90–97; BMI 23.6
[2024-04-07] MEDS: Meropenem 1 GM VIAL IVPUSH ×3 (03:33→18:01)
[2024-04-07] MEDS: Albuterol/Iprat 2.5/0.5MG 3 ML AMPUL.NEB INHALE ×4 (07:26→18:31)
[2024-04-07] MEDS: gemfibroziL 600 MG TABLET G-TUBE ×2 (08:04→20:49)
[2024-04-07] MEDS: lamoTRIgine 100 MG TABLET 150 MG G-TUBE ×2 (08:05→20:49)
[2024-04-07] MEDS: Escitalopram Oxalate 10 MG TABLET G-TUBE (08:05)
[2024-04-07] MEDS: Gabapentin 600 MG TABLET G-TUBE ×3 (08:05→20:50)
[2024-04-07] MEDS: Midodrine HCl 10 MG TABLET G-TUBE ×3 (08:05→15:36)
[2024-04-07] MEDS: Fludrocortisone Acetate 0.1 MG TABLET G-TUBE ×2 (08:05→20:49)
--- NOTE | 2024-04-07 10:35 | MHC.CLN ---
F/U PT DEPENDENT ON G TUBE FOR NUTRITION SUPPORT PT TO RECEIVE JEVITY 1.0 AT MAX GOAL RATE 85ML /HR WITH 240ML FREE WATER FLUSHES Q 8HRS TO PROVIDE 2162KCALS (25KCALS/KG), 90G PROTEIN (1.06G/KG), 2460ML TOTAL WATER FROM FORMULA AND FLUSHES (29ML/KG) MONITOR TOLERANCE AND LYTES
--- NOTE | 2024-04-07 10:43 | P.PNIM_ITS ---
Subjective Subjective Date of Service: 04/07/24 Review of Systems Follow up low BP, UTI TBI Physical Exam 2 Vital Signs: Vital Signs: Last Vital Signs Temp 97.6 F 04/07/24 07:09 Pulse 86 04/07/24 07:26 Resp 15 04/07/24 07:26 BP 122/85 04/07/24 07:09 Pulse Ox 93 04/07/24 07:09 O2 Del Method Nasal Cannula 04/07/24 07:09 O2 Flow Rate 3 04/07/24 07:09 Oxygen Flow Rate 2 04/04/24 10:15 BMI result Body Mass Index 23.6 Appearing in no acute distress lung sounds are clear to auscultation heart regular rate rhythm, clear S1, S2 positive bowel sounds, abdomen is soft, nontender neuro patient is alert x3, no focal deficits Objective Data Active Medications Albuterol/Ipratropium (Albuterol/Iprat 2.5/0.5mg 3 Ml Ampul.Neb) 3 ml INHALE RQ4H WHILE AWAKE [facility] Last Admin: 04/07/24 07:26 Dose: 3 ml Documented By: MARGUERITE Bisacodyl (Bisacodyl 10 Mg Supp.Rect) 10 mg [place] DAILY PRN PRN Reason: Constipation Clobazam (Clobazam 10 Mg Tablet) 10 mg G-TUBE BEDTIME [facility] Last Admin: 04/06/24 22:38 Dose: 10 mg Documented By: ANTHONY Docusate Sodium (Docusate Sodium 100 Mg Capsule) 100 mg PO DAILY [facility] Last Admin: 04/07/24 08:06 Dose: Not Given Documented By: UTE Non-Admin Reason: cannot crush Enoxaparin Sodium (Enoxaparin Sodium 40 Mg/0.4 Ml Syringe) 40 mg SUBCUT Q24H [facility] Last Admin: 04/06/24 15:37 Dose: 40 mg Documented By: UTE Escitalopram Oxalate (Escitalopram Oxalate 10 Mg Tablet) 10 mg G-TUBE DAILY [facility] Last Admin: 04/07/24 08:05 Dose: 10 mg Documented By: UTE Fludrocortisone Acetate (Fludrocortisone Acetate 0.1 Mg Tablet) 0.1 mg G-TUBE BID [facility] Last Admin: 04/07/24 08:05 Dose: 0.1 mg Documented By: UTE Gabapentin (Gabapentin 600 Mg Tablet) 600 mg G-TUBE TID [facility] Last Admin: 04/07/24 08:05 Dose: 600 mg Documented By: UTE Gemfibrozil (Gemfibrozil 600 Mg Tablet) 600 mg G-TUBE BID [facility] Last Admin: 04/07/24 08:04 Dose: 600 mg Documented By: UTE Lamotrigine (Lamotrigine 100 Mg Tablet) 150 mg G-TUBE BID [facility] Last Admin: 04/07/24 08:05 Dose: 150 mg Documented By: UTE Meropenem (Meropenem 1 Gm Vial) 1 gm IVPUSH Q8H [facility] Last Admin: 04/07/24 03:33 Dose: 1 gm Documented By: ANTHONY Midodrine (Midodrine Hcl 10 Mg Tablet) 10 mg G-TUBE TIDWM [facility] Last Admin: 04/07/24 08:05 Dose: 10 mg Documented By: UTE Senna (Sennosides 8.6 Mg Tablet) 17.2 mg G-TUBE BEDTIME [facility] Last Admin: 04/06/24 22:38 Dose: 17.2 mg Documented By: ANTHONY Labs 04/05/24 07:42 04/05/24 07:42 Microbiology Microbiology Results: Microbiology 04/04/24 Unknown Urine Culture - Final Urine clean catch - Clean Catch Midstream Escherichia coli 04/04/24 10:31 Blood Culture - Preliminary Blood - Venous Prelim: GPC Gram Stain only 04/04/24 10:38 Blood Culture - Preliminary Blood - Venous No growth after 48 hours. Assessment and Plan (1) UTI (urinary tract infection): Status: Acute Plan 69-year-old male with history of TBI, seizure disorder, nonverbal and bed-bound at baseline, resident of [facility] who presented to the emergency department due to low-grade fever and change in mental status, found to have UTI and admitted to the ICU due to low blood pressure. Patient is on midodrine and seems to have low blood pressure at baseline. Was initially treated with fluid and vasopressor support. He was started on Mirapex item due to multiple antibiotic allergies. He was downgraded from the ICU 04/05 GPC bacteremia continue meropenem follow final cultures Aspiration pneumonia episode of choking on March 30 and has been on doxycycline since that time shortness of breath, hypoxia CT chest showing Left lower lobe consolidation present in 2020, less prominent then previous meropenem as above peg tube diet wean o2 as tolerated tube feeding diet Jevity 24hrs NPO Ecoli UTI Continue meropenem given multiple allergies chronic low bp on midodrine and fludocortisone continue baseline mood meds consider resuming bseline topiramate as mental status allows constipation continue bowel regimen DVT prophylaxis with Lovenox Full code Attending Dr. Chapin Quality Stroke Does the patient have a stroke diagnosis?: No VTE Prior VTE?: No VTE Risk Level:: Medical - moderate - high VTE Device Contraindication: N/A - Device Ordered VTE Drug Contraindication: N/A - Med Ordered
--- NOTE | 2024-04-07 12:06 | MHC.SLORD ---
Speech Language Pathology Order Status: Per admission paperwork, Pt was allowed supplemental PO of Puree Solids (NDD) and Boykins-Thick Liquids at [facility]. AGENCY APPOINTMENTS SUPERVISOR in to attempt with these, however Pt refused. He is tolerating TF. AGENCY APPOINTMENTS SUPERVISOR to request cancellation from attending provider.
[2024-04-07] MEDS: Enoxaparin Sodium 40 MG/0.4 ML SYRINGE SUBCUT (15:37)
--- NOTE | 2024-04-07 16:07 | P.CDIM_ITS ---
PROVIDER RESPONSE TEXT: To clarify, the appropriate diagnosis supported by the clinical indicators: Sepsis: suspected QUERY TEXT: PHYSICIAN'S DOCUMENTATION REQUEST Date of Query: 04/07/2024 08:42 AM EST Patient Name: KAYLEY MCCARTNEY Admit Date: 04/04/2024 Dear Veronica Cat PUBLIC HEALTH ENGINEER, A review of the medical record indicates additional documentation may be needed. Please review below and update the documentation accordingly. Clinical Indicators: Ed: Presenting with altered mental status, fevers, cough, shortness of breath, hypoxia . He is sating in the low 80's with labored breathing, tachypnea, diaphoresis. Sepsis alert paged overhead. Patient does have active crackles as well as wheezing and hypoxia theref ore concerned with active infection. ICU progress note 04/04 - He received sepsis bolus IV fluids, will give him bolus albumin, started on antibiotics. Temp 101.2 HR 101 RR 24 LA 3.6 WBC wnl Patient has been on Doxycycline with no improvement prior to arrival. UTI, Aspiration pneumonia Please clarify which, if any, of the following is the most likely etiology of the above symptoms and treatment rendered: Sepsis possible, probable, suspected, resolved, etc. Not treating Sepsis Localized infection only, without systemic illness Indicate the site/source, such as UTI, pneumonia, etc. Other (explain) Clinically unable to determine (explain) Thank you, Beatrice Montenegro, CCS, CDIS Use of terms such as suspected, likely, concern for, or probable (associated with a specific diagnosi s that is being evaluated, monitored, or treated as if it exists) are acceptable and can be coded in the inpatient se tting, when documented at the time of discharge. Please use your independent medical judgment in providing your response. THIS QUERY IS PART OF THE PERMANENT MEDICAL RECORD
[2024-04-07] MEDS: Sennosides 8.6 MG TABLET 17.2 MG G-TUBE (20:49)
[2024-04-07] MEDS: cloBAZam 10 MG TABLET G-TUBE (20:49)
[2024-04-08] VITALS (9 sets, daily range): BP systolic 100–129; BP diastolic 54–65; PULSE 71–86; RESP 17–20; TEMP 36.4–37.1; O2SAT 90–97; BMI 24.6
[2024-04-08] MEDS: Meropenem 1 GM VIAL IVPUSH ×3 (03:33→18:09)
[2024-04-08] MEDS: Escitalopram Oxalate 10 MG TABLET G-TUBE (07:29)
[2024-04-08] MEDS: Gabapentin 600 MG TABLET G-TUBE ×3 (07:29→20:27)
[2024-04-08] MEDS: Midodrine HCl 10 MG TABLET G-TUBE ×3 (07:29→15:34)
[2024-04-08] MEDS: gemfibroziL 600 MG TABLET G-TUBE ×2 (07:29→20:27)
[2024-04-08] MEDS: lamoTRIgine 100 MG TABLET 150 MG G-TUBE ×2 (07:29→20:27)
[2024-04-08] MEDS: Fludrocortisone Acetate 0.1 MG TABLET G-TUBE ×2 (07:30→20:27)
[2024-04-08] MEDS: Albuterol/Iprat 2.5/0.5MG 3 ML AMPUL.NEB INHALE ×2 (07:32→11:12)
--- NOTE | 2024-04-08 10:27 | MHC.CM.PN ---
Per ROUNDS discussion, Patient is not yet medically cleared for dc (final cultures are pending); returning to [facility]TC is the goal and CM will continue to follow.
--- NOTE | 2024-04-08 10:34 | P.PNIM_ITS ---
Subjective Subjective Date of Service: 04/08/24 Review of Systems Follow up low BP, UTI TBI Physical Exam 2 Vital Signs: Vital Signs: Last Vital Signs Temp 98.5 F 04/08/24 07:17 Pulse 74 04/08/24 07:32 Resp 20 04/08/24 07:32 BP 100/54 L 04/08/24 07:17 Pulse Ox 93 04/08/24 07:17 O2 Del Method Nasal Cannula 04/08/24 07:17 O2 Flow Rate 3 04/08/24 07:17 Oxygen Flow Rate 2 04/04/24 10:15 BMI result Body Mass Index 24.6 Appearing in no acute distress lung sounds are clear to auscultation heart regular rate rhythm, clear S1, S2 positive bowel sounds, abdomen is soft, nontender neuro patient is alert, mostly nonverbal Objective Data Active Medications Albuterol/Ipratropium (Albuterol/Iprat 2.5/0.5mg 3 Ml Ampul.Neb) 3 ml INHALE RQ4H WHILE AWAKE [facility] Last Admin: 04/08/24 07:32 Dose: 3 ml Documented By: FELIX Bisacodyl (Bisacodyl 10 Mg Supp.Rect) 10 mg [place] DAILY PRN PRN Reason: Constipation Clobazam (Clobazam 10 Mg Tablet) 10 mg G-TUBE BEDTIME [facility] Last Admin: 04/07/24 20:49 Dose: 10 mg Documented By: MARVIN Docusate Sodium (Docusate Sodium 100 Mg Capsule) 100 mg PO DAILY [facility] Last Admin: 04/08/24 07:30 Dose: Not Given Documented By: UTE Non-Admin Reason: cannot crush Enoxaparin Sodium (Enoxaparin Sodium 40 Mg/0.4 Ml Syringe) 40 mg SUBCUT Q24H [facility] Last Admin: 04/07/24 15:37 Dose: 40 mg Documented By: UTE Escitalopram Oxalate (Escitalopram Oxalate 10 Mg Tablet) 10 mg G-TUBE DAILY [facility] Last Admin: 04/08/24 07:29 Dose: 10 mg Documented By: UTE Fludrocortisone Acetate (Fludrocortisone Acetate 0.1 Mg Tablet) 0.1 mg G-TUBE BID [facility] Last Admin: 04/08/24 07:30 Dose: 0.1 mg Documented By: UTE Gabapentin (Gabapentin 600 Mg Tablet) 600 mg G-TUBE TID [facility] Last Admin: 04/08/24 07:29 Dose: 600 mg Documented By: UTE Gemfibrozil (Gemfibrozil 600 Mg Tablet) 600 mg G-TUBE BID [facility] Last Admin: 04/08/24 07:29 Dose: 600 mg Documented By: UTE Lamotrigine (Lamotrigine 100 Mg Tablet) 150 mg G-TUBE BID [facility] Last Admin: 04/08/24 07:29 Dose: 150 mg Documented By: UTE Meropenem (Meropenem 1 Gm Vial) 1 gm IVPUSH Q8H [facility] Last Admin: 04/08/24 03:33 Dose: 1 gm Documented By: MARVIN Midodrine (Midodrine Hcl 10 Mg Tablet) 10 mg G-TUBE TIDWM [facility] Last Admin: 04/08/24 07:29 Dose: 10 mg Documented By: UTE Senna (Sennosides 8.6 Mg Tablet) 17.2 mg G-TUBE BEDTIME [facility] Last Admin: 04/07/24 20:49 Dose: 17.2 mg Documented By: MARVIN Labs 04/05/24 07:42 04/05/24 07:42 Microbiology Microbiology Results: Microbiology 04/04/24 Unknown Urine Culture - Final Urine clean catch - Clean Catch Midstream Escherichia coli Assessment and Plan (1) UTI (urinary tract infection): Status: Acute Plan 69-year-old male with history of TBI, seizure disorder, nonverbal and bed-bound at baseline, resident of [facility] who presented to the emergency department due to low-grade fever and change in mental status, found to have UTI and admitted to the ICU due to low blood pressure. Patient is on midodrine and seems to have low blood pressure at baseline. Was initially treated with fluid and vasopressor support. He was started on Mirapex item due to multiple antibiotic allergies. He was downgraded from the ICU 04/05 GPC bacteremia continue meropenem follow final cultures Aspiration pneumonia episode of choking on March 30 and had been on doxycycline s/p shortness of breath, hypoxia CT chest showing Left lower lobe consolidation present in 2020, less prominent then previous meropenem as above peg tube diet in place wean o2 as tolerated tube feeding diet Jevity 24hrs NPO Ecoli UTI Continue meropenem given multiple allergies chronic low bp on midodrine and fludocortisone continue baseline mood meds consider resuming bseline topiramate as mental status allows constipation continue bowel regimen DVT prophylaxis with Lovenox Full code Attending Dr. Chapin Quality Stroke Does the patient have a stroke diagnosis?: No VTE Prior VTE?: No VTE Risk Level:: Medical - moderate - high VTE Device Contraindication: N/A - Device Ordered VTE Drug Contraindication: N/A - Med Ordered
--- NOTE | 2024-04-08 10:51 | MHC.CLN ---
F/U PT DEPENDENT ON G TUBE FOR NUTRITION SUPPORT NO NEW LABS PT RECEIVING JEVITY 1.0 AT MAX GOAL RATE 85ML /HR WITH 240ML FREE WATER FLUSHES Q 8HRS PROVIDES 2162KCALS (25KCALS/KG), 90G PROTEIN (1.06G/KG), 2460ML TOTAL WATER FROM FORMULA AND FLUSHES (29ML/KG) MONITOR TOLERANCE AND LYTES
[2024-04-08] MEDS: Enoxaparin Sodium 40 MG/0.4 ML SYRINGE SUBCUT (15:34)
[2024-04-08] MEDS: Sennosides 8.6 MG TABLET 17.2 MG G-TUBE (20:27)
[2024-04-08] MEDS: cloBAZam 10 MG TABLET G-TUBE (20:27)
[2024-04-09] VITALS (10 sets, daily range): BP systolic 109–121; BP diastolic 53–58; PULSE 60–88; RESP 16–18; TEMP 36.8–37.6; O2SAT 95–99; BMI 24.6
[2024-04-09] MEDS: Albuterol/Iprat 2.5/0.5MG 3 ML AMPUL.NEB INHALE ×4 (07:25→18:40)
[2024-04-09] MEDS: Escitalopram Oxalate 10 MG TABLET G-TUBE (09:22)
[2024-04-09] MEDS: gemfibroziL 600 MG TABLET G-TUBE ×2 (09:22→21:34)
[2024-04-09] MEDS: lamoTRIgine 100 MG TABLET 150 MG G-TUBE ×2 (09:22→21:33)
[2024-04-09] MEDS: Docusate Sodium 100 MG CAPSULE PO (09:22)
[2024-04-09] MEDS: Gabapentin 600 MG TABLET G-TUBE ×3 (09:22→21:34)
[2024-04-09] MEDS: Meropenem 1 GM VIAL IVPUSH ×3 (09:22→23:11)
[2024-04-09] MEDS: Fludrocortisone Acetate 0.1 MG TABLET G-TUBE ×2 (09:22→21:34)
[2024-04-09] MEDS: Midodrine HCl 10 MG TABLET G-TUBE ×3 (09:22→16:22)
--- NOTE | 2024-04-09 12:08 | P.PNIM_ITS ---
Subjective Subjective Date of Service: 04/09/24 Interval History: Seen and examined this morning Follow-up for E coli UTI, aspiration pneumonia no overnight events limited ROS- appears comfortable Physical Exam 2 Vital Signs: Vital Signs: Last Vital Signs Temp 98.2 F 04/09/24 11:40 Pulse 78 04/09/24 11:40 Resp 18 04/09/24 11:40 BP 117/57 L 04/09/24 11:40 Pulse Ox 99 04/09/24 11:40 O2 Del Method Room Air 04/09/24 11:40 O2 Flow Rate 3 04/09/24 03:11 Oxygen Flow Rate 2 04/04/24 10:15 BMI result Body Mass Index 24.6 Const: Other: difficult to assess orientation General: cooperative, comfortable, alert and awake Nutritional Appearance: average body habitus Resp: Effort & Inspection: normal respiratory effort, no respiratory distress and no use of accessory muscles Cardio: Rate: regular rate GI: Other: feeding tube no surrounding erythema Inspection: No distended Palpation (GI): Soft to palpation and nontender Neuro: Other: can understand some words, moves b/l upper extremities, wiggles toes when asked, following commands Objective Data Active Medications Albuterol/Ipratropium (Albuterol/Iprat 2.5/0.5mg 3 Ml Ampul.Neb) 3 ml INHALE RQ4H WHILE AWAKE [facility] Last Admin: 04/09/24 11:25 Dose: 3 ml Documented By: JONNY Bisacodyl (Bisacodyl 10 Mg Supp.Rect) 10 mg [place] DAILY PRN PRN Reason: Constipation Clobazam (Clobazam 10 Mg Tablet) 10 mg G-TUBE BEDTIME [facility] Last Admin: 04/08/24 20:27 Dose: 10 mg Documented By: RUPERT Docusate Sodium (Docusate Sodium 100 Mg Capsule) 100 mg PO DAILY [facility] Last Admin: 04/09/24 09:22 Dose: 100 mg Documented By: MARIA Enoxaparin Sodium (Enoxaparin Sodium 40 Mg/0.4 Ml Syringe) 40 mg SUBCUT Q24H [facility] Last Admin: 04/08/24 15:34 Dose: 40 mg Documented By: UTE Escitalopram Oxalate (Escitalopram Oxalate 10 Mg Tablet) 10 mg G-TUBE DAILY [facility] Last Admin: 04/09/24 09:22 Dose: 10 mg Documented By: MARIA Fludrocortisone Acetate (Fludrocortisone Acetate 0.1 Mg Tablet) 0.1 mg G-TUBE BID [facility] Last Admin: 04/09/24 09:22 Dose: 0.1 mg Documented By: MARIA Gabapentin (Gabapentin 600 Mg Tablet) 600 mg G-TUBE TID [facility] Last Admin: 04/09/24 09:22 Dose: 600 mg Documented By: MARIA Gemfibrozil (Gemfibrozil 600 Mg Tablet) 600 mg G-TUBE BID [facility] Last Admin: 04/09/24 09:22 Dose: 600 mg Documented By: MARIA Lamotrigine (Lamotrigine 100 Mg Tablet) 150 mg G-TUBE BID [facility] Last Admin: 04/09/24 09:22 Dose: 150 mg Documented By: MARIA Meropenem (Meropenem 1 Gm Vial) 1 gm IVPUSH Q8H [facility] Last Admin: 04/09/24 09:22 Dose: 1 gm Documented By: MARIA Midodrine (Midodrine Hcl 10 Mg Tablet) 10 mg G-TUBE TIDWM [facility] Last Admin: 04/09/24 09:22 Dose: 10 mg Documented By: MARIA Senna (Sennosides 8.6 Mg Tablet) 17.2 mg G-TUBE BEDTIME [facility] Last Admin: 04/08/24 20:27 Dose: 17.2 mg Documented By: RUPERT Labs 04/05/24 07:42 04/05/24 07:42 Microbiology Microbiology Results: Microbiology 04/04/24 10:31 Blood Culture - Final Blood - Venous Coag negative Staphylococcus Assessment and Plan (1) UTI (urinary tract infection): Status: Acute Plan 69-year-old male with history of TBI, seizure disorder, nonverbal and bed-bound at baseline, resident of [facility] who presented to the emergency department due to low-grade fever and change in mental status, found to have UTI and admitted to the ICU due to low blood pressure. Patient is on midodrine and seems to have low blood pressure at baseline. Was initially treated with fluid and vasopressor support. He was started on Miropenem due to multiple antibiotic allergies. He was downgraded from the ICU 04/05 GPC bacteremia - coagulase negative staph, contaminant Aspiration pneumonia episode of choking on March 30 and had been on doxycycline at [facility] s/p shortness of breath, hypoxia. now on room air CT chest showing Left lower lobe consolidation present in 2020, less prominent then previous meropenem as above peg tube diet in place at baseline tolerates pureed diet however has been resistive to speech therapy evaluation, therefore currently NPO by mouth tube feeding diet Jevity 24hrs NPO Ecoli UTI Continue meropenem given multiple allergies seen by ID, rec 5 days abx, will complete 04/09 chronic low bp on midodrine and fludocortisone continue baseline meds for mood/seizures disorder resume topomax 200 and gradually increase back to baseline constipation continue bowel regimen DVT prophylaxis with Lovenox Full code Attending Dr. Chapin Quality Stroke Does the patient have a stroke diagnosis?: No VTE Prior VTE?: No VTE Risk Level:: Medical - moderate - high VTE Device Contraindication: N/A - Device Ordered VTE Drug Contraindication: N/A - Med Ordered
[2024-04-09] MEDS: Enoxaparin Sodium 40 MG/0.4 ML SYRINGE SUBCUT (16:22)
[2024-04-09] MEDS: Topiramate 100 MG TABLET 200 MG G-TUBE (21:33)
[2024-04-09] MEDS: Sennosides 8.6 MG TABLET 17.2 MG G-TUBE (21:34)
[2024-04-09] MEDS: cloBAZam 10 MG TABLET G-TUBE (21:34)
[2024-04-10] VITALS (9 sets, daily range): BP systolic 94–119; BP diastolic 48–68; PULSE 77–93; RESP 18–20; TEMP 36.3–37.4; O2SAT 91–97; BMI 24.3
[2024-04-10] MEDS: Albuterol/Iprat 2.5/0.5MG 3 ML AMPUL.NEB INHALE ×3 (07:39→15:10)
[2024-04-10] MEDS: Midodrine HCl 10 MG TABLET G-TUBE ×3 (08:05→17:30)
[2024-04-10] MEDS: gemfibroziL 600 MG TABLET G-TUBE ×2 (08:05→19:42)
[2024-04-10] MEDS: lamoTRIgine 100 MG TABLET 150 MG G-TUBE ×2 (08:05→19:41)
[2024-04-10] MEDS: Escitalopram Oxalate 10 MG TABLET G-TUBE (08:05)
[2024-04-10] MEDS: Fludrocortisone Acetate 0.1 MG TABLET G-TUBE ×2 (08:05→19:43)
[2024-04-10] MEDS: Gabapentin 600 MG TABLET G-TUBE ×3 (08:05→19:41)
[2024-04-10] MEDS: Meropenem 1 GM VIAL IVPUSH ×2 (08:05→15:54)
[2024-04-10] MEDS: Topiramate 100 MG TABLET 200 MG G-TUBE ×2 (08:05→19:43)
[2024-04-10 09:57] LABS: Anion Gap 12 (12-20); Blood Urea Nitrogen 22 mg/dL (9-16); Calcium 9.5 mg/dL (8.4-10.2); Carbon Dioxide 23 mmol/L (22-29); Chloride 113 mmol/L (96-108); Creatinine Clr Calc Pharmacy 107.5; Estimated Glomerular Filt Rate > 60; Glucose Random 148 mg/dL (60-115); Potassium 4.1 mmol/L (3.3-5.1); Sodium 144 mmol/L (135-145)
--- NOTE | 2024-04-10 10:15 | MHC.CLN ---
F/U PT DEPENDENT ON G TUBE FOR NUTRITION SUPPORT REVIEWED LABS-UNREMARKABLE PT RECEIVING JEVITY 1.0 AT MAX GOAL RATE 85ML /HR WITH 240ML FREE WATER FLUSHES Q 8HRS PROVIDES 2162KCALS (25KCALS/KG), 90G PROTEIN (1.06G/KG), 2460ML TOTAL WATER FROM FORMULA AND FLUSHES (29ML/KG) CONTINUE TO MONITOR TOLERANCE AND LYTES
[2024-04-10] MEDS: Furosemide 20 MG/2 ML VIAL IVPUSH (12:41)
--- NOTE | 2024-04-10 13:44 | P.PNIM_ITS ---
Subjective Subjective Date of Service: 04/10/24 Interval History: seen and examined this morning follow up aspiration pneumonia, uti appears sob minimal ros due to underlying TBI Physical Exam 2 Vital Signs: Vital Signs: Last Vital Signs Temp 99.3 F 04/10/24 11:38 Pulse 92 04/10/24 11:38 Resp 20 04/10/24 11:38 BP 110/68 04/10/24 11:38 Pulse Ox 92 04/10/24 11:38 O2 Del Method Room Air 04/10/24 11:38 O2 Flow Rate 2 04/10/24 03:31 Oxygen Flow Rate 2 04/04/24 10:15 BMI result Body Mass Index 24.3 Const: Other: difficult to assess orientation General: cooperative, comfortable, alert and awake Nutritional Appearance: average body habitus Resp: Other: diminished breath sounds, scattered wheeze Effort & Inspection: normal respiratory effort, no respiratory distress and no use of accessory muscles Cardio: Rate: regular rate GI: Other: feeding tube no surrounding erythema Inspection: No distended Palpation (GI): Soft to palpation and nontender Neuro: Other: can understand some words, moves b/l upper extremities, wiggles toes when asked, following commands Objective Data Active Medications Albuterol/Ipratropium (Albuterol/Iprat 2.5/0.5mg 3 Ml Ampul.Neb) 3 ml INHALE RQ4H WHILE AWAKE [facility] Last Admin: 04/10/24 11:19 Dose: 3 ml Documented By: JONNY Bisacodyl (Bisacodyl 10 Mg Supp.Rect) 10 mg [place] DAILY PRN PRN Reason: Constipation Clobazam (Clobazam 10 Mg Tablet) 10 mg G-TUBE BEDTIME [facility] Last Admin: 04/09/24 21:34 Dose: 10 mg Documented By: RUPERT Docusate Sodium (Docusate Sodium 100 Mg Capsule) 100 mg PO DAILY [facility] Last Admin: 04/10/24 08:10 Dose: Not Given Documented By: MUKUL Non-Admin Reason: unable to crush Enoxaparin Sodium (Enoxaparin Sodium 40 Mg/0.4 Ml Syringe) 40 mg SUBCUT Q24H [facility] Last Admin: 04/09/24 16:22 Dose: 40 mg Documented By: MARIA Escitalopram Oxalate (Escitalopram Oxalate 10 Mg Tablet) 10 mg G-TUBE DAILY [facility] Last Admin: 04/10/24 08:05 Dose: 10 mg Documented By: MUKUL Fludrocortisone Acetate (Fludrocortisone Acetate 0.1 Mg Tablet) 0.1 mg G-TUBE BID [facility] Last Admin: 04/10/24 08:05 Dose: 0.1 mg Documented By: MUKUL Gabapentin (Gabapentin 600 Mg Tablet) 600 mg G-TUBE TID [facility] Last Admin: 04/10/24 08:05 Dose: 600 mg Documented By: MUKUL Gemfibrozil (Gemfibrozil 600 Mg Tablet) 600 mg G-TUBE BID [facility] Last Admin: 04/10/24 08:05 Dose: 600 mg Documented By: MUKUL Lamotrigine (Lamotrigine 100 Mg Tablet) 150 mg G-TUBE BID [facility] Last Admin: 04/10/24 08:05 Dose: 150 mg Documented By: MUKUL Meropenem (Meropenem 1 Gm Vial) 1 gm IVPUSH Q8H [facility] Last Admin: 04/10/24 08:05 Dose: 1 gm Documented By: MUKUL Midodrine (Midodrine Hcl 10 Mg Tablet) 10 mg G-TUBE TIDWM [facility] Last Admin: 04/10/24 12:42 Dose: 10 mg Documented By: MUKUL Senna (Sennosides 8.6 Mg Tablet) 17.2 mg G-TUBE BEDTIME [facility] Last Admin: 04/09/24 21:34 Dose: 17.2 mg Documented By: RUPERT Topiramate (Topiramate 100 Mg Tablet) 200 mg G-TUBE BID [facility] Last Admin: 04/10/24 08:05 Dose: 200 mg Documented By: MUKUL Labs 04/05/24 07:42 04/10/24 08:44 Labs: Laboratory Results - last 24 hr 04/10/24 08:44 Anion Gap 12 Estim Creat Clear Calc 107.5 Estimated GFR > 60 Random Glucose 148 H Calcium 9.5 Microbiology Microbiology Results: Microbiology 04/04/24 10:38 Blood Culture - Final Blood - Venous No growth after 5 days. Assessment and Plan (1) Urinary tract infection: Status: Acute Plan 69-year-old male with history of TBI, seizure disorder, nonverbal and bed-bound at baseline, resident of [facility] who presented to the emergency department due to low-grade fever and change in mental status, found to have UTI and admitted to the ICU due to low blood pressure. Patient is on midodrine and seems to have low blood pressure at baseline. Was initially treated with fluid and vasopressor support. He was started on Miropenem due to multiple antibiotic allergies. He was downgraded from the ICU 04/05 Acute Pulmonary Edema cxr showing edema likely due to fluid IV lasix x1 and assess for affect chronic respiratory failure pt on 2L supplemental oxygen at baseline - remains on the same Aspiration pneumonia episode of choking on March 30 and had been on doxycycline at [facility] s/p shortness of breath, hypoxia. now on room air CT chest showing Left lower lobe consolidation present in 2020, less prominent then previous meropenem as above peg tube diet in place at baseline tolerates pureed diet however has been resistive to speech therapy evaluation, therefore currently NPO by mouth - can be re-assessed when he returns to [facility] tube feeding diet Jevity 24hrs NPO Ecoli UTI Continue meropenem given multiple allergies seen by ID, rec 5-7 days GPC bacteremia - coagulase negative staph, contaminant chronic low bp on midodrine and fludocortisone continue baseline meds for mood/seizures disorder resume topomax 200 and gradually increase back to baseline constipation continue bowel regimen DVT prophylaxis with Lovenox Full code Attending Dr. Chapin Quality Stroke Does the patient have a stroke diagnosis?: No VTE Prior VTE?: No VTE Risk Level:: Medical - moderate - high VTE Device Contraindication: N/A - Device Ordered VTE Drug Contraindication: N/A - Med Ordered
--- NOTE | 2024-04-10 13:54 | MHC.CM.PN ---
EMR reviewed and per MD rounds, pt is not medically cleared for discharge due to management of pneumonia.
[2024-04-10] MEDS: Enoxaparin Sodium 40 MG/0.4 ML SYRINGE SUBCUT (14:49)
[2024-04-10] MEDS: Sennosides 8.6 MG TABLET 17.2 MG G-TUBE (19:42)
[2024-04-10] MEDS: cloBAZam 10 MG TABLET G-TUBE (19:43)
[2024-04-11] VITALS (13 sets, daily range): BP systolic 99–157; BP diastolic 48–61; PULSE 75–90; RESP 15–18; TEMP 36.6–37.6; O2SAT 92–99; BMI 24.1
[2024-04-11] MEDS: Albuterol/Iprat 2.5/0.5MG 3 ML AMPUL.NEB INHALE ×4 (07:25→18:50)
[2024-04-11] MEDS: Midodrine HCl 10 MG TABLET G-TUBE ×3 (10:27→17:48)
[2024-04-11] MEDS: lamoTRIgine 100 MG TABLET 150 MG G-TUBE ×2 (10:28→19:39)
[2024-04-11] MEDS: Topiramate 100 MG TABLET 200 MG G-TUBE ×2 (10:28→19:39)
[2024-04-11] MEDS: Fludrocortisone Acetate 0.1 MG TABLET G-TUBE ×2 (10:29→19:39)
[2024-04-11] MEDS: Escitalopram Oxalate 10 MG TABLET G-TUBE (10:29)
[2024-04-11] MEDS: gemfibroziL 600 MG TABLET G-TUBE ×2 (10:29→19:39)
[2024-04-11] MEDS: Gabapentin 600 MG TABLET G-TUBE ×3 (10:29→19:40)
--- NOTE | 2024-04-11 15:10 | P.PNIM_ITS ---
Subjective Subjective Date of Service: 04/11/24 Interval History: follow up aspiration pneumonia, uti not sob appearing minimal ros due to underlying TBI Physical Exam 2 Vital Signs: Vital Signs: Last Vital Signs Temp 99.6 F 04/11/24 12:00 Pulse 86 04/11/24 12:00 Resp 18 04/11/24 12:00 BP 113/55 L 04/11/24 13:50 Pulse Ox 94 04/11/24 12:00 O2 Del Method Nasal Cannula 04/11/24 12:00 O2 Flow Rate 3 04/11/24 12:00 Oxygen Flow Rate 2 04/04/24 10:15 BMI result Body Mass Index 24.1 alert nonverbal Objective Data Active Medications Albuterol/Ipratropium (Albuterol/Iprat 2.5/0.5mg 3 Ml Ampul.Neb) 3 ml INHALE RQ4H WHILE AWAKE [facility] Last Admin: 04/11/24 11:22 Dose: 3 ml Documented By: PUSHPA Bisacodyl (Bisacodyl 10 Mg Supp.Rect) 10 mg [place] DAILY PRN PRN Reason: Constipation Clobazam (Clobazam 10 Mg Tablet) 10 mg G-TUBE BEDTIME [facility] Last Admin: 04/10/24 19:43 Dose: 10 mg Documented By: VLADIMIR Docusate Sodium (Docusate Sodium 100 Mg Capsule) 100 mg PO DAILY [facility] Last Admin: 04/11/24 10:30 Dose: Not Given Documented By: ROSSY Non-Admin Reason: unable to crush Enoxaparin Sodium (Enoxaparin Sodium 40 Mg/0.4 Ml Syringe) 40 mg SUBCUT Q24H [facility] Last Admin: 04/10/24 14:49 Dose: 40 mg Documented By: MUKUL Escitalopram Oxalate (Escitalopram Oxalate 10 Mg Tablet) 10 mg G-TUBE DAILY [facility] Last Admin: 04/11/24 10:29 Dose: 10 mg Documented By: ROSSY Fludrocortisone Acetate (Fludrocortisone Acetate 0.1 Mg Tablet) 0.1 mg G-TUBE BID [facility] Last Admin: 04/11/24 10:29 Dose: 0.1 mg Documented By: ROSSY Gabapentin (Gabapentin 600 Mg Tablet) 600 mg G-TUBE TID [facility] Last Admin: 04/11/24 10:29 Dose: 600 mg Documented By: ROSSY Gemfibrozil (Gemfibrozil 600 Mg Tablet) 600 mg G-TUBE BID [facility] Last Admin: 04/11/24 10:29 Dose: 600 mg Documented By: ROSSY Lamotrigine (Lamotrigine 100 Mg Tablet) 150 mg G-TUBE BID [facility] Last Admin: 04/11/24 10:28 Dose: 150 mg Documented By: ROSSY Midodrine (Midodrine Hcl 10 Mg Tablet) 10 mg G-TUBE TIDWM [facility] Last Admin: 04/11/24 13:50 Dose: 10 mg Documented By: ROSSY Senna (Sennosides 8.6 Mg Tablet) 17.2 mg G-TUBE BEDTIME [facility] Last Admin: 04/10/24 19:42 Dose: 17.2 mg Documented By: VLADIMIR Topiramate (Topiramate 100 Mg Tablet) 200 mg G-TUBE BID [facility] Last Admin: 04/11/24 10:28 Dose: 200 mg Documented By: ROSSY Labs 04/05/24 07:42 04/10/24 08:44 Assessment and Plan (1) Urinary tract infection: Status: Acute Plan 69-year-old male with history of TBI, seizure disorder, nonverbal and bed-bound at baseline, resident of [facility] who presented to the emergency department due to low-grade fever and change in mental status, found to have UTI and admitted to the ICU due to low blood pressure. Patient is on midodrine and seems to have low blood pressure at baseline. Was initially treated with fluid and vasopressor support. He was started on Miropenem due to multiple antibiotic allergies. He was downgraded from the ICU 04/05 Acute Pulmonary Edema cxr showing edema likely due to fluid IV lasix x1 chronic respiratory failure pt on 2L supplemental oxygen at baseline - remains on the same Aspiration pneumonia episode of choking on March 30 and had been on doxycycline at [facility] s/p shortness of breath, hypoxia. now on room air CT chest showing Left lower lobe consolidation present in 2020, less prominent then previous meropenem as above peg tube diet in place at baseline tolerates pureed diet however has been resistive to speech therapy evaluation, therefore currently NPO by mouth - can be re-assessed when he returns to [facility] tube feeding diet Jevity 24hrs NPO Ecoli UTI Continue meropenem given multiple allergies seen by ID, rec 5-7 days GPC bacteremia coagulase negative staph, contaminant chronic low bp on midodrine and fludocortisone continue baseline meds for mood/seizures disorder resume topomax 200 and gradually increase back to baseline constipation continue bowel regimen DVT prophylaxis with Lovenox Full code Attending Dr. Lima Quality Stroke Does the patient have a stroke diagnosis?: No VTE Prior VTE?: No VTE Risk Level:: Medical - moderate - high VTE Device Contraindication: N/A - Device Ordered VTE Drug Contraindication: N/A - Med Ordered
--- NOTE | 2024-04-11 15:30 | PC.RT ---
RT nasotracheally suctioned pt through right nare. Pt was agitated but tolerated procedure well. Moderate amounts of thick yellow mucus plugs suctioned out. No bleeding or trauma to nares noted post. Pt able to voice loudly post. Given scheduled duoneb.
[2024-04-11] MEDS: Enoxaparin Sodium 40 MG/0.4 ML SYRINGE SUBCUT (15:59)
--- NOTE | 2024-04-11 16:08 | PC.NURSE ---
O2 noted to be 99% on 3L n/c, titrated down per protocol to 2L @ 1600.
[2024-04-11] MEDS: Sennosides 8.6 MG TABLET 17.2 MG G-TUBE (19:38)
[2024-04-11] MEDS: cloBAZam 10 MG TABLET G-TUBE (19:39)
[2024-04-12] VITALS (11 sets, daily range): BP systolic 94–109; BP diastolic 45–59; PULSE 67–82; RESP 16–19; TEMP 36.2–37; O2SAT 94–96; BMI 24.3
[2024-04-12] MEDS: Albuterol/Iprat 2.5/0.5MG 3 ML AMPUL.NEB INHALE ×4 (07:36→18:47)
[2024-04-12 08:17] LABS: Anion Gap 15 (12-20); Blood Urea Nitrogen 35 mg/dL (9-16); Calcium 10.1 mg/dL (8.4-10.2); Carbon Dioxide 20 mmol/L (22-29); Chloride 114 mmol/L (96-108); Creatinine Clr Calc Pharmacy 107.5; Estimated Glomerular Filt Rate > 60; Glucose Random 131 mg/dL (60-115); Sodium 145 mmol/L (135-145)
[2024-04-12 08:25] LABS: B Type Natriuretic Peptide 60 pg/mL (<100)
[2024-04-12] MEDS: lamoTRIgine 100 MG TABLET 150 MG G-TUBE ×2 (10:00→22:02)
[2024-04-12] MEDS: Escitalopram Oxalate 10 MG TABLET G-TUBE (10:01)
[2024-04-12] MEDS: Topiramate 100 MG TABLET 200 MG G-TUBE ×2 (10:01→22:03)
[2024-04-12] MEDS: Gabapentin 600 MG TABLET G-TUBE ×3 (10:01→22:02)
[2024-04-12] MEDS: Fludrocortisone Acetate 0.1 MG TABLET G-TUBE ×2 (10:01→22:02)
[2024-04-12] MEDS: gemfibroziL 600 MG TABLET G-TUBE ×2 (10:01→22:03)
[2024-04-12] MEDS: Midodrine HCl 10 MG TABLET G-TUBE ×3 (10:01→17:37)
--- NOTE | 2024-04-12 11:09 | HO.PM.IMPN ---
Subjective Subjective Date of Service: 04/12/24 Interval History: follow up aspiration pneumonia, uti not sob appearing minimal ros due to underlying TBI Physical Exam Vital Signs: Vital Signs: Last Vital Signs Temp 98.6 F 04/12/24 07:51 Pulse 81 04/12/24 11:05 Resp 18 04/12/24 11:05 BP 106/59 L 04/12/24 10:01 Pulse Ox 95 04/12/24 07:51 O2 Del Method Nasal Cannula 04/12/24 07:51 O2 Flow Rate 2 04/12/24 07:51 Oxygen Flow Rate 2 04/04/24 10:15 BMI result Body Mass Index 24.3 Objective Data Active Medications Albuterol/Ipratropium (Albuterol/Iprat 2.5/0.5mg 3 Ml Ampul.Neb) 3 ml INHALE RQ4H WHILE AWAKE [facility] Last Admin: 04/12/24 11:04 Dose: 3 ml Documented By: BLASCMo Bisacodyl (Bisacodyl 10 Mg Supp.Rect) 10 mg [place] DAILY PRN PRN Reason: Constipation Clobazam (Clobazam 10 Mg Tablet) 10 mg G-TUBE BEDTIME [facility] Last Admin: 04/11/24 19:39 Dose: 10 mg Documented By: VLADIMIR Docusate Sodium (Docusate Sodium 100 Mg/10 Ml Liquid) 100 mg PO BID PRN PRN Reason: Constipation Enoxaparin Sodium (Enoxaparin Sodium 40 Mg/0.4 Ml Syringe) 40 mg SUBCUT Q24H [facility] Last Admin: 04/11/24 15:59 Dose: 40 mg Documented By: ROSSY Escitalopram Oxalate (Escitalopram Oxalate 10 Mg Tablet) 10 mg G-TUBE DAILY [facility] Last Admin: 04/12/24 10:01 Dose: 10 mg Documented By: ROSSY Fludrocortisone Acetate (Fludrocortisone Acetate 0.1 Mg Tablet) 0.1 mg G-TUBE BID [facility] Last Admin: 04/12/24 10:01 Dose: 0.1 mg Documented By: ROSSY Gabapentin (Gabapentin 600 Mg Tablet) 600 mg G-TUBE TID [facility] Last Admin: 04/12/24 10:01 Dose: 600 mg Documented By: ROSSY Gemfibrozil (Gemfibrozil 600 Mg Tablet) 600 mg G-TUBE BID [facility] Last Admin: 04/12/24 10:01 Dose: 600 mg Documented By: ROSSY Lamotrigine (Lamotrigine 100 Mg Tablet) 150 mg G-TUBE BID [facility] Last Admin: 04/12/24 10:00 Dose: 150 mg Documented By: ROSSY Midodrine (Midodrine Hcl 10 Mg Tablet) 10 mg G-TUBE TIDWM [facility] Last Admin: 04/12/24 10:01 Dose: 10 mg Documented By: ROSSY Senna (Sennosides 8.6 Mg Tablet) 17.2 mg G-TUBE BEDTIME [facility] Last Admin: 04/11/24 19:38 Dose: 17.2 mg Documented By: VLADIMIR Topiramate (Topiramate 100 Mg Tablet) 200 mg G-TUBE BID [facility] Last Admin: 04/12/24 10:01 Dose: 200 mg Documented By: ROSSY Labs 04/05/24 07:42 04/12/24 07:24 Labs: Laboratory Results - last 24 hr 04/12/24 07:24 Anion Gap 15 Estim Creat Clear Calc 107.5 Estimated GFR > 60 Random Glucose 131 H Calcium 10.1 D B-Natriuretic Peptide 60 Assessment and Plan (1) Urinary tract infection: Status: Acute Plan 69-year-old male with history of TBI, seizure disorder, nonverbal and bed-bound at baseline, resident of [facility] who presented to the emergency department due to low-grade fever and change in mental status, found to have UTI and admitted to the ICU due to low blood pressure. Patient is on midodrine and seems to have low blood pressure at baseline. Was initially treated with fluid and vasopressor support. He was started on Miropenem due to multiple antibiotic allergies. He was downgraded from the ICU 04/05 Acute Pulmonary Edema cxr showing edema likely due to fluid IV lasix x1 chronic respiratory failure pt on 2L supplemental oxygen at baseline - remains on the same Aspiration pneumonia episode of choking on March 30 and had been on doxycycline at [facility] s/p shortness of breath, hypoxia. now on room air CT chest showing Left lower lobe consolidation present in 2020, less prominent then previous meropenem as above peg tube diet in place at baseline tolerates pureed diet however has been resistive to speech therapy evaluation, therefore currently NPO by mouth - can be [facility] diet Jevity 24hrs NPO Ecoli UTI Continue meropenem given multiple allergies seen by ID, rec 5-7 days GPC bacteremia coagulase negative staph, contaminant chronic low bp on midodrine and fludocortisone continue baseline meds for mood/seizures disorder resume topomax 200 and gradually increase back to baseline constipation continue bowel regimen DVT prophylaxis with Lovenox Full code Attending Dr. Lima Quality Stroke Does the patient have a stroke diagnosis?: No VTE Prior VTE?: No VTE Risk Level:: Medical - moderate - high VTE Device Contraindication: N/A - Device Ordered VTE Drug Contraindication: N/A - Med Ordered
[2024-04-12] MEDS: Enoxaparin Sodium 40 MG/0.4 ML SYRINGE SUBCUT (15:19)
--- NOTE | 2024-04-12 16:45 | PM.CNGS ---
History of Present Illness Consult details Consult date: 04/12/24 Requesting physician: Veronica Cat Narrative: 69-year-old male patient with history of septic encephalopathy, aspiration pneumonia, status post G-tube placement. G-tube was noted to have fallen out with an empty balloon. Surgical consultation was requested for replacement of the gastrostomy tube. Review of Systems Review of Systems: Yes Unobtainable due to mental condition Neurologic: Reports confusion Psychiatric: Psychiatric: Reports confusion PMFSH Past Medical History Medical History Unspecified hearing loss, unspecified ear Unspecified psychosis not due to a substance or known physiological condition Obesity, unspecified Gastro-esophageal reflux disease without esophagitis Dysphagia, oropharyngeal phase Lymphedema, not elsewhere classified Hyperlipidemia, unspecified Anemia, unspecified Hypoxemia Personal history of pneumonia (recurrent) Lupus anticoagulant disorder Presbyopia Myopia, bilateral Age-related nuclear cataract, bilateral Calculus of gallbladder and bile duct with acute cholecystitis with obstruction Pneumonitis due to inhalation of food and vomit History of COVID-19 Major depressive disorder, recurrent, mild Concussion with loss of consciousness of unspecified duration, initial encounter 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, sequela Sepsis GERD (gastroesophageal reflux disease) Elevated cholesterol Gastrostomy tube in place Seizures TBI (traumatic brain injury) Family History Family history: reviewed and not pertinent Surgical History Surgical History History of lithotripsy History of surgery Social History Social History Household Members: Unknown / Unable to assess Household Members Other:: [facility] Housing: [facility] Are you a primary home health care worker to a significant other at home: No Do you presently have visiting nurse or other home services: Yes Unable to assess alcohol history related to: Unable to respond Alcohol intake: never Patient Tobacco Use Status: Tobacco use Unknown Advance Directives Date on File: 02/09/21 service: No Current occupational status: disabled Meds Allergies Allergy/AdvReac Type Severity Reaction Status Date / Time Penicillins [PENICILLINS] Allergy Severe Anaphylaxis Verified 04/04/24 10:23 cefotetan [From CEFOTAN] Allergy Unknown UNKNOWN Verified 04/04/24 10:23 Cephalosporins Allergy Unknown UNKNOWN Verified 04/04/24 10:23 [CEPHALOSPORINS] clindamycin [CLINDAMYCIN] Allergy Unknown UNKNOWN Verified 04/04/24 10:23 levofloxacin [LEVOFLOXACIN] Allergy Unknown UNKNOWN Verified 04/04/24 10:23 Quinolones [QUINOLONES] Allergy Unknown UNKNOWN Verified 04/04/24 10:23 Active Medications: Current Medications Albuterol/Ipratropium (Albuterol/Iprat 2.5/0.5mg 3 Ml Ampul.Neb) 3 ml INHALE RQ4H WHILE AWAKE [facility] Last Admin: 04/12/24 15:02 Dose: 3 ml Bisacodyl (Bisacodyl 10 Mg Supp.Rect) 10 mg [place] DAILY PRN PRN Reason: Constipation Clobazam (Clobazam 10 Mg Tablet) 10 mg G-TUBE BEDTIME [facility] Last Admin: 04/11/24 19:39 Dose: 10 mg Docusate Sodium (Docusate Sodium 100 Mg/10 Ml Liquid) 100 mg PO BID PRN PRN Reason: Constipation Enoxaparin Sodium (Enoxaparin Sodium 40 Mg/0.4 Ml Syringe) 40 mg SUBCUT Q24H [facility] Last Admin: 04/12/24 15:19 Dose: 40 mg Escitalopram Oxalate (Escitalopram Oxalate 10 Mg Tablet) 10 mg G-TUBE DAILY [facility] Last Admin: 04/12/24 10:01 Dose: 10 mg Fludrocortisone Acetate (Fludrocortisone Acetate 0.1 Mg Tablet) 0.1 mg G-TUBE BID [facility] Last Admin: 04/12/24 10:01 Dose: 0.1 mg Gabapentin (Gabapentin 600 Mg Tablet) 600 mg G-TUBE TID [facility] Last Admin: 04/12/24 10:01 Dose: 600 mg Gemfibrozil (Gemfibrozil 600 Mg Tablet) 600 mg G-TUBE BID [facility] Last Admin: 04/12/24 10:01 Dose: 600 mg Lamotrigine (Lamotrigine 100 Mg Tablet) 150 mg G-TUBE BID [facility] Last Admin: 04/12/24 10:00 Dose: 150 mg Midodrine (Midodrine Hcl 10 Mg Tablet) 10 mg G-TUBE TIDWM [facility] Last Admin: 04/12/24 13:28 Dose: 10 mg Senna (Sennosides 8.6 Mg Tablet) 17.2 mg G-TUBE BEDTIME [facility] Last Admin: 04/11/24 19:38 Dose: 17.2 mg Topiramate (Topiramate 100 Mg Tablet) 200 mg G-TUBE BID [facility] Last Admin: 04/12/24 10:01 Dose: 200 mg Home Medications ?Medication ?Instructions ?Recorded ?Confirmed ?Last Taken ?Type acetaminophen 325 mg tablet 650 mg feeding tube Q6H PRN Fever 11/06/22 04/04/24 Unknown History Or Pain bisacodyl 10 mg rectal suppository 10 mg AR DAILY PRN Constipation 11/06/22 04/04/24 Unknown History carboxymethylcellulose sodium 0.5 1 drp ophthalmic (eye) Q4H PRN Dry 11/06/22 04/04/24 Unknown History % eye drops (Refresh Tears) Eyes docusate sodium 100 mg capsule 100 mg PO DAILY 11/06/22 04/04/24 Unknown History ferrous sulfate 220 mg (44 mg 330 mg feeding tube DAILY anemia 11/06/22 04/04/24 Unknown History iron)/5 mL oral solution gabapentin 600 mg tablet 600 mg feeding tube TID 11/06/22 04/04/24 Unknown History gemfibrozil 600 mg tablet 600 mg feeding tube BID 11/06/22 04/04/24 Unknown History ibuprofen 800 mg tablet 800 mg feeding tube Q8H PRN Pain 11/06/22 04/04/24 Unknown History (Scale Score 4-6) lamotrigine 100 mg tablet 100 mg feeding tube BID 11/06/22 04/04/24 Unknown History lamotrigine 150 mg tablet 150 mg feeding tube BID 11/06/22 04/04/24 Unknown History lamotrigine 25 mg tablet 25 mg feeding tube BID 11/06/22 04/04/24 Unknown History magnesium oxide 400 mg feeding tube DAILY 11/06/22 04/04/24 Unknown History omeprazole 20 mg capsule,delayed 20 mg feeding tube DAILY@0630 11/06/22 04/04/24 Unknown History release sennosides 8.6 mg tablet (senna) 8.6 mg feeding tube Q24H PRN 11/06/22 04/04/24 Unknown History Constipation sennosides 8.6 mg tablet (senna) 17.2 mg feeding tube BEDTIME 11/06/22 04/04/24 Unknown History Constipation sodium phosphates 19 gram-7 118 ml AR Q24H PRN Constipation 11/06/22 04/04/24 Unknown History gram/118 mL enema (Fleet Enema) topiramate 100 mg tablet 100 mg feeding tube BID 11/06/22 04/04/24 Unknown History topiramate 200 mg tablet 200 mg feeding tube BID 11/06/22 04/04/24 Unknown History topiramate 25 mg tablet 25 mg feeding tube BID 11/06/22 04/04/24 Unknown History citalopram 10 mg/5 mL oral solution 20 mg feeding tube DAILY 04/04/24 04/04/24 Unknown History clobazam 10 mg tablet 5 mg feeding tube DAILY 04/04/24 04/04/24 Unknown History clobazam 10 mg tablet 10 mg feeding tube BEDTIME 04/04/24 04/04/24 Unknown History doxycycline hyclate 100 mg capsule 100 mg feeding tube BID 04/04/24 04/04/24 Unknown History fludrocortisone 0.1 mg tablet 0.1 mg feeding tube BID 04/04/24 04/04/24 Unknown History lorazepam 2 mg/mL injection syringe 1 mg IV Q5M PRN Seizures 04/04/24 04/04/24 Unknown History midodrine 10 mg tablet 10 mg feeding tube TIDWM 04/04/24 04/04/24 Unknown History multivit and minerals-ferrous 15 ml feeding tube DAILY 04/04/24 04/04/24 Unknown History gluconate 9 mg iron/15 mL oral liquid (multivitamin with minerals) prednisone 10 mg tablet 10 mg feeding tube DAILY 04/04/24 Unknown History prednisone 20 mg tablet 20 mg feeding tube DAILY 04/04/24 Unknown History prednisone 20 mg tablet 40 mg feeding tube DAILY 04/04/24 Unknown History prednisone 20 mg tablet 60 mg feeding tube DAILY 04/04/24 04/04/24 Unknown History Physical Exam Vital Signs: Vital Signs: Last Vital Signs Temp 97.3 F 04/12/24 15:31 Pulse 76 04/12/24 15:31 Resp 16 04/12/24 15:31 BP 94/53 L 04/12/24 15:31 Pulse Ox 96 04/12/24 15:31 O2 Del Method Nasal Cannula 04/12/24 15:31 O2 Flow Rate 2 04/12/24 15:31 Oxygen Flow Rate 2 04/04/24 10:15 BMI result Body Mass Index 24.3 Const: General: comfortable and confusion Nutritional Appearance: well nourished Orientation/consciousness: confusion Resp: Effort & Inspection: normal respiratory effort, no audible wheezes, no cough and no respiratory distress GI: Other: Gastrostomy site is open and draining tube feed material. No erythema noted in the surrounding skin. Inspection: Yes normal to inspection Palpation (GI): Soft to palpation and nontender Skin: Other: Warm and dry Neuro: General: confusion Results Labs 04/05/24 07:42 04/12/24 07:24 Labs: Abnormal lab results 04/12/24 Range/Units 07:24 Chloride 114 H (96-108) mmol/L Carbon Dioxide 20 L (22-29) mmol/L BUN 35 H (9-16) mg/dL Random Glucose 131 H (60-115) mg/dL BMP 04/12/24 07:24 Sodium 145 Potassium 4.0 Chloride 114 H Carbon Dioxide 20 L BUN 35 H Creatinine 0.71 Calcium 10.1 D Urine 04/04/24 Range/Units 10:59 Urine Color Yellow Urine Appearance Cloudy Urine pH 7.5 (5.0-9.0) Ur Specific [place] 1.020 (1.005-1.025) Urine Protein 30 (1+) H (Neg-Trace) mg/dL Urine Glucose (UA) Negative (Negative) mg/dL All other labs normal. Assessment and Plan (1) Feeding by G-tube: Status: Acute Plan Patient found to have a removed gastrostomy tube due to probable rupture of the balloon. A new 18 [place] gastrostomy tube was placed easily with aspiration of gastric contents confirming placement within the stomach. Balloon was inflated to 10 mL of saline. Patient tolerated the procedure very well. Patient may restart tube feeds. Procedures Date of Service Date of Service: 04/12/24 Feeding Tube Replacement Type of tube: gastrostomy Insertion site prior to procedure: clean [place] Tube Size (F): 18 Balloon size (ml): 10 Verification of placement: auscultation and other (Aspiration of gastric contents and tube feeds) Tube secured by: attachment device Patient tolerated procedure: well
[2024-04-12] MEDS: cloBAZam 10 MG TABLET G-TUBE (22:02)
[2024-04-12] MEDS: Sennosides 8.6 MG TABLET 17.2 MG G-TUBE (22:03)
[2024-04-13] VITALS: BP 109/50; PULSE 71; RESP 18; TEMP 36.6; O2SAT 95
[2024-04-13 03:36] VITALS: BP 95/48; PULSE 73; RESP 18; TEMP 36.3; O2SAT 96
[2024-04-13 06:00] VITALS: BMI 25.3
[2024-04-13 07:20] VITALS: PULSE 73; RESP 18; O2SAT 95
[2024-04-13] MEDS: Albuterol/Iprat 2.5/0.5MG 3 ML AMPUL.NEB INHALE ×2 (07:20→11:12)
[2024-04-13 07:43] LABS: Legionella Ag Urine Not Detected (Not Detected)
[2024-04-13 08:00] VITALS: BP 113/57; PULSE 78; RESP 20; TEMP 36.6; O2SAT 97
[2024-04-13] MEDS: lamoTRIgine 100 MG TABLET 150 MG G-TUBE (09:32)
[2024-04-13] MEDS: Escitalopram Oxalate 10 MG TABLET G-TUBE (09:32)
[2024-04-13] MEDS: Fludrocortisone Acetate 0.1 MG TABLET G-TUBE (09:32)
[2024-04-13] MEDS: gemfibroziL 600 MG TABLET G-TUBE (09:34)
[2024-04-13] MEDS: Gabapentin 600 MG TABLET G-TUBE (09:34)
[2024-04-13] MEDS: Midodrine HCl 10 MG TABLET G-TUBE (09:34)
[2024-04-13] MEDS: Topiramate 100 MG TABLET 200 MG G-TUBE (09:34)
--- NOTE | 2024-04-13 09:39 | MHC.CM.PN ---
Second IMM given 04/13, addressed with pts guardian/Suri Christine. Pt is medically cleared for discharge back to [facility] for LTC, he will transport there via BLS/Art.
--- NOTE | 2024-04-13 10:21 | MHC.CLN ---
F/U PT DEPENDENT ON G TUBE FOR NUTRITION SUPPORT REVIEWED LABS NOTED G TUBE FELL OUT BUT REPLACED BY PT RECEIVING JEVITY 1.0 AT MAX GOAL RATE 85ML /HR WITH 240ML FREE WATER FLUSHES Q 8HRS PROVIDES 2162KCALS (25KCALS/KG), 90G PROTEIN (1.06G/KG), 2460ML TOTAL WATER FROM FORMULA AND FLUSHES (29ML/KG) CONTINUE TO MONITOR TOLERANCE AND LYTES
[2024-04-13 11:12] VITALS: PULSE 78; RESP 20; O2SAT 96
[2024-04-13 12:00] VITALS: BP 118/62; PULSE 72; RESP 20; TEMP 36.3; O2SAT 96
--- NOTE | 2024-04-13 12:07 | P.DS_ITS ---
DS: Providers Provider Date of Service: 04/13/24 Date of admission: 04/04/24 14:09 Primary care physician: Mayur Bautista DO Consults: 04/12/24 15:39 Consult to General Surgery Routine Consulting Provider: [facility] Reason for consultation: gtube out, balloon deflated DS: Diagnosis Discharge Diagnosis (1) Feeding by G-tube: Status: Acute DS: Summary Hospital Course Hospital Course: History and physical as per admitting provider. 69-year-old male with past medical history of TBI, seizure disorder, aspiration pneumonia who is nonverbal and bed-bound is brought into the ED from [facility] this morning due to low-grade fever and change in mental status. On note patient is on midodrine at home and looks like his blood pressure is always on the borderline. His labs are pretty much normal including the white counts and lactate. He has a urinary tract infection. chronic respiratory failure pt on 2L supplemental oxygen at baseline - remains on the same Aspiration pneumonia episode of choking on March 30 and had been on doxycycline at [facility] s/p shortness of breath, hypoxia. now on room air CT chest showing Left lower lobe consolidation present in 2020, less prominent then previous treated with meropenem at baseline tolerates pureed diet however has been resistive to speech therapy evaluation, therefore currently NPO by mouth - can be re-assessed when he returns to [facility] tube feeding diet Jevity 24hrs peg tube replaced 04/12 due to it falling out Ecoli UTI treated with meropenem given multiple allergies tx with 5 days GPC bacteremia coagulase negative staph, contaminant chronic low bp on midodrine and fludocortisone continue baseline meds for mood/seizures disorder topomax constipation continue bowel regimen Time Attestation Discharge Coordination Time (in mins): 40 Quality: Safe Use of Opioids Does Pt have an Active Cancer Diagnosis on the Problem List?: No Quality: Stroke Does the patient have a stroke diagnosis?: No Physical Exam Vital Signs: Vital Signs: Last Vital Signs Temp 97.9 F 04/13/24 08:00 Pulse 78 04/13/24 11:12 Resp 20 04/13/24 11:12 BP 113/57 L 04/13/24 08:00 Pulse Ox 97 04/13/24 08:00 O2 Del Method Nasal Cannula 04/13/24 08:00 O2 Flow Rate 3 04/13/24 08:00 Oxygen Flow Rate 2 04/04/24 10:15 BMI result Body Mass Index 25.3 Appearing in no acute distress head is normocephalic atraumatic eyes pupils are PERRLA sclera is anicteric mouth throat mucous membranes are intact and moist neck is supple no lymphadenopathy, no JVD noted lung sounds are clear to auscultation heart regular rate rhythm, clear S1, S2 positive bowel sounds, abdomen is soft, nontender, gtube neuro patient is alert , confused DS: Data Data Completed and Pending Completed studies during hospitalization [Text1]: Procedures Drainage of Gallbladder with Drainage Device, Percutaneous Approach (12/28/20) Insertion of Infusion Device into Superior Vena Cava, Percutaneous Approach (12/28/20) Removal of Drainage Device from Gallbladder, Percutaneous Approach (02/13/21) Resection of Gallbladder, Percutaneous Endoscopic Approach (02/13/21) Labs on day of discharge: Laboratory Results - last 24 hr 04/07/24 06:20 Ur L.pneumophila Ag Not Detected Discharge Plan Discharge Anticipated Discharge Date/Time: 04/13/24 06:51 Patient Disposition: Xfer [facility] Discharge Diagnosis: Acute pulmonary edema Chronic respiratory failure Aspiration pneumonia E coli UTI Referrals: [facility] [Outside] - 1 Week Mayur Bautista DO [Primary Care Provider] - 1 Week Discharge Medications: Continued lamotrigine 150 mg tablet 150 mg feeding tube BID Rx Instructions: TDD = 275 mg BID sennosides [senna] 8.6 mg Tablet 17.2 mg feeding tube BEDTIME sennosides [senna] 8.6 mg Tablet 8.6 mg feeding tube Q24H PRN (Reason: Constipation) acetaminophen 325 mg Tablet 650 mg feeding tube Q6H PRN (Reason: Fever Or Pain) gabapentin 600 mg tablet 600 mg feeding tube TID ibuprofen 800 mg Tablet 800 mg feeding tube Q8H PRN (Reason: Pain (Scale Score 4-6)) topiramate 25 mg tablet 25 mg feeding tube BID Rx Instructions: TDD = 325 mg BID lamotrigine 25 mg tablet 25 mg feeding tube BID Rx Instructions: TDD = 275 mg BID carboxymethylcellulose sodium [Refresh Tears] 0.5 % Drops 1 drp OPHTHALMIC (EYE) Q4H PRN (Reason: Dry Eyes) gemfibrozil 600 mg tablet 600 mg feeding tube BID bisacodyl 10 mg Suppository 10 mg HI DAILY PRN (Reason: Constipation) Fleet Enema 19-7 gram/118 mL Enema 118 ml HI Q24H PRN (Reason: Constipation) docusate sodium 100 mg Capsule 100 mg PO DAILY omeprazole 20 mg capsule,delayed release(DR/EC) 20 mg feeding tube DAILY@0630 topiramate 200 mg tablet 200 mg feeding tube BID Rx Instructions: TDD = 325 mg BID topiramate 100 mg tablet 100 mg feeding tube BID Rx Instructions: TDD = 325 mg BID lamotrigine 100 mg tablet 100 mg feeding tube BID Rx Instructions: TDD = 275 mg BID ferrous sulfate 220 mg (44 mg iron)/5 mL Solution 330 mg feeding tube DAILY magnesium oxide 400 mg magnesium Tablet 400 mg feeding tube DAILY citalopram 10 mg/5 mL solution 20 mg feeding tube DAILY midodrine 10 mg Tablet 10 mg feeding tube TIDWM Rx Instructions: do not give last dose of day after 6PM or within 4 hrs of bedtime lorazepam 2 mg/mL Syringe 1 mg IV Q5M PRN (Reason: Seizures) Rx Instructions: until symptoms controlled, MAY REPEAT ONE TIME multivitamin with minerals 9 mg iron/15 mL Liquid 15 ml feeding tube DAILY fludrocortisone 0.1 mg Tablet 0.1 mg feeding tube BID clobazam 10 mg Tablet 5 mg feeding tube DAILY Rx Instructions: 1/2 TABLET clobazam 10 mg Tablet 10 mg feeding tube BEDTIME Discontinued prednisone 10 mg Tablet 10 mg feeding tube DAILY Rx Instructions: x 3 days 04/14/24 thorugh 04/17/24 doxycycline hyclate 100 mg Capsule 100 mg feeding tube BID Rx Instructions: for pneumonia x 10 days (04/04/24 through 04/14/24) prednisone 20 mg Tablet 20 mg feeding tube DAILY Rx Instructions: x 3 days 04/10/24 through 04/13/24 prednisone 20 mg Tablet 60 mg feeding tube DAILY Rx Instructions: x 3 days 04/04/24 through 04/07/24 prednisone 20 mg Tablet 40 mg feeding tube DAILY Rx Instructions: x 3 days, 04/07/24 thorugh 04/10/24 Discharge Orders: Discharge Order (Routine); Ordered 04/13/24 Ordered By: Veronica Cat Diet: Advance to usual diet Activity on Discharge: As tolerated Stand Alone Forms: Patient Portal Discharge page Print Language: Liberian Care Plan Goals: Transfer back to [facility] for long-term care Health Concerns: Acute pulmonary edema Chronic respiratory failure Aspiration pneumonia E coli UTI Plan of Treatment: Follow-up with primary care provider as needed Take all medications as prescribed Assessment: See discharge summary
== END 2024-04-13 12:15 | DRG 871 ==
LOC: HO.ED 11:04 → HO.EDOVER 14:32 → HO.ICU 15:14 → HO.IMC 04-05 15:30
PROVIDERS: Physician Assistant; Physician Assistant Medical; Admitting Provider Internal Medicine Critical Care Medicine; Emergency Provider Emergency Medicine Emergency Medical Services; PCP Hospitalist; Visit Provider Nurse Practitioner Acute Care
DX: A41.9 Sepsis, unspecified organism (principal); G82.50 Quadriplegia, unspecified; J69.0 Pneumonitis due to inhalation of food and vomit; J81.0 Acute pulmonary edema; N39.0 Urinary tract infection, site not specified; G40.909 Epilepsy, unspecified, not intractable, without status epilepticus; K59.00 Constipation, unspecified; S06.9XAS Unspecified intracranial injury with loss of consciousness status unknown, sequela; B96.20 Unspecified Escherichia coli [E. coli] as the cause of diseases classified elsewhere; Z74.01 Bed confinement status; Z99.81 Dependence on supplemental oxygen; Z93.1 Gastrostomy status; Z88.0 Allergy status to penicillin; Z88.1 Allergy status to other antibiotic agents; Z79.899 Other long term (current) drug therapy
CPT/HCPCS: 0241U; 36415; 71045; 71260; 74177; 80048; 80053; 81001; 82803; 82947; 83605; 83735; 83880; 84100; 85025; 85610; 87040; 87086; 87088; 87147; 87186; 87205; 87449; 87640; 87641; 93005; 94640; 99283; 99284; 99285; C1758; J0456; J1650; J1940; J2185; J2919; J7120; P9047; Q9967

== ENCOUNTER 2024-04-04 14:09 | Outpatient (BNV) | payer MEDICARE, MEDICAID, SELFPAY | END 2024-04-10 10:50 | PROVIDERS: Admitting Provider Internal Medicine Critical Care Medicine; Emergency Provider Emergency Medicine Emergency Medical Services; PCP Hospitalist; Visit Provider Radiology Diagnostic Radiology | DX: R06.02 Shortness of breath (principal) | CPT/HCPCS: 71045 ==

== ENCOUNTER → 2024-04-04 14:09 | Outpatient (BNV) | payer MEDICARE, MEDICAID, SELFPAY | PROVIDERS: Admitting Provider Internal Medicine Critical Care Medicine; Emergency Provider Emergency Medicine Emergency Medical Services; PCP Hospitalist; Visit Provider Physician Assistant Medical | DX: Z93.1 Gastrostomy status (principal) | CPT/HCPCS: 99232; 99239; 99499 ==

== ENCOUNTER → 2024-04-04 14:09 | Outpatient (BNV) | payer MEDICARE, MEDICAID, SELFPAY | PROVIDERS: Admitting Provider Internal Medicine Critical Care Medicine; Emergency Provider Emergency Medicine Emergency Medical Services; PCP Hospitalist; Visit Provider Internal Medicine | DX: J69.0 Pneumonitis due to inhalation of food and vomit (principal) | CPT/HCPCS: 99222 ==

== ENCOUNTER → 2024-04-04 14:09 | Outpatient (BNV) | payer MEDICARE, MEDICAID, SELFPAY | PROVIDERS: Admitting Provider Internal Medicine Critical Care Medicine; Emergency Provider Emergency Medicine Emergency Medical Services; PCP Hospitalist; Visit Provider Surgery | DX: Z93.1 Gastrostomy status (principal) | CPT/HCPCS: 43762; 99222 ==

== ENCOUNTER → 2024-04-04 14:09 | Outpatient (BNV) | payer MEDICARE, MEDICAID, SELFPAY | PROVIDERS: Admitting Provider Internal Medicine Critical Care Medicine; Emergency Provider Emergency Medicine Emergency Medical Services; PCP Hospitalist; Visit Provider Internal Medicine Critical Care Medicine | DX: I95.9 Hypotension, unspecified (principal); N39.0 Urinary tract infection, site not specified | CPT/HCPCS: 99222; 99291 ==

== ENCOUNTER 2024-06-01 19:13 | Emergency (ER) | payer MEDICARE, MEDICAID, SELFPAY ==
[2024-06-01] VITALS (23 sets, daily range): BP systolic 68–103; BP diastolic 30–62; PULSE 97–135; RESP 16–27; TEMP 37.2–38.7; O2SAT 95–99; BMI 26.2
--- NOTE | ~2024-06-01 | XR_ITS ---
CLINICAL HISTORY: central line Exam: AP portable chest x-ray. Comparison: June 01, 2024 at 8:16 p.m. Findings: Study performed at 10:50 p.m. Interval placement of right internal jugular central venous catheter with tip projected over the distal superior vena cava. No pneumothorax. Lungs are better inflated than the study from earlier today. Cardiac silhouette is mildly enlarged. Continued perihilar interstitial prominence. Improved areas of consolidation within the lung bases. Small bilateral pleural effusions. Impression: No pneumothorax after central line placement. This document has been electronically signed by: Dameon Shafer MD on 06/01/2024 23:30:59
--- NOTE | ~2024-06-01 | XR_ITS ---
CLINICAL HISTORY: sepsis Exam: AP portable chest x-ray. Comparison: April 12, 2024. Findings: Lungs are hypoinflated. Cardiac silhouette is mildly enlarged. There is dense consolidation of the left lung base with small left pleural effusion. Increasing areas of perihilar interstitial prominence. Impression: 1. Hypoinflation. 2. Left basilar consolidation may be related to pneumonia or atelectasis. 3. Perihilar interstitial prominence can be seen with edema or bronchitis. This document has been electronically signed by: Dameon Shafer MD on 06/01/2024 20:58:55
--- NOTE | 2024-06-01 19:21 | ECG_ITS ---
Test Reason : weakness Blood Pressure : / mmHG Vent. Rate : 104 BPM Atrial Rate : 104 BPM P-R Int : 192 ms QRS Dur : 084 ms QT Int : 336 ms P-R-T Axes : 049 -11 032 degrees QTc Int : 441 ms Sinus tachycardia Inferior infarct , age undetermined Abnormal ECG When compared with ECG of 01-APR-2024 20:28, No significant changes seen Referred By: Juan Ledesma Electronically Signed By:DIANA ALVARADO MD
[2024-06-01] MEDS: Meropenem 1 GM VIAL IVPUSH (19:59)
[2024-06-01] MEDS: 0.9 % Sodium Chloride 1,000 ML 999 ML IV ×3 (19:59→20:58)
[2024-06-01 20:02] LABS: Hematocrit 34.4 % (42.0-52.0); Hemoglobin 11.7 g/dl (14.0-18.0); Mean Corpuscular Hemoglobin 33.9 pg (27.0-33.0); Mean Corpuscular Volume 99.7 fL (80.0-98.0); Mean Platelet Volume 10.7 fL (9.4-12.4); Platelet Count 150 X10*3/uL (160-400); Red Blood Count 3.45 X10*6/uL (4.60-5.80); Red Cell Distribution Width 13.7 % (11.0-16.0); White Blood Count 25.7 X10*3/uL (4.8-10.8)
--- NOTE | 2024-06-01 20:14 | PC.NURSE ---
Patient from a facility with baseline TBI and non-verbal at baseline. Was found in the am by staff at the facility to be red and flushed, patient was placed on a couple liters of oxygen and patient seemed to improve. Upon arrival to our facility patient is hypotensive with systolics in the 60's and temp of 101.7. Patient does have G-tube in place. Patient sounds very raspy upon arrival. Sepsis alert activated. 2L normal saline and meropenem given. Cultures were sent. Levophed started for hypotensive
[2024-06-01 20:23] LABS: Neutrophils Percent Manual 74 % (45-73)
[2024-06-01 20:24] LABS: Alanine Aminotransferase 20 U/L (0-40); Alkaline Phosphatase 158 U/L (39-117); Anion Gap 16 (12-20); Aspartate Amino Transferase 39 U/L (5-37); Bilirubin Direct 0.3 mg/dL (0.0-0.5); Bilirubin Total 0.4 mg/dL (0.0-1.0); Blood Urea Nitrogen 38 mg/dL (9-16); Calcium 9.1 mg/dL (8.4-10.2); Carbon Dioxide 17 mmol/L (22-29); Chloride 105 mmol/L (96-108); Estimated Glomerular Filt Rate 28; Glucose Random 95 mg/dL (60-115); Potassium 3.5 mmol/L (3.3-5.1); Sodium 134 mmol/L (135-145)
[2024-06-01 20:25] LABS: Band Neutrophils Percent 21 % (3-5); Metamyelocytes Absolute 0.8 X10*3/uL; Metamyelocytes Percent 3 %; Monocytes Absolute Manual 0.5 X10*3/uL (0.1-1.2); Monocytes Percent Manual 2 % (2-11); Neutrophils Absolute Manual 24.4 X10*3/uL (2.0-8.3)
[2024-06-01 20:26] LABS: Burr Cells 2+ (3-5) /OIF; Dohle Bodies PRESENT; RBC Morphology NOTED; Schistocytes 1+ (0-2) /OIF; Toxic Granulation PRESENT; Toxic Vacuolation PRESENT
[2024-06-01 20:27] LABS: VBG Base Excess -8.3 mmol/L; VBG HCO3 18 mmol/L (22-26); VBG pCO2 44 mmHg; VBG pH 7.23 (7.32-7.43); VBG pO2 59 mmHg
[2024-06-01 20:27] LABS: Platelet Estimate NORMAL (NORMAL); Platelet Morphology Comment NORMAL
[2024-06-01 20:31] LABS: Troponin-I High Sensitivity 71.1 ng/L (<3.5-35.0)
--- NOTE | 2024-06-01 20:33 | ED_ITS ---
HPI - General Adult General Chief complaint: General Medical Stated complaint: SEPSIS ALERT Time Seen by Provider: 06/01/24 19:19 Related Data Home Medications ?Medication ?Instructions ?Recorded ?Confirmed acetaminophen 325 mg tablet 650 mg feeding tube Q6H PRN Fever 11/06/22 04/04/24 Or Pain bisacodyl 10 mg rectal suppository [address] DAILY PRN Constipation 11/06/22 04/04/24 carboxymethylcellulose sodium 0.5 1 drp ophthalmic (eye) Q4H PRN Dry 11/06/22 04/04/24 % eye drops (Refresh Tears) Eyes docusate sodium 100 mg capsule 100 mg PO DAILY 11/06/22 04/04/24 ferrous sulfate 220 mg (44 mg 330 mg feeding tube DAILY anemia 11/06/22 04/04/24 iron)/5 mL oral solution gabapentin 600 mg tablet 600 mg feeding tube TID 11/06/22 04/04/24 gemfibrozil 600 mg tablet 600 mg feeding tube BID 11/06/22 04/04/24 ibuprofen 800 mg tablet 800 mg feeding tube Q8H PRN Pain 11/06/22 04/04/24 (Scale Score 4-6) lamotrigine 100 mg tablet 100 mg feeding tube BID 11/06/22 04/04/24 lamotrigine 150 mg tablet 150 mg feeding tube BID 11/06/22 04/04/24 lamotrigine 25 mg tablet 25 mg feeding tube BID 11/06/22 04/04/24 magnesium oxide 400 mg feeding tube DAILY 11/06/22 04/04/24 omeprazole 20 mg capsule,delayed 20 mg feeding tube DAILY@0630 11/06/22 04/04/24 release sennosides 8.6 mg tablet (senna) 8.6 mg feeding tube Q24H PRN 11/06/22 04/04/24 Constipation sennosides 8.6 mg tablet (senna) 17.2 mg feeding tube BEDTIME 11/06/22 04/04/24 Constipation sodium phosphates 19 gram-[address] Q24H PRN Constipation 11/06/22 04/04/24 gram/118 mL enema (Fleet Enema) topiramate 100 mg tablet 100 mg feeding tube BID 11/06/22 04/04/24 topiramate 200 mg tablet 200 mg feeding tube BID 11/06/22 04/04/24 topiramate 25 mg tablet 25 mg feeding tube BID 11/06/22 04/04/24 citalopram 10 mg/5 mL oral solution 20 mg feeding tube DAILY 04/04/24 04/04/24 clobazam 10 mg tablet 5 mg feeding tube DAILY 04/04/24 04/04/24 clobazam 10 mg tablet 10 mg feeding tube BEDTIME 04/04/24 04/04/24 fludrocortisone 0.1 mg tablet 0.1 mg feeding tube BID 04/04/24 04/04/24 lorazepam 2 mg/mL injection syringe 1 mg IV Q5M PRN Seizures 04/04/24 04/04/24 midodrine 10 mg tablet 10 mg feeding tube TIDWM 04/04/24 04/04/24 multivit and minerals-ferrous 15 ml feeding tube DAILY 04/04/24 04/04/24 gluconate 9 mg iron/15 mL oral liquid (multivitamin with minerals) Allergies Allergy/AdvReac Type Severity Reaction Status Date / Time Penicillins [PENICILLINS] Allergy Severe Anaphylaxis Verified 06/01/24 20:20 cefotetan [From CEFOTAN] Allergy Unknown UNKNOWN Verified 06/01/24 20:20 Cephalosporins Allergy Unknown UNKNOWN Verified 06/01/24 20:20 [CEPHALOSPORINS] clindamycin [CLINDAMYCIN] Allergy Unknown UNKNOWN Verified 06/01/24 20:20 levofloxacin [LEVOFLOXACIN] Allergy Unknown UNKNOWN Verified 06/01/24 20:20 Quinolones [QUINOLONES] Allergy Unknown UNKNOWN Verified 06/01/24 20:20 [facility] Past Medical History Medical History Unspecified hearing loss, unspecified ear Unspecified psychosis not due to a substance or known physiological condition Obesity, unspecified Gastro-esophageal reflux disease without esophagitis Dysphagia, oropharyngeal phase Lymphedema, not elsewhere classified Hyperlipidemia, unspecified Anemia, unspecified Hypoxemia Personal history of pneumonia (recurrent) Lupus anticoagulant disorder Presbyopia Myopia, bilateral Age-related nuclear cataract, bilateral Calculus of gallbladder and bile duct with acute cholecystitis with obstruction Pneumonitis due to inhalation of food and vomit History of COVID-19 Major depressive disorder, recurrent, mild Concussion with loss of consciousness of unspecified duration, initial encounter 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, sequela Sepsis GERD (gastroesophageal reflux disease) Elevated cholesterol Gastrostomy tube in place Seizures TBI (traumatic brain injury) Surgical History History of lithotripsy History of surgery Social History Social History Household Members: Unknown / Unable to assess Household Members Other:: [facility] Housing: Snf Are you a primary nurse healthcare manager to a significant other at home: No Do you presently have visiting nurse or other home services: Yes Unable to assess alcohol history related to: Unable to respond Alcohol intake: never Patient Tobacco Use Status: Tobacco use Unknown Advance Directives: Yes Advance Directives on File: Yes Advance Directives Date on File: 02/09/21 service: No Current occupational status: disabled Physical Exam ED Vital Signs: Vital Signs - 24 hr 06/01/24 19:27 06/01/24 20:00 06/01/24 20:19 Temperature 101.7 F H 101.7 F H Pulse Rate 98 Respiratory Rate 16 Blood Pressure 68/35 L Pulse Oximetry 95 Oxygen Delivery Method Nasal Cannula Oxygen Flow Rate 2 06/01/24 20:35 06/01/24 20:38 06/01/24 20:42 Temperature 100.6 F H Pulse Rate 99 97 98 Respiratory Rate 17 Blood Pressure 71/36 L 72/37 L 70/33 L Pulse Oximetry 98 Oxygen Delivery Method Nasal Cannula Oxygen Flow Rate 2 06/01/24 20:53 06/01/24 21:09 06/01/24 21:11 Temperature 99.5 F Pulse Rate 103 H 105 H 105 H Respiratory Rate 27 H Blood Pressure 75/39 L 73/41 L 73/41 L Pulse Oximetry 99 Oxygen Delivery Method Nasal Cannula Oxygen Flow Rate 2 06/01/24 21:18 06/01/24 21:27 06/01/24 21:34 Temperature 99.3 F Pulse Rate 106 H 110 H 108 H Respiratory Rate 18 Blood Pressure 80/40 L 74/38 L 74/44 L Pulse Oximetry 97 Oxygen Delivery Method Nasal Cannula Oxygen Flow Rate 2 06/01/24 21:50 06/01/24 22:03 06/01/24 22:19 Temperature 99.1 F 99.0 F Pulse Rate 108 H 114 H 114 H Respiratory Rate 17 17 Blood Pressure 70/30 L 94/50 L 97/55 L Pulse Oximetry 99 98 Oxygen Delivery Method Nasal Cannula Nasal Cannula Oxygen Flow Rate 2 2 BMI result Body Mass Index 26.2 Medications Administered Generic Name Dose Route Start Last Admin Trade Name Freq PRN Reason Stop Dose Admin Norepinephrine Bitartrate 8 mg in 250 mls @ 0 mls/hr 06/01/24 20:15 06/01/24 21:50 Levophed IVCONT 0.2 mcg/kg/min .Q0M ANDREW 42.52 mls/hr Titration Protocol Per Protocol Albumin Human 100 mls @ 133.333 mls/hr 06/01/24 21:45 06/01/24 22:33 Kedbumin 25 % IV 06/01/24 23:29 133.33 mls/hr Q1H ANDREW Administration Doxycycline Hyclate 100 mg/ 250 mls @ 166.67 mls/hr 06/01/24 21:57 06/01/24 22:20 Sodium Chloride IV 06/01/24 23:26 166.67 mls/hr ONCE ONE Administration Discontinued Medications Generic Name Dose Route Start Last Admin Trade Name Aydinq PRN Reason Stop Dose Admin Hydrocortisone Sodium Succinate 100 mg 06/01/24 22:00 06/01/24 22:20 Hydrocortisone Sod Succ/Pf 100 Mg Vial IVPUSH 06/01/24 22:01 100 mg ONCE ONE Administration Sodium Chloride 1,000 mls @ 999 mls/hr 06/01/24 19:45 06/01/24 21:48 Ns IV 06/01/24 20:45 Infused .Q1H1M ANDREW Infusion Sodium Chloride 1,000 mls @ 999 mls/hr 06/01/24 20:00 06/01/24 20:56 Ns IV 06/01/24 21:00 Infused .Q1H1M ANDREW Infusion Sodium Chloride 1,000 mls @ 999 mls/hr 06/01/24 20:30 06/01/24 20:58 Ns IV 06/01/24 21:30 999 mls/hr .Q1H1M ANDREW Administration Sodium Chloride 500 mls @ 500 mls/hr 06/01/24 21:45 06/01/24 21:54 Ns IV 06/01/24 22:44 500 mls/hr .Q1H ANDREW Administration Meropenem 1 gm 06/01/24 19:48 06/01/24 19:59 Meropenem 1 Gm Vial IVPUSH 06/01/24 19:49 1 gm ONCE ONE Administration Procedures Central Line Placement Right IJ: Time Out Performed: Yes Patient Placed on Monitor/Pulse Ox: Yes MD Prep: mask, gown and gloves Central Line Prep: Chlorhexidine scrub Local Anesthetic: lidocaine 1% Amount of anesthesia used (mL): 3 Ultrasound Used for Placement: Yes Central Line Lumen Inserted: triple Post Procedure: sutured in place Post Procedure X-Ray: tip of catheter in good position Patient Tolerated Procedure: well Complications: none Medical Decision Making Medical Decision Making MDM Narrative: 69-year-old male presenting for hypotension and hypoxia. I am concerned for sepsis, pneumonia, UTI, electrolyte/metabolic disturbance -labs, fluids and imaging studies ordered -additional fluids and IV access established -levo started due to persistent hypotension despite 2 L; 3L orderd -labs notable for significant leukocytosis, elevated creatinine, elevated lactic acid, elevated troponin -no signs of ischemia appreciated patient's EKG; elevated troponin likely secondary to demand Patient requries ICU level care however there are no ICU beds in this hospital or at [facility]. [facility] was subsequently contacted however no beds available they are either We will continue management in the emergency department until dispo established Central line placed in Right IJ Accepted to [facility] by Dr. Guidry Lab Data 06/01/24 19:54 06/01/24 19:54 Labs: Lab Results 06/01/24 06/01/24 06/01/24 Range/Units 19:54 20:01 20:07 WBC 25.7 H (4.8-10.8) X10*3/uL RBC 3.45 L (4.60-5.80) X10*6/uL Hgb 11.7 L (14.0-18.0) g/dl Hct 34.4 L (42.0-52.0) % MCV 99.7 H (80.0-98.0) fL MCH 33.9 H (27.0-33.0) pg MCHC 34.0 (31.0-36.0) g/dl RDW 13.7 (11.0-16.0) % Plt Count 150 L (160-400) X10*3/uL MPV 10.7 (9.4-12.4) fL Immature Gran % (Auto) Cancelled Neut % (Auto) Cancelled Lymph % (Auto) Cancelled [place] % (Auto) Cancelled Eos % (Auto) Cancelled Baso % (Auto) Cancelled Lymph # (Auto) Cancelled [place] # (Auto) Cancelled Eos # (Auto) Cancelled Baso # (Auto) Cancelled Abs Immat Gran (auto) Cancelled Absolute Neuts (auto) Cancelled Absolute Nucleated RBC 0.000 (0.0-0.012) X10*3/uL Nucleated RBC % (auto) 0.0 (0.0-0.2) /100WBC Neutrophils % (Manual) 74 H (45-73) % Band Neutrophils % 21 H (3-5) % Monocytes % (Manual) 2 (2-11) % Metamyelocytes % 3 % Abs Neuts (Manual) 24.4 H (2.0-8.3) X10*3/uL Monocytes # (Manual) 0.5 (0.1-1.2) X10*3/uL Metamyelocytes # 0.8 X10*3/uL Toxic Granulation PRESENT Toxic Vacuolation PRESENT Dohle Bodies PRESENT Platelet Estimate NORMAL (NORMAL) Plt Morphology Comment NORMAL RBC Morphology NOTED [place] Cells 2+ (3-5) /OIF Schistocytes 1+ (0-2) /OIF VBG pH 7.23 L (7.32-7.43) VBG pCO2 44 mmHg VBG pO2 59 mmHg VBG HCO3 18 L (22-26) mmol/L VBG O2 Saturation 86.0 % VBG Base Excess -8.3 mmol/L Sodium 134 L (135-145) mmol/L Potassium 3.5 (3.3-5.1) mmol/L Chloride 105 (96-108) mmol/L Carbon Dioxide 17 L (22-29) mmol/L Anion Gap 16 (12-20) BUN 38 H (9-16) mg/dL Creatinine 2.34 H (0.5-1.4) mg/dL Estim Creat Clear Calc 38.0 Estimated GFR 28 Random Glucose 95 (60-115) mg/dL Lactic Acid 4.6 H* (0.5-2.0) mmol/L Calcium 9.1 D (8.4-10.2) mg/dL Total Bilirubin 0.4 (0.0-1.0) mg/dL Direct Bilirubin 0.3 (0.0-0.5) mg/dL AST 39 H (5-37) U/L ALT 20 (0-40) U/L Alkaline Phosphatase 158 H (39-117) U/L Troponin I High Sens 71.1 H D (<3.5-35.0) ng/L Total Protein 6.0 L (6.5-8.0) g/dL Albumin 3.0 L (3.5-5.0) g/dL Urine Color Urine Appearance Urine pH (5.0-9.0) Ur Specific [place] (1.005-1.025) Urine Protein (Neg-Trace) mg/dL Urine Glucose (UA) (Negative) mg/dL Urine Ketones (Negative) mg/dL Urine Blood (Negative) Urine Nitrite (Negative) Ur Leukocyte Esterase (Negative) Urine RBC (0-2) /HPF Urine WBC (0-5) /HPF Ur Squamous Epith Cells (0-2) /HPF Urine Bacteria (None Seen) Hyaline Casts (0-2) /LPF Influenza Type A (PCR) NEGATIVE (Negative) Influenza Type B (PCR) NEGATIVE (Negative) RSV RNA Qual (PCR) NEGATIVE (Negative) SARS-CoV-2 RNA (RT-PCR) NEGATIVE (Negative) 06/01/24 Range/Units 21:33 WBC (4.8-10.8) X10*3/uL RBC (4.60-5.80) X10*6/uL Hgb (14.0-18.0) g/dl Hct (42.0-52.0) % MCV (80.0-98.0) fL MCH (27.0-33.0) pg MCHC (31.0-36.0) g/dl RDW (11.0-16.0) % Plt Count (160-400) X10*3/uL MPV (9.4-12.4) fL Immature Gran % (Auto) Neut % (Auto) Lymph % (Auto) [place] % (Auto) Eos % (Auto) Baso % (Auto) Lymph # (Auto) [place] # (Auto) Eos # (Auto) Baso # (Auto) Abs Immat Gran (auto) Absolute Neuts (auto) Absolute Nucleated RBC (0.0-0.012) X10*3/uL Nucleated RBC % (auto) (0.0-0.2) /100WBC Neutrophils % (Manual) (45-73) % Band Neutrophils % (3-5) % Monocytes % (Manual) (2-11) % Metamyelocytes % % Abs Neuts (Manual) (2.0-8.3) X10*3/uL Monocytes # (Manual) (0.1-1.2) X10*3/uL Metamyelocytes # X10*3/uL Toxic Granulation Toxic Vacuolation Dohle Bodies Platelet Estimate (NORMAL) Plt Morphology Comment RBC Morphology [place] Cells /OIF Schistocytes /OIF VBG pH (7.32-7.43) VBG pCO2 mmHg VBG pO2 mmHg VBG HCO3 (22-26) mmol/L VBG O2 Saturation % VBG Base Excess mmol/L Sodium (135-145) mmol/L Potassium (3.3-5.1) mmol/L Chloride (96-108) mmol/L Carbon Dioxide (22-29) mmol/L Anion Gap (12-20) BUN (9-16) mg/dL Creatinine (0.5-1.4) mg/dL Estim Creat Clear Calc Estimated GFR Random Glucose (60-115) mg/dL Lactic Acid (0.5-2.0) mmol/L Calcium (8.4-10.2) mg/dL Total Bilirubin (0.0-1.0) mg/dL Direct Bilirubin (0.0-0.5) mg/dL AST (5-37) U/L ALT (0-40) U/L Alkaline Phosphatase (39-117) U/L Troponin I High Sens (<3.5-35.0) ng/L Total Protein (6.5-8.0) g/dL Albumin (3.5-5.0) g/dL Urine Color DK YELLOW Urine Appearance Turbid Urine pH 5.5 (5.0-9.0) Ur Specific [place] 1.025 (1.005-1.025) Urine Protein 300 (3+) H (Neg-Trace) mg/dL Urine Glucose (UA) Negative (Negative) mg/dL Urine Ketones Trace (Negative) mg/dL Urine Blood Moderate (2+) H (Negative) Urine Nitrite Positive H (Negative) Ur Leukocyte Esterase Large (3+) H (Negative) Urine RBC >20 H (0-2) /HPF Urine WBC >50 H (0-5) /HPF Ur Squamous Epith Cells 0-2 (0-2) /HPF Urine Bacteria 4+ (None Seen) Hyaline Casts 0-2 (0-2) /LPF Influenza Type A (PCR) (Negative) Influenza Type B (PCR) (Negative) RSV RNA Qual (PCR) (Negative) SARS-CoV-2 RNA (RT-PCR) (Negative) Discharge Plan Discharge Clinical Impression: PRETTY (acute kidney injury) Hypotension Qualifiers: Hypotension type: unspecified hypotension type Qualified Code(s): I95.9 - Hypotension, unspecified Patient Disposition: [facility] Transfer Details: hospital for special care Prescriptions: No Action lamotrigine 150 mg tablet 150 mg feeding tube BID Rx Instructions: TDD = 275 mg BID sennosides [senna] 8.6 mg Tablet 17.2 mg feeding tube BEDTIME sennosides [senna] 8.6 mg Tablet 8.6 mg feeding tube Q24H PRN (Reason: Constipation) acetaminophen 325 mg Tablet 650 mg feeding tube Q6H PRN (Reason: Fever Or Pain) gabapentin 600 mg tablet 600 mg feeding tube TID ibuprofen 800 mg Tablet 800 mg feeding tube Q8H PRN (Reason: Pain (Scale Score 4-6)) topiramate 25 mg tablet 25 mg feeding tube BID Rx Instructions: TDD = 325 mg BID lamotrigine 25 mg tablet 25 mg feeding tube BID Rx Instructions: TDD = 275 mg BID carboxymethylcellulose sodium [Refresh Tears] 0.5 % Drops 1 drp OPHTHALMIC (EYE) Q4H PRN (Reason: Dry Eyes) gemfibrozil 600 mg tablet 600 mg feeding tube BID bisacodyl 10 mg Suppository [address] DAILY PRN (Reason: Constipation) Fleet Enema 19-7 gram/118 mL Enema [address] Q24H PRN (Reason: Constipation) docusate sodium 100 mg Capsule 100 mg PO DAILY omeprazole 20 mg capsule,delayed release(DR/EC) 20 mg feeding tube DAILY@0630 topiramate 200 mg tablet 200 mg feeding tube BID Rx Instructions: TDD = 325 mg BID topiramate 100 mg tablet 100 mg feeding tube BID Rx Instructions: TDD = 325 mg BID lamotrigine 100 mg tablet 100 mg feeding tube BID Rx Instructions: TDD = 275 mg BID ferrous sulfate 220 mg (44 mg iron)/5 mL Solution 330 mg feeding tube DAILY magnesium oxide 400 mg magnesium Tablet 400 mg feeding tube DAILY citalopram 10 mg/5 mL solution 20 mg feeding tube DAILY midodrine 10 mg Tablet 10 mg feeding tube TIDWM Rx Instructions: do not give last dose of day after 6PM or within 4 hrs of bedtime lorazepam 2 mg/mL Syringe 1 mg IV Q5M PRN (Reason: Seizures) Rx Instructions: until symptoms controlled, MAY REPEAT ONE TIME multivitamin with minerals 9 mg iron/15 mL Liquid 15 ml feeding tube DAILY fludrocortisone 0.1 mg Tablet 0.1 mg feeding tube BID clobazam 10 mg Tablet 5 mg feeding tube DAILY Rx Instructions: 1/2 TABLET clobazam 10 mg Tablet 10 mg feeding tube BEDTIME Print Language: Zambian
[2024-06-01 20:35] LABS: Venous Blood Gas Refer to POC result
[2024-06-01] MEDS: Norepinephrine Bitartrate/D5W 8 MG/250 ML PLAST..BAG 10.63 MG IVCONT (20:35)
[2024-06-01 20:37] LABS: Lactic Acid 4.6 mmol/L (0.5-2.0)
[2024-06-01 20:47] LABS: Influenza A PCR NEGATIVE (Negative); Influenza B PCR NEGATIVE (Negative); Resp Syncy Virus RNA Qual PCR NEGATIVE (Negative); SARS COV2 PCR INHOUSE NEGATIVE (Negative)
[2024-06-01 21:40] LABS: Appearance Urine Turbid; Color Urine DK YELLOW; Glucose Urine UA Negative (Negative); Leukocyte Esterase Urine Large (3+) (Negative); Nitrite Urine Positive (Negative); PH 5.5 (5.0-9.0); Specific Gravity - Urine 1.025 (1.005-1.025); UMIC TRIGGER UACC YES; Urine Blood Moderate (2+) (Negative); Urine Ketones Trace mg/dL (Negative); Urine Protein 300 (3+) mg/dL (Neg-Trace)
[2024-06-01] MEDS: 0.9 % Sodium Chloride 500 ML IV (21:54)
[2024-06-01 21:56] LABS: Bacteria Urine 4+ (None Seen); Hyaline Casts Urine 0-2 /LPF (0-2); RBC Urine >20 /HPF (0-2); Squamous Epithelial Cell Urine 0-2 /HPF (0-2); UACC Culture Trigger YES; WBC Urine >50 /HPF (0-5)
[2024-06-01 21:58] LABS: Reflex Lactate? Lactic Acid Added
[2024-06-01] MEDS: Albumin Human 25 % 100 ML 133.33 ML IV ×2 (22:00→22:33)
[2024-06-01] MEDS: Doxycycline Hyclate 100 MG in 0.9 % Sodium Chloride 250 ML 166.67 MG IV (22:20)
[2024-06-01] MEDS: Hydrocortisone Sod Succ/PF 100 MG VIAL IVPUSH (22:20)
--- NOTE | 2024-06-01 23:22 | PC.NURSE ---
Called and spoke with guardian and updated family on location of transfer for the patient. Notified that patient is going to [facility] ICU. Report also called to hospital and spoke with Sameera ANGELES
[2024-06-01 23:23] LABS: Troponin-I High Sensitivity 68.8 ng/L (<3.5-35.0); ~Lactic Acid-LAB USE ONLY 2.9 mmol/L (0.5-2.0)
[2024-06-01] MEDS: Norepinephrine Bitartrate/D5W 8 MG/250 ML PLAST..BAG 159.47 MG IVCONT (23:43)
[2024-06-02 00:57] LABS: Reflex Lactate? 2 Y
== END 2024-06-02 00:01 | disposition short-term general hospital (02) ==
PROVIDERS: Emergency Provider Student in an Organized Health Care Education/Training Program; PCP Hospitalist
DX: N17.9 Acute kidney failure, unspecified (principal); I95.9 Hypotension, unspecified; R09.02 Hypoxemia; R53.1 Weakness; Z03.818 Encounter for observation for suspected exposure to other biological agents ruled out; Z79.899 Other long term (current) drug therapy; Z87.820 Personal history of traumatic brain injury
CPT/HCPCS: 0241U; 36415; 36556; 71045; 80048; 80076; 81001; 82803; 83605; 84484; 85007; 85025; 85027; 87040; 87077; 87086; 87088; 87186; 87205; 93005; 96361; 96374; 96375; 99285; J1720; J2185; P9047

== ENCOUNTER → 2024-06-01 19:21 | Outpatient (BNV) | payer MEDICARE, MEDICAID, SELFPAY | PROVIDERS: Emergency Provider Student in an Organized Health Care Education/Training Program; PCP Hospitalist; Visit Provider Internal Medicine Cardiovascular Disease | DX: R94.31 Abnormal electrocardiogram [ECG] [EKG] (principal) | CPT/HCPCS: 93010 ==

== ENCOUNTER → 2024-06-01 19:21 | Outpatient (BNV) | payer MEDICARE, MEDICAID, SELFPAY | PROVIDERS: Emergency Provider Student in an Organized Health Care Education/Training Program; PCP Hospitalist; Visit Provider Radiology Diagnostic Radiology | DX: J93.9 Pneumothorax, unspecified (principal) | CPT/HCPCS: 71045 ==